=== PATIENT | female | born 1945 | race Caucasian/White ===

== ENCOUNTER 2020-01-15 12:10 | Inpatient (IN) ==
--- OUTSIDE RECORDS SUMMARY | 2020-01-15 12:15 | External Medical Summary | Continuity of Care Document ---
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 Start: 27-Mar-2018 Quantity: 20 Refills: 0 ALPRAZolam 1 MG Oral Tablet; TAKE 1 TABLET 3 TIMES DAILY NEEDED. Start: 27-Mar-2018 Refills: 0 Morphine Sulfate ER 15 MG Oral Tablet Ex tended Release; Take one tab by mouth 2 times a day Start: 27-Mar-2018 Refills: 0 Jantoven 5 MG Oral Tablet; TAKE 1 TABLET DAILY DIRECTED. Start: 27-Mar-2018 Refills: 0 Synthroid 100 MCG Oral Tablet; TAKE 1 TA BLET DAILY, 30 minutes prior to breakfast or other medications Start: 27-Mar-2018 Refills: 0 Loratadine 10 MG Oral Capsule; daily Sta rt: 27-Mar-2018 Refills: 0 Esomeprazole Magnesium 20 MG Oral Capsul e Delayed Release; TAKE 1 CAPSULE ONCE DAILY. Start: 27-Mar-2018 Refills: 0 Cyclobenzaprine HCl - 10 MG Oral Tablet; 1 tab daily as needed for muscle spasms Start: 27-Mar-2018 Refills: 0 predniSONE 20 MG Oral Tablet; as directed, Start: 27-Mar-2018 Refills: 0 Meclizine HCl - 25 MG Oral Tablet; TAKE 1 TABLET 3 TIMES JEREMY LY NEEDED. Start: 27-Mar-2018 Quantity: 90 Refills: 3 Lisinopril 20 MG Oral Tablet; daily Star t: 27-Mar-2018 Refills: 0 15 Tablet Bottle Diclofenac Sodium 1 % Transdermal Gel; A pply 4 gm topically on the skin two times a day to knees as directed Start: 27-Mar-2018 Refills: 0 100 GM Tube Atenolol 25 MG Oral Tablet; TAKE 1 TABLET DAILY. Start: 27-Mar-2018 Refills: 0 45 Tablet Bottle amLODIPine Besylate 5 MG Oral Tablet; TAKE 1 TABLET DAILY. Start: 27-Mar-2018 Quantity: 30 Refills: 5 Potassium Chloride ER 10 MEQ Oral Capsul e Extended Release; take 1 tab by mouth every other day Start: 27-Mar-2018 Refills: 0 Furosemide 20 MG Oral Tablet; Twice per week Start: 27-Mar-2018 Refills: 0 Ferrous Sulfate 325 (65 Fe) MG Oral Tabl et; take 1 tab by mouth 2 times a day with food Start: 27-Mar-2018 Refills: 0 Aspirin Low Dose 81 MG Oral Tablet Delayed Release; TAKE 1 T ABLET DAILY. Start: 27-Mar-2018 Refills: 0 Velazquez Milk of Magnesia 400 MG/5ML Oral Suspension; USE DIRECTED. Start: 27-Mar-2018 Refills: 0 118 ML Bottle Fish Oil 1000 MG Oral Capsule; daily Sta rt: 27-Mar-2018 Refills: 0 Vitamin D 1000 UNIT TABS; 2 Capsules Daily Start: 27-Mar-2018 Refills: 0 Procedures History of Carotid Thromboendarterectomy Status: Completed 15-Sep-2010 0:00 History of Thoracotomy Status: Completed 25-Jan-2007 0:00 History of Thyroid Surgery Total Thyroidectomy Status: Completed History of Gallbladder Surgery Status: C ompleted History of Biopsy Of Liver Status: Compl eted History of Endoscopic Retrograde Status: Completed Cholangiopancreatography (ERCP) History of Cholecystectomy With Common Bile Duct Status: Completed Exploration History of Complete Colonoscopy Status: Completed History of Cataract Surgery Status: Comp leted Immunizations Immunizations not documented Family History Mother Family history of malignant neoplasm of uterus (V16.49) (Z80 .49) Status: Active Family history of hypertension (V17.49) (Z82.49) Status: Act malathi Family history of cerebrovascular accident (CVA) (V17.1) (Z8 2.3) Status: Active Grandmother Family history of malignant neoplasm of breast (V16.3) (Z80. 3) Status: Active Sister Family history of diabetes mellitus (V18.0) (Z83.3) Status: Active Brother Family history of diabetes mellitus (V18.0) (Z83.3) Status: Active Father Family history of cardiac disorder (V17.49) (Z82.49) Status: Active aunt Family history of cardiac disorder (V17.49) (Z82.49) Status: Active Social History - Smoking Status Ex-smoker Plan of Treatment Planned Observations Planned Goals not documented Results No Known Results Results not documented Encounters Appointment; Jeremiah White M.D. 27-Mar-2018 13:50 Encounter Diagnosis: Problem not documented
[2020-01-15] MEDS ORDERED: SODIUM CHLORIDE 0.9% 1000ML 1,000 ML IV ONE (13:11)
[2020-01-15 14:13] LABS: Basophils # (auto) 0.01 K/uL (0-0.2); Basophils % (auto) 0.1 %; Hematocrit (blood only) 43.9 % (37-47); Immature Granulocytes # (auto) 0.04 K/uL (0.00-0.02); Immature Granulocytes % (auto) 0.4 %; Lymphocytes # (auto) 0.95 K/uL (1.2-3.4); Lymphocytes % (auto) 9.1 %; Mean Corpuscular Hemoglobin 31.9 pg (25-34); Mean Corpuscular Hgb Conc 34.2 g/dL (32-36); Mean Corpuscular Volume 93.4 fL (80-100); Mean Platelet Volume 10.5 fL (7.4-10.4); Monocytes # (auto) 0.86 K/uL (0.11-0.59); Monocytes % (auto) 8.2 %; Neutrophils # (auto) 8.62 K/uL (1.4-6.5); Neutrophils % (auto) 82.2 %; Platelet Count 165 K/uL (130-400); RDW Coefficient of Variation 13.5 % (11.5-14.5); RDW Standard Deviation 46.3 fL (36.4-46.3); White Blood Count 10.48 K/uL (4.8-10.8)
[2020-01-15 14:29] LABS: BUN Creatinine Ratio 17.6 (10-20); Calcium 8.6 mg/dl (8.5-10.1); Creatinine Clr Calc Pharmacy 52.3 ml/min; Est GFR (Non-African American) 61.3; Potassium 4.1 mmol/L (3.5-5.1)
--- NOTE | 2020-01-15 14:48 | CT Scan Report ---
CT OF THE LUMBAR SPINE WITHOUT IV CONTRAST CLINICAL HISTORY: Low back pain. COMPARISON STUDY: PET/CT dated 12/07/2006. TECHNIQUE: CT scan of the lumbar spine is performed from the lower thoracic spine to the sacrum. Imag es are reviewed in the axial, sagittal, and coronal planes. IV contrast was not administered for this examination. A dose lowering technique was utilized adhering to the principles of ALARA. CT DOSE: 1751.49 mGy.cm FINDINGS: The skeletal structures are osteopenic. There is a mild inferior endplate compression defor mity of L1 and superior endplate compression deformity of L2. These are age indeterminant but new fro m the 2017 PET examination. Vertebral body height is otherwise maintained. Alignment is preserved. Th e transverse and spinous processes are intact. There is no spondylolysis. No lytic or blastic lesion is seen. Small anterior and lateral marginal osteophytes are seen throughout. There is mild multileve l degenerative disc space narrowing. A small posterior disc osteophyte complex is noted at L1-L2. The re is no CT evidence of high-grade central canal stenosis. There is facet arthropathy in the lower enrrique mbar region. This likely causes mild neural foraminal stenosis at L4-L5 and L5-S1. The visualized sac rum and bony pelvis appear intact. Sclerotic change is noted in the sacroiliac joints. Fatty atrophy is noted in the paraspinous musculature. There is advanced atherosclerotic calcification and ectasia of the abdominal aorta. The kidneys demonstrate cortical atrophy. A 5 mm nonobstructing calculus is n oted on the right. IMPRESSION: 1. There are mild age indeterminant but chronic appearing compression deformities of L1 and L2 as abo ve. These are new from 2006. 2. Osteopenia and degenerative change as above. 3. Right-sided nephrolithiasis. ACT 112: Negative or not required by law. Electronically signed by: Hi Medellin M.D. 01/15/2020 2:47 PM
--- NOTE | 2020-01-15 14:51 | CT Scan Report ---
CT thoracic spine wo con CLINICAL HISTORY: 74 years-old Female presenting with back pain. TECHNIQUE: Multidetector CT of the thoracic spine was performed without the use of intravenous contra st. IV contrast: None. One or more dose lowering techniques were used consistent with the principles of ALARA (as low as reasonably achievable), including automatic exposure control, mA or kV adjustment to individual patient size, and/or use of iterative reconstruction. COMPARISON: None. CT DOSE (mGy.cm): The estimated cumulative dose is 1751.49. FINDINGS: Carrot Buncher topogram: Unremarkable. Mildly exaggerated thoracic kyphosis. Multilevel vertebral body height loss most severe at T9, which has an appearance that suggests acuity. There is moderate compression deformity at T9 with a mild to moderate compression deformity at T8 and mild compression deformity at L1. Minimal compression deform ities at T3 and T4. Remaining vertebral bodies demonstrate normal height and alignment. No retropulsi on of the posterior cortices of the compressed levels. No osseous spinal canal narrowing. Limited [place] luation of the soft tissues of the spinal canal do not demonstrate effacement. Osseous neural foramin al narrowing evident on the right at T9-10 to a mild degree. Remaining neural foramina are widely pat ent. Atherosclerosis. Extensive dependent atelectasis in the visualized portions of the lungs. There may a lso be interlobular septal thickening and added groundglass opacity. Visualized portion of the ribs i ntact. Paraspinal musculature within normal limits for age. IMPRESSION: 1. Acute appearing moderate compression deformity of T9. Correlate with point tenderness at this lev el. 2. Several additional lesser compression deformities are chronic appearing. 3. Mild neural foraminal narrowing on the right at T9-10. 4. No significant spinal canal narrowing. ACT 112: Negative or not required by law. Electronically signed by: Herb Zapien M.D. 01/15/2020 2:49 PM
--- NOTE | 2020-01-15 15:50 | XRay Report ---
XR chest 1V portable CLINICAL HISTORY: hypoxia COMPARISON STUDY: Chest radiograph March 30, 2010. FINDINGS: Moderate cardiomegaly is noted. Mild left basilar opacity favors atelectasis. There is no c onsolidation or evidence for pulmonary edema. Incidental is made of cholecystectomy clips. IMPRESSION: 1. Moderate cardiomegaly. 2. Mild left basilar opacity suggestive of atelectasis. 3. No acute findings. ACT 112: Negative or not required by law. Electronically signed by: Armando Glover M.D. 01/15/2020 3:49 PM
[2020-01-15 16:19] LABS: Appearance Urine Clear (Clear); Bilirubin Urine Negative (Negative); Blood Urine Negative (Negative); Color Urine Dark Yellow; Glucose Urine UA Negative (Negative); Ketones Urine Negative (Negative); Leukocyte Esterase Urine Negative (Negative); Nitrite Urine Negative (Negative); Protein Urine Negative (Negative); Specific Gravity Urine 1.018 (1.000-1.030); Urobilinogen Urine Negative (Negative); pH Urine 5.5 (4.5-7.5)
[2020-01-15 17:53] LABS: Prothrombin Time 55.5 Seconds (9.0-12.0)
[2020-01-15 17:57] LABS: INR 6.2 (0.9-1.1)
--- NOTE | 2020-01-15 18:08 | Emergency Department Note ---
Entered by Rupali Kirkpatrick acting as a scribe for History of Present Illness General Chief complaint: Back Injury/Pain Time Seen by Provider: 01/15/20 12:47 Source: patient History of Present Illness Provider complaint: Back Injury/Pain Onset (ago): day(s) 2 Location: back Pain Consistency: + intermittent Maximum Pain Intensity: 2 Relieved By: + none Exacerbated By: + movement Associated symptoms: + other (Urinary symptoms); no shortness of breath The patient is a 74 year old female w/ PMHx of atrial fibrillation and lung cancer who presents to the ED w/ CC of back injury/pain beginning 2 days ago. The patient states that her pain is exacerbated by movement and not relieved by anything specific. The patient notes that she takes hydrocodone and morphine at home for her pain. The patient reports experiencing urinary symptoms and her family member noted that her urine had a harsh odor. The patient denies experiencing any shortness of breath. The patient's family mentioned that the patient only has 1 lung at this time as a result of lung cancer. Home Medications Home Medications Medication Instructions Recorded Confirmed Type alprazolam 1 mg PO TID PRN 01/15/20 01/15/20 History amlodipine 2.5 mg PO DAILY 01/15/20 01/15/20 History aspirin 81 mg PO DAILY 01/15/20 01/15/20 History cholecalciferol (vitamin D3) 2,000 unit PO DAILY 01/15/20 01/15/20 History [Vitamin D3] cyclobenzaprine 10 mg PO DAILY PRN 01/15/20 01/15/20 History diclofenac sodium 4 g TOPICAL BID PRN 01/15/20 01/15/20 History docusate sodium 100 mg PO BID PRN 01/15/20 01/15/20 History [id number] [Vicks 15 ml PO UD PRN 01/15/20 01/15/20 History Nyquil Nighttime Relief] esomeprazole magnesium 20 mg PO DAILY 01/15/20 01/15/20 History ferrous sulfate 325 mg PO BIDM 01/15/20 01/15/20 History furosemide 20 mg PO MOWEFR 01/15/20 01/15/20 History hydrocodone-acetaminophen 1 tab PO Q6 PRN 01/15/20 01/15/20 History levothyroxine [Levoxyl] 100 mcg PO DAILYBB 01/15/20 01/15/20 History lisinopril 20 mg PO DAILY 01/15/20 01/15/20 History magnesium hydroxide [Milk of 30 - 60 ml PO DAILY PRN 01/15/20 01/15/20 History Magnesia] meclizine 25 mg PO TID PRN 01/15/20 01/15/20 History metoprolol succinate 12.5 mg PO DAILY 01/15/20 01/15/20 History morphine 15 mg PO BID 01/15/20 01/15/20 History omega 4-hak-esm-fish oil [Fish Oil] 1 cap PO DAILY 01/15/20 01/15/20 History potassium chloride 10 meq PO Q2D 01/15/20 01/15/20 History warfarin 2.5 mg PO QPM 01/15/20 01/15/20 History Allergies Allergy/AdvReac Type Severity Reaction Status Date / Time morphine Allergy Intermediate RASH/PRUTIT Verified 01/15/20 15:09 IS atorvastatin Allergy Unknown 0 Verified 01/15/20 15:09 escitalopram Allergy Unknown 0 Verified 01/15/20 15:09 ezetimibe Allergy Unknown 0 Verified 01/15/20 15:09 fentanyl Allergy Unknown 0 Verified 01/15/20 15:09 hydralazine Allergy Unknown SEVERELY Verified 01/15/20 15:09 FLUSHED;BURNING SENSATION;SHAKING metoclopramide Allergy Unknown 0 Verified 01/15/20 15:09 simvastatin Allergy Unknown 0 Verified 01/15/20 15:09 clarithromycin AdvReac Unknown ABD Verified 01/15/20 15:09 CRAMPING Past Med/Surg History Medical History Atrial fibrillation Lung cancer Surgical History H/O pneumonectomy Family History Other Family history non-contributory Social History Feels Safe at Home: Yes Smoking Status: Former smoker Review of Systems See HPI for pertinent positives & negatives. and A total of 10 systems reviewed and were otherwise negative Physical Exam Vital Signs Vital Signs - 24 hr 01/15/20 12:09 01/15/20 13:10 01/15/20 13:11 Temperature 36.9 C Temperature Source Oral Pulse Rate 121 H Pulse Rate [Left Finger] 103 H Pulse Strength Normal Respiratory Rate 20 18 Respiratory Effort / Characteristics Non-Labored Spontaneous Non-Labored Spontaneous Respiratory Depth Normal Normal Respiratory Pattern Regular Regular Blood Pressure 90/62 L Blood Pressure [Left Arm] 84/63 L Blood Pressure Mean 71 Blood Pressure Mean [Left Arm] 70 Blood Pressure Position Lying Blood Pressure Position [Left Arm] Lying Pulse Oximetry 80 L 93 93 Oxygen Delivery Method Room Air Nasal Cannula Nasal Cannula Oxygen Flow Rate 4 3 Sepsis Recent Fever Within 48 Hours No Sepsis New/Unexplained Change in Mental Status No Sepsis Action Taken by Nursing No Action Required 01/15/20 13:58 01/15/20 15:02 01/15/20 16:39 Temperature Temperature Source Pulse Rate Pulse Rate [Left Finger] 94 H 99 H 94 H Pulse Strength Respiratory Rate 17 18 18 Respiratory Effort / Characteristics Non-Labored Spontaneous Respiratory Depth Normal Respiratory Pattern Regular Blood Pressure Blood Pressure [Left Arm] 107/72 107/72 148/98 H Blood Pressure Mean Blood Pressure Mean [Left Arm] 83 83 114 Blood Pressure Position Blood Pressure Position [Left Arm] Lying Pulse Oximetry 95 92 94 Oxygen Delivery Method Nasal Cannula Nasal Cannula Nasal Cannula Oxygen Flow Rate 3 3 2 Sepsis Recent Fever Within 48 Hours Sepsis New/Unexplained Change in Mental Status Sepsis Action Taken by Nursing GENERAL: Well appearing, well nourished, NAD, non-toxic, nasal cannula in place, wearing glasses. EYE EXAM: Normal conjunctiva. PERRL, no anisocoria and EOM's grossly intact w/o pain. OROPHARYNX: Moist mucous membranes. Grossly normal dentition. NECK: Supple, no nuchal rigidity, no adenopathy, non-tender. No signs of meningismus. LUNGS: Decreased breath sounds right chest. Normal chest wall mechanics. HEART: NSR, no MRG. ABDOMEN: Abdomen soft, non-tender, normo-active bowel sounds, no masses, no rebound or guarding. BACK: Midline lower back pain. SKIN: No rashes and no bruising. UPPER EXTREMITIES: Upper extremities are grossly normal. LOWER EXTREMITIES: No pitting edema. No calf pain. No saddle anesthesia. Pain in back with straight leg raise. No sensory deficits. NEURO EXAM: A&O x3, cranial nerves II-XII grossly intact, normal speech, moves all 4 extremities on command w/o issue. Course Course 1252: Past medical records reviewed. The patient was evaluated in room C11B. A complete history and physical exam was performed. 1525: I spoke with the patient's family about the plan of admission and they are agreeable to it. 1713: The patient was placed back on 2L of oxygen. I spoke with EDOUARD Larson about the patient's case and Dr. Sheffield- Hospitalist will accept the patient for further evaluation. Administered Medications Discontinued Medications Sodium Chloride (Nss 1000ml) 1,000 mls @ 999 mls/hr IV .Q1H1M ONE Stop: 01/15/20 14:11 Last Infusion: 01/15/20 14:50 Dose: 0 mls/hr Documented by: [id number] Admin: 01/15/20 13:46 Dose: 999 mls/hr Documented by: [id number] Medical Decision Making Differential Diagnosis Differential diagnosis: Etiologies such as muscular strain, fracture, metastatic disease, disc herniation, sciatica, epidural abscess, vertebral osteomyelitis, discitis, spinal epidural hematoma, cord compression, cauda equina/conus medullaris syndrome, aortic disease, infection, shingles, renal colic, gastrointestinal, acute exacerbation of chronic back pain, as well as others were entertained. Medical Records Attestation: I reviewed the patient's medical records. Home Medications Current Medication List: was personally reviewed by me Laboratory Data Attestation: I reviewed the patient's lab results. Result diagrams: 01/15/20 14:00 01/15/20 14:01 Lab Results 01/15/20 01/15/20 01/15/20 Range/Units 13:57 14:00 14:01 WBC 10.48 (4.8-10.8) K/uL RBC 4.70 (4.2-5.4) M/uL Hgb 15.0 (12.0-16.0) g/dL Hct 43.9 (37-47) % MCV 93.4 (80-100) fL MCH 31.9 (25-34) pg MCHC 34.2 (32-36) g/dL RDW Std Deviation 46.3 (36.4-46.3) fL RDW Coeff of Richar 13.5 (11.5-14.5) % Plt Count 165 (130-400) K/uL MPV 10.5 H (7.4-10.4) fL Immature Gran % (Auto) 0.4 % Neut % (Auto) 82.2 % Lymph % (Auto) 9.1 % [place] % (Auto) 8.2 % Eos % (Auto) 0.0 % Baso % (Auto) 0.1 % Immature Gran # (Auto) 0.04 H (0.00-0.02) K/uL Neut # (Auto) 8.62 H (1.4-6.5) K/uL Lymph # (Auto) 0.95 L (1.2-3.4) K/uL [place] # (Auto) 0.86 H (0.11-0.59) K/uL Eos # (Auto) 0.00 (0-0.5) K/uL Baso # (Auto) 0.01 (0-0.2) K/uL PT 55.5 H (9.0-12.0) Seconds INR 6.2 H* (0.9-1.1) Sodium 133 L (136-145) mmol/L Potassium 4.1 (3.5-5.1) mmol/L Chloride 101 (98-107) mmol/L Carbon Dioxide 23 (21-32) mmol/L Anion Gap 9.0 (3-11) BUN 16 (7-18) mg/dl Creatinine 0.91 (0.6-1.2) mg/dl Est Cr Clr Drug Dosing 52.3 ml/min Est GFR ( Amer) 71.0 Est GFR (Non-Af Amer) 61.3 BUN/Creatinine Ratio 17.6 (10-20) Glucose 115 H (70-99) mg/dl Calcium 8.6 (8.5-10.1) mg/dl Urine Color Urine Appearance (Clear) Urine pH (4.5-7.5) Ur Specific [place] (1.000-1.030) Urine Protein (Negative) Urine Glucose (UA) (Negative) Urine Ketones (Negative) Urine Blood (Negative) Urine Nitrite (Negative) Urine Bilirubin (Negative) Urine Urobilinogen (Negative) Ur Leukocyte Esterase (Negative) 01/15/20 Range/Units 16:03 WBC (4.8-10.8) K/uL RBC (4.2-5.4) M/uL Hgb (12.0-16.0) g/dL Hct (37-47) % MCV (80-100) fL MCH (25-34) pg MCHC (32-36) g/dL RDW Std Deviation (36.4-46.3) fL RDW Coeff of Richar (11.5-14.5) % Plt Count (130-400) K/uL MPV (7.4-10.4) fL Immature Gran % (Auto) % Neut % (Auto) % Lymph % (Auto) % [place] % (Auto) % Eos % (Auto) % Baso % (Auto) % Immature Gran # (Auto) (0.00-0.02) K/uL Neut # (Auto) (1.4-6.5) K/uL Lymph # (Auto) (1.2-3.4) K/uL [place] # (Auto) (0.11-0.59) K/uL Eos # (Auto) (0-0.5) K/uL Baso # (Auto) (0-0.2) K/uL PT (9.0-12.0) Seconds INR (0.9-1.1) Sodium (136-145) mmol/L Potassium (3.5-5.1) mmol/L Chloride (98-107) mmol/L Carbon Dioxide (21-32) mmol/L Anion Gap (3-11) BUN (7-18) mg/dl Creatinine (0.6-1.2) mg/dl Est Cr Clr Drug Dosing ml/min Est GFR ( Amer) Est GFR (Non-Af Amer) BUN/Creatinine Ratio (10-20) Glucose (70-99) mg/dl Calcium (8.5-10.1) mg/dl Urine Color Dark Yellow Urine Appearance Clear (Clear) Urine pH 5.5 (4.5-7.5) Ur Specific [place] 1.018 (1.000-1.030) Urine Protein Negative (Negative) Urine Glucose (UA) Negative (Negative) Urine Ketones Negative (Negative) Urine Blood Negative (Negative) Urine Nitrite Negative (Negative) Urine Bilirubin Negative (Negative) Urine Urobilinogen Negative (Negative) Ur Leukocyte Esterase Negative (Negative) Imaging Data Radiologist's Impression: Radiology results as stated below per my review and the radiologist's interpretation: CT OF THE LUMBAR SPINE WITHOUT IV CONTRAST CLINICAL HISTORY: Low back pain. COMPARISON STUDY: PET/CT dated 12/07/2006. TECHNIQUE: CT scan of the lumbar spine is performed from the lower thoracic spine to the sacrum. Images are reviewed in the axial, sagittal, and coronal planes. IV contrast was not administered for this examination. A dose lowering technique was utilized adhering to the principles of ALARA. CT DOSE: 1751.49 mGy.cm FINDINGS: The skeletal structures are osteopenic. There is a mild inferior endplate compression deformity of L1 and superior endplate compression deformity of L2. These are age indeterminant but new from the 2017 PET examination. Vertebral body height is otherwise maintained. Alignment is preserved. The transverse and spinous processes are intact. There is no spondylolysis. No lytic or blastic lesion is seen. Small anterior and lateral marginal osteophytes are seen throughout. There is mild multilevel degenerative disc space narrowing. A small posterior disc osteophyte complex is noted at L1-L2. There is no CT evidence of high-grade central canal stenosis. There is facet arthropathy in the lower lumbar region. This likely causes mild neural foraminal stenosis at L4-L5 and L5-S1. The visualized sacrum and bony pelvis appear intact. Sclerotic change is noted in the sacroiliac joints. Fatty atrophy is noted in the paraspinous musculature. There is advanced atherosclerotic calcification and ectasia of the abdominal aorta. The kidneys demonstrate cortical atrophy. A 5 mm nonobstructing calculus is noted on the right. IMPRESSION: 1. There are mild age indeterminant but chronic appearing compression deformities of L1 and L2 as above. These are new from 2006. 2. Osteopenia and degenerative change as above. 3. Right-sided nephrolithiasis. ACT 112: Negative or not required by law. Electronically signed by: Hi Medellin M.D. 01/15/2020 2:[address] thoracic spine wo con CLINICAL HISTORY: 74 years-old Female presenting with back pain. TECHNIQUE: Multidetector CT of the thoracic spine was performed without the use of intravenous contrast. IV contrast: None. One or more dose lowering techniques were used consistent with the principles of ALARA (as low as reasonably achievable), including automatic exposure control, mA or kV adjustment to individual patient size, and/or use of iterative reconstruction. COMPARISON: None. CT DOSE (mGy.cm): The estimated cumulative dose is 1751.49. FINDINGS: Slot Host topogram: Unremarkable. Mildly exaggerated thoracic kyphosis. Multilevel vertebral body height loss most severe at T9, which has an appearance that suggests acuity. There is moderate compression deformity at T9 with a mild to moderate compression deformity at T8 and mild compression deformity at L1. Minimal compression deformities at T3 and T4. Remaining vertebral bodies demonstrate normal height and alignment. No retropulsion of the posterior cortices of the compressed levels. No osseous spinal canal narrowing. Limited evaluation of the soft tissues of the spinal canal do not demonstrate effacement. Osseous neural foraminal narrowing evident on the right at T9-10 to a mild degree. Remaining neural foramina are widely patent. Atherosclerosis. Extensive dependent atelectasis in the visualized portions of the lungs. There may also be interlobular septal thickening and added groundglass opacity. Visualized portion of the ribs intact. Paraspinal musculature within normal limits for age. IMPRESSION: 1. Acute appearing moderate compression deformity of T9. Correlate with point tenderness at this level. 2. Several additional lesser compression deformities are chronic appearing. 3. Mild neural foraminal narrowing on the right at T9-10. 4. No significant spinal canal narrowing. ACT 112: Negative or not required by law. Electronically signed by: Herb Zapien M.D. 01/15/2020 2:49 PM Blood Pressure Blood Pressure Findings: Normal blood pressure Blood Pressure Disposition: further management by hospitalist MADELYN Narrative The patient is a 74 year old female w/ PMHx of atrial fibrillation and lung cancer who presents to the ED w/ CC of back injury/pain beginning 2 days ago. Continuous Cardiac Monitoring: An order was placed for continuous cardiac monitoring. The monitor shows a rate of 103 with sinus rhythm. Patient was seen and evaluated at the bedside. The patient reportedly had worsening back pain beginning on Tuesday. The patient is on p.o. narcotics at home. Was given some narcotics in route. The patient was shown to be somewhat hypoxic. The patient does follow with her primary surgeon Dr. Riggins daily as the patient has a prior history of a Pulmon ectomy on the right side. This is secondary to lung cancer. The patient does not use oxygen at home. The patient did a blood work completed as the patient does have some lower lumbar midline back pain. They also did state that she has a history of smelling urine A. fib and is currently treated and does see Dr. Loredo. Patient did have blood work completed along with urinalysis EKG and CTs of the thoracic and lumbar spine. Does not have any neurologic deficits in her lower extremities. Patient does have an acute along with may be a subacute compression fractures of the lumbar spine. The patient does have notable hypoxia this may be chronic in nature given that the patient has a prior history of a pulmonary to me but given that she has not had any prior history of documented this or any at home oxygen I believe she would benefit from further treatment as an inpatient. I did try to wean the patient off the oxygen but the patient was still hypoxic. Chest x- ray is clear other than some atelectasis. I did speak with the on-call hospitalist agreed to further evaluate treat the patient. Patient was admitted to the medicine service. Impression & Plan Hypoxia, Fracture of T9 vertebra, Fracture of L1 vertebra, Fracture of L2 vertebra, Back pain Discharge Plan Visit Data Chief Complaint: Back Injury/Pain ED Provider: Martell Avitia Discharge Problem: Hypoxia, Fracture of T9 vertebra, Fracture of L1 vertebra, Fracture of L2 vertebra, Back pain Forms Stand Alone Forms: My [facility] Prescriptions Prescriptions: No Action cyclobenzaprine 10 mg tablet 10 mg PO DAILY PRN (Reason: Muscle Spasm) RF: 0 alprazolam 1 mg tablet 1 mg PO TID PRN (Reason: Anxiety) RF: 0 lisinopril 20 mg tablet 20 mg PO DAILY RF: 0 amlodipine 2.5 mg tablet 2.5 mg PO DAILY RF: 0 potassium chloride 10 mEq tablet extended release 10 meq PO Q2D RF: 0 aspirin 81 mg Tablet,Delayed Release (Dr/Ec) 81 mg PO DAILY RF: 0 levothyroxine [Levoxyl] 100 mcg tablet 100 mcg PO DAILYBB RF: 0 magnesium hydroxide [Milk of Magnesia] 400 mg/5 mL Suspension 30 - 60 ml PO DAILY PRN (Reason: Constipation) RF: 0 meclizine 25 mg tablet 25 mg PO TID PRN (Reason: Dizziness) RF: 0 hydrocodone-acetaminophen 7.5-325 mg tablet 1 tab PO Q6 PRN (Reason: Pain) RF: 0 ferrous sulfate 325 mg (65 mg iron) tablet 325 mg PO BIDM RF: 0 warfarin 5 mg tablet 2.5 mg PO QPM RF: 0 morphine 15 mg tablet extended release 15 mg PO BID RF: 0 furosemide 20 mg tablet 20 mg PO MOWEFR RF: 0 metoprolol succinate 25 mg tablet extended release 24 hr 12.5 mg PO DAILY RF: 0 docusate sodium 100 mg Tablet 100 mg PO BID PRN (Reason: Constipation) RF: 0 esomeprazole magnesium 20 mg capsule,delayed release(DR/EC) 20 mg PO DAILY RF: 0 cholecalciferol (vitamin D3) [Vitamin D3] 25 mcg (1,000 unit) Capsule 2,000 unit PO DAILY RF: 0 diclofenac sodium 1 % gel 4 g TOPICAL BID PRN (Reason: Pain) RF: 0 omega 3-ilv-lxc-fish oil [Fish Oil] 1,000 mg (120 mg-180 mg) Capsule 1 cap PO DAILY RF: 0 [place] Nyquil Nighttime Relief 6.25-15-325 mg/15 mL Liquid 15 ml PO UD PRN (Reason: PRN) RF: 0 Discharge Problem: Fracture of T9 vertebra Qualifiers: Encounter type: initial encounter Fracture type: closed Fracture morphology: unspecified fracture morphology Qualified Code(s): S22.079A - Unspecified fracture of T9-T10 vertebra, initial encounter for closed fracture Fracture of L1 vertebra Qualifiers: Encounter type: initial encounter Fracture type: closed Fracture morphology: unspecified fracture morphology Qualified Code(s): S32.019A - Unspecified fracture of first lumbar vertebra, initial encounter for closed fracture Fracture of L2 vertebra Qualifiers: Encounter type: initial encounter Fracture type: closed Fracture morphology: unspecified fracture morphology Qualified Code(s): S32.029A - Unspecified fracture of second lumbar vertebra, initial encounter for closed fracture Back pain Qualifiers: Back pain location: back pain in unspecified location Chronicity: unspecified B ack pain laterality: unspecified Qualified Code(s): M54.9 - Dorsalgia, unspecified The scribe's documentation has been prepared under my direction and personally reviewed by me in its entirety. I confirm that the note above accurately reflects all work, treatment, procedures, and medical decision making performed by me.
--- NOTE | 2020-01-15 19:01 | History & Physical Report ---
Date of Service January 15, 2020 Assessment & Plan (1) Compression fracture: -Admit to [facility] with telemetry -Patient presenting from home with reports of intractable back pain for the past 3 days. Patient reports she heard a "pop" while carrying a flowerpot. -In the ED, CT thoracic and lumbar spine shows age-indeterminate compression fracture at L1 and L2, acute compression fracture at T9 -Pain control (patient taking MS Contin 50 mg twice daily and as needed hydrocodone/acetaminophen at home -these doses will be continued, PRN IV morphine ordered for severe pain -Check vitamin D level -Spine Ortho consult -PT/OT (2) Hypoxia: -Found to be hypoxic on room air at 80% -? Due to IV narcotics received for EMS; denies chest pain and shortness of breath -History of right upper lobe lobectomy -CXR negative for acute cardiopulmonary findings -Doubt PE given supratherapeutic INR -Wean O2 as able (3) Chronic atrial fibrillation: (4) Supratherapeutic INR: -Rate controlled on metoprolol, will continue -Anticoagulated on Coumadin with INR 6.2; no signs of bleeding, hold Coumadin tonight (5) Hypertension: -BP controlled, continue amlodipine, metoprolol, lisinopril (6) DVT prophylaxis: -Anticoagulated on Coumadin with supratherapeutic INR History of Present Illness Chief Complaint: Back pain Primary Care Provider: Chano Pierre MD 74-year-old female who presents the ED for evaluation of back pain. Patient reports history of chronic back pain. 3 days ago, patient reports she was carrying a flowerpot when she heard something in her mid back " pop". She then had sudden onset of severe pain. Since that time, patient has been having much difficulty getting up out of bed and ambulating. She denies lower extremity numbness or tingling. No bowel or bladder dysfunction. Patient reports he otherwise been feeling well recently. Denies chest pain or shortness of breath. No lightheadedness, dizziness, diaphoresis, syncopal events. She denies abdominal pain, nausea, vomiting, diarrhea. No fevers or chills. Notes that her urine has been concentrated with a foul odor the past couple of days. Denies dysuria. In the ED, CT thoracic spine shows an acute compression fracture at T9, CT lumbar spine shows age-indeterminate compression fractures at L1 and L2. Patient was hypoxic on room air in the 80s. She denies shortness of breath. CXR is negative for acute cardiopulmonary findings. She is now saturating well on 1 L of oxygen at the time my exam. Labs show a supratherapeutic INR at 6.2, otherwise unremarkable. Allergies Allergy/AdvReac Type Severity Reaction Status Date / Time morphine Allergy Intermediate RASH/PRUTIT Verified 01/15/20 15:09 IS atorvastatin Allergy Unknown 0 Verified 01/15/20 15:09 escitalopram Allergy Unknown 0 Verified 01/15/20 15:09 ezetimibe Allergy Unknown 0 Verified 01/15/20 15:09 fentanyl Allergy Unknown 0 Verified 01/15/20 15:09 hydralazine Allergy Unknown SEVERELY Verified 01/15/20 15:09 FLUSHED;BURNING SENSATION;SHAKING metoclopramide Allergy Unknown 0 Verified 01/15/20 15:09 simvastatin Allergy Unknown 0 Verified 01/15/20 15:09 clarithromycin AdvReac Unknown ABD Verified 01/15/20 15:09 CRAMPING Home Medications Home Medications Medication Instructions Recorded Confirmed Type alprazolam 1 mg PO TID PRN 01/15/20 01/15/20 History amlodipine 2.5 mg PO DAILY 01/15/20 01/15/20 History aspirin 81 mg PO DAILY 01/15/20 01/15/20 History cholecalciferol (vitamin D3) 2,000 unit PO DAILY 01/15/20 01/15/20 History [Vitamin D3] cyclobenzaprine 10 mg PO DAILY PRN 01/15/20 01/15/20 History diclofenac sodium 4 g TOPICAL BID PRN 01/15/20 01/15/20 History docusate sodium 100 mg PO BID PRN 01/15/20 01/15/20 History mytedrtzzd-ME-ufhzsdstrrdgm [Vicks 15 ml PO UD PRN 01/15/20 01/15/20 History Nyquil Nighttime Relief] esomeprazole magnesium 20 mg PO DAILY 01/15/20 01/15/20 History ferrous sulfate 325 mg PO BIDM 01/15/20 01/15/20 History furosemide 20 mg PO MOWEFR 01/15/20 01/15/20 History hydrocodone-acetaminophen 1 tab PO Q6 PRN 01/15/20 01/15/20 History levothyroxine [Levoxyl] 100 mcg PO DAILYBB 01/15/20 01/15/20 History lisinopril 20 mg PO DAILY 01/15/20 01/15/20 History magnesium hydroxide [Milk of 30 - 60 ml PO DAILY PRN 01/15/20 01/15/20 History Magnesia] meclizine 25 mg PO TID PRN 01/15/20 01/15/20 History metoprolol succinate 12.5 mg PO DAILY 01/15/20 01/15/20 History morphine 15 mg PO BID 01/15/20 01/15/20 History omega 8-yub-kbh-fish oil [Fish Oil] 1 cap PO DAILY 01/15/20 01/15/20 History potassium chloride 10 meq PO Q2D 01/15/20 01/15/20 History warfarin 2.5 mg PO QPM 01/15/20 01/15/20 History Past Med/Surg History Medical History Chronic anticoagulation Chronic atrial fibrillation Chronic pain Dyslipidemia GERD (gastroesophageal reflux disease) History of lung cancer Hypertension Iron deficiency anemia Post-surgical hypothyroidism Surgical History H/O pneumonectomy Right upper lobe secondary to lung cancer H/O thyroidectomy History of carotid endarterectomy Right Hx of cholecystectomy Family History Mother Stroke Father Heart disease Social History Preferred Language: Belizean 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 Ability: Effective 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 Beliefs That Will Affect Care: None marital status: / Current Living Situation: Alone Other Information That Helps Us Care for You: No Feels Safe at Home: Yes Safety Concerns: Feels Safe At This Time Smoking Status: Never smoker Hx Alcohol Use: Yes Alcohol type: wine Hx Substance Use: No Review of Systems Review of Systems: ROS per HPI, all other systems reviewed and negative Physical Exam Constitutional: WD/WN, vitals as above Eyes: PERRL, conjunctivae normal, anicteric sclerae ENMT: external ear and nose normal, oropharynx normal Respiratory: normal respiratory effort, lungs clear to auscultation Cardiovascular: Rate/Rhythm: regular rate and regular rhythm Vessels: normal peripheral pulses Extremities: no edema Gastrointestinal (Abdomen): normal bowel sounds, soft, nontender, no hepatosplenomegaly Musculoskeletal: no cyanosis or clubbing, extremities motor strength 5/5 pedal pushes and pulls strong BL, able to lift both legs against resistance Skin: no rashes, warm and dry Neurologic: PERRL, EOMI, accommodation nl, no face palsy, no dysarthria Psychiatric: A+Ox3, euthymic affect Results & Data Vital Signs (Past 12 Hours) Vital Signs Temp Pulse Pulse Resp BP BP Pulse Ox 01/15/20 18:28 88 18 112/67 92 01/15/20 16:39 94 H 18 148/98 H 94 01/15/20 15:02 99 H 18 107/72 92 01/15/20 13:58 94 H 17 107/72 95 01/15/20 13:11 103 H 18 84/63 L 93 01/15/20 13:10 93 01/15/20 12:09 36.9 C 121 H 20 90/62 L 80 L Laboratory Results Short CBC 01/15/20 Range/Units 14:00 WBC 10.48 (4.8-10.8) K/uL Hgb 15.0 (12.0-16.0) g/dL Hct 43.9 (37-47) % Plt Count 165 (130-400) K/uL BMP 01/15/20 14:01 Sodium 133 L Potassium 4.1 Chloride 101 Carbon Dioxide 23 BUN 16 Creatinine 0.91 Glucose 115 H Calcium 8.6 Urine 01/15/20 Range/Units 16:03 Urine Color Dark Yellow Urine Appearance Clear (Clear) Urine pH 5.5 (4.5-7.5) Ur Specific [place] 1.018 (1.000-1.030) Urine Protein Negative (Negative) Urine Glucose (UA) Negative (Negative) Diagnostic Findings CXR IMPRESSION: 1. Moderate cardiomegaly. 2. Mild left basilar opacity suggestive of atelectasis. 3. No acute findings. THORACIC SPINE CT IMPRESSION: 1. Acute appearing moderate compression deformity of T9. Correlate with point tenderness at this level. 2. Several additional lesser compression deformities are chronic appearing. 3. Mild neural foraminal narrowing on the right at T9-10. 4. No significant spinal canal narrowing. LUMBAR SPINE CT IMPRESSION: 1. There are mild age indeterminant but chronic appearing compression deformities of L1 and L2 as above. These are new from 2007. 2. Osteopenia and degenerative change as above. 3. Right-sided nephrolithiasis. Code Status & VTE Plan Code Status Patient is a full code as per my discussion with her. VTE Prophylaxis Plan VTE Prophylaxis will be ordered: No Supervising Physician Co-Signing Physician Notes Attending Addendum: The patient was seen and examined in ER in presence of the family members She presented to ER with acute back pain without any radiation which happened without any significant injury and/or weightbearing She was complaining of pain during examination of the upper back Denied any other significant symptoms On examination Lying in bed comfortably Hemodynamically stable Chest was clear to auscultate bilaterally HeartS1-S2 regular Abdomenbenign Extremitiesno edema Localized tenderness lower thoracic area of the spine CNSalert, awake and oriented x3 No focal sensory or motor deficit appreciated Admission labs and imaging studies reviewed Has acute compression fracture at T9 with age indeterminate compression fractures at L1 and L2 Control of pain, Ortho evaluation and PT and OT evaluation Agree with assessment and plan as outlined above by Calli Sheffield
[2020-01-15] MEDS ORDERED: DOCUSATE SODIUM 100 MG CAP PO PRN (20:21)
[2020-01-15] MEDS: ACETAMINOPHEN 325 MG TAB PO SCH (20:53)
[2020-01-15] MEDS: POTASSIUM CHLORIDE 10 MEQ TABCR PO SCH (20:53)
[2020-01-15] MEDS: MoRPHine SULFATE CR 15 MG TABCR PO SCH (20:53)
[2020-01-15] MEDS: HYDROCODONE/ACETAMINOPHEN 7.5/325MG TAB PO PRN (21:27)
[2020-01-16] MEDS: ACETAMINOPHEN 325 MG TAB PO SCH ×4 (01:24→20:10)
[2020-01-16] MEDS: MoRPHine SULFATE 4 MG/ML 1 ML CARP\\VIAL IV PRN ×3 (06:10→21:57)
[2020-01-16] MEDS: LEVOTHYROXINE SODIUM 100 MCG TABLET PO SCH (06:11)
[2020-01-16 07:38] LABS: Hematocrit (blood only) 46.1 % (37-47); Hemoglobin 15.5 g/dL (12.0-16.0); Mean Corpuscular Hemoglobin 31.8 pg (25-34); Mean Corpuscular Hgb Conc 33.6 g/dL (32-36); Mean Corpuscular Volume 94.5 fL (80-100); Mean Platelet Volume 10.3 fL (7.4-10.4); Platelet Count 133 K/uL (130-400); RDW Coefficient of Variation 13.6 % (11.5-14.5); RDW Standard Deviation 46.9 fL (36.4-46.3); Red Blood Count 4.88 M/uL (4.2-5.4); White Blood Count 6.39 K/uL (4.8-10.8)
[2020-01-16 07:56] LABS: Prothrombin Time 55.9 Seconds (9.0-12.0)
[2020-01-16 08:10] LABS: INR 6.2 (0.9-1.1)
[2020-01-16 08:12] LABS: BUN Creatinine Ratio 18.3 (10-20); Calcium 9.1 mg/dl (8.5-10.1); Creatinine Clr Calc Pharmacy 52.4 ml/min; Est GFR (Non-African American) 62.1
[2020-01-16] MEDS: HYDROCODONE/ACETAMINOPHEN 7.5/325MG TAB PO PRN (08:45)
[2020-01-16] MEDS: lisinopriL 20 MG TAB PO SCH (08:46)
[2020-01-16] MEDS: METOPROLOL SUCC 25MG EXT REL TAB PO SCH (08:46)
[2020-01-16] MEDS: OMEGA-3 (PURIFIED FISH OIL) 1 GM CAP PO SCH (08:46)
[2020-01-16] MEDS: MoRPHine SULFATE CR 15 MG TABCR PO SCH ×2 (08:46→20:10)
[2020-01-16] MEDS: AMLODIPINE BESYLATE 5 MG TAB PO SCH (08:47)
[2020-01-16] MEDS: CHOLECALCIFEROL 1,000 UNITS 25 MCG TAB PO SCH (08:47)
[2020-01-16] MEDS: FERROUS SULFATE 325 MG TAB PO SCH ×2 (08:47→16:29)
[2020-01-16] MEDS: FUROSEMIDE 20 MG TAB PO SCH (08:48)
[2020-01-16] MEDS: PANTOprazole 40 MG TAB PO SCH (08:51)
[2020-01-16] MEDS ORDERED: ASPIRIN 81 MG ECTAB PO SCH (09:00)
[2020-01-16] MEDS ORDERED: ALBUT/IPRATROP 3MG/0.5MG NEB 3 ML VIAL NEB PRN (15:24)
[2020-01-16] MEDS ORDERED: GUAIFENESIN/DEXTROM SYRUP 200MG/20MG 10ML UDC PO PRN (15:25)
[2020-01-16] MEDS ORDERED: MAGNESIUM HYDROXIDE SUSP 30 ML UDC PO ONE (15:29)
[2020-01-16] MEDS ORDERED: MAGNESIUM HYDROXIDE SUSP 30 ML UDC PO PRN (15:30)
--- NOTE | 2020-01-16 15:34 | Hospitalist Progress Note ---
Date of Service January 16, 2020 Assessment & Plan (1) Compression fracture: Admitted with pathologic compression fracture of T9 -Patient presenting from home with reports of intractable back pain for the past 3 days. Patient reports she heard a "pop" while carrying a flowerpot. T9 spontaneous fracture T9 vertebrae Occurred without any trauma, no significant weightbearing -CT thoracic and lumbar spine :acute compression fracture at T9 age-indeterminate compression fracture at L1 and L2, -Pain control (patient taking MS Contin 50 mg twice daily and as needed hydrocodone/acetaminophen at home -these doses will be continued, PRN IV morphine ordered for severe pain -Spine Ortho consult-Consulted -PT/OT-Eval appreciated, recommend rehab Constipation: Has chronic constipation-due to narcotic pain medications: Takes MiraLAX as needed at home Ordered for Colace, increased dose of MiraLAX, Will add as needed Dulcolax, senna if no bowel movement after above bowel regimen Patient denies of any abdominal pain, no nausea, no bloating (2) Hypoxia: -Found to be hypoxic on room air at 80% -? Due to IV narcotics received for EMS; denies chest pain and shortness of breath -History of right upper lobe lobectomy -CXR negative for acute cardiopulmonary findings Order for a flutter valve, incentive spirometry:Patient unable to take deep breaths secondary to back pain/T9 compression fracture Wean down O2 Bronchitis/cough Has nonproductive cough worse in the last 2 days, no fever or chills no shortness of breath Episode Of hypoxia noted, improving We will start on empirically on p.o. doxycycline 5 days course (3) Chronic atrial fibrillation: Rate controlled on metoprolol will be continued Coumadin on hold for elevated INR more than 6 (4) Supratherapeutic INR: On admission INR 6.1, Coumadin on hold, repeat INR is 6.2 Ordered for 2.5 mg of p.o. vitamin K, repeat INR in a.m. Urinary retention Acute, Large amount of residual urine noted on bladder scan Patient required to have a straight cath last night Ordered for Stephenson catheter Ordered for UA and culture Urology consulted (5) Hypertension: -BP controlled, continue amlodipine, metoprolol, lisinopril (6) DVT prophylaxis: supratherapeutic INR CODE STATUS: Full code Disposition: Patient will need to go to rehab, willing to go to [facility] family, case management updated Admission and Anticipated Discharge Date Admission Date: January 15, 2020 Subjective Patient has nonproductive cough, No fever or chills, back pain persist-No pain at rest, worse pain with movement, transfer Unable to urinate/void this morning, bladder scan shows more than 600 mL of urine Stephenson catheter placed Patient Complaints of not able to have bowel movement for the last 3-4 days, has chronic constipation No complaint of abdominal pain no nausea vomiting tolerating diet well Patient is willing to go to rehab after discharge from hospital Patient's 2 sons present at bedside, Review of Systems Review of Systems: All systems reviewed & are unremarkable except as noted in HPI & below Constitutional: no fever and no chills Respiratory: + cough; no dyspnea, no pain with cough and no sputum production Cardiovascular: no chest pain Genitourinary: + problem reported (Urinary retention) Musculoskeletal: no radicular pain and no muscle weakness Low back pain, Physical Exam Constitutional: WD/WN, vitals as above + obese; no acute distress Eyes: PERRL, conjunctivae normal, anicteric sclerae ENMT: external ear and nose normal, oropharynx normal Neck: trachea midline, no thyromegaly Respiratory: normal respiratory effort and + cough; no respiratory distress Auscultation: no crackles, no rales, no rhonchi and no wheezes Cardiovascular: RRR, no murmur, no edema Gastrointestinal (Abdomen): Inspection/Auscultation: normal bowel sounds; abdomen not distended Percussion/Palpation: abdomen soft; abdomen nontender Musculoskeletal: Extremities: extremities normal to inspection and + abnormal strength; no joint enlargement Low back pain/point tenderness around mid thoracic area Skin: no rashes, warm and dry Neurologic: PERRL, EOMI, accommodation nl, no face palsy, no dysarthria Psychiatric: A+Ox3, euthymic affect Results & Data ([facility]) Vital Signs (Past 12 Hours) Vital Signs Temp Pulse Resp BP BP Pulse Ox 01/16/20 15:12 36.9 C 88 20 122/86 94 01/16/20 07:24 36.9 C 93 H 18 144/84 H 96
--- NOTE | 2020-01-16 15:40 | Consultation ---
Date of Consultation January 16, 2020 Assessment & Plan (1) Compression fracture: Patient appears to have an acute T9 fracture without specific accident, trauma, fall. Options have been reviewed including conservative treatment versus kyphoplasty. She is certainly very high risk for kyphoplasty/any surgical procedure. This is in light of her multiple medical comorbidities including supratherapeutic INR, pneumonectomy, severe osteoporosis/osteopenia making her at greater risk for adjacent level fractures. We have therefore discussed continuing with conservative treatment. This includes pain control. She is weight-bear as tolerated. Would not fit her with a brace due to her pneumonectomy. This will be quite restrictive for her. Would also consider social media analyst consult with possible referral to acute rehab versus SNF for short period of time. Supervising Physician Co-Signing Physician Notes Dr. Ramo Hernandez History of Present Illness This is a pleasant 74-year-old female we are asked to see in consultation regarding a compression fracture. Patient has chronic pain which she is on chronic narcotics for. She reports 3 days ago she was lifting up a pot and then started to experience thoracolumbar pain. No radiating pain. She alternates between a cane and a walker at home. She lives at home independently. Denies radicular pain. Is currently catheterized secondary to urinary retention. She came into the ER yesterday secondary to her intractable back pain. Attending Physician: Brianna Waldron MD Allergies Allergy/AdvReac Type Severity Reaction Status Date / Time morphine Allergy Intermediate RASH/PRUTIT Verified 01/15/20 15:09 IS atorvastatin Allergy Unknown 0 Verified 01/15/20 15:09 escitalopram Allergy Unknown 0 Verified 01/15/20 15:09 ezetimibe Allergy Unknown 0 Verified 01/15/20 15:09 fentanyl Allergy Unknown 0 Verified 01/15/20 15:09 hydralazine Allergy Unknown SEVERELY Verified 01/15/20 15:09 FLUSHED;BURNING SENSATION;SHAKING metoclopramide Allergy Unknown 0 Verified 01/15/20 15:09 simvastatin Allergy Unknown 0 Verified 01/15/20 15:09 clarithromycin AdvReac Unknown ABD Verified 01/15/20 15:09 CRAMPING Home Medications Home Medications Medication Instructions Recorded Confirmed Type alprazolam 1 mg PO TID PRN 01/15/20 01/15/20 History amlodipine 2.5 mg PO DAILY 01/15/20 01/15/20 History aspirin 81 mg PO DAILY 01/15/20 01/15/20 History cholecalciferol (vitamin D3) 2,000 unit PO DAILY 01/15/20 01/15/20 History [Vitamin D3] cyclobenzaprine 10 mg PO DAILY PRN 01/15/20 01/15/20 History diclofenac sodium 4 g TOPICAL BID PRN 01/15/20 01/15/20 History docusate sodium 100 mg PO BID PRN 01/15/20 01/15/20 History ugfxoesept-ME-jraubpcwknosz [Vicks 15 ml PO UD PRN 01/15/20 01/15/20 History Nyquil Nighttime Relief] esomeprazole magnesium 20 mg PO DAILY 01/15/20 01/15/20 History ferrous sulfate 325 mg PO BIDM 01/15/20 01/15/20 History furosemide 20 mg PO MOWEFR 01/15/20 01/15/20 History hydrocodone-acetaminophen 1 tab PO Q6 PRN 01/15/20 01/15/20 History levothyroxine [Levoxyl] 100 mcg PO DAILYBB 01/15/20 01/15/20 History lisinopril 20 mg PO DAILY 01/15/20 01/15/20 History magnesium hydroxide [Milk of 30 - 60 ml PO DAILY PRN 01/15/20 01/15/20 History Magnesia] meclizine 25 mg PO TID PRN 01/15/20 01/15/20 History metoprolol succinate 12.5 mg PO DAILY 01/15/20 01/15/20 History morphine 15 mg PO BID 01/15/20 01/15/20 History omega 4-bzs-jyx-fish oil [Fish Oil] 1 cap PO DAILY 01/15/20 01/15/20 History potassium chloride 10 meq PO Q2D 01/15/20 01/15/20 History warfarin 2.5 mg PO QPM 01/15/20 01/15/20 History Patient History Medical History Chronic anticoagulation Chronic atrial fibrillation Chronic pain Dyslipidemia GERD (gastroesophageal reflux disease) History of lung cancer Hypertension Iron deficiency anemia Post-surgical hypothyroidism Surgical History H/O pneumonectomy Right upper lobe secondary to lung cancer H/O thyroidectomy History of carotid endarterectomy Right Hx of cholecystectomy Family History Mother Stroke Father Heart disease Social History Preferred Language: Armenian 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 Ability: Effective 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 She is alert and oriented x3. She is in no obvious distress. Patient refuses to roll over or sit up in anticipation of pain. Strength is 5 5 bilateral EHL, dorsiflexion, plantarflexion, quad sets, hamstrings bilaterally. Negative tension signs bilaterally Negative logrolling bilaterally. Constitutional: well developed Eyes: normal visual eubanks by confrontation ENMT: external ear and nose normal, oropharynx normal Neck: normal visual inspection Respiratory: Auscultation: + wheezes Cardiovascular: Extremities: normal capillary refill Gastrointestinal (Abdomen): Inspection/Auscultation: abdomen normal to inspection Musculoskeletal: no cyanosis or clubbing, extremities motor strength 5/5 Extremities: strength 5/5 throughout Skin: no rashes, warm and dry Neurologic: deep tendon reflexes 2+ bilaterally and moves all extremities Psychiatric: A+Ox3, euthymic affect Results & Data ([facility]) Vital Signs (Past 12 Hours) Vital Signs Temp Pulse Resp BP BP Pulse Ox 01/16/20 15:12 36.9 C 88 20 122/86 94 01/16/20 07:24 36.9 C 93 H 18 144/84 H 96 Diagnostic Findings [facility] [place] [phone] CT Scan Report Patient: NIKKIE BALDWINAdmit Date: 01/15/20 MR#: [id number]: [id number] Acct ID:[id number]: [address] Date: [facility] Zip: [place] [address] Age: 74Location: ED Sex: F Room/Bed: Att Phy:Diagnosis: BACK PAIN Nadira Phy: PCP,NOService Date: 01/15/20 Fam Phy:Interpreting Phy: Herb Zapien MD Admit Phy: Ordering Phy: Martell Avitia MD cc: ~ CT thoracic spine wo con CLINICAL HISTORY: 74 years-old Female presenting with back pain. TECHNIQUE: Multidetector CT of the thoracic spine was performed without the use of intravenous contrast. IV contrast: None. One or more dose lowering techniques were used consistent with the principles of ALARA (as low as reasonably achievable), including automatic exposure control, mA or kV adjustment to individual patient size, and/or use of iterative reconstruction. COMPARISON: None. CT DOSE (mGy.cm): The estimated cumulative dose is 1751.49. FINDINGS: Music Pastor topogram: Unremarkable. Mildly exaggerated thoracic kyphosis. Multilevel vertebral body height loss most severe at T9, which has an appearance that suggests acuity. There is moderate compression deformity at T9 with a mild to moderate compression deformity at T8 and mild compression deformity at L1. Minimal compression deformities at T3 and T4. Remaining vertebral bodies demonstrate normal height and alignment. No retropulsion of the posterior cortices of the compressed levels. No osseous spinal canal narrowing. Limited evaluation of the soft tissues of the spinal canal do not demonstrate effacement. Osseous neural foraminal narrowing evident on the right at T9-10 to a mild degree. Remaining neural foramina are widely patent. Atherosclerosis. Extensive dependent atelectasis in the visualized portions of the lungs. There may also be interlobular septal thickening and added groundglass opacity. Visualized portion of the ribs intact. Paraspinal musculature within normal limits for age. IMPRESSION: 1. Acute appearing moderate compression deformity of T9. Correlate with point tenderness at this level. 2. Several additional lesser compression deformities are chronic appearing. 3. Mild neural foraminal narrowing on the right at T9-10. 4. No significant spinal canal narrowing. ACT 112: Negative or not required by law. Electronically signed by: Herb Zapien M.D. 01/15/2020 2:49 PM Dictated: 01/15/20 [address] [place], [place] [phone] CT Scan Report Patient: NIKKIE BALDWINAdmit Date: 01/15/20 MR#: [id number]: [id number] Acct ID:[id number]: [address] Date: [facility] Zip: [place] [address] Age: 74Location: ED Sex: F Room/Bed: Att Phy:Diagnosis: BACK PAIN Nadira Phy: PCP,NOService Date: 01/15/20 [facility] Phy:Interpreting Phy: Hi Medellin MD Admit Phy: Ordering Phy: Martell Avitia MD cc: ~ CT OF THE LUMBAR SPINE WITHOUT IV CONTRAST CLINICAL HISTORY: Low back pain. COMPARISON STUDY: PET/CT dated 12/07/2006. TECHNIQUE: CT scan of the lumbar spine is performed from the lower thoracic spine to the sacrum. Images are reviewed in the axial, sagittal, and coronal planes. IV contrast was not administered for this examination. A dose lowering technique was utilized adhering to the principles of ALARA. CT DOSE: 1751.49 mGy.cm FINDINGS: The skeletal structures are osteopenic. There is a mild inferior endplate compression deformity of L1 and superior endplate compression deformity of L2. These are age indeterminant but new from the 2017 PET examination. Vertebral body height is otherwise maintained. Alignment is preserved. The transverse and spinous processes are intact. There is no spondylolysis. No lytic or blastic lesion is seen. Small anterior and lateral marginal osteophytes are seen throughout. There is mild multilevel degenerative disc space narrowing. A small posterior disc osteophyte complex is noted at L1-L2. There is no CT evidence of high-grade central canal stenosis. There is facet arthropathy in the lower lumbar region. This likely causes mild neural foraminal stenosis at L4-L5 and L5-S1. The visualized sacrum and bony pelvis appear intact. Sclerotic change is noted in the sacroiliac joints. Fatty atrophy is noted in the paraspinous musculature. There is advanced atherosclerotic calcification and ectasia of the abdominal aorta. The kidneys demonstrate cortical atrophy. A 5 mm nonobstructing calculus is noted on the right. IMPRESSION: 1. There are mild age indeterminant but chronic appearing compression deformities of L1 and L2 as above. These are new from 2006. 2. Osteopenia and degenerative change as above. 3. Right-sided nephrolithiasis. ACT 112: Negative or not required by law. Electronically signed by: Hi Medellin M.D. 01/15/2020 2:47 PM Dictated: 01/15/20 1433 Transcribed: 01/15/20 1433
[2020-01-16] MEDS ORDERED: DOXYCYCLINE HYCLATE 100 MG CAP PO SCH (15:45)
[2020-01-16] MEDS ORDERED: PHYTONADIONE 5 MG TAB PO ONE (15:45)
[2020-01-16] MEDS: POLYETHYLENE (MIRALAX) 17 GM PACK PO SCH ×2 (16:29→23:08)
[2020-01-16] MEDS: DOXYCYCLINE HYCLATE 100 MG CAP PO SCH (20:10)
[2020-01-16] MEDS ORDERED: ZOLPIDEM TARTRATE 5 MG TAB PO ONE (23:34)
[2020-01-17] MEDS: ACETAMINOPHEN 325 MG TAB PO SCH ×4 (00:44→20:42)
[2020-01-17] MEDS: MoRPHine SULFATE 4 MG/ML 1 ML CARP\\VIAL IV PRN (02:43)
[2020-01-17] MEDS: LEVOTHYROXINE SODIUM 100 MCG TABLET PO SCH (05:51)
[2020-01-17 08:01] LABS: INR 2.1 (0.9-1.1); Prothrombin Time 20.4 Seconds (9.0-12.0)
[2020-01-17] MEDS: MoRPHine SULFATE CR 15 MG TABCR PO SCH ×2 (08:08→20:40)
[2020-01-17] MEDS: DOXYCYCLINE HYCLATE 100 MG CAP PO SCH ×2 (08:09→20:44)
[2020-01-17] MEDS: FERROUS SULFATE 325 MG TAB PO SCH ×2 (08:09→16:36)
[2020-01-17] MEDS: METOPROLOL SUCC 25MG EXT REL TAB PO SCH (08:10)
[2020-01-17] MEDS: OMEGA-3 (PURIFIED FISH OIL) 1 GM CAP PO SCH (08:11)
[2020-01-17] MEDS: lisinopriL 20 MG TAB PO SCH (08:11)
[2020-01-17] MEDS: PANTOprazole 40 MG TAB PO SCH (08:11)
[2020-01-17] MEDS: AMLODIPINE BESYLATE 5 MG TAB PO SCH (08:12)
[2020-01-17] MEDS: POTASSIUM CHLORIDE 10 MEQ TABCR PO SCH (08:12)
[2020-01-17] MEDS: CHOLECALCIFEROL 1,000 UNITS 25 MCG TAB PO SCH (08:12)
[2020-01-17] MEDS: POLYETHYLENE (MIRALAX) 17 GM PACK PO SCH ×2 (08:13→20:39)
[2020-01-17] MEDS: HYDROCODONE/ACETAMINOPHEN 7.5/325MG TAB PO PRN ×2 (10:50→17:05)
--- NOTE | 2020-01-17 11:26 | Hospitalist Progress Note ---
Date of Service January 17, 2020 Assessment & Plan (1) Compression fracture: Admitted with pathologic compression fracture of T9 -pt admitted with intractable back pain for past 3 days Patient reports she heard a "pop" while carrying a flowerpot. T9 spontaneous fracture T9 vertebrae Occurred without any trauma, no significant weightbearing( was carrying a small flower pot ) -CT thoracic and lumbar spine :acute compression fracture at T7 age-indeterminate compression fracture at L1 and L2, -Pain control (patient taking MS Contin 50 mg twice daily and as needed hydrocodone/acetaminophen at home -these doses will be continued, PRN IV morphine ordered for severe pain -Spine Ortho consult-Consulted pt will not be able to tolerate Brace -as will be too constricting leading to resp difficulty ( s/p rt upper lobe pneumonectomy in past due to lung ca ) orthotics consulted for soft /elastic brace -appreciate input pt reports of improvement of pain symptom /back pain with elastic support - during transfers and movement -PT/OT-Eval appreciated, recommend rehab-referral made for [facility] Constipation: Has chronic constipation-due to narcotic pain medications: Takes MiraLAX as needed at home Ordered for Colace, increased dose of MiraLAX, Patient denies of any abdominal pain, no nausea, no bloating (2) Hypoxia: -Found to be hypoxic on room air at 80% -History of right upper lobe lobectomy -CXR negative for acute cardiopulmonary findings Order for a flutter valve, incentive spirometry:Patient unable to take deep breaths secondary to back pain/T9 compression fracture Wean down O2 Bronchitis/cough Has nonproductive cough worse in the last 2 days, no fever or chills no shortness of breath Episode Of hypoxia noted, improving on p.o. doxycycline 5 days course (3) Chronic atrial fibrillation: Rate controlled on metoprolol will be continued INR 2.1 today, Coumadin resumed 2.5 mg p.o. daily (4) Supratherapeutic INR: On admission INR 6.1, Coumadin on hold, repeat INR is 6.2 Ordered for 2.5 mg of p.o. vitamin K, repeat INR in a.m-2.1 Resume Coumadin Urinary retention Acute, Large amount of residual urine noted on bladder scan Patient required to have a straight cath last night Ordered for Ovalle catheter Ordered for UA and culture Urology consulted-appreciate input , recommends cont Ovalle cath for 7 days voiding tiral at [facility] out pt follow up with Urology in clinic after discharge form rehab (5) Hypertension: -BP controlled, continue amlodipine, metoprolol, lisinopril (6) DVT prophylaxis: Coumadin CODE STATUS: Full code Disposition: Patient is accepted at [facility], Possible transfer to acute rehab tomorrow Admission and Anticipated Discharge Date Admission Date: January 15, 2020 Anticipated date of discharge: 01/18/20 Subjective cough has much improved sitting on chair ,complains of back pain with movement only no fever or chills on ovalle catheter due to acute urinary retention -developed during this hospital stay Review of Systems Review of Systems: ROS per HPI, all other systems reviewed and negative Respiratory: + cough; no dyspnea, no pain with cough and no sputum production Genitourinary: + problem reported (Urinary retention) Musculoskeletal: Low back pain, Physical Exam Constitutional: WD/WN, vitals as above + obese; no acute distress Eyes: PERRL, conjunctivae normal, anicteric sclerae ENMT: external ear and nose normal, oropharynx normal Neck: trachea midline, no thyromegaly Respiratory: normal respiratory effort; no respiratory distress Auscultation: no crackles, no rales, no rhonchi and no wheezes Cardiovascular: RRR, no murmur, no edema Gastrointestinal (Abdomen): Inspection/Auscultation: normal bowel sounds; abdomen not distended Percussion/Palpation: abdomen soft; abdomen nontender Musculoskeletal: Extremities: extremities normal to inspection and + abnormal strength; no joint enlargement Skin: no rashes, warm and dry Neurologic: PERRL, EOMI, accommodation nl, no face palsy, no dysarthria Psychiatric: A+Ox3, euthymic affect Results & Data ([facility]) Vital Signs (Past 12 Hours) Vital Signs Temp Pulse Resp BP Pulse Ox 01/17/20 11:17 36.7 C 88 20 107/78 93 01/17/20 07:00 36.7 C 74 20 137/82 96 01/17/20 03:00 36.7 C 90 20 139/89 94 01/16/20 23:30 36.7 C 88 20 142/93 H 96
[2020-01-17] MEDS ORDERED: DICLOFENAC SOD 1% GEL 100 GM TUBE EXT PRN (11:27)
[2020-01-17] MEDS ORDERED: ACETAMINOPHEN PO PRN (11:27)
[2020-01-17] MEDS ORDERED: DEXTROMETHORPHAN PO PRN (11:27)
[2020-01-17] MEDS ORDERED: [UNRECOGNIZED DRUG - OTHER] PO PRN (11:27)
[2020-01-17] MEDS ORDERED: DOXYLAMINE PO PRN (11:27)
[2020-01-17] MEDS ORDERED: CYCLOBENZAPRINE HCL 10 MG TAB PO PRN (12:41)
[2020-01-17] MEDS ORDERED: MECLIZINE HCL 25 MG TAB PO PRN (12:44)
--- NOTE | 2020-01-17 15:02 | Urology Consultation ---
Date of Consultation January 17, 2020 Assessment & Plan (1) Urinary retention: 74yo F admitted on 01/14/20 s/p T9 compression fracture with urinary retention. Patient tolerating catheter well. Draining clear, yellow Awaiting UC&S, however UA is not overly suspicious for a UTI Plan to maintain Ovalle catheter for 7 days to allow for adequate bladder rest Plans to rehab at [facility] Recommend passive trial of void at [facility] Bowel regimen per primary team as constipation is likely contributing to her urinary retention Patient has history of dizziness, will avoid alpha blockers at this time Thank you for allowing us to participate in the acute care of Ms. Ayers. Please reconsult us with additional questions, concerns or changes in patient status. History of Present Illness Reason for Consultation: Urinary Retention Attending Physician: Brianna Waldron MD History of Present Illness 74yo F admitted on 01/14/20 s/p T9 compression fracture. We have been consulted to assist with subsequent urinary retention requiring indwelling Ovalle catheter placement. Per nursing notes, PVR ranging 700-800 ml. No prior urologic evaluation. States her voiding patterns were fine prior to recent hospital admission. Denies urinary incontinence, however wears a safety pad daily. Nocturia x 0. Tolerating catheter well. Denies suprapubic pain or bladder spasms. Labs reviewed. Creatinine within normal range. UA was clear. UC&S pending. Patient states also struggling with constipation, has not had a bowel movement for 2-3 weeks. Allergies Allergy/AdvReac Type Severity Reaction Status Date / Time morphine Allergy Intermediate RASH/PRUTIT Verified 01/15/20 15:09 IS atorvastatin Allergy Unknown 0 Verified 01/15/20 15:09 escitalopram Allergy Unknown 0 Verified 01/15/20 15:09 ezetimibe Allergy Unknown 0 Verified 01/15/20 15:09 fentanyl Allergy Unknown 0 Verified 01/15/20 15:09 hydralazine Allergy Unknown SEVERELY Verified 01/15/20 15:09 FLUSHED;BURNING SENSATION;SHAKING metoclopramide Allergy Unknown 0 Verified 01/15/20 15:09 simvastatin Allergy Unknown 0 Verified 01/15/20 15:09 clarithromycin AdvReac Unknown ABD Verified 01/15/20 15:09 CRAMPING Home Medications Home Medications Medication Instructions Recorded Confirmed Type alprazolam 1 mg PO TID PRN 01/15/20 01/15/20 History amlodipine 2.5 mg PO DAILY 01/15/20 01/15/20 History aspirin 81 mg PO DAILY 01/15/20 01/15/20 History cholecalciferol (vitamin D3) 2,000 unit PO DAILY 01/15/20 01/15/20 History [Vitamin D3] cyclobenzaprine 10 mg PO DAILY PRN 01/15/20 01/15/20 History diclofenac sodium 4 g TOPICAL BID PRN 01/15/20 01/15/20 History docusate sodium 100 mg PO BID PRN 01/15/20 01/15/20 History zpqiwkwnvi-OY-wqufjjyjghpoy [Vicks 15 ml PO UD PRN 01/15/20 01/15/20 History Nyquil Nighttime Relief] esomeprazole magnesium 20 mg PO DAILY 01/15/20 01/15/20 History ferrous sulfate 325 mg PO BIDM 01/15/20 01/15/20 History furosemide 20 mg PO MOWEFR 01/15/20 01/15/20 History hydrocodone-acetaminophen 1 tab PO Q6 PRN 01/15/20 01/15/20 History levothyroxine [Levoxyl] 100 mcg PO DAILYBB 01/15/20 01/15/20 History lisinopril 20 mg PO DAILY 01/15/20 01/15/20 History magnesium hydroxide [Milk of 30 - 60 ml PO DAILY PRN 01/15/20 01/15/20 History Magnesia] meclizine 25 mg PO TID PRN 01/15/20 01/15/20 History metoprolol succinate 12.5 mg PO DAILY 01/15/20 01/15/20 History morphine 15 mg PO BID 01/15/20 01/15/20 History omega 4-jsn-cie-fish oil [Fish Oil] 1 cap PO DAILY 01/15/20 01/15/20 History potassium chloride 10 meq PO Q2D 01/15/20 01/15/20 History warfarin 2.5 mg PO QPM 01/15/20 01/15/20 History Patient History Medical History Chronic anticoagulation Chronic atrial fibrillation Chronic pain Dyslipidemia GERD (gastroesophageal reflux disease) History of lung cancer Hypertension Iron deficiency anemia Post-surgical hypothyroidism Surgical History H/O pneumonectomy Right upper lobe secondary to lung cancer H/O thyroidectomy History of carotid endarterectomy Right Hx of cholecystectomy Family History Mother Stroke Father Heart disease Social History Preferred Language: British 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 Ability: Effective Obstetrician Required: No Beliefs That Will Affect Care: None marital status: / Current Living Situation: Alone Other Information That Helps Us Care for You: No Feels Safe at Home: Yes Safety Concerns: Feels Safe At This Time Smoking Status: Never smoker Hx Alcohol Use: Yes Alcohol type: wine Hx Substance Use: No Review of Systems Review of Systems: Constitutional: Denies fever, chills, sweats, malaise Eyes: Denies problem reported ENMT: Denies dizziness Resp: Denies cough, Denies shortness of breath CV: Denies JVD GI: Denies nausea/vomiting : see HPI MS: Denies swelling, stiffness Integ: Denies rash, erythema Neuro: Denies falls, weakness Psych: Denies behavior change Endo: Denies polyphagia, polydipsia Heme: Denies easy bleeding Physical Exam Constitutional: comfortable; no acute distress, not ill appearing, no altered mental status and not lethargic Patient with lumbar support brace Eyes: no nystagmus ENMT: Ears: no hearing impairment Neck: trachea midline Respiratory: no respiratory distress, does not use accessory muscles, no cough and no grunting Cardiovascular: Vessels: no JVD Extremities: no edema Chest (Breasts): Chest: normal inspection of chest Gastrointestinal (Abdomen): Inspection/Auscultation: abdomen not distended and no abdominal edema Percussion/Palpation: abdomen soft; abdomen nontender Musculoskeletal: no cyanosis or clubbing, extremities motor strength 5/5 Head/Neck/Chest: normocephalic and head atraumatic Extremities: extremities normal to inspection Skin: no rashes, warm and dry Neurologic: awake; not confused and not obtunded Psychiatric: Orientation: alert and oriented x 3 Eye Contact: good eye contact Affect: no depressed affect Genitourinary: ovalle catheter intact, draining clear, yellow. Lymphatic: no lymphadenopathy and no lymphedema Results & Data Vital Signs (Past 12 Hours) Vital Signs Temp Pulse Resp BP Pulse Ox 01/17/20 11:17 36.7 C 88 20 107/78 93 01/17/20 07:00 36.7 C 74 20 137/82 96 PG Care Time/CCT Total # of Minutes Spent Total Time Spent with Patient: Total time spent is greater than 50% in coordination of care (as documented) at patient's floor/unit and/or counseling patient: Coding Level of Care Code 43843 Initial Inpt Care Lvl 3 Diagnoses Urinary retention R33.9
[2020-01-17] MEDS ORDERED: WARFARIN SOD 2.5 MG TAB PO SCH (16:00)
[2020-01-17] MEDS ORDERED: DIPHENHYDRAMINE PO PRN (17:07)
[2020-01-17] MEDS: DOCUSATE SODIUM 100 MG CAP PO SCH (20:40)
[2020-01-17] MEDS: MELATONIN PO SCH (20:43)
[2020-01-17] MEDS ORDERED: bisacodyL 10 MG SUPP PR PRN (22:09)
[2020-01-18] MEDS: HYDROCODONE/ACETAMINOPHEN 7.5/325MG TAB PO PRN ×3 (02:07→14:04)
[2020-01-18] MEDS: ACETAMINOPHEN 325 MG TAB PO SCH ×4 (02:09→20:27)
[2020-01-18] MEDS: LEVOTHYROXINE SODIUM 100 MCG TABLET PO SCH (05:54)
[2020-01-18 07:35] LABS: INR 1.3 (0.9-1.1); Prothrombin Time 12.7 Seconds (9.0-12.0)
[2020-01-18] MEDS: bisacodyL 5 MG TABEC PO SCH (08:19)
[2020-01-18] MEDS: AMLODIPINE BESYLATE 5 MG TAB PO SCH (08:20)
[2020-01-18] MEDS: PANTOprazole 40 MG TAB PO SCH (08:20)
[2020-01-18] MEDS: CHOLECALCIFEROL 1,000 UNITS 25 MCG TAB PO SCH (08:20)
[2020-01-18] MEDS: lisinopriL 20 MG TAB PO SCH (08:21)
[2020-01-18] MEDS: DOXYCYCLINE HYCLATE 100 MG CAP PO SCH ×2 (08:21→20:22)
[2020-01-18] MEDS: FERROUS SULFATE 325 MG TAB PO SCH (08:23)
[2020-01-18] MEDS: MoRPHine SULFATE CR 15 MG TABCR PO SCH ×2 (08:24→20:27)
[2020-01-18] MEDS: DOCUSATE SODIUM 100 MG CAP PO SCH ×2 (08:25→20:25)
[2020-01-18] MEDS: FUROSEMIDE 20 MG TAB PO SCH ×2 (08:25→11:09)
[2020-01-18] MEDS: OMEGA-3 (PURIFIED FISH OIL) 1 GM CAP PO SCH (08:26)
[2020-01-18] MEDS: POLYETHYLENE (MIRALAX) 17 GM PACK PO SCH ×4 (08:26→20:24)
--- NOTE | 2020-01-18 10:03 | Hospitalist Progress Note ---
Date of Service January 18, 2020 Assessment & Plan (1) Compression fracture: SOB /ROBLERO /INCREASED COUGH : audible wheeze noted with moist productive cough increased ROBLERO ordered for Stat xray of chest changed Neb tx to Scheduled on PO Doxycycline will cont start on PO prednisone for wheeze added spiriva WILL HOLD TX TO REHAB DUE TO WORSENING OF COUGH AND RESPIRATORY DISTRESS BACK PAIN : Admitted with pathologic compression fracture of T9 -pt admitted with intractable back pain for past 3 days Patient reports she heard a "pop" while carrying a flowerpot. T9 spontaneous fracture T9 vertebrae Occurred without any trauma, no significant weightbearing( was carrying a small flower pot ) -CT thoracic and lumbar spine :acute compression fracture at T7 age-indeterminate compression fracture at L1 and L2, -Pain control (patient taking MS Contin 50 mg twice daily and as needed hydrocodone/acetaminophen at home -these doses will be continued, PRN IV morphine ordered for severe pain -Spine Ortho consult-Consulted pt will not be able to tolerate Brace -as will be too constricting leading to resp difficulty ( s/p rt upper lobe pneumonectomy in past due to lung ca ) orthotics consulted for soft /elastic brace -appreciate input pt reports of improvement of pain symptom /back pain with elastic support - during transfers and movement -PT/OT-Eval appreciated, recommend rehab-referral made for [facility] Constipation: Has chronic constipation-due to narcotic pain medications: Takes MiraLAX as needed at home Ordered for Colace, increased dose of MiraLAX, no bowel movement so far utilize NM Dulcolax KUB of abdomen shows : 1. No evidence for a bowel obstruction. 2. Large amount of stool within the right colon. Minimal stool within the left colon and rectum. (2) Hypoxia: -Found to be hypoxic on room air at 80% -History of right upper lobe lobectomy -CXR negative for acute cardiopulmonary findings Order for a flutter valve, incentive spirometry:Patient unable to take deep breaths secondary to back pain/T9 compression fracture Worsening of cough /wheeze noted today -underlying COPD ? management as out lined above will benefit with Pulm Function test as put patient Bronchitis/cough Has nonproductive cough worse in the last 2 days, no fever or chills no shortness of breath started on Prednisone , Neb tx for wheeze , ROBLERO on p.o. doxycycline 5 days course (3) Chronic atrial fibrillation: Rate controlled on metoprolol will be continued INR 1.4 -possible due to Vit K ( given for INR > 6) increased Coumadin dose to 5 mg pO daily (4) Supratherapeutic INR: On admission INR 6.1, Coumadin on hold, repeat INR is 6.2 given 2.5 mg of p.o. vitamin K, coumadin resumed -dose adjusted as above Urinary retention Acute, Large amount of residual urine noted on bladder scan placed ovalle catheter UA and culture -no evidence of UTI Urology consulted-appreciate input , recommends cont Ovalle cath for 7 days voiding tiral at [facility] out pt follow up with Urology in clinic after discharge form rehab (5) Hypertension: -BP controlled, continue amlodipine, metoprolol, lisinopril (6) DVT prophylaxis: Coumadin ordered for sub q heaprin for INR < 2 CODE STATUS: Full code Disposition: Patient is accepted at [facility], [facility] [place] to Rehab today for worsening of SOB /cough Admission and Anticipated Discharge Date Admission Date: January 15, 2020 Anticipated date of discharge: 01/18/20 Subjective pt complains of worsening of SOB this am was very difficult to be OOB requiring 2 L 02 noted to have audible wheeze and non productive cough no fever or chills unable to sleep last night -as did not get her Nyqil syrup no bowel movement yet no complain of abdominal pain or discomfort Review of Systems Review of Systems: ROS per HPI, all other systems reviewed and negative Respiratory: + cough, + dyspnea, + dyspnea on exertion and + sputum production; no pain with cough Genitourinary: + problem reported (Urinary retention) Musculoskeletal: Low back pain, Physical Exam Constitutional: WD/WN, vitals as above + obese; no acute distress Eyes: PERRL, conjunctivae normal, anicteric sclerae ENMT: external ear and nose normal, oropharynx normal Neck: trachea midline, no thyromegaly Respiratory: + respiratory distress Auscultation: + crackles, + rales, + rhonchi and + wheezes Cardiovascular: RRR, no murmur, no edema Gastrointestinal (Abdomen): Inspection/Auscultation: normal bowel sounds; abdomen not distended Percussion/Palpation: abdomen soft; abdomen nontender Musculoskeletal: Extremities: extremities normal to inspection and + abnormal strength; no joint enlargement Skin: no rashes, warm and dry Neurologic: PERRL, EOMI, accommodation nl, no face palsy, no dysarthria Psychiatric: A+Ox3, euthymic affect Results & Data ([facility]) Vital Signs (Past 12 Hours) Vital Signs Temp Pulse Resp BP BP Pulse Ox 01/18/20 07:37 37.0 C 116 H 20 177/93 H 92 01/17/20 22:58 36.7 C 87 18 138/89 95
[2020-01-18] MEDS ORDERED: predniSONE 20 MG TAB PO STA (10:05)
--- NOTE | 2020-01-18 10:26 | XRay Report ---
XR chest 1V portable CLINICAL HISTORY: Shortness of breath. COMPARISON STUDY: Chest radiograph January 15, 2020. FINDINGS: Moderate cardiac megaly is noted. There is no evidence for pulmonary edema. No pneumothorax or pleural effusion is noted. Left basilar opacity favors atelectasis. There is mild right basilar o pacity. This has slightly increased. IMPRESSION: 1. Bibasilar opacities which favor atelectasis. 2. Moderate cardiomegaly without evidence for pulmonary edema. ACT 112: Negative or not required by law. Results electronically sent 01/18/2020 10:24 AM to: Brianna Waldron MD Electronically signed by: Armando Glover M.D. 01/18/2020 10:24 AM
--- NOTE | 2020-01-18 10:28 | XRay Report ---
KUB CLINICAL HISTORY: constipation COMPARISON STUDY: None. FINDINGS: Incidental note is made of cholecystectomy clips. Calcifications within the pelvis may be r elated to fibroids. There is no evidence for a bowel obstruction. Large amount of stool within the ri ght colon is noted. There is minimal stool within the left colon and rectum. IMPRESSION: 1. No evidence for a bowel obstruction. 2. Large amount of stool within the right colon. Minimal stool within the left colon and rectum. ACT 112: Negative or not required by law. Results electronically sent 01/18/2020 10:26 AM to: Brianna Waldron MD Electronically signed by: Armando Glover M.D. 01/18/2020 10:26 AM
[2020-01-18 10:36] LABS: BUN Creatinine Ratio 17.5 (10-20); Calcium 9.3 mg/dl (8.5-10.1); Creatinine Clr Calc Pharmacy 65.9 ml/min; Est GFR (African American) 94.3; Est GFR (Non-African American) 81.3; Potassium 4.4 mmol/L (3.5-5.1)
[2020-01-18] MEDS: UMECLIDINIUM BROMIDE 62.5MCG/BLISTER 7 PUFFS/INHALER INH SCH (11:09)
[2020-01-18] MEDS: METOPROLOL SUCC 25MG EXT REL TAB PO SCH (11:22)
[2020-01-18] MEDS ORDERED: ALBUT/IPRATROP 3MG/0.5MG NEB 3 ML VIAL NEB STA (12:17)
[2020-01-18] MEDS: ALBUT/IPRATROP 3MG/0.5MG NEB 3 ML VIAL NEB SCH ×4 (13:15→23:11)
[2020-01-18] MEDS: HEPARIN SOD 5,000 UNIT/0.5 ML VIAL SQ SCH ×2 (13:58→20:28)
[2020-01-18] MEDS ORDERED: WARFARIN SOD 5 MG TAB PO SCH (16:00)
[2020-01-18] MEDS: ALPRAZolam 0.5 MG TABLET PO PRN (20:23)
[2020-01-18] MEDS: MELATONIN PO SCH (20:25)
[2020-01-18] MEDS ORDERED: SENNA 8.6 MG TAB PO SCH (21:00)
[2020-01-19] MEDS: ACETAMINOPHEN 325 MG TAB PO SCH ×3 (03:06→12:49)
[2020-01-19] MEDS: ALBUT/IPRATROP 3MG/0.5MG NEB 3 ML VIAL NEB SCH ×3 (03:17→11:08)
[2020-01-19] MEDS: LEVOTHYROXINE SODIUM 100 MCG TABLET PO SCH (05:56)
[2020-01-19] MEDS: HEPARIN SOD 5,000 UNIT/0.5 ML VIAL SQ SCH ×2 (05:57→13:53)
[2020-01-19 06:19] LABS: INR 1.2 (0.9-1.1)
[2020-01-19 07:53] VITALS: TEMP 98.2
[2020-01-19] MEDS: MoRPHine SULFATE CR 15 MG TABCR PO SCH (08:12)
[2020-01-19] MEDS: METOPROLOL SUCC 25MG EXT REL TAB PO SCH (08:12)
[2020-01-19] MEDS: POLYETHYLENE (MIRALAX) 17 GM PACK PO SCH ×2 (08:13→12:32)
[2020-01-19] MEDS: PANTOprazole 40 MG TAB PO SCH (08:14)
[2020-01-19] MEDS: POTASSIUM CHLORIDE 10 MEQ TABCR PO SCH (08:14)
[2020-01-19] MEDS: lisinopriL 20 MG TAB PO SCH (08:14)
[2020-01-19] MEDS: CHOLECALCIFEROL 1,000 UNITS 25 MCG TAB PO SCH (08:15)
[2020-01-19] MEDS: DOXYCYCLINE HYCLATE 100 MG CAP PO SCH (08:16)
[2020-01-19] MEDS: OMEGA-3 (PURIFIED FISH OIL) 1 GM CAP PO SCH (08:16)
[2020-01-19] MEDS: DOCUSATE SODIUM 100 MG CAP PO SCH (08:17)
[2020-01-19] MEDS: bisacodyL 5 MG TABEC PO SCH (08:18)
[2020-01-19] MEDS: UMECLIDINIUM BROMIDE 62.5MCG/BLISTER 7 PUFFS/INHALER INH SCH (08:19)
[2020-01-19] MEDS: AMLODIPINE BESYLATE 5 MG TAB PO SCH (08:20)
[2020-01-19] MEDS ORDERED: UMECLIDINIUM BROMIDE 62.5MCG/BLISTER 7 PUFFS/INHALER INH SCH (09:00)
[2020-01-19] MEDS ORDERED: predniSONE 20 MG TAB PO SCH (09:00)
[2020-01-19] MEDS: FUROSEMIDE 20 MG TAB PO SCH (09:41)
--- NOTE | 2020-01-19 10:02 | Hospitalist Progress Note ---
Date of Service January 19, 2020 Assessment & Plan (1) Compression fracture: SOB /ROBLERO /INCREASED COUGH : Symptoms has completely resolved today, no chills, no cough, in room air today Stable to be transferred to acute rehab, will be discharged with p.o. doxycycline to complete 2 more days of treatment, and p.o. prednisone taper BACK PAIN : Admitted with pathologic compression fracture of T9 -pt admitted with intractable back pain for past 3 days Patient reports she heard a "pop" while carrying a flowerpot. T9 spontaneous fracture T9 vertebrae Occurred without any trauma, no significant weightbearing( was carrying a small flower pot ) -CT thoracic and lumbar spine :acute compression fracture at T7 age-indeterminate compression fracture at L1 and L2, -Pain control (patient taking MS Contin 50 mg twice daily and as needed hy drocodone/acetaminophen at home -these doses will be continued, PRN IV morphine ordered for severe pain -Spine Ortho consult-Consulted pt will not be able to tolerate Brace -as will be too constricting leading to resp difficulty ( s/p rt upper lobe pneumonectomy in past due to lung ca ) orthotics consulted : Soft/elastic back binder ordered, fitted by orthotics pt reports of improvement of pain symptom /back pain with elastic binder-during transfers and movement -PT/OT-Eval appreciated, recommend rehab-referral made for [facility] Patient is stable to be transferred to rehab today Osteoporosis Leading to pathologic/compression fracture, Discharged with high-dose vitamin D 50,000 unit once a week and calcium supplement Constipation: Has chronic constipation-due to narcotic pain medications: Takes MiraLAX as needed at home Ordered for Colace, increased dose of MiraLAX, no bowel movement so far utilize [place] Dulcolax KUB of abdomen shows : 1. No evidence for a bowel obstruction. 2. Large amount of stool within the right colon. Minimal stool within the left colon and rectum. Had bowel movement overnight Continue bowel regimen at rehab as well (2) Hypoxia: Resolved, In room air, no cough no shortness of breath or wheeze Possible COPD exacerbation, symptom resolved after nebulizer treatment, prednisone -History of right upper lobe lobectomy -CXR negative for acute cardiopulmonary findings Patient will continue flutter valve, incentive spirometry:Patient unable to take deep breaths secondary to back pain/T9 compression fracture-at rehab Patient was discharged with PRN albuterol inhaler, prednisone taper will benefit with Pulm Function test as put patient Bronchitis/cough Cough has improved, no wheeze no shortness of breath, in room air today Complete p.o. doxycycline course (3) Chronic atrial fibrillation: Rate controlled on metoprolol Continue Coumadin prior dose, INR 1.2 today, received 2.5 mg of vitamin K on 01/16/2020 Possible continued effect of vitamin K Patient is discharged on a Coumadin 2.5 mg daily repeat PT/INR on Tuesday Goal INR 23 (4) Supratherapeutic INR: ELEVATED INR : on admission pt's INR was > 6 possibly caused by inadvertently taking extra dose of Coumadin pt's Coumadin dose is 2.5 mg ( 1/2 tab) a day Son reports as they checked her Pill box -there were 2 of the 1/2 tablets in each slot -pt was taking 5 mg Coumadin daily ( double dose of what was prescribed ) Family members will supervise /help to fill up the weekly pill box will benefit with home health visiting nurse referral after discharge from home Coumadin kept on hold on admission as INR was 6.1 Repeat INR next day 01/16/2020, was 6.2, no evidence of bleeding given 2.5 mg of p.o. vitamin K, Coumadin resumed -2.5 mg daily, home dose Urinary retention Acute, Large amount of residual urine noted on bladder scan placed ovalle catheter UA and culture -no evidence of UTI Urology consulted-appreciate input , recommends cont Ovalle cath for 7 days voiding tiral at [facility] out pt follow up with Urology in clinic after discharge form rehab (5) Hypertension: -BP controlled, continue amlodipine, metoprolol, lisinopril (6) DVT prophylaxis: Coumadin ordered for sub q heaprin for INR < 2 CODE STATUS: Full code Disposition: Patient is accepted at [facility], Stable to be transferred to [facility] today. Admission and Anticipated Discharge Date Admission Date: January 15, 2020 Anticipated date of discharge: 01/18/20 Subjective Feels much better today, no cough, no respiratory distress, in room air No audible wheeze, Feels comfortable, no fever or chills In good spirit Stable to be discharged to acute rehab [facility] today Review of Systems Review of Systems: ROS per HPI, all other systems reviewed and negative Respiratory: no cough, no dyspnea, no dyspnea on exertion, no pain with cough and no sputum production Genitourinary: + problem reported (Urinary retention) Musculoskeletal: Low back pain, Physical Exam Constitutional: WD/WN, vitals as above + obese; no acute distress Eyes: PERRL, conjunctivae normal, anicteric sclerae ENMT: external ear and nose normal, oropharynx normal Neck: trachea midline, no thyromegaly Respiratory: normal respiratory effort; no respiratory distress and no cough Auscultation: no crackles, no rales, no rhonchi and no wheezes Cardiovascular: RRR, no murmur, no edema Gastrointestinal (Abdomen): Inspection/Auscultation: normal bowel sounds; abdomen not distended Percussion/Palpation: abdomen soft; abdomen nontender Musculoskeletal: Extremities: extremities normal to inspection and + abnormal strength; no joint enlargement Skin: no rashes, warm and dry Neurologic: PERRL, EOMI, accommodation nl, no face palsy, no dysarthria Psychiatric: A+Ox3, euthymic affect Results & Data ([facility]) Vital Signs (Past 12 Hours) Vital Signs Temp Pulse Resp BP Pulse Ox 01/19/20 07:52 36.8 C 97 H 19 158/97 H 96 01/19/20 07:15 48 L 16 93 01/19/20 06:03 94 01/19/20 03:17 86 18 94 01/18/20 23:34 36.4 C L 84 18 118/81 97 01/18/20 23:11 90 18 92
[2020-01-19 10:17] VITALS: BP 138/89
--- NOTE | 2020-01-19 10:38 | Discharge Summary ---
Date of Service January 19, 2020 Admission HPI Per Admitting Provider 74-year-old female who presents the ED for evaluation of back pain. Patient reports history of chronic back pain. 3 days ago, patient reports she was carrying a flowerpot when she heard something in her mid back " pop". She then had sudden onset of severe pain. Since that time, patient has been having much difficulty getting up out of bed and ambulating. She denies lower extremity numbness or tingling. No bowel or bladder dysfunction. Patient reports he otherwise been feeling well recently. Denies chest pain or shortness of breath. No lightheadedness, dizziness, diaphoresis, syncopal events. She denies abdominal pain, nausea, vomiting, diarrhea. No fevers or chills. Notes that her urine has been concentrated with a foul odor the past couple of days. Denies dysuria. In the ED, CT thoracic spine shows an acute compression fracture at T9, CT lumbar spine shows age-indeterminate compression fractures at L1 and L2. Patient was hypoxic on room air in the 80s. She denies shortness of breath. CXR is negative for acute cardiopulmonary findings. She is now saturating well on 1 L of oxygen at the time my exam. Labs show a supratherapeutic INR at 6.2, otherwise unremarkable. Principal Diagnosis PATHOLOGIC COMPRESSION FRACTURE OF T9 VERTEBRA /OSTEOPORESIS URINARY RETENTION -acute requiring guerrero catheter Bronchitis Discharge Exam Constitutional WD/WN, vitals as above + obese; no acute distress Eyes PERRL, conjunctivae normal, anicteric sclerae ENMT external ear and nose normal, oropharynx normal Neck trachea midline, no thyromegaly Respiratory normal respiratory effort; no respiratory distress and no cough Auscultation: no crackles, no rales, no rhonchi and no wheezes Cardiovascular RRR, no murmur, no edema Gastrointestinal (Abdomen) Inspection/Auscultation: normal bowel sounds; abdomen not distended Percussion/Palpation: abdomen soft; abdomen nontender Musculoskeletal Extremities: extremities normal to inspection and + abnormal strength; no joint enlargement Skin no rashes, warm and dry Neurologic PERRL, EOMI, accommodation nl, no face palsy, no dysarthria Psychiatric A+Ox3, euthymic affect Discharge Data Allergies Allergy/AdvReac Type Severity Reaction Status Date / Time morphine Allergy Intermediate RASH/PRUTIT Verified 01/15/20 15:09 IS atorvastatin Allergy Unknown 0 Verified 01/15/20 15:09 escitalopram Allergy Unknown 0 Verified 01/15/20 15:09 ezetimibe Allergy Unknown 0 Verified 01/15/20 15:09 fentanyl Allergy Unknown 0 Verified 01/15/20 15:09 hydralazine Allergy Unknown SEVERELY Verified 01/15/20 15:09 FLUSHED;BURNING SENSATION;SHAKING metoclopramide Allergy Unknown 0 Verified 01/15/20 15:09 simvastatin Allergy Unknown 0 Verified 01/15/20 15:09 clarithromycin AdvReac Unknown ABD Verified 01/15/20 15:09 CRAMPING Consultations 01/15/20 17:14 ED Decision to Admit Stat 01/15/20 20:15 Consult Case Management - Discharge Planning Routine Consult Orthopedic Surgery Routine 01/17/20 11:29 Consult Urology Routine Ordered Studies 01/15/20 13:10 CT lumbar spine wo con Stat CT thoracic spine wo con Stat Hospital Course (1) Compression fracture: SOB /ROBLERO /INCREASED COUGH : Symptoms has completely resolved today, no chills, no cough, in room air today Stable to be transferred to acute rehab, will be discharged with p.o. doxycycline to complete 2 more days of treatment, and p.o. prednisone taper BACK PAIN : Admitted with pathologic compression fracture of T9 -pt admitted with intractable back pain for past 3 days Patient reports she heard a "pop" while carrying a flowerpot. T9 spontaneous fracture T9 vertebrae Occurred without any trauma, no significant weightbearing( was carrying a small flower pot ) -CT thoracic and lumbar spine :acute compression fracture at T9 age-indeterminate compression fracture at L1 and L2, -Pain control (patient taking MS Contin 50 mg twice daily and as needed hydrocodone/acetaminophen at home -these doses will be continued, PRN IV morphine ordered for severe pain -Spine Ortho consult-Consulted pt will not be able to tolerate Brace -as will be too constricting leading to resp difficulty ( s/p rt upper lobe pneumonectomy in past due to lung ca ) orthotics consulted : Soft/elastic back binder ordered, fitted by orthotics pt reports of improvement of pain symptom /back pain with elastic binder-during transfers and movement -PT/OT-Eval appreciated, recommend rehab-referral made for [facility] Patient is stable to be transferred to rehab today Osteoporosis Leading to pathologic/compression fracture, Discharged with high-dose vitamin D 50,000 unit once a week and calcium supplement Constipation: Has chronic constipation-due to narcotic pain medications: Takes MiraLAX as needed at home Ordered for Colace, increased dose of MiraLAX, no bowel movement so far utilize ME Dulcolax KUB of abdomen shows : 1. No evidence for a bowel obstruction. 2. Large amount of stool within the right colon. Minimal stool within the left colon and rectum. Had bowel movement overnight Continue bowel regimen at rehab as well (2) Hypoxia: Resolved, In room air, no cough no shortness of breath or wheeze Possible COPD exacerbation, symptom resolved after nebulizer treatment, prednisone -History of right upper lobe lobectomy -CXR negative for acute cardiopulmonary findings Patient will continue flutter valve, incentive spirometry:Patient unable to take deep breaths secondary to back pain/T9 compression fracture-at rehab Patient was discharged with PRN albuterol inhaler, prednisone taper will benefit with Pulm Function test as put patient Bronchitis/cough Cough has improved, no wheeze no shortness of breath, in room air today Complete p.o. doxycycline course (3) Chronic atrial fibrillation: Rate controlled on metoprolol Continue Coumadin prior dose, INR 1.2 today, received 2.5 mg of vitamin K on 01/16/2020 Possible continued effect of vitamin K Patient is discharged on a Coumadin 2.5 mg daily repeat PT/INR on Tuesday Goal INR 23 (4) Supratherapeutic INR: ELEVATED INR : on admission pt's INR was > 6 possibly caused by inadvertently taking extra dose of Coumadin pt's Coumadin dose is 2.5 mg ( 1/2 tab) a day Son reports as they checked her Pill box -there were 2 of the 1/2 tablets in each slot -pt was taking 5 mg Coumadin daily ( double dose of what was prescribed ) Family members will supervise /help to fill up the weekly pill box will benefit with home health visiting nurse referral after discharge from home Coumadin kept on hold on admission as INR was 6.1 Repeat INR next day 01/16/2020, was 6.2, no evidence of bleeding given 2.5 mg of p.o. vitamin K, Coumadin resumed -2.5 mg daily, home dose Urinary retention Acute, Large amount of residual urine noted on bladder scan placed guerrero catheter UA and culture -no evidence of UTI Urology consulted-appreciate input , recommends cont Guerrero cath for 7 days voiding tiral at [facility] out pt follow up with Urology in clinic after discharge form rehab (5) Hypertension: -BP controlled, continue amlodipine, metoprolol, lisinopril (6) DVT prophylaxis: Coumadin ordered for sub q heaprin for INR < 2 CODE STATUS: Full code Disposition: Patient is accepted at [facility], Stable to be transferred to [facility] today. Total Time Total Time Spent Total Time Spent (In Minutes): 40 mins Total Time Includes: Examination of the Patient, Discharge Planning and Medication Reconciliation Discharge Plan Discharge Items Patient Disposition: Transfer Inpatient Rehab Fac Reason For Visit: COMPRESSION FRACTURE Discharge Diagnosis: PATHOLOGIC COMPRESSION FRACTURE OF T9 VERTEBRA /Osteoporesis URINARY RETENTION -acute requiring guerrero catheter Bronchitis Activity: As commented below Lifting: No more than 5 pounds Exercise/Sports: Gradually increase as tolerated Non-emergency contact: Primary Care Provider Call non-emergency contact if: you have any medication questions Follow-up/Referrals: Yusuf Springer MD [Physician] - (in 3-4 weeks for urinary retention ) Chano Pierre MD [Primary Care Provider] - Diet: Heart Healthy Addtl Attending Provider Instructions: CONTINUE PHYSICAL THERAPY AT REHAB DO NOT LIFE WEIGHT FOR THAN 5 LBS Complete 2 more days of antibiotics doxycycline 100 mg 1 tablet twice daily for bronchitis CONTINUE GUERRERO CATHETER -for 1 week VOIDING TRIAL AFTER 1 WEEK AT [facility] FOLLOW UP WITH UROLOGIST DR SPRINGER IN 3-4 WEEKS FOR URINARY RETENTION CONTINUE BOWEL REGIMEN -INCREASED RISK FOR CONSTIPATION DUE TO NARCOTIC PAIN MEDICATIONS Lab work: Repeat PT/INR on Tuesday INR 1.2 today/received vitamin K 2.5 mg on 01/16/2024 elevated INR more than 6 Patient is discharged on Coumadin 2.5 mg daily: Home dose Patient was discharged with as needed albuterol inhaler, prednisone taper for wheeze/hypoxia(resolved) noted due to bronchitis Concern for possible underlying COPD Will need outpatient pulmonary function test-once discharged from rehab Pending Studies at Discharge: Yes Studies:: PT/INR on 01/21/2020 Goal INR 23(anticoagulation for atrial fibrillation) Stand-Alone Forms: My [facility] Skilled Items Patient informed of condition?: Yes DNR: No Discharge Level of Care: Acute rehab Communicable Disease: No Discharge Prognosis: Stable Lines: None Urinary Catheter: Yes Medications and DC Order Prescriptions: New polyethylene glycol 3350 [Miralax] 17 gram Powder In Packet 17 g PO BID 30 Days Qty: 60 RF: 0 bisacodyl 10 mg Suppository 10 mg ME DAILY PRN (Reason: CONSTIPATION) 30 Days Qty: 30 RF: 0 bisacodyl 5 mg Tablet,Delayed Release (Dr/Ec) 10 mg PO DAILY 30 Days Qty: 60 RF: 0 doxycycline hyclate 100 mg Capsule 100 mg PO BID 2 Days Qty: 4 RF: 0 meclizine 25 mg tablet 25 mg PO TID PRN (Reason: dizziness) Qty: 90 RF: 0 albuterol sulfate 90 mcg/actuation HFA aerosol inhaler 2 puffs INH Q6H PRN (Reason: shortness of breath or wheezing) Qty: 6.7 RF: 0 prednisone 20 mg tablet 20 mg PO UD Qty: 7 RF: 0 ergocalciferol (vitamin D2) [Vitamin D2] 1,250 mcg (50,000 unit) capsule 50,000 units PO WK Qty: 10 RF: 0 calcium carbonate [Calcium 500] 500 mg calcium (1,250 mg) tablet 500 mg PO DAILY Qty: 30 RF: 0 Continued cyclobenzaprine 10 mg tablet 10 mg PO DAILY PRN (Reason: Muscle Spasm) RF: 0 alprazolam 1 mg tablet 1 mg PO TID PRN (Reason: Anxiety) RF: 0 lisinopril 20 mg tablet 20 mg PO DAILY RF: 0 amlodipine 2.5 mg tablet 2.5 mg PO DAILY RF: 0 potassium chloride 10 mEq tablet extended release 10 meq PO Q2D RF: 0 aspirin 81 mg Tablet,Delayed Release (Dr/Ec) 81 mg PO DAILY RF: 0 levothyroxine [Levoxyl] 100 mcg tablet 100 mcg PO DAILYBB RF: 0 magnesium hydroxide [Milk of Magnesia] 400 mg/5 mL Suspension 30 - 60 ml PO DAILY PRN (Reason: Constipation) RF: 0 hydrocodone-acetaminophen 7.5-325 mg tablet 1 tab PO Q6 PRN (Reason: Pain) RF: 0 ferrous sulfate 325 mg (65 mg iron) tablet 325 mg PO BIDM RF: 0 warfarin 5 mg tablet 2.5 mg PO QPM RF: 0 morphine 15 mg tablet extended release 15 mg PO BID RF: 0 furosemide 20 mg tablet 20 mg PO MOWEFR RF: 0 metoprolol succinate 25 mg tablet extended release 24 hr 12.5 mg PO DAILY RF: 0 docusate sodium 100 mg Tablet 100 mg PO BID PRN (Reason: Constipation) RF: 0 esomeprazole magnesium 20 mg capsule,delayed release(DR/EC) 20 mg PO DAILY RF: 0 diclofenac sodium 1 % gel 4 g TOPICAL BID PRN (Reason: Pain) RF: 0 omega 8-[id number]-fish oil [Fish Oil] 1,000 mg (120 mg-180 mg) Capsule 1 cap PO DAILY RF: 0 Vicks Nyquil Nighttime Relief 6.25-15-325 mg/15 mL Liquid 15 ml PO UD PRN (Reason: PRN) RF: 0 Discontinued meclizine 25 mg tablet 25 mg PO TID PRN (Reason: Dizziness) RF: 0 cholecalciferol (vitamin D3) [Vitamin D3] 25 mcg (1,000 unit) Capsule 2,000 unit PO DAILY RF: 0 Discharge Orders: Discharge Order (Routine); Ordered 01/19/20 Ordered By: Brianna Tenorio/Other Patient Handouts: Anatomy Urinary Tract Fem, Osteoporosis, Fx Back, Osteoporosis Bone Loss Prevent, Heal Bones How, Catheter Indwelling Urinary Dc, ED Fx Comp Vertebral, Vitamin D Admission Data Admit Date/Time: 01/15/20 17:14 Attending Provider: Brianna Waldron Admit Provider: Marcos Sheffield Primary Care Provider: Chano Pierre Other Providers: [facility] ; Marcos Sheffield ; Ramo Hernandez ; Zan Ramirez ; Shaji Walls ; Chemo Fletcher I. ; Yusuf Springer ; Luzma Louise ; Porfirio Velazquez ; Saritha Mills ; Stacie Nieto ; Lc Kong ; Trice Rodriguez
[2020-01-19 11:11] VITALS: PULSE 78; O2SAT 92
[2020-01-19] MEDS: ALPRAZolam 0.5 MG TABLET PO PRN (12:49)
== END 2020-01-19 14:30 | DRG 543 ==
LOC: ED 12:10 → SUATTDRO 17:14 → 2N 17:14

== ENCOUNTER 2021-06-05 12:53 | Inpatient (IN) ==
[2021-06-05 13:43] LABS: Basophils # (auto) 0.01 K/uL (0-0.2); Hematocrit (blood only) 45.1 % (37-47); Hemoglobin 15.4 g/dL (12.0-16.0); Immature Granulocytes # (auto) 0.08 K/uL (0.00-0.02); Immature Granulocytes % (auto) 0.4 %; Lymphocytes # (auto) 0.69 K/uL (1.2-3.4); Lymphocytes % (auto) 3.4 %; Mean Corpuscular Hemoglobin 30.9 pg (25-34); Mean Corpuscular Hgb Conc 34.1 g/dL (32-36); Mean Corpuscular Volume 90.4 fL (80-100); Mean Platelet Volume 9.8 fL (7.4-10.4); Monocytes # (auto) 0.65 K/uL (0.11-0.59); Monocytes % (auto) 3.2 %; Neutrophils # (auto) 19.16 K/uL (1.4-6.5); Platelet Count 209 K/uL (130-400); RDW Standard Deviation 46.3 fL (36.4-46.3); Red Blood Count 4.99 M/uL (4.2-5.4); White Blood Count 20.59 K/uL (4.8-10.8)
[2021-06-05 13:58] LABS: Albumin Level 3.6 gm/dl (3.4-5.0); BUN Creatinine Ratio 17.7 (10-20); Calcium 9.1 mg/dl (8.5-10.1); Creatinine Clr Calc Pharmacy 47.3 ml/min; Est GFR (African American) 62.5 ml/min; Est GFR (Non-African American) 53.9 ml/min; Magnesium 1.9 mg/dl (1.8-2.4); Potassium 4.1 mmol/L (3.5-5.1)
--- NOTE | 2021-06-05 14:06 | XRay Report ---
XR chest 1V portable CLINICAL HISTORY: Sepsis COMPARISON STUDY: Chest radiograph January 18, 2020. FINDINGS: Lung volumes are at the lower limits of normal. Mild linear left basilar opacity favors ate lectasis. There is no pneumothorax or pleural effusion. Cardiomegaly is unchanged. Mediastinal contou rs are normal. There is no evidence for pulmonary edema. IMPRESSION: No acute cardiopulmonary findings. Cardiomegaly. ACT 112: Negative or not required by law. Electronically signed by: Armando Glover M.D. 06/05/2021 2:05 PM
[2021-06-05 14:17] LABS: Albumin Globulin Ratio 0.9 (0.9-2); Bilirubin,Total 1.4 mg/dl (0.2-1); Globulin 4.2 gm/dl (2.5-4.0); Total Protein 7.8 gm/dl (6.4-8.2); Troponin I 0.917 ng/ml (0-0.045)
[2021-06-05] MEDS ORDERED: METOPROLOL TARTRATE 1 MG/ML VIAL IV STA (14:18)
[2021-06-05 14:53] LABS: INR 2.2 (0.9-1.1); Prothrombin Time 21.4 Seconds (9.0-12.0)
--- NOTE | 2021-06-05 14:54 | XRay Report ---
XR ankle RT min 3V routine CLINICAL HISTORY: contusion COMPARISON: None. DISCUSSION: There is minimal irregularity at the mediastinal malleolus which might represent nondisplaced fractu re. Evaluation is limited due to osteopenia. No evidence of dislocation. Ankle mortise is preserved. Diffuse soft tissue edema and small plantar calcaneal spur is seen. IMPRESSION: Questionable irregularity a at medial malleolus which may or may not represent small nond isplaced fracture. Please correlate above-mentioned findings with point tenderness. ACT 112: Negative or not required by law. The above report was generated using voice recognition software. It may contain grammatical, syntax o r spelling errors. Electronically signed by: Flavia Angela DO 06/05/2021 2:53 PM
[2021-06-05] MEDS ORDERED: ASPIRIN 81 MG CHEW PO STA (14:56)
[2021-06-05] MEDS ORDERED: DOXYCYCLINE HYCLATE 100 MG in DEXTROSE 5% 100 ML IV STA (15:01)
[2021-06-05] MEDS ORDERED: HYDROCODONE/ACETAMOPHEN 5/325MG TAB PO ONE (15:01)
[2021-06-05] MEDS ORDERED: OPTIRAY 320 100ml IV ONE (15:08)
[2021-06-05] MEDS ORDERED: SODIUM CHLORIDE 0.9% 500 ML IV ONE (15:08)
--- NOTE | 2021-06-05 15:15 | Emergency Department Note ---
Impression & Plan Hypoxia, Chronic atrial fibrillation, Non-ST elevation IA (NSTEMI), Chills, Elevated lactic acid level, Contusion of ankle, right ED Provider Note Provider: Will Raman MD DATE OF SERVICE: 06/05/2021 CHIEF COMPLAINT: Illness/weakness HISTORY OF PRESENT ILLNESS: Patient is a 76-year-old female history of chronic atrial fibrillation on Coumadin, COPD, hypertension presenting here today from home reporting she woke in the middle of the night around 3 AM with chills. Was then to get back to bed could get warm felt very shaky. Just does not feel well she reports and was nauseous earlier. Reports some upper abdominal discomfort but that has resolved. Some chronic lower back pain has been reported. No new trauma beyond a fall several days ago where she bumped her right ankle. [place] of minimal pain there but some bruising. Patient is on significant amount of pain medicine at home including morphine and hydrocodone. Patient is not on home oxygen. Reported history of lung cancer with prior right upper lobectomy. Patient has received the Covid vaccine. Did not take her morning medicines besides her morphine. Patient denies chest pain. She denies syncope. REVIEW OF SYSTEMS: A total of 10 review of systems was obtained and negative except as stated above in the HPI. PAST MEDICAL HISTORY: As noted above MEDICATIONS: Reviewed home medications SOCIAL HISTORY: Former smoker, lives at home PHYSICAL EXAM: GENERAL: alert and oriented in no acute distress on stretcher Head: normocephalic and atraumatic EYES: No injection, discharge or icterus. NECK: Trachea midline. Supple. ENT: Mucous membranes pink and moist. Pharynx without erythema or exudate. LUNGS: Airway patent. No retractions. Breath sounds generally diminished without significant wheeze HEART: Tachycardic and irregularly irregular rate and rhythm. No chest wall tenderness ABDOMEN: Soft and non-tender, without guarding or rebound. SKIN: Acyanotic, warm, dry, without rashes EXTREMITIES: Without swelling, tenderness or deformity except for resolving contusion over the right ankle with some lateral malleolar tenderness. No acute medial malleoli tenderness. Some slight chronic stasis changes lower extremities noted. NEUROLOGICAL: No focal deficits. No aphasia. No facial droop or slurred speech. EKG: Atrial fibrillation with rapid ventricular response heart rate of [address] segment elevation with some inferior lateral slight ST depression. QTC 498. CONTINUOUS CARDIAC MONITORING: was ordered and showed a heart rate of 80s-120s bpm in atrial fibrillation Patient's laboratory studies and imaging reviewed. Differential includes Infection, dehydration, metabolic abnormality, hypo/hyperglycemia, electrolyte disturbance, anemia, hypoxia, cardiac sources, intracerebral event, toxicologic, neurologic, as well as other pathologies. IMPRESSION/MEDICAL DECISION MAKING: Patient on Coumadin at home and lower suspicion for PE and the patient is anticoagulated with an INR of 2.2 today. Given some aspirin here. Troponin noted to be elevated at 0.9 of the patient denies significant active chest pain. Is in A. fib RVR Mr. Spencer metoprolol given a dose of IV metoprolol here. Significant leukocytosis of 20 noted today. Lung field somewhat diminished but no clear evidence of pneumonia on the chest x-ray. Covid test was sent but the patient is vaccinated. Anaplasmosis may was negative. Lyme screen was sent. Slight elevation of bilirubin and LFTs. CT abdomen pelvis to be complete exclude acute intra-abdominal pathology. Patient with some chronic hyponatremia but no significant hypokalemia noted. Lactate mildly elevated 2.9. Given some IV fluids. Given empiric dose of doxycycline given her reported chills and with a leukocytosis here. Question of her underlying history of COPD may be flaring. Not significantly wheezing will avoid DuoNeb initially given her A. fib RVR. Patient is hypoxic into the high 80s requiring supplemental oxygen which is a new finding. Ankle x-ray per radiology questions a medial malleolar fight but she has no tenderness here. Doubt acute fracture given this however a gel splint was ordered for the right ankle. CT head without acute findings. CT the abdomen pelvis question some mild biliary ductal dilation but in discussion with the patient she reports that she had issues post cholecystectomy and required some reconstruction for biliary communication. Not having significant tenderness and doubt infection here. Given the unknown possible infectious source with concerns for sepsis with her multiple comorbidities and elevated leukocytosis given some fluid hydration covered broadly with again doxycycline as well as Zosyn. Do not believe this represents septic shock. Covid test was negative. Patient again anticoagulated not having active chest pain in regards to elevated troponin. Discussed with the patient and she was in agreement the plan to stay here for further care. Hospitalist team contacted. DIAGNOSIS: Chills, atrial fibrillation, NSTEMI, hypoxia DISPOSITION: Hospitalist will evaluate Patient was agreeable with this plan. Critical Care I have personally spent 33 minutes of critical care time in the direct management of this patient. This includes bedside care, interpretation of diagnostic studies, and testing, discussion with consultants, patient, and family members, and other required patient management activities. These 33 minutes is in excess of all separately billable procedures. Past Med/Surg History Medical History (Updated 06/05/21 @ 17:57 by Luci Lai DO) Chronic anticoagulation Chronic atrial fibrillation Chronic pain Dyslipidemia GERD (gastroesophageal reflux disease) History of lung cancer Hypertension Iron deficiency anemia Post-surgical hypothyroidism Surgical History H/O pneumonectomy Right upper lobe secondary to lung cancer H/O thyroidectomy History of carotid endarterectomy Right Hx of cholecystectomy Family History (Updated 02/13/20 @ 14:26 by Duane Islas) Mother Stroke Hypertension Uterine cancer Father Heart disease Cardiac disorder Aunt Cardiac disorder Brother Diabetes Sister Diabetes Grandmother (Paternal) Breast cancer Social History Smoking Status: Former smoker Tobacco Type: Cigarettes Hx Alcohol Use: Yes Alcohol type: wine Hx Substance Use: No Preferred Language: Ukrainian 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 Ability: Effective Willow Analyst Required: No Beliefs That Will Affect Care: None marital status: / Current Living Situation: Alone Feels Safe at Home: Yes Assistive Devices: Brace/Splint/Immobilizer and Glasses Allergies Allergies Allergy/AdvReac Type Severity Reaction Status Date / Time morphine Allergy Intermediate RASH/PRUTIT Verified 06/05/21 16:32 IS atorvastatin Allergy Unknown 0 Verified 06/05/21 16:32 escitalopram Allergy Unknown 0 Verified 06/05/21 16:32 ezetimibe Allergy Unknown 0 Verified 06/05/21 16:32 fentanyl Allergy Unknown 0 Verified 06/05/21 16:32 hydralazine Allergy Unknown SEVERELY Verified 06/05/21 16:32 FLUSHED;BURNING SENSATION;SHAKING metoclopramide Allergy Unknown 0 Verified 06/05/21 16:32 simvastatin Allergy Unknown 0 Verified 06/05/21 16:32 clarithromycin AdvReac Unknown ABD Verified 06/05/21 16:32 CRAMPING Home Meds Home Medications Medication Instructions Recorded Confirmed alprazolam 1 mg tablet 1 mg PO BID PRN 01/15/20 06/05/21 amlodipine 2.5 mg tablet 2.5 mg PO DAILY 01/15/20 06/05/21 aspirin 81 mg tablet,delayed 81 mg PO DAILY 01/15/20 06/05/21 release cyclobenzaprine 10 mg tablet 10 mg PO DAILY PRN 01/15/20 06/05/21 diclofenac sodium 1 % topical gel 4 g TOPICAL BID PRN 01/15/20 06/05/21 docusate sodium 100 mg tablet 100 mg PO BID 01/15/20 06/05/21 esomeprazole magnesium 20 mg 20 mg PO DAILY 01/15/20 06/05/21 capsule,delayed release furosemide 20 mg tablet 20 mg PO MOWEFR 01/15/20 06/05/21 hydrocodone 7.5 mg-acetaminophen 1 tab PO Q6 PRN 01/15/20 06/05/21 325 mg tablet levothyroxine 100 mcg tablet 100 mcg PO DAILYBB 01/15/20 06/05/21 (Levoxyl) lisinopril 20 mg tablet 20 mg PO DAILY 01/15/20 06/05/21 metoprolol succinate 25 mg 12.5 mg PO DAILY 01/15/20 06/05/21 tablet,extended release 24 hr morphine 15 mg tablet,extended 15 mg PO BID 01/15/20 06/05/21 release warfarin 5 mg tablet 2.5 mg PO TUTH 01/15/20 06/05/21 cholecalciferol (vitamin D3) 25 25 mcg PO DAILY tab 02/13/20 06/05/21 mcg (1,000 unit) tablet alendronate 10 mg tablet 10 mg PO DAILY 06/05/21 06/05/21 atorvastatin 10 mg tablet 10 mg PO DAILY 06/05/21 06/05/21 fluticasone propionate 50 2 spray INTRANASAL DAILY PRN 06/05/21 06/05/21 mcg/actuation nasal spray,suspension (Flonase Allergy Relief) ipratropium 0.5 mg-albuterol 3 mg 3 ml INHALATION Q4 PRN 06/05/21 06/05/21 (2.5 mg base)/3 mL nebulization soln melatonin 3 mg tablet 3 mg PO HS 06/05/21 06/05/21 multivitamin 1 tab PO DAILY 06/05/21 06/05/21 omega-3 fatty acids 1,000 mg PO DAILY 06/05/21 06/05/21 polyethylene glycol 3350 17 17 g PO DAILY PRN 06/05/21 06/05/21 gram/dose oral powder (Miralax) sennosides 8.6 mg tablet (senna) 17.2 mg PO HS 06/05/21 06/05/21 warfarin 5 mg tablet (Jantoven) 5 mg PO SUMOWEFRSA 06/05/21 06/05/21 Previous Rx's Medication Instructions Recorded albuterol sulfate 90 mcg/actuation 2 puffs INH Q6H PRN #6.7 gm 01/19/20 aerosol inhaler calcium carbonate 500 mg calcium 500 mg PO DAILY #30 tab 01/19/20 (1,250 mg) tablet (Calcium 500) meclizine 25 mg tablet 25 mg PO TID PRN #90 tab 01/19/20 Results & Data (ED) Vital Signs Vital Signs - 24 hr 06/05/21 13:00 06/05/21 13:06 06/05/21 13:16 Temperature 37 C Temperature Source Oral Pulse Rate 115 H 122 H 122 H Pulse Rate [Apical] Pulse Rate from SpO2 Sensor 130 H Pulse Rhythm Irregular Irregular Pulse Rhythm [Apical] Pulse Strength Normal Pulse Strength [Apical] Respiratory Rate 27 H 24 24 Respiratory Effort / Characteristics Non-Labored Spontaneous Respiratory Depth Normal Respiratory Pattern Regular Blood Pressure 111/96 103/88 Blood Pressure [Left Arm] Blood Pressure Mean 101 93 Blood Pressure Mean [Left Arm] Blood Pressure Position Sitting Blood Pressure Position [Left Arm] Pulse Oximetry 93 87 L 97 Oxygen Delivery Method Nasal Cannula Room Air Nasal Cannula Oxygen Flow Rate 2 2 Sepsis Recent Fever Within 48 Hours No Sepsis New/Unexplained Change in Mental Status No Sepsis Action Taken by Nursing No Action Required Oxygen Flow Rate - Titration Fraction of Inspired Oxygen - Titration 06/05/21 13:38 06/05/21 14:23 06/05/21 14:29 Temperature Temperature Source Pulse Rate 121 H Pulse Rate [Apical] 97 H Pulse Rate from SpO2 Sensor Pulse Rhythm Pulse Rhythm [Apical] Irregular Pulse Strength Pulse Strength [Apical] Normal Respiratory Rate 22 Respiratory Effort / Characteristics Non-Labored Spontaneous Respiratory Depth Normal Respiratory Pattern Regular Blood Pressure 111/96 Blood Pressure [Left Arm] 98/72 L Blood Pressure Mean Blood Pressure Mean [Left Arm] 80 Blood Pressure Position Blood Pressure Position [Left Arm] Sitting Pulse Oximetry 87 L 95 Oxygen Delivery Method Nasal Cannula Nasal Cannula Oxygen Flow Rate 0 2 Sepsis Recent Fever Within 48 Hours Sepsis New/Unexplained Change in Mental Status Sepsis Action Taken by Nursing Oxygen Flow Rate - Titration 2 Fraction of Inspired Oxygen - Titration 97 06/05/21 14:34 06/05/21 15:41 06/05/21 16:00 Temperature Temperature Source Pulse Rate 92 H 85 Pulse Rate [Apical] 91 H Pulse Rate from SpO2 Sensor 97 H Pulse Rhythm Pulse Rhythm [Apical] Pulse Strength Pulse Strength [Apical] Respiratory Rate 22 18 20 Respiratory Effort / Characteristics Respiratory Depth Respiratory Pattern Blood Pressure 98/66 L 112/66 Blood Pressure [Left Arm] 95/67 L Blood Pressure Mean 76 81 Blood Pressure Mean [Left Arm] 76 Blood Pressure Position Blood Pressure Position [Left Arm] Lying Pulse Oximetry 98 96 Oxygen Delivery Method Nasal Cannula Nasal Cannula Oxygen Flow Rate 2 2 Sepsis Recent Fever Within 48 Hours Sepsis New/Unexplained Change in Mental Status Sepsis Action Taken by Nursing Oxygen Flow Rate - Titration Fraction of Inspired Oxygen - Titration 06/05/21 16:31 06/05/21 17:01 06/05/21 17:30 Temperature Temperature Source Pulse Rate 94 H 79 Pulse Rate [Apical] 79 Pulse Rate from SpO2 Sensor 72 Pulse Rhythm Pulse Rhythm [Apical] Pulse Strength Pulse Strength [Apical] Respiratory Rate 19 19 24 Respiratory Effort / Characteristics Respiratory Depth Respiratory Pattern Blood Pressure 91/68 L 100/71 Blood Pressure [Left Arm] 98/70 L Blood Pressure Mean 75 80 Blood Pressure Mean [Left Arm] 79 Blood Pressure Position Blood Pressure Position [Left Arm] Pulse Oximetry 96 93 Oxygen Delivery Method Nasal Cannula Nasal Cannula Oxygen Flow Rate 2 2 Sepsis Recent Fever Within 48 Hours Sepsis New/Unexplained Change in Mental Status Sepsis Action Taken by Nursing Oxygen Flow Rate - Titration Fraction of Inspired Oxygen - Titration Laboratory Data Result diagrams: 06/05/21 13:16 06/05/21 13:16 Lab Results 06/05/21 06/05/21 06/05/21 Range/Units 13:16 13:16 13:16 WBC 20.59 H (4.8-10.8) K/uL RBC 4.99 (4.2-5.4) M/uL Hgb 15.4 (12.0-16.0) g/dL Hct 45.1 (37-47) % MCV 90.4 (80-100) fL MCH 30.9 (25-34) pg MCHC 34.1 (32-36) g/dL RDW Std Deviation 46.3 (36.4-46.3) fL RDW Coeff of Richar 14.0 (11.5-14.5) % Plt Count 209 (130-400) K/uL MPV 9.8 (7.4-10.4) fL Immature Gran % (Auto) 0.4 % Neut % (Auto) 93.0 % Lymph % (Auto) 3.4 % [place] % (Auto) 3.2 % Eos % (Auto) 0.0 % Baso % (Auto) 0.0 % Neut # (Auto) 19.16 H (1.4-6.5) K/uL Lymph # (Auto) 0.69 L (1.2-3.4) K/uL [place] # (Auto) 0.65 H (0.11-0.59) K/uL Eos # (Auto) 0.00 (0-0.5) K/uL Baso # (Auto) 0.01 (0-0.2) K/uL Immature Gran # (Auto) 0.08 H (0.00-0.02) K/uL PT Cancelled INR Cancelled APTT Cancelled PTT Ratio Cancelled Sodium 128 L (136-145) mmol/L Potassium 4.1 (3.5-5.1) mmol/L Chloride 95 L (98-107) mmol/L Carbon Dioxide 27 (21-32) mmol/L Anion Gap 6.0 (3-11) BUN 18 (7-18) mg/dl Creatinine 1.00 (0.6-1.2) mg/dl Est Cr Clr Drug Dosing 47.3 ml/min Est GFR ( Amer) 62.5 ml/min Est GFR (Non-Af Amer) 53.9 ml/min BUN/Creatinine Ratio 17.7 (10-20) Glucose 136 H (70-99) mg/dl Lactate (0.4-2.0) mmol/L Calcium 9.1 (8.5-10.1) mg/dl Magnesium 1.9 (1.8-2.4) mg/dl Total Bilirubin 1.4 H (0.2-1) mg/dl AST 142 H (15-37) U/L ALT 97 H (12-78) U/L Alkaline Phosphatase 104 (45-117) U/L Troponin I 0.917 H* (0-0.045) ng/ml Total Protein 7.8 (6.4-8.2) gm/dl Albumin 3.6 (3.4-5.0) gm/dl Globulin 4.2 H (2.5-4.0) gm/dl Albumin/Globulin Ratio 0.9 (0.9-2) Lipase (73-393) U/L TSH (0.300-4.500) uIu/ml Anaplasma Smear Lyme Disease IgG Ab Lyme Disease IgM Ab COVID-19 Eval Order SARS-CoV-2 (PCR) (Negative) 06/05/21 06/05/21 06/05/21 Range/Units 13:16 13:16 14:24 WBC (4.8-10.8) K/uL RBC (4.2-5.4) M/uL Hgb (12.0-16.0) g/dL Hct (37-47) % MCV (80-100) fL MCH (25-34) pg MCHC (32-36) g/dL RDW Std Deviation (36.4-46.3) fL RDW Coeff of Richar (11.5-14.5) % Plt Count (130-400) K/uL MPV (7.4-10.4) fL Immature Gran % (Auto) % Neut % (Auto) % Lymph % (Auto) % [place] % (Auto) % Eos % (Auto) % Baso % (Auto) % Neut # (Auto) (1.4-6.5) K/uL Lymph # (Auto) (1.2-3.4) K/uL [place] # (Auto) (0.11-0.59) K/uL Eos # (Auto) (0-0.5) K/uL Baso # (Auto) (0-0.2) K/uL Immature Gran # (Auto) (0.00-0.02) K/uL PT INR APTT PTT Ratio Sodium (136-145) mmol/L Potassium (3.5-5.1) mmol/L Chloride (98-107) mmol/L Carbon Dioxide (21-32) mmol/L Anion Gap (3-11) BUN (7-18) mg/dl Creatinine (0.6-1.2) mg/dl Est Cr Clr Drug Dosing ml/min Est GFR ( Amer) ml/min Est GFR (Non-Af Amer) ml/min BUN/Creatinine Ratio (10-20) Glucose (70-99) mg/dl Lactate 2.9 H* (0.4-2.0) mmol/L Calcium (8.5-10.1) mg/dl Magnesium (1.8-2.4) mg/dl Total Bilirubin (0.2-1) mg/dl AST (15-37) U/L ALT (12-78) U/L Alkaline Phosphatase (45-117) U/L Troponin I (0-0.045) ng/ml Total Protein (6.4-8.2) gm/dl Albumin (3.4-5.0) gm/dl Globulin (2.5-4.0) gm/dl Albumin/Globulin Ratio (0.9-2) Lipase (73-393) U/L TSH (0.300-4.500) uIu/ml Anaplasma Smear See Comment Lyme Disease IgG Ab Cancelled Lyme Disease IgM Ab Cancelled COVID-19 Eval Order SARS-CoV-2 (PCR) (Negative) 06/05/21 06/05/21 06/05/21 Range/Units 14:24 14:28 14:28 WBC (4.8-10.8) K/uL RBC (4.2-5.4) M/uL Hgb (12.0-16.0) g/dL Hct (37-47) % MCV (80-100) fL MCH (25-34) pg MCHC (32-36) g/dL RDW Std Deviation (36.4-46.3) fL RDW Coeff of Richar (11.5-14.5) % Plt Count (130-400) K/uL MPV (7.4-10.4) fL Immature Gran % (Auto) % Neut % (Auto) % Lymph % (Auto) % [place] % (Auto) % Eos % (Auto) % Baso % (Auto) % Neut # (Auto) (1.4-6.5) K/uL Lymph # (Auto) (1.2-3.4) K/uL [place] # (Auto) (0.11-0.59) K/uL Eos # (Auto) (0-0.5) K/uL Baso # (Auto) (0-0.2) K/uL Immature Gran # (Auto) (0.00-0.02) K/uL PT 21.4 H INR 2.2 H APTT PTT Ratio Sodium (136-145) mmol/L Potassium (3.5-5.1) mmol/L Chloride (98-107) mmol/L Carbon Dioxide (21-32) mmol/L Anion Gap (3-11) BUN (7-18) mg/dl Creatinine (0.6-1.2) mg/dl Est Cr Clr Drug Dosing ml/min Est GFR ( Amer) ml/min Est GFR (Non-Af Amer) ml/min BUN/Creatinine Ratio (10-20) Glucose (70-99) mg/dl Lactate (0.4-2.0) mmol/L Calcium (8.5-10.1) mg/dl Magnesium (1.8-2.4) mg/dl Total Bilirubin (0.2-1) mg/dl AST (15-37) U/L ALT (12-78) U/L Alkaline Phosphatase (45-117) U/L Troponin I (0-0.045) ng/ml Total Protein (6.4-8.2) gm/dl Albumin (3.4-5.0) gm/dl Globulin (2.5-4.0) gm/dl Albumin/Globulin Ratio (0.9-2) Lipase (73-393) U/L TSH (0.300-4.500) uIu/ml Anaplasma Smear Lyme Disease IgG Ab Lyme Disease IgM Ab COVID-19 Eval Order Covid19 at [facility] SARS-CoV-2 (PCR) NEGATIVE (Negative) 06/05/21 06/05/21 Range/Units 14:40 14:40 WBC (4.8-10.8) K/uL RBC (4.2-5.4) M/uL Hgb (12.0-16.0) g/dL Hct (37-47) % MCV (80-100) fL MCH (25-34) pg MCHC (32-36) g/dL RDW Std Deviation (36.4-46.3) fL RDW Coeff of Richar (11.5-14.5) % Plt Count (130-400) K/uL MPV (7.4-10.4) fL Immature Gran % (Auto) % Neut % (Auto) % Lymph % (Auto) % [place] % (Auto) % Eos % (Auto) % Baso % (Auto) % Neut # (Auto) (1.4-6.5) K/uL Lymph # (Auto) (1.2-3.4) K/uL [place] # (Auto) (0.11-0.59) K/uL Eos # (Auto) (0-0.5) K/uL Baso # (Auto) (0-0.2) K/uL Immature Gran # (Auto) (0.00-0.02) K/uL PT INR APTT PTT Ratio Sodium (136-145) mmol/L Potassium (3.5-5.1) mmol/L Chloride (98-107) mmol/L Carbon Dioxide (21-32) mmol/L Anion Gap (3-11) BUN (7-18) mg/dl Creatinine (0.6-1.2) mg/dl Est Cr Clr Drug Dosing ml/min Est GFR ( Amer) ml/min Est GFR (Non-Af Amer) ml/min BUN/Creatinine Ratio (10-20) Glucose (70-99) mg/dl Lactate (0.4-2.0) mmol/L Calcium (8.5-10.1) mg/dl Magnesium (1.8-2.4) mg/dl Total Bilirubin (0.2-1) mg/dl AST (15-37) U/L ALT (12-78) U/L Alkaline Phosphatase (45-117) U/L Troponin I (0-0.045) ng/ml Total Protein (6.4-8.2) gm/dl Albumin (3.4-5.0) gm/dl Globulin (2.5-4.0) gm/dl Albumin/Globulin Ratio (0.9-2) Lipase 45 L (73-393) U/L TSH 3.290 (0.300-4.500) uIu/ml Anaplasma Smear Lyme Disease IgG Ab Negative Lyme Disease IgM Ab Negative COVID-19 Eval Order SARS-CoV-2 (PCR) (Negative) Administered Medications Discontinued Medications Hydrocodone Bitart/Acetaminophen (Hydrocodone/Acetamophen 5/325mg Tab) 1 tab PO ONCE ONE Stop: 06/05/21 15:02 Last Admin: 06/05/21 15:38 Dose: 1 tab Documented by: [id number] Aspirin (Aspirin 81 Mg Chew) 243 mg PO NOW STA Stop: 06/05/21 14:57 Last Admin: 06/05/21 15:39 Dose: 243 mg Documented by: [id number] Doxycycline Hyclate 100 mg/ (Dextrose) 110 mls @ 50 mls/hr IV NOW STA Stop: 06/05/21 17:12 Last Infusion: 06/05/21 17:52 Dose: 0 mls/hr Documented by: [id number] Admin: 06/05/21 15:41 Dose: 50 mls/hr Documented by: [id number] Sodium Chloride (Nss) 500 mls @ 999 mls/hr IV .Q31M ONE Stop: 06/05/21 15:38 Last Infusion: 06/05/21 16:12 Dose: 0 mls/hr Documented by: [id number] Admin: 06/05/21 15:41 Dose: 999 mls/hr Documented by: [id number] Piperacillin Sod/Tazobactam Sod (Zosyn) 4.5 gm in 120 mls @ 240 mls/hr IV NOW ONE Stop: 06/05/21 16:32 Last Admin: 06/05/21 17:51 Dose: 240 mls/hr Documented by: [id number] Ioversol (Optiray 320 100ml) 95 ml IV ONCE ONE Stop: 06/05/21 15:09 Last Admin: 06/05/21 15:08 Dose: 95 ml Documented by: [id number] Metoprolol Tartrate (Metoprolol Tartrate 1 Mg/Ml Vial) 5 mg IV NOW STA Stop: 06/05/21 14:19 Last Admin: 06/05/21 14:23 Dose: 5 mg Documented by: [id number] Imaging Data Radiologist's Impression: Chest X-Ray 06/05/21 13:34 XR chest 1V portable CLINICAL HISTORY: Sepsis COMPARISON STUDY: Chest radiograph January 18, 2020. FINDINGS: Lung volumes are at the lower limits of normal. Mild linear left basilar opacity favors atelectasis. There is no pneumothorax or pleural effusion. Cardiomegaly is unchanged. Mediastinal contours are normal. There is no evidence for pulmonary edema. IMPRESSION: No acute cardiopulmonary findings. Cardiomegaly. ACT 112: Negative or not required by law. Electronically signed by: Armando Glover M.D. 06/05/2021 2:05 PM Ankle X-Ray 06/05/21 14:20 XR ankle RT min 3V routine CLINICAL HISTORY: contusion COMPARISON: None. DISCUSSION: There is minimal irregularity at the mediastinal malleolus which might represent nondisplaced fracture. Evaluation is limited due to osteopenia. No evidence of dislocation. Ankle mortise is preserved. Diffuse soft tissue edema and small plantar calcaneal spur is seen. IMPRESSION: Questionable irregularity a at medial malleolus which may or may not represent small nondisplaced fracture. Please correlate above-mentioned findings with point tenderness. ACT 112: Negative or not required by law. The above report was generated using voice recognition software. It may contain grammatical, syntax or spelling errors. Electronically signed by: Flavia Angela DO 06/05/2021 2:53 PM Abdomen/Pelvis CT 06/05/21 14:44 CT OF THE ABDOMEN AND PELVIS WITH CONTRAST CLINICAL HISTORY: chills, nausea, elevated lft COMPARISON STUDY: KUB January 18, 2020. PET/CT December 07, 2006. TECHNIQUE: Following IV administration of 95 mL of Optiray, axial images of the abdomen and pelvis were obtained from the lung bases to the proximal femurs. Images were reviewed in the axial, sagittal, and coronal planes. IV contrast was administered without complication. Automated exposure control was utilized for the study. A dose lowering technique was utilized adhering to the principles of ALARA. CT DOSE: 697.98 mGy.cm FINDINGS: There is a trace right pleural effusion. No pneumatosis, free air or portal venous gas is present. There is probable hepatic steatosis. There is mild nodularity of the liver surface. The gallbladder is surgically absent. There is mild biliary ductal dilatation. Pneumobilia is again noted. There is a small 4 mm calcified distal common bile duct calculus on image 127 of 421. In addition, there is apparent debris within the common bile duct. There may be communication between the common bile duct and the duodenum. This could be postsurgical. The spleen, adrenal glands and kidneys are unremarkable. There is no peripancreatic infiltration. The pancreas is atrophic. The appendix is normal. Several calcified fibroids are present. There is colonic diverticulosis without evidence for acute diverticulitis. There is no lymphadenopathy. No acute fracture or naren picious lesion is identified within visualized skeletal structures. There are multiple lower thoracic and lumbar spine compression fractures which are likely old. Abdominal aorta is ectatic. There is extensive plaque. IMPRESSION: 1. Mild biliary ductal dilatation status post cholecystectomy. Small 4 mm calcified distal common bile duct calculus. In addition, debris within the common bile duct and apparently communication between the common bile duct and the duodenum. This could be postsurgical or represent a fistula and this finding is likely chronic. 2. Hepatic steatosis. Possible mild cirrhosis by CT. 3. No bowel obstruction. 4. Sigmoid diverticulosis. No evidence for acute diverticulitis. ACT 112: Negative or not required by law. Electronically signed by: Armando Glover M.D. 06/05/2021 3:[address] 06/05/21 14:44 CT SCAN OF THE BRAIN WITHOUT IV CONTRAST CLINICAL HISTORY: Headache. COMPARISON STUDY: CT of the brain dated 03/28/2010. TECHNIQUE: Unenhanced axial CT scan of the brain is performed from the vertex to the skull base. A dose lowering technique was utilized adhering to the principles of ALARA. CT DOSE: 884.08 mGy.cm FINDINGS: Brain parenchyma: There are age-related involutional changes noting moderate confluent subcortical and periventricular microangiopathic change. There is no hemorrhage, mass effect, or evidence of acute territorial ischemia by CT criteria. Riojas-white matter differentiation is preserved. No extra-axial fluid collection is seen. Ventricles, sulci, cisterns: Prominent secondary to involutional change. Intracranial vasculature: There is atherosclerotic calcification of the cavernous carotid and vertebral arteries. Calvarium: Unremarkable. Sinuses and mastoids: The paranasal sinuses are clear. The mastoid air cells are well pneumatized. Orbits: The bony orbits are grossly intact. There are bilateral ocular lens implants. IMPRESSION: There is no hemorrhage, mass effect, or evidence of acute territorial ischemia by CT criteria. ACT 112: Negative or not required by law. Electronically signed by: Hi Medellin M.D. 06/05/2021 3:26 PM Discharge Plan Visit Data Chief Complaint: Illness Stated Complaint: nausea/vomiting ED Provider: Will Raman Discharge Problem: Hypoxia, Chronic atrial fibrillation, Non-ST elevation IA (NSTEMI), Chills, Sarah vated lactic acid level, Contusion of ankle, right Patient Disposition: Admitted As Inpatient Forms Stand Alone Forms: My [facility] Prescriptions Prescriptions: No Action cholecalciferol (vitamin D3) 25 mcg (1,000 unit) tablet 25 mcg PO DAILY RF: 0 cyclobenzaprine 10 mg tablet 10 mg PO DAILY PRN (Reason: Muscle Spasm) RF: 0 alprazolam 1 mg tablet 1 mg PO BID PRN (Reason: Anxiety) RF: 0 lisinopril 20 mg tablet 20 mg PO DAILY RF: 0 amlodipine 2.5 mg tablet 2.5 mg PO DAILY RF: 0 aspirin 81 mg Tablet,Delayed Release (Dr/Ec) 81 mg PO DAILY RF: 0 levothyroxine [Levoxyl] 100 mcg tablet 100 mcg PO DAILYBB RF: 0 hydrocodone-acetaminophen 7.5-325 mg tablet 1 tab PO Q6 PRN (Reason: Pain) RF: 0 warfarin 5 mg tablet 2.5 mg PO TUTH RF: 0 morphine 15 mg tablet extended release 15 mg PO BID RF: 0 furosemide 20 mg tablet 20 mg PO MOWEFR RF: 0 metoprolol succinate 25 mg tablet extended release 24 hr 12.5 mg PO DAILY RF: 0 docusate sodium 100 mg Tablet 100 mg PO BID RF: 0 esomeprazole magnesium 20 mg capsule,delayed release(DR/EC) 20 mg PO DAILY RF: 0 diclofenac sodium 1 % gel 4 g TOPICAL BID PRN (Reason: Pain) RF: 0 meclizine 25 mg tablet 25 mg PO TID PRN (Reason: dizziness) Qty: 90 RF: 0 albuterol sulfate 90 mcg/actuation HFA aerosol inhaler 2 puffs INH Q6H PRN (Reason: shortness of breath or wheezing) Qty: 6.7 RF: 0 calcium carbonate [Calcium 500] 500 mg calcium (1,250 mg) tablet 500 mg PO DAILY Qty: 30 RF: 0 multivitamin Tablet 1 tab PO DAILY RF: 0 alendronate 10 mg tablet 10 mg PO DAILY RF: 0 sennosides [senna] 8.6 mg Tablet 17.2 mg PO HS RF: 0 ipratropium-albuterol 0.5 mg-3 mg(2.5 mg base)/3 mL solution for nebulization 3 ml INHALATION Q4 PRN (Reason: Shortness Of Breath Or Wheezing) RF: 0 atorvastatin 10 mg tablet 10 mg PO DAILY RF: 0 melatonin 3 mg Tablet 3 mg PO HS RF: 0 warfarin [Jantoven] 5 mg tablet 5 mg PO SUMOWEFRSA RF: 0 polyethylene glycol 3350 [Miralax] 17 gram/dose Powder 17 g PO DAILY PRN (Reason: Constipation) RF: 0 fluticasone propionate [Flonase Allergy Relief] 50 mcg/actuation Gilson,Suspension 2 spray INTRANASAL DAILY PRN (Reason: allergies) RF: 0 Fish Oil Capsule 1,000 mg PO DAILY RF: 0 Referrals Referrals: Chano Pierre MD [Primary Care Provider] -
[2021-06-05 15:18] LABS: Thyroid Stimulating Hormone 3.29 uIu/ml (0.300-4.500)
--- NOTE | 2021-06-05 15:27 | CT Scan Report ---
CT SCAN OF THE BRAIN WITHOUT IV CONTRAST CLINICAL HISTORY: Headache. COMPARISON STUDY: CT of the brain dated 03/28/2010. TECHNIQUE: Unenhanced axial CT scan of the brain is performed from the vertex to the skull base. A do se lowering technique was utilized adhering to the principles of ALARA. CT DOSE: 884.08 mGy.cm FINDINGS: Brain parenchyma: There are age-related involutional changes noting moderate confluent subcortical a nd periventricular microangiopathic change. There is no hemorrhage, mass effect, or evidence of acute territorial ischemia by CT criteria. Riojas-white matter differentiation is preserved. No extra-axial fluid collection is seen. Ventricles, sulci, cisterns: Prominent secondary to involutional change. Intracranial vasculature: There is atherosclerotic calcification of the cavernous carotid and vertebr al arteries. Calvarium: Unremarkable. Sinuses and mastoids: The paranasal sinuses are clear. The mastoid air cells are well pneumatized. Orbits: The bony orbits are grossly intact. There are bilateral ocular lens implants. IMPRESSION: There is no hemorrhage, mass effect, or evidence of acute territorial ischemia by CT keely broussard. ACT 112: Negative or not required by law. Electronically signed by: Hi Medellin M.D. 06/05/2021 3:26 PM
--- NOTE | 2021-06-05 15:44 | CT Scan Report ---
CT OF THE ABDOMEN AND PELVIS WITH CONTRAST CLINICAL HISTORY: chills, nausea, elevated lft COMPARISON STUDY: KUB January 18, 2020. PET/CT December 07, 2006. TECHNIQUE: Following IV administration of 95 mL of Optiray, axial images of the abdomen and pelvis we re obtained from the lung bases to the proximal femurs. Images were reviewed in the axial, sagittal, and coronal planes. IV contrast was administered without complication. Automated exposure control wa s utilized for the study. A dose lowering technique was utilized adhering to the principles of ALARA . CT DOSE: 697.98 mGy.cm FINDINGS: There is a trace right pleural effusion. No pneumatosis, free air or portal venous gas is p resent. There is probable hepatic steatosis. There is mild nodularity of the liver surface. The gallb ladder is surgically absent. There is mild biliary ductal dilatation. Pneumobilia is again noted. The re is a small 4 mm calcified distal common bile duct calculus on image 127 of 421. In addition, there is apparent debris within the common bile duct. There may be communication between the common bile d uct and the duodenum. This could be postsurgical. The spleen, adrenal glands and kidneys are unremark able. There is no peripancreatic infiltration. The pancreas is atrophic. The appendix is normal. July ral calcified fibroids are present. There is colonic diverticulosis without evidence for acute divert iculitis. There is no lymphadenopathy. No acute fracture or suspicious lesion is identified within vi sualized skeletal structures. There are multiple lower thoracic and lumbar spine compression fracture s which are likely old. Abdominal aorta is ectatic. There is extensive plaque. IMPRESSION: 1. Mild biliary ductal dilatation status post cholecystectomy. Small 4 mm calcified distal common aj e duct calculus. In addition, debris within the common bile duct and apparently communication between the common bile duct and the duodenum. This could be postsurgical or represent a fistula and this fi nding is likely chronic. 2. Hepatic steatosis. Possible mild cirrhosis by CT. 3. No bowel obstruction. 4. Sigmoid diverticulosis. No evidence for acute diverticulitis. ACT 112: Negative or not required by law. Electronically signed by: Armando Glover M.D. 06/05/2021 3:42 PM
[2021-06-05 16:00] LABS: Lyme Ab IgG w/WB Rflx Negative (Negative); Lyme Ab IgM w/WB Rflx Negative (Negative)
[2021-06-05] MEDS ORDERED: PIPERACILLIN/TAZOBACTAM 4.5 GM/120 ML BAG IV ONE (16:03)
[2021-06-05] MEDS ORDERED: PIPERACILL/TAZOBAC CONSULT ACTIVE PRN (16:03)
--- NOTE | 2021-06-05 17:34 | History & Physical Report ---
Date of Service June 05, 2021 Assessment & Plan (1) Sepsis: Plan: Pt is 76 y/o F with PMH chronic atrial fibrillation on Coumadin, HTN, dyslipidemia, GERD, postsurgical hypothyroidism, H/L lung CA, TIA, carotid stenosis s/p right carotid endarterectomy, chronic back pain on narcotics presented to ER with complaint of chills x1 day. Reports nausea and upper abdominal discomfort, vomited twice last night with resolution of symptoms today. In ER pt afebrile, P: 122, R: 24, BP: 103/88, 87% on room air WBC: 20, lactate: 2.9,Negative COVID 19 PCR, negative Lyme IgG, IgM, negative anaplasma smear CT abdomen/pelvis: 1. Mild biliary ductal dilatation status post cholecystectomy. Small 4 mm calcified distal common bile duct calculus. In addition, debris within the common bile duct and apparently communication between the common bile duct and the duodenum. This could be postsurgical or represent a fistula and this finding is likely chronic. 2. Hepatic steatosis. Possible mild cirrhosis by CT. 3. No bowel obstruction. 4. Sigmoid diverticulosis. No evidence for acute diverticulitis. In ER pt was given 500 mL NSS, Zosyn, doxycycline Patient meets SIRS criteria. Possible source GI, urine UA pending Blood cultures pending Anaplasma PCR pending Repeat lactate normalized at 2.0 IVF Zosyn CBC, CMP in a.m. GI consult (2) Hypoxia: Plan: Patient presented to ER with pulse ox of 87% on room air up to 96% on 2 L nasal cannula. Chest x-ray without cardiopulmonary findings INR is therapeutic at 2.2. PE is less likely Supplemental oxygen as needed If no improvement or worsening, consider CTA chest (3) Elevated transaminase measurement: Plan: T bili: 1.4, AST: 142, ALT: 97, alk phos: 104. Outpatient labs from 04/2021 with T bili: 0.9, AST: 32, ALT: 16, alk phos 88 Repeat liver functions in a.m. Hold home atorvastatin at this time GI consult (4) Chronic atrial fibrillation: Plan: Chronic atrial fibrillation on Coumadin Presented to the ER in A. fib RVR with rate in the 120s. Patient did not have morning metoprolol succinate. TSH: 3.2 In ER was given Lopressor 5 mg IV with heart rate down into the 90s. Patient denies any sensation of palpitations or tachyarrhythmias, chest pain, dizziness Likely secondary to missed metoprolol and/or underlying infection Continue metoprolol succinate Lopressor IV as needed INR: 2.2 Continue Coumadin INR in a.m. Consider cardiology consultation if recurrent A. fib RVR Elevated troponin Troponin: 0.9. EKG: Atrial fibrillation RVR, nonspecific ST changes Denies chest pain, shortness of breath In ER patient was given aspirin 243 mg Trend troponin EKG a.m. (5) Fx medial malleolus-closed: Plan: Patient with history striking right ankle on stool last week. Right ankle x-ray: Questionable irregularity a at medial malleolus which may or may not represent small nondisplaced fracture. On exam patient with tenderness to both medial and lateral malleolus Splint Nonweightbearing on right foot for now Ortho consult (6) Hypertension: Plan: BP's soft in ER Hold amlodipine, lisinopril, Lasix at this time and reassess tomorrow Continue metoprolol succinate (7) Constipation due to opioid therapy: Plan: Chronic back pain on chronic narcotics Chronic constipation Bowel regimen Continue chronic morphine, hydrocodone as needed. Will currently hold Flexeril and alprazolam. (8) DVT prophylaxis: Plan: Pt on Coumadin. INR: 2.2 Full Code as per discussion with pt Follows with Dr Pierre for routine care Pt was seen and care coordinated with Dr Lai. See addendum History of Present Illness Chief Complaint: Chills Primary Care Provider: Danelle Pierre MD Pt is 76 y/o F with PMH chronic atrial fibrillation on Coumadin, HTN, dyslipidemia, GERD, postsurgical hypothyroidism, H/L lung CA, TIA, carotid stenosis s/p right carotid endarterectomy, chronic back pain on narcotics presented to ER with complaint of chills x1 day. Patient states woke up in the middle the night with chills and shakes. Reports nausea and upper abdominal discomfort. Reports vomited twice. Also reports had headache during the night. Patient states no further nausea or abdominal pain and headache also resolved. She has not had BM for the past 4 days which she reports chronic constipation. Reports will have intermittent phlegm, denies increased phlegm or cough. Did not take temperature. Patient lives alone. Patient denies any falls. She reports last week she had her right ankle on a stool and since has had ecchymosis. She reports some pain to the lateral ankle. Her family is with her in ER and reports pt a baseline mental status and is often forgetful. Her granddaughter used to control patient's pills, however now patient does her own medicines. Denies shortness of breath, chest pain, rashes, dysuria, urinary frequency, hematuria. Patient does not wear oxygen at home. Denies recent travel or ill contacts. Denies diaphoresis, dizziness, syncope, vision changes, neck pain,orthopnea, palpitations, sore throat, choking, otalgia, rhinorrhea, paresthesias, weakness, extremity weakness, extremity edema. In ER pt afebrile, found to be in afib RVR with rate in 120's, WBC: 20, elevated lactic acid at 2.9, elevated troponin at 0.9 without acute EKG changes. Negative COVID 19 PCR, negative Lyme IgG, IgM, negative anaplasma smear CT Abd/pelvis with findings of Mild biliary ductal dilatation status post cholecystectomy. Small 4 mm calcified distal common bile duct calculus. In addition, debris within the common bile duct and apparently communication between the common bile duct and the duodenum. This could be postsurgical or represent a fistula and this finding is likely chronic. No bowel obstruction. Sigmoid diverticulosis. No evidence for acute diverticulitis. Pt was given 500 mL NSS, Zosyn, doxycycline, Lopressor 5 mg IV, aspirin 243 mg p.o. Patient being admitted for further evaluation and treatment Allergies Allergy/AdvReac Type Severity Reaction Status Date / Time morphine Allergy Intermediate RASH/PRUTIT Verified 06/05/21 16:32 IS atorvastatin Allergy Unknown 0 Verified 06/05/21 16:32 escitalopram Allergy Unknown 0 Verified 06/05/21 16:32 ezetimibe Allergy Unknown 0 Verified 06/05/21 16:32 fentanyl Allergy Unknown 0 Verified 06/05/21 16:32 hydralazine Allergy Unknown SEVERELY Verified 06/05/21 16:32 FLUSHED;BURNING SENSATION;SHAKING metoclopramide Allergy Unknown 0 Verified 06/05/21 16:32 simvastatin Allergy Unknown 0 Verified 06/05/21 16:32 clarithromycin AdvReac Unknown ABD Verified 06/05/21 16:32 CRAMPING Home Medications Medication Instructions Recorded Confirmed Type alprazolam 1 mg tablet 1 mg PO BID PRN 01/15/20 06/05/21 History amlodipine 2.5 mg tablet 2.5 mg PO DAILY 01/15/20 06/05/21 History aspirin 81 mg tablet,delayed 81 mg PO DAILY 01/15/20 06/05/21 History release cyclobenzaprine 10 mg tablet 10 mg PO DAILY PRN 01/15/20 06/05/21 History diclofenac sodium 1 % topical gel 4 g TOPICAL BID PRN 01/15/20 06/05/21 History docusate sodium 100 mg tablet 100 mg PO BID 01/15/20 06/05/21 History esomeprazole magnesium 20 mg 20 mg PO DAILY 01/15/20 06/05/21 History capsule,delayed release furosemide 20 mg tablet 20 mg PO MOWEFR 01/15/20 06/05/21 History hydrocodone 7.5 mg-acetaminophen 1 tab PO Q6 PRN 01/15/20 06/05/21 History 325 mg tablet levothyroxine 100 mcg tablet 100 mcg PO DAILYBB 01/15/20 06/05/21 History (Levoxyl) lisinopril 20 mg tablet 20 mg PO DAILY 01/15/20 06/05/21 History metoprolol succinate 25 mg 12.5 mg PO DAILY 01/15/20 06/05/21 History tablet,extended release 24 hr morphine 15 mg tablet,extended 15 mg PO BID 01/15/20 06/05/21 History release warfarin 5 mg tablet 2.5 mg PO TUTH 01/15/20 06/05/21 History albuterol sulfate 90 mcg/actuation 2 puffs INH Q6H PRN #6.7 gm 01/19/20 06/05/21 Rx aerosol inhaler calcium carbonate 500 mg calcium 500 mg PO DAILY #30 tab 01/19/20 06/05/21 Rx (1,250 mg) tablet (Calcium 500) meclizine 25 mg tablet 25 mg PO TID PRN #90 tab 01/19/20 06/05/21 Rx cholecalciferol (vitamin D3) 25 25 mcg PO DAILY tab 02/13/20 06/05/21 History mcg (1,000 unit) tablet alendronate 10 mg tablet 10 mg PO DAILY 06/05/21 06/05/21 History atorvastatin 10 mg tablet 10 mg PO DAILY 06/05/21 06/05/21 History fluticasone propionate 50 2 spray INTRANASAL DAILY PRN 06/05/21 06/05/21 History mcg/actuation nasal spray,suspension (Flonase Allergy Relief) ipratropium 0.5 mg-albuterol 3 mg 3 ml INHALATION Q4 PRN 06/05/21 06/05/21 History (2.5 mg base)/3 mL nebulization soln melatonin 3 mg tablet 3 mg PO HS 06/05/21 06/05/21 History multivitamin 1 tab PO DAILY 06/05/21 06/05/21 History omega-3 fatty acids 1,000 mg PO DAILY 06/05/21 06/05/21 History polyethylene glycol 3350 17 17 g PO DAILY PRN 06/05/21 06/05/21 History gram/dose oral powder (Miralax) sennosides 8.6 mg tablet (senna) 17.2 mg PO HS 06/05/21 06/05/21 History warfarin 5 mg tablet (Jantoven) 5 mg PO SUMOWEFRSA 06/05/21 06/05/21 History Past Med/Surg History Medical History Chronic anticoagulation Chronic atrial fibrillation Chronic pain Dyslipidemia GERD (gastroesophageal reflux disease) History of lung cancer Hypertension Iron deficiency anemia Post-surgical hypothyroidism Surgical History H/O pneumonectomy Right upper lobe secondary to lung cancer H/O thyroidectomy History of carotid endarterectomy Right Hx of cholecystectomy Family History Mother Stroke Hypertension Uterine cancer Father Heart disease Cardiac disorder Aunt Cardiac disorder Brother Diabetes Sister Diabetes Grandmother (Paternal) Breast cancer Social History Smoking Status: Former smoker Tobacco Type: Cigarettes Do You Dip or Chew Tobacco: No; Hx Alcohol Use: No Hx Substance Use: No Preferred Language: Azeri 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 Ability: Effective Control Area Operator Required: No Beliefs That Will Affect Care: None marital status: / Current Living Situation: Alone Other Information That Helps Us Care for You: No Feels Safe at Home: Yes Safety Concerns: Feels Safe At This Time Assistive Devices: Denture - Upper, Denture - Lower, Glasses and Walker Review of Systems Review of Systems: All systems reviewed & are unremarkable except as noted in HPI & below Physical Exam Physical Exam: General: no distress, obese Head: normocephalic, atraumatic Eyes: PERRL, EOM's intact, conjunctiva non-injected, anicteric ENT: normal inspection external ears, nose, mucous membranes moist Neck: supple, trachea midline Lungs: On 1L oxygen via nasal cannula with sat 93%, clear, no respiratory distress, no wheezing/rhonchi/rales CV: Irregularly irregular, rate 92, no pretibial edema Abd: Protuberant, normal BS, soft, +tenderness palpation right upper quadrant without rebound or guarding Ext: no calf tenderness; RLE: ankle +ecchymosis lateral ankle and dorsal foot, +tenderness to palpation lateral and medial malleolus, pt able to dorsiflex and plantarflex foot, distal pulses palpable, sensation to light touch intact Neuro: Alert, oriented to person, place, season, year, no focal deficits noted, normal affect Skin: warm, dry Results & Data Results & Data ([facility]) Vital Signs (Past 12 Hours) Vital Signs Temp Pulse Pulse Resp BP BP Pulse Ox 06/05/21 15:41 91 H 18 95/67 L 96 06/05/21 14:29 97 H 22 98/72 L 95 06/05/21 14:23 121 H 111/96 06/05/21 13:38 87 L 06/05/21 13:16 122 H 24 97 06/05/21 13:06 37 C 122 H 24 103/88 87 L Laboratory Results Short CBC 06/05/21 Range/Units 13:16 WBC 20.59 H (4.8-10.8) K/uL Hgb 15.4 (12.0-16.0) g/dL Hct 45.1 (37-47) % Plt Count 209 (130-400) K/uL BMP 06/05/21 13:16 Sodium 128 L Potassium 4.1 Chloride 95 L Carbon Dioxide 27 BUN 18 Creatinine 1.00 Glucose 136 H Calcium 9.1 Cardiac Enzymes 06/05/21 Range/Units 13:16 Troponin I 0.917 H* (0-0.045) ng/ml Liver Function 06/05/21 Range/Units 13:16 Total Bilirubin 1.4 H (0.2-1) mg/dl AST 142 H (15-37) U/L ALT 97 H (12-78) U/L Alkaline Phosphatase 104 (45-117) U/L Albumin 3.6 (3.4-5.0) gm/dl Diagnostic Findings Chest X-Ray 06/05/21 13:34 XR chest 1V portable CLINICAL HISTORY: Sepsis COMPARISON STUDY: Chest radiograph January 18, 2020. FINDINGS: Lung volumes are at the lower limits of normal. Mild linear left basilar opacity favors atelectasis. There is no pneumothorax or pleural effusion. Cardiomegaly is unchanged. Mediastinal contours are normal. There is no evidence for pulmonary edema. IMPRESSION: No acute cardiopulmonary findings. Cardiomegaly. ACT 112: Negative or not required by law. Electronically signed by: Armando Glover M.D. 06/05/2021 2:05 PM Ankle X-Ray 06/05/21 14:20 XR ankle RT min 3V routine CLINICAL HISTORY: contusion COMPARISON: None. DISCUSSION: There is minimal irregularity at the mediastinal malleolus which might represent nondisplaced fracture. Evaluation is limited due to osteopenia. No evidence of dislocation. Ankle mortise is preserved. Diffuse soft tissue edema and small plantar calcaneal spur is seen. IMPRESSION: Questionable irregularity a at medial malleolus which may or may not represent small nondisplaced fracture. Please correlate above-mentioned findings with point tenderness. ACT 112: Negative or not required by law. The above report was generated using voice recognition software. It may contain grammatical, syntax or spelling errors. Electronically signed by: Flavia Angela DO 06/05/2021 2:53 PM Abdomen/Pelvis CT 06/05/21 14:44 CT OF THE ABDOMEN AND PELVIS WITH CONTRAST CLINICAL HISTORY: chills, nausea, elevated lft COMPARISON STUDY: KUB January 18, 2020. PET/CT December 07, 2006. TECHNIQUE: Following IV administration of 95 mL of Optiray, axial images of the abdomen and pelvis were obtained from the lung bases to the proximal femurs. Images were reviewed in the axial, sagittal, and coronal planes. IV contrast was administered without complication. Automated exposure control was utilized for the study. A dose lowering technique was utilized adhering to the principles of ALARA. CT DOSE: 697.98 mGy.cm FINDINGS: There is a trace right pleural effusion. No pneumatosis, free air or portal venous gas is present. There is probable hepatic steatosis. There is mild nodularity of the liver surface. The gallbladder is surgically absent. There is mild biliary ductal dilatation. Pneumobilia is again noted. There is a small 4 mm calcified distal common bile duct calculus on image 127 of 421. In addition, there is apparent debris within the common bile duct. There may be communication between the common bile duct and the duodenum. This could be postsurgical. The spleen, adrenal glands and kidneys are unremarkable. There is no peripancreatic infiltration. The pancreas is atrophic. The appendix is normal. Several calcified fibroids are present. There is colonic diverticulosis without evidence for acute diverticulitis. There is no lymphadenopathy. No acute fracture or suspicious lesion is identified within visualized skeletal structures. There are multiple lower thoracic and lumbar spine compression fractures which are likely old. Abdominal aorta is ectatic. There is extensive plaque. IMPRESSION: 1. Mild biliary ductal dilatation status post cholecystectomy. Small 4 mm calcified distal common bile duct calculus. In addition, debris within the common bile duct and apparently communication between the common bile duct and the duodenum. This could be postsurgical or represent a fistula and this finding is likely chronic. 2. Hepatic steatosis. Possible mild cirrhosis by CT. 3. No bowel obstruction. 4. Sigmoid diverticulosis. No evidence for acute diverticulitis. ACT 112: Negative or not required by law. Electronically signed by: Armando Glover M.D. 06/05/2021 3:[address] 06/05/21 14:44 CT SCAN OF THE BRAIN WITHOUT IV CONTRAST CLINICAL HISTORY: Headache. COMPARISON STUDY: CT of the brain dated 03/28/2010. TECHNIQUE: Unenhanced axial CT scan of the brain is performed from the vertex to the skull base. A dose lowering technique was utilized adhering to the karyna nciples of ALARA. CT DOSE: 884.08 mGy.cm FINDINGS: Brain parenchyma: There are age-related involutional changes noting moderate confluent subcortical and periventricular microangiopathic change. There is no hemorrhage, mass effect, or evidence of acute territorial ischemia by CT criteria. [place]-white matter differentiation is preserved. No extra-axial fluid collection is seen. Ventricles, sulci, cisterns: Prominent secondary to involutional change. Intracranial vasculature: There is atherosclerotic calcification of the cavernous carotid and vertebral arteries. Calvarium: Unremarkable. Sinuses and mastoids: The paranasal sinuses are clear. The mastoid air cells are well pneumatized. Orbits: The bony orbits are grossly intact. There are bilateral ocular lens implants. IMPRESSION: There is no hemorrhage, mass effect, or evidence of acute territorial ischemia by CT criteria. ACT 112: Negative or not required by law. Electronically signed by: Hi Medellin M.D. 06/05/2021 3:26 PM Supervising Physician Co-Signing Physician Notes I have seen and examined the patient and have discussed the case with the provider above. I agree with the assessment and plan as stated. 76 yo F with chronic back pain on high dose morphine who is known to have chronic constipation. She awoke from sleep with acute chills and vomiting. No evidence of ileus on CT a/p. She denies eating anything out of the ordinary, however, she is a questionable historian. Suspect a mild cognitive inhibition present or developing. Granddaughter assists with the history. She denies feeling unwell recently, although granddaughter reports patient has had difficult "getting out of bed" for the past 1-2 weeks. The patient cannot further elaborate on why. She denies any nausea at this time. Although she denies abdominal pain she is tender in the LUQ. No BM in the last 5 days which is normal for her. Physical exam otherwise reveals an obese elderly woman in NAD oxygenating 93% on 2L NC. Lungs are CTA throughout. She easily sits up to be examined. Heart exam is normal and she has no peripheral edema. Ankle as above. CT abd/pel reveals a dilated CBD with debris in the duct. Urine pending but no urinary symptoms reported. She has a questionable picture of developing sepsis from a likely GI source. Agree with broad coverage with Zosyn and resuscitation from a sepsis standpoint with IVF given BP of 98/70. Consult GI. I have discussed the plan with the daughter and granddaughter and all questions answered. Confirmed a full code status. DO Ming
[2021-06-05 18:39] LABS: Appearance Urine Clear (Clear); Bilirubin Urine Negative (Negative); Blood Urine Negative (Negative); Color Urine Dark Yellow; Glucose Urine UA Negative (Negative); Ketones Urine Negative (Negative); Leukocyte Esterase Urine Negative (Negative); Nitrite Urine Negative (Negative); Protein Urine Negative (Negative); Specific Gravity Urine 1.041 (1.000-1.030); Urobilinogen Urine Negative (Negative)
[2021-06-05] MEDS ORDERED: ALBUT/IPRATROP 3MG/0.5MG NEB 3 ML VIAL INH PRN (20:03)
[2021-06-05] MEDS ORDERED: POLYETHYLENE (MIRALAX) 17 GM PACK PO PRN (20:03)
[2021-06-05] MEDS ORDERED: ACETAMINOPHEN 325 MG TAB PO PRN (20:03)
[2021-06-05] MEDS ORDERED: DICLOFENAC SOD 1% GEL 100 GM TUBE EXT PRN (20:03)
[2021-06-05] MEDS ORDERED: WARFARIN SOD 5 MG TAB PO SCH (20:03)
[2021-06-05] MEDS: SODIUM CHLORIDE 0.9% 1000ML 1,000 ML IV SCH (20:47)
[2021-06-05 21:22] LABS: C Reactive Protein 10.2 mg/dl (0-0.29); Troponin I 2.49 ng/ml (0-0.045)
[2021-06-05] MEDS: PIPERACILLIN/TAZOBACTAM 4.5 GM in DEXTROSE 5% 100 ML IV SCH (21:39)
[2021-06-05] MEDS: MELATONIN 3 MG TAB PO SCH (21:40)
[2021-06-05] MEDS: MoRPHine SULFATE CR 15 MG TABCR PO SCH (21:40)
[2021-06-05] MEDS: SENNA 8.6 MG TAB PO SCH (21:40)
[2021-06-05] MEDS: DOCUSATE SODIUM 100 MG CAP PO SCH (21:40)
[2021-06-06 02:24] LABS: Basophils # (auto) 0.01 K/uL (0-0.2); Basophils % (auto) 0.1 %; Hematocrit (blood only) 38.9 % (37-47); Hemoglobin 12.9 g/dL (12.0-16.0); Immature Granulocytes # (auto) 0.02 K/uL (0.00-0.02); Immature Granulocytes % (auto) 0.2 %; Lymphocytes # (auto) 1.11 K/uL (1.2-3.4); Lymphocytes % (auto) 10.1 %; Mean Corpuscular Hemoglobin 30.1 pg (25-34); Mean Corpuscular Hgb Conc 33.2 g/dL (32-36); Mean Corpuscular Volume 90.9 fL (80-100); Mean Platelet Volume 9.4 fL (7.4-10.4); Monocytes # (auto) 0.99 K/uL (0.11-0.59); Neutrophils # (auto) 8.86 K/uL (1.4-6.5); Neutrophils % (auto) 80.6 %; Platelet Count 169 K/uL (130-400); RDW Coefficient of Variation 14.2 % (11.5-14.5); RDW Standard Deviation 46.9 fL (36.4-46.3); Red Blood Count 4.28 M/uL (4.2-5.4); White Blood Count 10.99 K/uL (4.8-10.8)
[2021-06-06 02:33] LABS: INR 1.9 (0.9-1.1); Prothrombin Time 18.4 Seconds (9.0-12.0)
[2021-06-06 02:45] LABS: Albumin Level 2.8 gm/dl (3.4-5.0); BUN Creatinine Ratio 22.1 (10-20); Bilirubin Direct 0.5 mg/dl (0-0.2); Creatinine Clr Calc Pharmacy 52.5 ml/min; Est GFR (African American) 72.9 ml/min; Est GFR (Non-African American) 62.9 ml/min; Potassium 4.6 mmol/L (3.5-5.1)
[2021-06-06] MEDS ORDERED: PHYTONADIONE 5 MG in SODIUM CHLORIDE 0.9% 50 ML IV ONE (02:45)
[2021-06-06 02:59] LABS: Albumin Globulin Ratio 0.8 (0.9-2); Bilirubin,Total 1.3 mg/dl (0.2-1); Globulin 3.5 gm/dl (2.5-4.0); Total Protein 6.3 gm/dl (6.4-8.2); Troponin I 2.84 ng/ml (0-0.045)
[2021-06-06] MEDS: LEVOTHYROXINE SODIUM 100 MCG TABLET PO SCH (05:44)
[2021-06-06] MEDS: SODIUM CHLORIDE 0.9% 1000ML 1,000 ML IV SCH (05:44)
[2021-06-06] MEDS: PIPERACILLIN/TAZOBACTAM 4.5 GM in DEXTROSE 5% 100 ML IV SCH ×3 (05:44→22:39)
[2021-06-06] MEDS: DOCUSATE SODIUM 100 MG CAP PO SCH ×2 (08:34→20:34)
[2021-06-06] MEDS: METOPROLOL SUCC 25MG EXT REL TAB PO SCH (08:34)
[2021-06-06] MEDS: PANTOprazole 40 MG TAB PO SCH (08:34)
[2021-06-06] MEDS: ASPIRIN 81 MG ECTAB PO SCH (08:34)
[2021-06-06] MEDS: MoRPHine SULFATE CR 15 MG TABCR PO SCH ×2 (08:37→20:33)
--- NOTE | 2021-06-06 09:24 | Electrocardiogram Report ---
Test Reason : Blood Pressure : / mmHG Vent. Rate : 126 BPM Atrial Rate : 129 BPM P-R Int : 000 ms QRS Dur : 086 ms QT Int : 344 ms P-R-T Axes : 000 054 -28 degrees QTc Int : 498 ms Atrial fibrillation with rapid ventricular response Nonspecific ST and T wave abnormality Abnormal ECG When compared with ECG of 30-MAR-2010 07:34, Atrial fibrillation has replaced Sinus rhythm Vent. rate has increased BY 54 BPM Non-specific change in ST segment in Inferior leads ST now depressed in Anterior leads Nonspecific T wave abnormality, improved in Anterolateral leads Confirmed by Ghulam Mcmahon ([id number]) on 06/06/2021 9:23:53 AM Referred By: REFERRED SELF Confirmed By:Ghulam Mcmahon
[2021-06-06] MEDS: ALPRAZolam 0.5 MG TABLET PO PRN ×2 (09:38→20:33)
--- NOTE | 2021-06-06 09:53 | Electrocardiogram Report ---
Test Reason : Blood Pressure : / mmHG Vent. Rate : 067 BPM Atrial Rate : 312 BPM P-R Int : 000 ms QRS Dur : 080 ms QT Int : 436 ms P-R-T Axes : 000 025 -08 degrees QTc Int : 460 ms Atrial fibrillation Nonspecific ST and T wave abnormality Abnormal ECG When compared with ECG of 05-JUN-2021 13:06, (unconfirmed) Vent. rate has decreased BY 59 BPM The degree of ST/T changes has improved Confirmed by Ghulam Mcmahon ([id number]) on 06/06/2021 9:52:50 AM Referred By: REFERRED SELF Confirmed By:Ghulam Mcmahon
--- NOTE | 2021-06-06 09:55 | Consultation Report ---
DATE OF CONSULT: 06/06/2021. CHIEF COMPLAINT: Right ankle injury. HISTORY OF PRESENT ILLNESS: Patient is a 76-year-old elderly female with multiple medical comorbidit ies including atrial fibrillation on Coumadin, who was admitted yesterday with apparent sepsis. We w ere consulted for evaluation of right ankle injury. She says she injured her ankle just about a week ago. She was at home when she banged it into something and had quite a bit of pain initially when i t first happened. The pain really dissipated and it really does not hurt her anymore. She has been up and walking on it. Once again, no particular pain. She did have an x-ray with a question of a me dial malleolus fracture. We were consulted for evaluation. Denies any other injuries. PAST MEDICAL HISTORY: As per the admission H and P. PHYSICAL EXAMINATION: VITAL SIGNS: Temperature 36.5. Vital signs are stable. GENERAL EXAMINATION: Shows a pleasant, elderly, frail female. She is lying in bed, looks pretty comf ortable. EXTREMITIES: Examination of the right ankle reveals some bruising over the lateral side of her ankle . Not much in the way of swelling mostly just bruising. She has a little tenderness over the fibula and the lateral collateral ligaments. No medial tenderness at all. She can dorsiflex and plantarfl ex her foot appropriately. She is neurologically intact. X-rays of the ankle were reviewed. It shows well maintained mortise. She does have some minor degen erative changes and diffuse osteopenia. I do not detect any fractures. ASSESSMENT: A 76-year-old female with a right ankle contusion with some underlying bruising, probabl y somewhat related to her Coumadin use. I do not see any signs of fracture. Minimal pain. The conc reaann was on the medial side all her bruising laterally. PLAN: I do not think she needs any specific treatment for this other than a compression bandage. I would recommend she wear ARIA stockings or compression bandage of some sort. Does not need an ankle b race. She can weight bear as tolerated. No further followup is needed. She can weight bear as tole rated. Any orthopedic questions can be directed to me at [phone]. Job ID: [id number]
--- NOTE | 2021-06-06 09:58 | Electrocardiogram Report ---
Test Reason : Blood Pressure : / mmHG Vent. Rate : 081 BPM Atrial Rate : 234 BPM P-R Int : 000 ms QRS Dur : 094 ms QT Int : 410 ms P-R-T Axes : 000 027 -23 degrees QTc Int : 476 ms Atrial fibrillation Nonspecific ST and T wave abnormality Prolonged QT Abnormal ECG When compared with ECG of 05-JUN-2021 23:34, (unconfirmed) No significant change was found Confirmed by Ghulam Mcmahon ([id number]) on 06/06/2021 9:58:19 AM Referred By: REFERRED SELF Confirmed By:Ghulam Mcmahon
[2021-06-06 11:17] LABS: INR 1.5 (0.9-1.1); Prothrombin Time 14.3 Seconds (9.0-12.0)
--- NOTE | 2021-06-06 11:50 | Cardiology Consultation ---
Date of Consultation June 06, 2021 Assessment & Plan (1) Elevated troponin I level: Elevated troponin likely secondary to demand ischemia, type II event, in the setting of sepsis, and atrial fibrillation with rapid ventricular response. Resting 2D transthoracic echocardiogram without evidence of left ventricular regional wall motion abnormality. Normal right ventricular size and function, however, indirect evidence of moderate pulmonary hypertension with dilated IVC noted. Recommend reducing/discontinuing IV fluid due to evidence of dilated IVC on echocardiogram. Therapeutic INR on admission makes possibility of pulmonary embolus less likely. Patient received 5 mg of vitamin K overnight. It is unclear whether she is scheduled for any procedures at this time. Recommend IV heparin bridging if no contraindication. Continue aspirin, and beta-lizett therapy (2) Chronic atrial fibrillation: Rate currently controlled. Continue beta-lizett therapy. Initiate IV heparin bridging if no procedures scheduled in the near future. (3) Pulmonary HTN: Elevated pulmonary pressures noted on echocardiogram in the setting of dilated IVC. I suspect IV fluids contributing to elevated pressures at this time. Consider reducing/discontinuing if possible from a sepsis standpoint. I would not initiate diuretic therapy currently, however, continue to monitor. (4) SIRS (systemic inflammatory response syndrome): Infectious source unclear, however, patient complaining of respiratory symptoms, and sputum production. Continue empiric antibiotic therapy per internal medicine. Cultures pending at this time. History of Present Illness Reason for Consultation: Elevated troponin Requesting Physician: Dr. Lai Attending Physician: Luci Lai, History of Present Illness 76-year-old female with complex cardiovascular history including chronic atrial fibrillation, hypertension, dyslipidemia, TIA, carotid stenosis status post right-sided carotid enterectomy presented to the emergency department with acute fever, chills, and possible rigors. Noted to have elevated white blood cell count on admission. Troponins were trended x3 sets and found to be mildly elevated. A bedside 2D transthoracic echocardiogram was performed without regional wall motion abnormality. ECG demonstrating nonspecific T wave abnormality. Patient denies any chest discomfort or heaviness. Notes shortness of breath and cough with minimal sputum production. Fevers occurred abruptly last evening at approximately 3 AM. She was brought to the ER per the direction of her family. Denies orthopnea, PND, or lower extremity edema. No recent weight gain or noncompliance with medications. Atrial fibrillation with rapid ventricular response recorded on admission. Heart rate has improved. Telemetry currently demonstrating atrial fibrillation with a heart rate for approximately 90 bpm. INR therapeutic on admission, however, received 5 mg of IV vitamin K overnight. Allergies Allergy/AdvReac Type Severity Reaction Status Date / Time morphine Allergy Intermediate RASH/PRUTIT Verified 06/05/21 16:32 IS atorvastatin Allergy Unknown 0 Verified 06/05/21 16:32 escitalopram Allergy Unknown 0 Verified 06/05/21 16:32 ezetimibe Allergy Unknown 0 Verified 06/05/21 16:32 fentanyl Allergy Unknown 0 Verified 06/05/21 16:32 hydralazine Allergy Unknown SEVERELY Verified 06/05/21 16:32 FLUSHED;BURNING SENSATION;SHAKING metoclopramide Allergy Unknown 0 Verified 06/05/21 16:32 simvastatin Allergy Unknown 0 Verified 06/05/21 16:32 clarithromycin AdvReac Unknown ABD Verified 06/05/21 16:32 CRAMPING Home Medications Medication Instructions Recorded Confirmed Type alprazolam 1 mg tablet 1 mg PO BID PRN 01/15/20 06/05/21 History amlodipine 2.5 mg tablet 2.5 mg PO DAILY 01/15/20 06/05/21 History aspirin 81 mg tablet,delayed 81 mg PO DAILY 01/15/20 06/05/21 History release cyclobenzaprine 10 mg tablet 10 mg PO DAILY PRN 01/15/20 06/05/21 History diclofenac sodium 1 % topical gel 4 g TOPICAL BID PRN 01/15/20 06/05/21 History docusate sodium 100 mg tablet 100 mg PO BID 01/15/20 06/05/21 History esomeprazole magnesium 20 mg 20 mg PO DAILY 01/15/20 06/05/21 History capsule,delayed release furosemide 20 mg tablet 20 mg PO MOWEFR 01/15/20 06/05/21 History hydrocodone 7.5 mg-acetaminophen 1 tab PO Q6 PRN 01/15/20 06/05/21 History 325 mg tablet levothyroxine 100 mcg tablet 100 mcg PO DAILYBB 01/15/20 06/05/21 History (Levoxyl) lisinopril 20 mg tablet 20 mg PO DAILY 01/15/20 06/05/21 History metoprolol succinate 25 mg 12.5 mg PO DAILY 01/15/20 06/05/21 History tablet,extended release 24 hr morphine 15 mg tablet,extended 15 mg PO BID 01/15/20 06/05/21 History release warfarin 5 mg tablet 2.5 mg PO TUTH 01/15/20 06/05/21 History albuterol sulfate 90 mcg/actuation 2 puffs INH Q6H PRN #6.7 gm 01/19/20 06/05/21 Rx aerosol inhaler calcium carbonate 500 mg calcium 500 mg PO DAILY #30 tab 01/19/20 06/05/21 Rx (1,250 mg) tablet (Calcium 500) meclizine 25 mg tablet 25 mg PO TID PRN #90 tab 01/19/20 06/05/21 Rx cholecalciferol (vitamin D3) 25 25 mcg PO DAILY tab 02/13/20 06/05/21 History mcg (1,000 unit) tablet alendronate 10 mg tablet 10 mg PO DAILY 06/05/21 06/05/21 History atorvastatin 10 mg tablet 10 mg PO PM 06/05/21 06/05/21 History fluticasone propionate 50 2 spray INTRANASAL DAILY PRN 06/05/21 06/05/21 History mcg/actuation nasal spray,suspension (Flonase Allergy Relief) ipratropium 0.5 mg-albuterol 3 mg 3 ml INHALATION Q4 PRN 06/05/21 06/05/21 History (2.5 mg base)/3 mL nebulization soln melatonin 3 mg tablet 3 mg PO HS 06/05/21 06/05/21 History multivitamin 1 tab PO DAILY 06/05/21 06/05/21 History omega-3 fatty acids 1,000 mg PO DAILY 06/05/21 06/05/21 History polyethylene glycol 3350 17 17 g PO DAILY PRN 06/05/21 06/05/21 History gram/dose oral powder (Miralax) sennosides 8.6 mg tablet (senna) 17.2 mg PO HS 06/05/21 06/05/21 History warfarin 5 mg tablet (Jantoven) 5 mg PO SUMOWEFRSA 06/05/21 06/05/21 History Patient History Medical History Chronic anticoagulation Chronic atrial fibrillation Chronic pain Dyslipidemia GERD (gastroesophageal reflux disease) History of lung cancer Hypertension Iron deficiency anemia Post-surgical hypothyroidism Surgical History H/O pneumonectomy Right upper lobe secondary to lung cancer H/O thyroidectomy History of carotid endarterectomy Right Hx of cholecystectomy Family History Mother Stroke Hypertension Uterine cancer Father Heart disease Cardiac disorder Aunt Cardiac disorder Brother Diabetes Sister Diabetes Grandmother (Paternal) Breast cancer Social History Smoking Status: Former smoker Tobacco Type: Cigarettes Do You Dip or Chew Tobacco: No; Hx Alcohol Use: No Hx Substance Use: No Preferred Language: [place] 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 Ability: Effective Credit Card Clerk Required: No Beliefs That Will Affect Care: None marital status: / Current Living Situation: Alone Other Information That Helps Us Care for You: No Feels Safe at Home: Yes Safety Concerns: Feels Safe At This Time Assistive Devices: Denture - Upper, Denture - Lower, Glasses and Walker Review of Systems Review of Systems: All systems reviewed & are unremarkable except as noted in Subjective Physical Exam Constitutional: well developed, well nourished and + obese Respiratory: no respiratory distress and no labored breathing Auscultation: no diminished lung sounds, no crackles, no rales, no rhonchi and no wheezes Cardiovascular: Rate/Rhythm: + irregularly irregular Heart Sounds: normal S1, normal S2 and + murmur (Soft, 1/6 systolic ejection murmur heard best at the base.) Gastrointestinal (Abdomen): Inspection/Auscultation: abdomen normal to inspection and normal bowel sounds; abdomen not distended Percussion/Palpation: abdomen nontender, no guarding and abdomen not rigid Neurologic: CN's II-XI intact bilaterally and moves all extremities; no focal motor deficits Motor/Sensory: no tremor Psychiatric: A+Ox3, euthymic affect Results & Data ([facility]) Vital Signs (Past 12 Hours) Vital Signs Temp Pulse Pulse Resp BP Pulse Ox 06/06/21 08:08 36.5 C 89 18 124/78 98 06/06/21 07:44 73 06/06/21 03:30 36.3 C L 72 20 97/68 L 98 06/06/21 00:00 78
--- NOTE | 2021-06-06 11:52 | History & Physical Report ---
Date of Service June 06, 2021 Assessment & Plan (1) Choledocholithiasis: Plan: Patient with evidence of choledocholithiasis on imaging study presenting with elevated liver enzymes and a significant leukocytosis last night. Given the presentation I do wonder about underlying cholangitis however the patient initially refused any interventions and ate lunch today. Given this and her improved white blood cell count we will proceed with ERCP tomorrow. I discussed the risks and benefits of the procedure to include bleeding, infection, perforation and need for follow-up studies. Recommendations Hold anticoagulation Vitamin K for reversal Please give 1 to 2 units of FFP for reversal today Continue broad-spectrum antibiotics Clear liquids only today and n.p.o. at midnight please (2) Cholangitis: Admission and Anticipated Discharge Date Admission Date: June 05, 2021 History of Present Illness Chief Complaint: Fever and chills Primary Care Provider: Danelle Pierre MD The patient is a 76-year-old female with a past medical history significant for hypercholesterolemia and hypertension who presented to the emergency room for evaluation of abdominal discomfort. The patient notes that the symptoms began quite suddenly and were associated with fever subjectively at home in addition to shaking like chills. She denies having nausea or vomiting at the present time. She does note that she woke this morning and was feeling quite cold. The patient reports having a prior cholecystectomy many years ago complicated by choledocholithiasis. [place] [facility] [place] [facility] (no records are availble from either center) Allergies Allergy/AdvReac Type Severity Reaction Status Date / Time morphine Allergy Intermediate RASH/PRUTIT Verified 06/05/21 16:32 IS atorvastatin Allergy Unknown 0 Verified 06/05/21 16:32 escitalopram Allergy Unknown 0 Verified 06/05/21 16:32 ezetimibe Allergy Unknown 0 Verified 06/05/21 16:32 fentanyl Allergy Unknown 0 Verified 06/05/21 16:32 hydralazine Allergy Unknown SEVERELY Verified 06/05/21 16:32 FLUSHED;BURNING SENSATION;SHAKING metoclopramide Allergy Unknown 0 Verified 06/05/21 16:32 simvastatin Allergy Unknown 0 Verified 06/05/21 16:32 clarithromycin AdvReac Unknown ABD Verified 06/05/21 16:32 CRAMPING Home Medications Medication Instructions Recorded Confirmed Type alprazolam 1 mg tablet 1 mg PO BID PRN 01/15/20 06/05/21 History amlodipine 2.5 mg tablet 2.5 mg PO DAILY 01/15/20 06/05/21 History aspirin 81 mg tablet,delayed 81 mg PO DAILY 01/15/20 06/05/21 History release cyclobenzaprine 10 mg tablet 10 mg PO DAILY PRN 01/15/20 06/05/21 History diclofenac sodium 1 % topical gel 4 g TOPICAL BID PRN 01/15/20 06/05/21 History docusate sodium 100 mg tablet 100 mg PO BID 01/15/20 06/05/21 History esomeprazole magnesium 20 mg 20 mg PO DAILY 01/15/20 06/05/21 History capsule,delayed release furosemide 20 mg tablet 20 mg PO MOWEFR 01/15/20 06/05/21 History hydrocodone 7.5 mg-acetaminophen 1 tab PO Q6 PRN 01/15/20 06/05/21 History 325 mg tablet levothyroxine 100 mcg tablet 100 mcg PO DAILYBB 01/15/20 06/05/21 History (Levoxyl) lisinopril 20 mg tablet 20 mg PO DAILY 01/15/20 06/05/21 History metoprolol succinate 25 mg 12.5 mg PO DAILY 01/15/20 06/05/21 History tablet,extended release 24 hr morphine 15 mg tablet,extended 15 mg PO BID 01/15/20 06/05/21 History release warfarin 5 mg tablet 2.5 mg PO TUTH 01/15/20 06/05/21 History albuterol sulfate 90 mcg/actuation 2 puffs INH Q6H PRN #6.7 gm 01/19/20 06/05/21 Rx aerosol inhaler calcium carbonate 500 mg calcium 500 mg PO DAILY #30 tab 01/19/20 06/05/21 Rx (1,250 mg) tablet (Calcium 500) meclizine 25 mg tablet 25 mg PO TID PRN #90 tab 01/19/20 06/05/21 Rx cholecalciferol (vitamin D3) 25 25 mcg PO DAILY tab 02/13/20 06/05/21 History mcg (1,000 unit) tablet alendronate 10 mg tablet 10 mg PO DAILY 06/05/21 06/05/21 History atorvastatin 10 mg tablet 10 mg PO PM 06/05/21 06/05/21 History fluticasone propionate 50 2 spray INTRANASAL DAILY PRN 06/05/21 06/05/21 History mcg/actuation nasal spray,suspension (Flonase Allergy Relief) ipratropium 0.5 mg-albuterol 3 mg 3 ml INHALATION Q4 PRN 06/05/21 06/05/21 History (2.5 mg base)/3 mL nebulization soln melatonin 3 mg tablet 3 mg PO HS 06/05/21 06/05/21 History multivitamin 1 tab PO DAILY 06/05/21 06/05/21 History omega-3 fatty acids 1,000 mg PO DAILY 06/05/21 06/05/21 History polyethylene glycol 3350 17 17 g PO DAILY PRN 06/05/21 06/05/21 History gram/dose oral powder (Miralax) sennosides 8.6 mg tablet (senna) 17.2 mg PO HS 06/05/21 06/05/21 History warfarin 5 mg tablet (Jantoven) 5 mg PO SUMOWEFRSA 06/05/21 06/05/21 History Past Med/Surg History Medical History Chronic anticoagulation Chronic atrial fibrillation Chronic pain Dyslipidemia GERD (gastroesophageal reflux disease) History of lung cancer Hypertension Iron deficiency anemia Post-surgical hypothyroidism Surgical History H/O pneumonectomy Right upper lobe secondary to lung cancer H/O thyroidectomy History of carotid endarterectomy Right Hx of cholecystectomy Family History Mother Stroke Hypertension Uterine cancer Father Heart disease Cardiac disorder Aunt Cardiac disorder Brother Diabetes Sister Diabetes Grandmother (Paternal) Breast cancer Social History Smoking Status: Former smoker Tobacco Type: Cigarettes Do You Dip or Chew Tobacco: No; Hx Alcohol Use: No Hx Substance Use: No Preferred Language: Kinyarwanda 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 Ability: Effective Field Services Analyst Required: No Beliefs That Will Affect Care: None marital status: / Current Living Situation: Alone Other Information That Helps Us Care for You: No Feels Safe at Home: Yes Safety Concerns: Feels Safe At This Time Assistive Devices: Denture - Upper, Denture - Lower, Glasses and Walker Review of Systems + fever, + sweats and + malaise; no weight loss no diplopia no ear pain, no ear trauma and no nasal discharge no change in sputum and no hemoptysis no chest pain and no chest pain with activity + abdominal pain, + bloating and + nausea no dysuria and no urinary frequency no radicular pain no falls no behavioral changes and no hopelessness no polydipsia + easy bleeding and + coagulopathy Physical Exam Constitutional: well developed, well nourished and + morbidly obese Eyes: PERRL, conjunctivae normal, anicteric sclerae Neck: trachea midline, no thyromegaly Respiratory: normal respiratory effort, lungs clear to auscultation Cardiovascular: Heart Sounds: no murmur Gastrointestinal (Abdomen): normal bowel sounds, soft, nontender, no hepatosplenomegaly Results & Data ([facility]) Vital Signs (Past 12 Hours) Vital Signs Temp Pulse Pulse Resp BP Pulse Ox 06/06/21 11:46 36.6 C 89 18 131/63 96 06/06/21 08:08 36.5 C 89 18 124/78 98 06/06/21 07:44 73 06/06/21 03:30 36.3 C L 72 20 97/68 L 98 06/06/21 00:00 78 Laboratory Results Laboratory Results - last 24 hr 06/05/21 06/05/21 06/05/21 13:16 13:16 13:16 WBC 20.59 H RBC 4.99 Hgb 15.4 Hct 45.1 MCV 90.4 MCH 30.9 MCHC 34.1 RDW Std Deviation 46.3 RDW Coeff of Richar 14.0 Plt Count 209 MPV 9.8 Immature Gran % (Auto) 0.4 Neut % (Auto) 93.0 Lymph % (Auto) 3.4 Ector % (Auto) 3.2 Eos % (Auto) 0.0 Baso % (Auto) 0.0 Neut # (Auto) 19.16 H Lymph # (Auto) 0.69 L E[place] # (Auto) 0.65 H Eos # (Auto) 0.00 Baso # (Auto) 0.01 Immature Gran # (Auto) 0.08 H ESR PT Cancelled INR Cancelled APTT Cancelled PTT Ratio Cancelled Sodium 128 L Potassium 4.1 Chloride 95 L Carbon Dioxide 27 Anion Gap 6.0 BUN 18 Creatinine 1.00 Est Cr Clr Drug Dosing 47.3 Est GFR ( Amer) 62.5 Est GFR (Non-Af Amer) 53.9 BUN/Creatinine Ratio 17.7 Glucose 136 H Lactate Calcium 9.1 Magnesium 1.9 Total Bilirubin 1.4 H Direct Bilirubin AST 142 H ALT 97 H Alkaline Phosphatase 104 Troponin I 0.917 H* C-Reactive Protein Total Protein 7.8 Albumin 3.6 Globulin 4.2 H Albumin/Globulin Ratio 0.9 Lipase TSH Urine Color Urine Appearance Urine pH Ur Specific [place] Urine Protein Urine Glucose (UA) Urine Ketones Urine Blood Urine Nitrite Urine Bilirubin Urine Urobilinogen Ur Leukocyte Esterase Anaplasma Smear A. phagocytophilum DNA Lyme Disease IgG Ab Lyme Disease IgM Ab COVID-19 Eval Order SARS-CoV-2 (PCR) 06/05/21 06/05/21 06/05/21 13:16 13:16 13:16 WBC RBC Hgb Hct MCV MCH MCHC RDW Std Deviation RDW Coeff of Richar Plt Count MPV Immature Gran % (Auto) Neut % (Auto) Lymph % (Auto) [place] % (Auto) Eos % (Auto) Baso % (Auto) Neut # (Auto) Lymph # (Auto) [place] # (Auto) Eos # (Auto) Baso # (Auto) Immature Gran # (Auto) ESR PT INR APTT PTT Ratio Sodium Potassium Chloride Carbon Dioxide Anion Gap BUN Creatinine Est Cr Clr Drug Dosing Est GFR ( Amer) Est GFR (Non-Af Amer) BUN/Creatinine Ratio Glucose Lactate Calcium Magnesium Total Bilirubin Direct Bilirubin AST ALT Alkaline Phosphatase Troponin I C-Reactive Protein Total Protein Albumin Globulin Albumin/Globulin Ratio Lipase TSH Urine Color Urine Appearance Urine pH Ur Specific [place] Urine Protein Urine Glucose (UA) Urine Ketones Urine Blood Urine Nitrite Urine Bilirubin Urine Urobilinogen Ur Leukocyte Esterase Anaplasma Smear See Comment A. phagocytophilum DNA Pending Lyme Disease IgG Ab Cancelled Lyme Disease IgM Ab Cancelled COVID-19 Eval Order SARS-CoV-2 (PCR) 06/05/21 06/05/21 06/05/21 14:24 14:24 14:28 WBC RBC Hgb Hct MCV MCH MCHC RDW Std Deviation RDW Coeff of Richar Plt Count MPV Immature Gran % (Auto) Neut % (Auto) Lymph % (Auto) [place] % (Auto) Eos % (Auto) Baso % (Auto) Neut # (Auto) Lymph # (Auto) [place] # (Auto) Eos # (Auto) Baso # (Auto) Immature Gran # (Auto) ESR PT 21.4 H INR 2.2 H APTT PTT Ratio Sodium Potassium Chloride Carbon Dioxide Anion Gap BUN Creatinine Est Cr Clr Drug Dosing Est GFR ( Amer) Est GFR (Non-Af Amer) BUN/Creatinine Ratio Glucose Lactate 2.9 H* Calcium Magnesium Total Bilirubin Direct Bilirubin AST ALT Alkaline Phosphatase Troponin I C-Reactive Protein Total Protein Albumin Globulin Albumin/Globulin Ratio Lipase TSH Urine Color Urine Appearance Urine pH Ur Specific [place] Urine Protein Urine Glucose (UA) Urine Ketones Urine Blood Urine Nitrite Urine Bilirubin Urine Urobilinogen Ur Leukocyte Esterase Anaplasma Smear A. phagocytophilum DNA Lyme Disease IgG Ab Lyme Disease IgM Ab COVID-19 Eval Order Covid19 at [facility] SARS-CoV-2 (PCR) 06/05/21 06/05/21 06/05/21 14:28 14:40 14:40 WBC RBC Hgb Hct MCV MCH MCHC RDW Std Deviation RDW Coeff of Richar Plt Count MPV Immature Gran % (Auto) Neut % (Auto) Lymph % (Auto) [place] % (Auto) Eos % (Auto) Baso % (Auto) Neut # (Auto) Lymph # (Auto) [place] # (Auto) Eos # (Auto) Baso # (Auto) Immature Gran # (Auto) ESR PT INR APTT PTT Ratio Sodium Potassium Chloride Carbon Dioxide Anion Gap BUN Creatinine Est Cr Clr Drug Dosing Est GFR ( Amer) Est GFR (Non-Af Amer) BUN/Creatinine Ratio Glucose Lactate Calcium Magnesium Total Bilirubin Direct Bilirubin AST ALT Alkaline Phosphatase Troponin I C-Reactive Protein Total Protein Albumin Globulin Albumin/Globulin Ratio Lipase 45 L TSH 3.290 Urine Color Urine Appearance Urine pH Ur Specific [place] Urine Protein Urine Glucose (UA) Urine Ketones Urine Blood Urine Nitrite Urine Bilirubin Urine Urobilinogen Ur Leukocyte Esterase Anaplasma Smear A. phagocytophilum DNA Lyme Disease IgG Ab Negative Lyme Disease IgM Ab Negative COVID-19 Eval Order SARS-CoV-2 (PCR) NEGATIVE 06/05/21 06/05/21 06/05/21 17:24 18:15 20:36 WBC RBC Hgb Hct MCV MCH MCHC RDW Std Deviation RDW Coeff of Richar Plt Count MPV Immature Gran % (Auto) Neut % (Auto) Lymph % (Auto) [place] % (Auto) Eos % (Auto) Baso % (Auto) Neut # (Auto) Lymph # (Auto) [place] # (Auto) Eos # (Auto) Baso # (Auto) Immature Gran # (Auto) ESR PT INR APTT PTT Ratio Sodium Potassium Chloride Carbon Dioxide Anion Gap BUN Creatinine Est Cr Clr Drug Dosing Est GFR ( Amer) Est GFR (Non-Af Amer) BUN/Creatinine Ratio Glucose Lactate 2.0 Calcium Magnesium Total Bilirubin Direct Bilirubin AST ALT Alkaline Phosphatase Troponin I 2.490 H* C-Reactive Protein 10.20 H Total Protein Albumin Globulin Albumin/Globulin Ratio Lipase TSH Urine Color Dark Yellow Urine Appearance Clear Urine pH 7.0 Ur Specific [place] 1.041 H Urine Protein Negative Urine Glucose (UA) Negative Urine Ketones Negative Urine Blood Negative Urine Nitrite Negative Urine Bilirubin Negative Urine Urobilinogen Negative Ur Leukocyte Esterase Negative Anaplasma Smear A. phagocytophilum DNA Lyme Disease IgG Ab Lyme Disease IgM Ab COVID-19 Eval Order SARS-CoV-2 (PCR) 06/05/21 06/06/21 06/06/21 21:49 02:09 02:09 WBC 10.99 H RBC 4.28 Hgb 12.9 Hct 38.9 MCV 90.9 MCH 30.1 MCHC 33.2 RDW Std Deviation 46.9 H RDW Coeff of Richar 14.2 Plt Count 169 MPV 9.4 Immature Gran % (Auto) 0.2 Neut % (Auto) 80.6 Lymph % (Auto) 10.1 Ector % (Auto) 9.0 Eos % (Auto) 0.0 Baso % (Auto) 0.1 Neut # (Auto) 8.86 H Lymph # (Auto) 1.11 L [place] # (Auto) 0.99 H Eos # (Auto) 0.00 Baso # (Auto) 0.01 Immature Gran # (Auto) 0.02 ESR 21 PT 18.4 H INR 1.9 H APTT PTT Ratio Sodium Potassium Chloride Carbon Dioxide Anion Gap BUN Creatinine Est Cr Clr Drug Dosing Est GFR ( Amer) Est GFR (Non-Af Amer) BUN/Creatinine Ratio Glucose Lactate Calcium Magnesium Total Bilirubin Direct Bilirubin AST ALT Alkaline Phosphatase Troponin I C-Reactive Protein Total Protein Albumin Globulin Albumin/Globulin Ratio Lipase TSH Urine Color Urine Appearance Urine pH Ur Specific [place] Urine Protein Urine Glucose (UA) Urine Ketones Urine Blood Urine Nitrite Urine Bilirubin Urine Urobilinogen Ur Leukocyte Esterase Anaplasma Smear A. phagocytophilum DNA Lyme Disease IgG Ab Lyme Disease IgM Ab COVID-19 Eval Order SARS-CoV-2 (PCR) 06/06/21 06/06/21 02:09 10:53 WBC RBC Hgb Hct MCV MCH MCHC RDW Std Deviation RDW Coeff of Richar Plt Count MPV Immature Gran % (Auto) Neut % (Auto) Lymph % (Auto) [place] % (Auto) Eos % (Auto) Baso % (Auto) Neut # (Auto) Lymph # (Auto) [place] # (Auto) Eos # (Auto) Baso # (Auto) Immature Gran # (Auto) ESR PT 14.3 H INR 1.5 H APTT PTT Ratio Sodium 130 L Potassium 4.6 Chloride 97 L Carbon Dioxide 31 Anion Gap 2.0 L BUN 19 H Creatinine 0.88 Est Cr Clr Drug Dosing 52.5 Est GFR ( Amer) 72.9 Est GFR (Non-Af Amer) 62.9 BUN/Creatinine Ratio 22.1 H Glucose 103 H Lactate Calcium 8.0 L Magnesium Total Bilirubin 1.3 H Direct Bilirubin 0.5 H AST 106 H ALT 86 H Alkaline Phosphatase 76 Troponin I 2.840 H* C-Reactive Protein Total Protein 6.3 L Albumin 2.8 L Globulin 3.5 Albumin/Globulin Ratio 0.8 L Lipase TSH Urine Color Urine Appearance Urine pH Ur Specific [place] Urine Protein Urine Glucose (UA) Urine Ketones Urine Blood Urine Nitrite Urine Bilirubin Urine Urobilinogen Ur Leukocyte Esterase Anaplasma Smear A. phagocytophilum DNA Lyme Disease IgG Ab Lyme Disease IgM Ab COVID-19 Eval Order SARS-CoV-2 (PCR) Diagnostic Findings CT OF THE ABDOMEN AND PELVIS WITH CONTRAST CLINICAL HISTORY: chills, nausea, elevated lft COMPARISON STUDY: KUB January 18, 2020. PET/CT December 07, 2006. TECHNIQUE: Following IV administration of 95 mL of Optiray, axial images of the abdomen and pelvis were obtained from the lung bases to the proximal femurs. Images were reviewed in the axial, sagittal, and coronal planes. IV contrast was administered without complication. Automated exposure control was utilized for the study. A dose lowering technique was utilized adhering to the principles of ALARA. CT DOSE: 697.98 mGy.cm FINDINGS: There is a trace right pleural effusion. No pneumatosis, free air or portal venous gas is present. There is probable hepatic steatosis. There is mild nodularity of the liver surface. The gallbladder is surgically absent. There is mild biliary ductal dilatation. Pneumobilia is again noted. There is a small 4 mm calcified distal common bile duct calculus on image 127 of [id number]. In addition, there is apparent debris within the common bile duct. There may be communication between the common bile duct and the duodenum. This could be postsurgical. The spleen, adrenal glands and kidneys are unremarkable. There is no peripancreatic infiltration. The pancreas is atrophic. The appendix is normal. Several calcified fibroids are present. There is colonic diverticulosis without evidence for acute diverticulitis. There is no lymphadenopathy. No acute fracture or suspicious lesion is identified within visualized skeletal structures. There are multiple lower thoracic and lumbar spine compression fractures which are likely old. Abdominal aorta is ectatic. There is extensive plaque. IMPRESSION: 1. Mild biliary ductal dilatation status post cholecystectomy. Small 4 mm calcified distal common bile duct calculus. In addition, debris within the common bile duct and apparently communication between the common bile duct and the duodenum. This could be postsurgical or represent a fistula and this finding is likely chronic. 2. Hepatic steatosis. Possible mild cirrhosis by CT. 3. No bowel obstruction. 4. Sigmoid diverticulosis. No evidence for acute diverticulitis.
--- NOTE | 2021-06-06 12:19 | Hospitalist Progress Note ---
Date of Service June 06, 2021 Assessment & Plan (1) Choledocholithiasis: Plan: There appears to be a CBD stone on the CT scan and in setting of infection, cholangitis is of concern. Zosyn, ERCP in am. (2) Sepsis: Plan: Cont with Zosyn for now as clinical picture is concerning for initial sepsis 2/2 possible cholangitis +/- choledocholithiasis. As above vit K and NPO in preparation for ERCP in am. GI and cardiology following. (3) Elevated troponin I level: Plan: Likely secondary to demand ischemia in the setting of sepsis and rapid ventricular response. There is no regional wall motion abnormality on echocardiogram today. (4) Hypoxia: Plan: resolved (5) Chronic atrial fibrillation: Plan: Chronic atrial fibrillation on Coumadin, presented in RVR with heart rate in the 120s after not having am metoprolol, improved with Lopressor 5mg IV. Cont metoprolol per home regimen. Coumadin placed on hold in preparation for procedure and vit K given overnight. As INR 1.5 this am and procedure is in 24 hours, will repeat INR later this evening. If not improved will consider FFP. (6) Fx medial malleolus-closed: Plan: Patient with history striking right ankle on stool last week. Right ankle x-ray: Questionable irregularity a at medial malleolus which may or may not represent small nondisplaced fracture. On exam patient with tenderness to both medial and lateral malleolus Splint Nonweightbearing on right foot for now Ortho consult (7) Hypertension: Plan: Resume amlodipine, lisinopril per home regimen. Per echo today, IVC is plump so fluids were stopped, however, will cont to hold home diuretics per cardiology. (8) Constipation due to opioid therapy: Plan: Chronic back pain on chronic narcotics Chronic constipation Bowel regimen Continue chronic morphine, hydrocodone as needed. Hold flexeril, alprazolam PRN (9) Hyponatremia: Plan: chronic, improved to 130 from 128 yesterday. She was also low around this range in January 2020 but typically has a normal sodium. Cont currently therapies above and monitor with daily BMP. (10) DVT prophylaxis: Plan: Coumadin Full code Dispo-pending ERCP in am. Luci Lai DO [facility] Hospitalist Admission and Anticipated Discharge Date Admission Date: June 05, 2021 Subjective 76 yo F admitted with vomiting and chills. Sepsis resucitation and broad spectr um abx given overnight and she is feeling better. WBC improved. Reports a band of abdominal pain across the RUQ to LUQ area. Tolerated breakfast but it didn't taste good to her. She initially declined ERCP and later is agreeing to it. She reports feeling as if she is "coming down with a cold" and states that she has coughed up a greenish phlegm this morning. Review of Systems Review of Systems: All systems were reviewed and negative except as indicated in HPI above. Physical Exam Physical Exam: CONSTITUTIONAL: obese, vitals as above, generally well- appearing EYES: normal conjunctivae, no scleral icterus ENT: external ear and nose normal, MMM RESPIRATORY: clear to auscultation bilaterally, no crackles, rales or wheezes, normal respiratory effort CARDIOVASCULAR: regular rate and rhythm, S1 and 2 heard without murmurs, gallops or rubs, no JVD, no peripheral edema, no carotid bruits CHEST: inspection of chest was normal GASTROINTESTINAL: soft, nontender, nondistended MUSCULOSKELETAL: strength 5/5 throughout, head is normocephalic and atraumatic, neck supple, normal palpation of chest wall without tenderness SKIN: warm and dry NEUROLOGIC: CN 2-12 grossly intact, no sensory deficit, normal cognition, normal speech PSYCHIATRIC: alert cooperative and oriented to person, place and time. Results & Data Results & Data ([facility]) Vital Signs (Past 12 Hours) Vital Signs Temp Pulse Pulse Resp BP Pulse Ox 06/06/21 11:46 36.6 C 89 18 131/63 96 06/06/21 08:08 36.5 C 89 18 124/78 98 06/06/21 07:44 73 06/06/21 03:30 36.3 C L 72 20 97/68 L 98 Laboratory Results Short CBC 06/05/21 06/06/21 Range/Units 13:16 02:09 WBC 20.59 H 10.99 H (4.8-10.8) K/uL Hgb 15.4 12.9 (12.0-16.0) g/dL Hct 45.1 38.9 (37-47) % Plt Count 209 169 (130-400) K/uL BMP 06/05/21 06/06/21 13:16 02:09 Sodium 128 L 130 L Potassium 4.1 4.6 Chloride 95 L 97 L Carbon Dioxide 27 31 BUN 18 19 H Creatinine 1.00 0.88 Glucose 136 H 103 H Calcium 9.1 8.0 L Cardiac Enzymes 06/05/21 06/05/21 06/06/21 Range/Units 13:16 20:36 02:09 Troponin I 0.917 H* 2.490 H* 2.840 H* (0-0.045) ng/ml Liver Function 06/05/21 06/06/21 Range/Units 13:16 02:09 Total Bilirubin 1.4 H 1.3 H (0.2-1) mg/dl Direct Bilirubin 0.5 H (0-0.2) mg/dl AST 142 H 106 H (15-37) U/L ALT 97 H 86 H (12-78) U/L Alkaline Phosphatase 104 76 (45-117) U/L Albumin 3.6 2.8 L (3.4-5.0) gm/dl Urine 06/05/21 Range/Units 18:15 Urine Color Dark Yellow Urine Appearance Clear (Clear) Urine pH 7.0 (4.5-7.5) Ur Specific [place] 1.041 H (1.000-1.030) Urine Protein Negative (Negative) Urine Glucose (UA) Negative (Negative) Medications Administered Current Inpatient Medications Acetaminophen (Acetaminophen 325 Mg Tab) 650 mg PO Q4H PRN PRN Reason: Pain or Fever Stop: 07/05/21 20:02 Hydrocodone Bitart/Acetaminophen (Hydrocodone/Acetaminophen 7.5/325mg Tab) 1 tab PO Q6 PRN PRN Reason: Pain Stop: 06/19/21 20:02 Albuterol (Albut/Ipratrop 3mg/0.5mg Neb 3 Ml Vial) 3 ml INH Q4 PRN PRN Reason: Shortness Of Breath Or Wheezing Stop: 07/05/21 20:02 Alprazolam (Alprazolam 0.5 Mg Tablet) 1 mg PO BID PRN PRN Reason: Anxiety Stop: 07/06/21 09:14 Last Admin: 06/06/21 09:38 Dose: 1 mg Documented by: Aspirin (Aspirin 81 Mg Ectab) 81 mg PO DAILY CADEN Stop: 07/06/21 08:59 Last Admin: 06/06/21 08:34 Dose: 81 mg Documented by: Diclofenac Sodium (Diclofenac Sod 1% Gel 100 Gm Tube) 4 gm EXT BID PRN PRN Reason: Pain Stop: 07/05/21 20:02 Docusate Sodium (Docusate Sodium 100 Mg Cap) 100 mg PO BID [facility] Stop: 07/05/21 20:59 Last Admin: 06/06/21 08:34 Dose: 100 mg Documented by: Piperacillin Sod/Tazobactam (Sod 4.5 gm/ Dextrose) 120 mls @ 30 mls/hr IV Q8H [facility]; Protocol Stop: 06/07/21 21:59 Last Infusion: 06/06/21 09:38 Dose: Infused Documented by: Levothyroxine Sodium (Levothyroxine Sodium 100 Mcg Tablet) 100 mcg PO DAILYBB [facility] Stop: 07/06/21 06:29 Last Admin: 06/06/21 05:44 Dose: 100 mcg Documented by: Melatonin (Melatonin 3 Mg Tab) 3 mg PO HS [facility] Stop: 07/05/21 20:59 Last Admin: 06/05/21 21:40 Dose: 3 mg Documented by: Metoprolol Succinate (Metoprolol Succ 25mg Ext Rel Tab) 12.5 mg PO DAILY [facility] Stop: 07/06/21 08:59 Last Admin: 06/06/21 08:34 Dose: 12.5 mg Documented by: Miscellaneous Information (Piperacill/Tazobac Consult Active) 1 ea N/A UD PRN PRN Reason: Consult Stop: 07/05/21 16:02 Morphine Sulfate (Morphine Sulfate Cr 15 Mg Tabcr) 15 mg PO BID [facility] Stop: 06/19/21 20:59 Last Admin: 06/06/21 08:37 Dose: 15 mg Documented by: Pantoprazole Sodium (Pantoprazole 40 Mg Tab) 40 mg PO DAILY [facility] Stop: 07/06/21 08:59 Last Admin: 06/06/21 08:34 Dose: 40 mg Documented by: Polyethylene Glycol (Polyethylene (Miralax) 17 Gm Pack) 17 gm PO DAILY PRN PRN Reason: Constipation Stop: 07/05/21 20:02 Sennosides (Senna 8.6 Mg Tab) 17.2 mg PO HS [facility] Stop: 07/05/21 20:59 Last Admin: 06/05/21 21:40 Dose: 17.2 mg Documented by:
--- NOTE | 2021-06-06 15:13 | Anesthesiology Consultation ---
Date of Service June 06, 2021 Assessment & Plan Chart Review Chart Review: Acceptable Risk for Surgery Consults Requested none History Surgery Operation Date: 06/07/21 07:30 Proposed Procedures p Endoscopic Retrograde Cholangiopancreato - Robyn Russell DO Height/Weight Height: 5 ft 1 in Weight: 87.8 kg Allergies Allergy/AdvReac Type Severity Reaction Status Date / Time morphine Allergy Intermediate RASH/PRUTIT Verified 06/05/21 16:32 IS atorvastatin Allergy Unknown 0 Verified 06/05/21 16:32 escitalopram Allergy Unknown 0 Verified 06/05/21 16:32 ezetimibe Allergy Unknown 0 Verified 06/05/21 16:32 fentanyl Allergy Unknown 0 Verified 06/05/21 16:32 hydralazine Allergy Unknown SEVERELY Verified 06/05/21 16:32 FLUSHED;BURNING SENSATION;SHAKING metoclopramide Allergy Unknown 0 Verified 06/05/21 16:32 simvastatin Allergy Unknown 0 Verified 06/05/21 16:32 clarithromycin AdvReac Unknown ABD Verified 06/05/21 16:32 CRAMPING Medications Home Medications Medication Instructions Recorded Confirmed Last Taken alprazolam 1 mg tablet 1 mg PO BID PRN 01/15/20 06/05/21 Unknown amlodipine 2.5 mg tablet 2.5 mg PO DAILY 01/15/20 06/05/21 01/15/20 aspirin 81 mg tablet,delayed 81 mg PO DAILY 01/15/20 06/05/21 01/15/20 release cyclobenzaprine 10 mg tablet 10 mg PO DAILY PRN 01/15/20 06/05/21 Unknown diclofenac sodium 1 % topical gel 4 g TOPICAL BID PRN 01/15/20 06/05/21 Unknown docusate sodium 100 mg tablet 100 mg PO BID 01/15/20 06/05/21 Unknown esomeprazole magnesium 20 mg 20 mg PO DAILY 01/15/20 06/05/21 01/15/20 capsule,delayed release furosemide 20 mg tablet 20 mg PO MOWEFR 01/15/20 06/05/21 01/14/20 hydrocodone 7.5 mg-acetaminophen 1 tab PO Q6 PRN 01/15/20 06/05/21 Unknown 325 mg tablet levothyroxine 100 mcg tablet 100 mcg PO DAILYBB 01/15/20 06/05/21 01/15/20 (Levoxyl) lisinopril 20 mg tablet 20 mg PO DAILY 01/15/20 06/05/21 01/15/20 metoprolol succinate 25 mg 12.5 mg PO DAILY 01/15/20 06/05/21 01/15/20 tablet,extended release 24 hr morphine 15 mg tablet,extended 15 mg PO BID 01/15/20 06/05/21 06/05/21 release warfarin 5 mg tablet 2.5 mg PO TUTH 01/15/20 06/05/21 01/14/20 albuterol sulfate 90 mcg/actuation 2 puffs INH Q6H PRN #6.7 gm 01/19/20 06/05/21 Unknown aerosol inhaler calcium carbonate 500 mg calcium 500 mg PO DAILY #30 tab 01/19/20 06/05/21 Unknown (1,250 mg) tablet (Calcium 500) meclizine 25 mg tablet 25 mg PO TID PRN #90 tab 01/19/20 06/05/21 Unknown cholecalciferol (vitamin D3) 25 25 mcg PO DAILY tab 02/13/20 06/05/21 Unknown mcg (1,000 unit) tablet alendronate 10 mg tablet 10 mg PO DAILY 06/05/21 06/05/21 Unknown atorvastatin 10 mg tablet 10 mg PO PM 06/05/21 06/05/21 Unknown fluticasone propionate 50 2 spray INTRANASAL DAILY PRN 06/05/21 06/05/21 Unknown mcg/actuation nasal spray,suspension (Flonase Allergy Relief) ipratropium 0.5 mg-albuterol 3 mg 3 ml INHALATION Q4 PRN 06/05/21 06/05/21 Unknown (2.5 mg base)/3 mL nebulization soln melatonin 3 mg tablet 3 mg PO HS 06/05/21 06/05/21 Unknown multivitamin 1 tab PO DAILY 06/05/21 06/05/21 Unknown omega-3 fatty acids 1,000 mg PO DAILY 06/05/21 06/05/21 Unknown polyethylene glycol 3350 17 17 g PO DAILY PRN 06/05/21 06/05/21 Unknown gram/dose oral powder (Miralax) sennosides 8.6 mg tablet (senna) 17.2 mg PO HS 06/05/21 06/05/21 Unknown warfarin 5 mg tablet (Jantoven) 5 mg PO SUMOWEFRSA 06/05/21 06/05/21 Unknown Active Medications Generic Name Dose Route Start Last Admin Trade Name Paulina PRN Reason Stop Dose Admin Alprazolam 1 mg 06/06/21 09:15 06/06/21 09:38 Alprazolam 0.5 Mg Tablet PO 07/06/21 09:14 1 mg BID PRN Administration Anxiety Aspirin 81 mg 06/06/21 09:00 06/06/21 08:34 Aspirin 81 Mg Ectab PO 07/06/21 08:59 81 mg DAILY CADEN Administration Docusate Sodium 100 mg 06/05/21 21:00 06/06/21 08:34 Docusate Sodium 100 Mg Cap PO 07/05/21 20:59 100 mg BID CADEN Administration Piperacillin Sod/Tazobactam 120 mls @ 30 mls/hr 06/05/21 22:00 06/06/21 13:13 Sod 4.5 gm/ Dextrose IV 06/07/21 21:59 30 mls/hr Q8H CADEN Administration Protocol Levothyroxine Sodium 100 mcg 06/06/21 06:30 06/06/21 05:44 Levothyroxine Sodium 100 Mcg Tablet PO 07/06/21 06:29 100 mcg DAILYBB CADEN Administration Melatonin 3 mg 06/05/21 21:00 06/05/21 21:40 Melatonin 3 Mg Tab PO 07/05/21 20:59 3 mg HS CADEN Administration Metoprolol Succinate 12.5 mg 06/06/21 09:00 06/06/21 08:34 Metoprolol Succ 25mg Ext Rel Tab PO 07/06/21 08:59 12.5 mg DAILY CADEN Administration Morphine Sulfate 15 mg 06/05/21 21:00 06/06/21 08:37 Morphine Sulfate Cr 15 Mg Tabcr PO 06/19/21 20:59 15 mg BID CADEN Administration Pantoprazole Sodium 40 mg 06/06/21 09:00 06/06/21 08:34 Pantoprazole 40 Mg Tab PO 07/06/21 08:59 40 mg DAILY CADEN Administration Sennosides 17.2 mg 06/05/21 21:00 06/05/21 21:40 Senna 8.6 Mg Tab PO 07/05/21 20:59 17.2 mg HS CADEN Administration Past Medical History Medical History Chronic anticoagulation Chronic atrial fibrillation Chronic pain Dyslipidemia GERD (gastroesophageal reflux disease) History of lung cancer Hypertension Iron deficiency anemia Post-surgical hypothyroidism Past Family History Family History Mother Stroke Hypertension Uterine cancer Father Heart disease Cardiac disorder Aunt Cardiac disorder Brother Diabetes Sister Diabetes Grandmother (Paternal) Breast cancer Past Surgical History Surgical History H/O pneumonectomy Right upper lobe secondary to lung cancer H/O thyroidectomy History of carotid endarterectomy Right Hx of cholecystectomy Social History Smoking Status: Former smoker tobacco type: cigarettes Do You Dip or Chew Tobacco: No Hx Alcohol Use: No Alcohol type: wine alcohol intake frequency: holidays/special occasions only Hx Substance Use: No Physical Exam Vital Signs Last Vital Signs Temp 36.6 C 06/06/21 11:46 Pulse 89 06/06/21 11:46 Resp 18 06/06/21 11:46 BP 131/63 06/06/21 11:46 Pulse Ox 96 06/06/21 11:46 Testing Laboratory Results 06/06/21 02:09 06/06/21 02:09 PT 14.3 Seconds (9.0-12.0) H 06/06/21 10:53 INR 1.5 (0.9-1.1) H 06/06/21 10:53 APTT Cancelled 06/05/21 13:16 Urine Color Dark Yellow 06/05/21 18:15 Urine Appearance Clear (Clear) 06/05/21 18:15 Urine pH 7.0 (4.5-7.5) 06/05/21 18:15 Ur Specific [place] 1.041 (1.000-1.030) H 06/05/21 18:15 Urine Protein Negative (Negative) 06/05/21 18:15 Urine Glucose (UA) Negative (Negative) 06/05/21 18:15 Urine Ketones Negative (Negative) 06/05/21 18:15 Urine Nitrite Negative (Negative) 06/05/21 18:15 Ur Leukocyte Esterase Negative (Negative) 06/05/21 18:15 06/05/21 13:57 Aerobic Blood Culture - Preliminary Blood No growth in Aerobic bottle after 24 hours. 06/05/21 13:16 Aerobic Blood Culture - Preliminary Blood No growth in Aerobic bottle after 24 hours. Anaerobic Blood Culture - Preliminary No growth in Anaerobic bottle after 24 hours.
[2021-06-06] MEDS: lisinopril 20 MG TAB PO SCH (15:20)
[2021-06-06] MEDS: HYDROCODONE/ACETAMINOPHEN 7.5/325MG TAB PO PRN ×2 (15:20→22:53)
[2021-06-06 17:54] LABS: INR 1.2 (0.9-1.1); Prothrombin Time 12.4 Seconds (9.0-12.0)
[2021-06-06] MEDS: SENNA 8.6 MG TAB PO SCH (20:33)
[2021-06-06] MEDS: ATORVASTATIN 10 MG TAB PO SCH (20:34)
[2021-06-06] MEDS: MELATONIN 3 MG TAB PO SCH (20:34)
[2021-06-07] MEDS: LEVOTHYROXINE SODIUM 100 MCG TABLET PO SCH (05:32)
[2021-06-07] MEDS: HYDROCODONE/ACETAMINOPHEN 7.5/325MG TAB PO PRN (05:35)
[2021-06-07] MEDS: PIPERACILLIN/TAZOBACTAM 4.5 GM in DEXTROSE 5% 100 ML IV SCH ×3 (05:36→21:40)
[2021-06-07 05:55] LABS: Hematocrit (blood only) 42.7 % (37-47); Hemoglobin 14.1 g/dL (12.0-16.0); Mean Corpuscular Hemoglobin 30.4 pg (25-34); Mean Platelet Volume 9.7 fL (7.4-10.4); Platelet Count 169 K/uL (130-400); RDW Coefficient of Variation 14.4 % (11.5-14.5); RDW Standard Deviation 48.2 fL (36.4-46.3); Red Blood Count 4.64 M/uL (4.2-5.4); White Blood Count 6.66 K/uL (4.8-10.8)
[2021-06-07 06:05] LABS: INR 1.1 (0.9-1.1); Prothrombin Time 10.9 Seconds (9.0-12.0)
[2021-06-07 06:35] LABS: Albumin Level 3.3 gm/dl (3.4-5.0); BUN Creatinine Ratio 14.1 (10-20); Calcium 8.8 mg/dl (8.5-10.1); Creatinine Clr Calc Pharmacy 60.7 ml/min; Est GFR (African American) 85.7 ml/min; Magnesium 2.1 mg/dl (1.8-2.4); Potassium 4.9 mmol/L (3.5-5.1)
[2021-06-07 06:43] LABS: Albumin Globulin Ratio 0.8 (0.9-2); Bilirubin,Total 1.4 mg/dl (0.2-1); Globulin 4.2 gm/dl (2.5-4.0); Phosphorus 2.7 mg/dl (2.5-4.9); Total Protein 7.5 gm/dl (6.4-8.2)
[2021-06-07] MEDS: amLODIPine BESYLATE 5 MG TAB PO SCH (08:19)
[2021-06-07] MEDS: lisinopril 20 MG TAB PO SCH (08:19)
[2021-06-07] MEDS: DOCUSATE SODIUM 100 MG CAP PO SCH ×2 (08:19→21:26)
[2021-06-07] MEDS: METOPROLOL SUCC 25MG EXT REL TAB PO SCH (08:19)
[2021-06-07] MEDS: PANTOprazole 40 MG TAB PO SCH (08:19)
[2021-06-07] MEDS: ASPIRIN 81 MG ECTAB PO SCH (08:19)
[2021-06-07] MEDS: MoRPHine SULFATE CR 15 MG TABCR PO SCH ×2 (08:25→21:26)
--- NOTE | 2021-06-07 08:28 | History & Physical Bridge Note ---
Date of Service June 07, 2021 History & Physical Bridge Note I have examined the patient, reviewed the History & Physical and in the interval since the performance of the History & Physical I have noted the following changes of clinical significance: no changes noted. The patient and I have discussed the risks of the procedure to include bleeding, infection, perforation, pancreatitis and need for follow-up studies.
[2021-06-07] MEDS ORDERED: ATROPINE SULFATE 0.1 MG/ML 10ML SYR IV PRN (10:30)
[2021-06-07] MEDS ORDERED: PHENYLEPHRINE 100MCG/ML 5ML SYR IV PRN (10:30)
[2021-06-07] MEDS ORDERED: ePHEDrine sulfate 50 MG/ML AMP IV PRN (10:30)
[2021-06-07] MEDS ORDERED: ONDANSETRON INJ 2 MG/ML 2 ML VIAL IV PRN (10:30)
[2021-06-07] MEDS ORDERED: fentaNYL citrate 100 MCG/2 ML VIAL IV PRN (10:30)
--- NOTE | 2021-06-07 10:35 | Anesthesiology Consultation ---
Date of Service June 07, 2021 Assessment & Plan (1) Encounter for pre-operative examination: Chart Review Chart Review: Acceptable Risk for Surgery and Patient NOT seen in Pre Admission Testing Consults Requested none ASA ASA4 Proposed Anesthesia Anesthesia Type: General Anesthesia Line Insertion: Arterial line (consented) Risk / Benefits Reviewed With: PT / POA / Parent / Guardian, Accepts Plan and Informed Consent Obtained History Surgery Operation Date: 06/07/21 07:30 Proposed Procedures p Endoscopic Retrograde Cholangiopancreato - Robyn Russell DO Height/Weight Height: 5 ft 1 in Weight: 87.9 kg Allergies Allergy/AdvReac Type Severity Reaction Status Date / Time morphine Allergy Intermediate RASH/PRUTIT Verified 06/05/21 16:32 IS atorvastatin Allergy Unknown 0 Verified 06/05/21 16:32 escitalopram Allergy Unknown 0 Verified 06/05/21 16:32 ezetimibe Allergy Unknown 0 Verified 06/05/21 16:32 fentanyl Allergy Unknown 0 Verified 06/05/21 16:32 hydralazine Allergy Unknown SEVERELY Verified 06/05/21 16:32 FLUSHED;BURNING SENSATION;SHAKING metoclopramide Allergy Unknown 0 Verified 06/05/21 16:32 simvastatin Allergy Unknown 0 Verified 06/05/21 16:32 clarithromycin AdvReac Unknown ABD Verified 06/05/21 16:32 CRAMPING Medications Home Medications Medication Instructions Recorded Confirmed Last Taken alprazolam 1 mg tablet 1 mg PO BID PRN 01/15/20 06/05/21 Unknown amlodipine 2.5 mg tablet 2.5 mg PO DAILY 01/15/20 06/05/21 01/15/20 aspirin 81 mg tablet,delayed 81 mg PO DAILY 01/15/20 06/05/21 01/15/20 release cyclobenzaprine 10 mg tablet 10 mg PO DAILY PRN 01/15/20 06/05/21 Unknown diclofenac sodium 1 % topical gel 4 g TOPICAL BID PRN 01/15/20 06/05/21 Unknown docusate sodium 100 mg tablet 100 mg PO BID 01/15/20 06/05/21 Unknown esomeprazole magnesium 20 mg 20 mg PO DAILY 01/15/20 06/05/21 01/15/20 capsule,delayed release furosemide 20 mg tablet 20 mg PO MOWEFR 01/15/20 06/05/21 01/14/20 hydrocodone 7.5 mg-acetaminophen 1 tab PO Q6 PRN 01/15/20 06/05/21 Unknown 325 mg tablet levothyroxine 100 mcg tablet 100 mcg PO DAILYBB 01/15/20 06/05/21 01/15/20 (Levoxyl) lisinopril 20 mg tablet 20 mg PO DAILY 01/15/20 06/05/21 01/15/20 metoprolol succinate 25 mg 12.5 mg PO DAILY 01/15/20 06/05/21 01/15/20 tablet,extended release 24 hr morphine 15 mg tablet,extended 15 mg PO BID 01/15/20 06/05/21 06/05/21 release warfarin 5 mg tablet 2.5 mg PO TUTH 01/15/20 06/05/21 01/14/20 albuterol sulfate 90 mcg/actuation 2 puffs INH Q6H PRN #6.7 gm 01/19/20 06/05/21 Unknown aerosol inhaler calcium carbonate 500 mg calcium 500 mg PO DAILY #30 tab 01/19/20 06/05/21 Unknown (1,250 mg) tablet (Calcium 500) meclizine 25 mg tablet 25 mg PO TID PRN #90 tab 01/19/20 06/05/21 Unknown cholecalciferol (vitamin D3) 25 25 mcg PO DAILY tab 02/13/20 06/05/21 Unknown mcg (1,000 unit) tablet alendronate 10 mg tablet 10 mg PO DAILY 06/05/21 06/05/21 Unknown atorvastatin 10 mg tablet 10 mg PO PM 06/05/21 06/05/21 Unknown fluticasone propionate 50 2 spray INTRANASAL DAILY PRN 06/05/21 06/05/21 Unknown mcg/actuation nasal spray,suspension (Flonase Allergy Relief) ipratropium 0.5 mg-albuterol 3 mg 3 ml INHALATION Q4 PRN 06/05/21 06/05/21 Unknown (2.5 mg base)/3 mL nebulization soln melatonin 3 mg tablet 3 mg PO HS 06/05/21 06/05/21 Unknown multivitamin 1 tab PO DAILY 06/05/21 06/05/21 Unknown omega-3 fatty acids 1,000 mg PO DAILY 06/05/21 06/05/21 Unknown polyethylene glycol 3350 17 17 g PO DAILY PRN 06/05/21 06/05/21 Unknown gram/dose oral powder (Miralax) sennosides 8.6 mg tablet (senna) 17.2 mg PO HS 06/05/21 06/05/21 Unknown warfarin 5 mg tablet (Jantoven) 5 mg PO SUMOWEFRSA 06/05/21 06/05/21 Unknown Active Medications Generic Name Dose Route Start Last Admin Trade Name Freq PRN Reason Stop Dose Admin Hydrocodone Bitart/Acetaminophen 1 tab 06/05/21 20:03 06/07/21 05:35 Hydrocodone/Acetaminophen 7.5/325mg Tab PO 06/19/21 20:02 1 tab Q6 PRN Administration Pain Alprazolam 1 mg 06/06/21 09:15 06/06/21 20:33 Alprazolam 0.5 Mg Tablet PO 07/06/21 09:14 1 mg BID PRN Administration Anxiety Amlodipine Besylate 2.5 mg 06/07/21 09:00 06/07/21 08:19 Amlodipine Besylate 5 Mg Tab PO 07/07/21 08:59 2.5 mg DAILY CADEN Administration Aspirin 81 mg 06/06/21 09:00 06/07/21 08:19 Aspirin 81 Mg Ectab PO 07/06/21 08:59 81 mg DAILY CADEN Administration Atorvastatin Calcium 10 mg 06/06/21 21:00 06/06/21 20:34 Atorvastatin 10 Mg Tab PO 07/06/21 20:59 10 mg PM CADEN Administration Docusate Sodium 100 mg 06/05/21 21:00 06/07/21 08:19 Docusate Sodium 100 Mg Cap PO 07/05/21 20:59 100 mg BID CADEN Administration Piperacillin Sod/Tazobactam 120 mls @ 30 mls/hr 06/05/21 22:00 06/07/21 05:36 Sod 4.5 gm/ Dextrose IV 06/07/21 21:59 30 mls/hr Q8H CADEN Administration Protocol Levothyroxine Sodium 100 mcg 06/06/21 06:30 06/07/21 05:32 Levothyroxine Sodium 100 Mcg Tablet PO 07/06/21 06:29 100 mcg DAILYBB CADEN Administration Lisinopril 20 mg 06/06/21 14:00 06/07/21 08:19 Lisinopril 20 Mg Tab PO 07/06/21 13:59 20 mg DAILY CADEN Administration Melatonin 3 mg 06/05/21 21:00 06/06/21 20:34 Melatonin 3 Mg Tab PO 07/05/21 20:59 3 mg HS CADEN Administration Metoprolol Succinate 12.5 mg 06/06/21 09:00 06/07/21 08:19 Metoprolol Succ 25mg Ext Rel Tab PO 07/06/21 08:59 12.5 mg DAILY CADEN Administration Morphine Sulfate 15 mg 06/05/21 21:00 06/07/21 08:25 Morphine Sulfate Cr 15 Mg Tabcr PO 06/19/21 20:59 15 mg BID CADEN Administration Pantoprazole Sodium 40 mg 06/06/21 09:00 06/07/21 08:19 Pantoprazole 40 Mg Tab PO 07/06/21 08:59 40 mg DAILY CADEN Administration Sennosides 17.2 mg 06/05/21 21:00 06/06/21 20:33 Senna 8.6 Mg Tab PO 07/05/21 20:59 17.2 mg HS CADEN Administration NPO Date Last Intake of Fluids: 06/07/21 Time Last Intake of Fluids: 08:00 Date Last Intake of Solids: 06/06/21 Time Last Intake of Solids: 18:00 Past Medical History Medical History (Updated 06/07/21 @ 10:47 by William Castro MD) Chronic anticoagulation Chronic atrial fibrillation Chronic pain Dyslipidemia GERD (gastroesophageal reflux disease) History of lung cancer Hypertension Iron deficiency anemia Obesity Post-surgical hypothyroidism Exercise / Class Metabolic Activity III < 4 Walking/Shop/Light housework Past Family History Family History Mother Stroke Hypertension Uterine cancer Father Heart disease Cardiac disorder Aunt Cardiac disorder Brother Diabetes Sister Diabetes Grandmother (Paternal) Breast cancer Past Surgical History Surgical History H/O pneumonectomy Right upper lobe secondary to lung cancer H/O thyroidectomy History of carotid endarterectomy Right Hx of cholecystectomy Past Anesthesia History No Hx of Anesthesia Complications and No Family Hx of Anesthesia Complications History of PONV No Hx of PONV and No Hx of Motion Sickness Social History Smoking Status: Former smoker tobacco type: cigarettes Do You Dip or Chew Tobacco: No Hx Alcohol Use: No Alcohol type: wine alcohol intake frequency: holidays/special occasions only Hx Substance Use: No Review of Systems no chest pain or sob, no cough Physical Exam Vital Signs Last Vital Signs Temp 36.5 C 06/07/21 07:49 Pulse 87 06/07/21 07:49 Resp 18 06/07/21 07:49 BP 115/81 06/07/21 07:49 Pulse Ox 95 06/07/21 07:49 ENMT Mouth: + dentures Thyromental Distance: > or= 3.5 Finger Breadths Mallampati Class: II Neck normal visual inspection Respiratory normal respiratory effort Auscultation: lungs clear to auscultation bilaterally Cardiovascular Rate/Rhythm: + abnormal rate and + abnormal rhythm Musculoskeletal Spine: no pain with cervical ROM Neurologic moves all extremities Psychiatric Orientation: alert and oriented x 3 Testing Laboratory Results 06/07/21 05:41 06/07/21 05:41 PT 10.9 Seconds (9.0-12.0) 06/07/21 05:41 INR 1.1 (0.9-1.1) 06/07/21 05:41 APTT Cancelled 06/05/21 13:16 Urine Color Dark Yellow 06/05/21 18:15 Urine Appearance Clear (Clear) 06/05/21 18:15 Urine pH 7.0 (4.5-7.5) 06/05/21 18:15 Ur Specific [place] 1.041 (1.000-1.030) H 06/05/21 18:15 Urine Protein Negative (Negative) 06/05/21 18:15 Urine Glucose (UA) Negative (Negative) 06/05/21 18:15 Urine Ketones Negative (Negative) 06/05/21 18:15 Urine Nitrite Negative (Negative) 06/05/21 18:15 Ur Leukocyte Esterase Negative (Negative) 06/05/21 18:15 06/05/21 13:57 Aerobic Blood Culture - Preliminary Blood No growth in Aerobic bottle after 24 hours. Anaerobic Blood Culture - Final 06/06/21 Unknown Gram Stain - Final Sputum, Expectorated 06/05/21 13:16 Aerobic Blood Culture - Preliminary Blood No growth in Aerobic bottle after 24 hours. Anaerobic Blood Culture - Preliminary No growth in Anaerobic bottle after 24 hours. Electrocardiogram Date: 06/06/21 Findings: + NSST changes and + AFIB @ (81) prolonged QT Chest X-Ray Date: 06/05/21 XR chest 1V portable CLINICAL HISTORY: Sepsis COMPARISON STUDY: Chest radiograph January 18, 2020. FINDINGS: Lung volumes are at the lower limits of normal. Mild linear left basilar opacity favors atelectasis. There is no pneumothorax or pleural effus ion. Cardiomegaly is unchanged. Mediastinal contours are normal. There is no evidence for pulmonary edema. IMPRESSION: No acute cardiopulmonary findings. Cardiomegaly. ACT 112: Negative or not required by law. Electronically signed by: Armando Glover M.D. 06/05/2021 2:05 PM Dictated: 06/05/21 1404Transcribed: 06/05/21 1404 Echocardiogram Date: 06/06/21 EF: 60-65 Other Findings: + atrial enlargement (left severe dilation, right moderate dilation) and + LVH (mild) Valvular Disease: + MR (moderate) and + pertinent finding (mild TR) RVSP 50-60, elevated R atrial pressure Other Testing CT SCAN OF THE BRAIN WITHOUT IV CONTRAST CLINICAL HISTORY: Headache. COMPARISON STUDY: CT of the brain dated 03/28/2010. TECHNIQUE: Unenhanced axial CT scan of the brain is performed from the vertex to the skull base. A dose lowering technique was utilized adhering to the principles of ALARA. CT DOSE: 884.08 mGy.cm FINDINGS: Brain parenchyma: There are age-related involutional changes noting moderate confluent subcortical and periventricular microangiopathic change. There is no hemorrhage, mass effect, or evidence of acute territorial ischemia by CT criteria. [place]-white matter differentiation is preserved. No extra-axial fluid collection is seen. Ventricles, sulci, cisterns: Prominent secondary to involutional change. Intracranial vasculature: There is atherosclerotic calcification of the cavernous carotid and vertebral arteries. Calvarium: Unremarkable. Sinuses and mastoids: The paranasal sinuses are clear. The mastoid air cells are well pneumatized. Orbits: The bony orbits are grossly intact. There are bilateral ocular lens implants. IMPRESSION: There is no hemorrhage, mass effect, or evidence of acute territorial ischemia by CT criteria. ACT 112: Negative or not required by law. Electronically signed by: Hi Medellin M.D. 06/05/2021 3:26 PM Dictated: 06/05/21 1523Transcribed: 06/05/[address] OF THE ABDOMEN AND PELVIS WITH CONTRAST CLINICAL HISTORY: chills, nausea, elevated lft COMPARISON STUDY: KUB January 18, 2020. PET/CT December 07, 2006. TECHNIQUE: Following IV administration of 95 mL of Optiray, axial images of the abdomen and pelvis were obtained from the lung bases to the proximal femurs. Images were reviewed in the axial, sagittal, and coronal planes. IV contrast was administered without complication. Automated exposure control was utilized for the study. A dose lowering technique was utilized adhering to the principles of ALARA. CT DOSE: 697.98 mGy.cm FINDINGS: There is a trace right pleural effusion. No pneumatosis, free air or portal venous gas is present. There is probable hepatic steatosis. There is mild nodularity of the liver surface. The gallbladder is surgically absent. There is mild biliary ductal dilatation. Pneumobilia is again noted. There is a small 4 mm calcified distal common bile duct calculus on image 127 of 421. In addition, there is apparent debris within the common bile duct. There may be communication between the common bile duct and the duodenum. This could be postsurgical. The spleen, adrenal glands and kidneys are unremarkable. There is no peripancreatic infiltration. The pancreas is atrophic. The appendix is normal. Several calcified fibroids are present. There is colonic diverticulosis without evidence for acute diverticulitis. There is no lymphadenopathy. No acute fracture or suspicious lesion is identified within visualized skeletal structures. There are multiple lower thoracic and lumbar spine compression fractures which are likely old. Abdominal aorta is ectatic. There is extensive plaque. IMPRESSION: 1. Mild biliary ductal dilatation status post cholecystectomy. Small 4 mm calcified distal common bile duct calculus. In addition, debris within the common bile duct and apparently communication between the common bile duct and the duodenum. This could be postsurgical or represent a fistula and this finding is likely chronic. 2. Hepatic steatosis. Possible mild cirrhosis by CT. 3. No bowel obstruction. 4. Sigmoid diverticulosis. No evidence for acute diverticulitis. ACT 112: Negative or not required by law. Electronically signed by: Armando Glover M.D. 06/05/2021 3:42 PM Dictated: 06/05/21 1528Transcribed: 06/05/21 1528
[2021-06-07] MEDS ORDERED: SUCCINYLCHOLINE CHLORIDE 20 MG/ML 10 ML VIAL IV ONE (10:46)
[2021-06-07] MEDS ORDERED: LIDOCAINE 2% 2 ML VIAL/AMP(20MG/ML) INFIL ONE (10:46)
[2021-06-07] MEDS ORDERED: PROPOFOL IV EMULSION 10 MG/ML 20 ML VIAL IV ONE (10:46)
[2021-06-07] MEDS ORDERED: PHENYLEPHRINE 100MCG/ML 5ML SYR ONE (10:46)
[2021-06-07] MEDS ORDERED: INDOMETHACIN 50 MG SUPP PR ONE (10:55)
[2021-06-07] MEDS ORDERED: ONDANSETRON INJ 2 MG/ML 2 ML VIAL ONE (10:58)
[2021-06-07] MEDS ORDERED: DEXAMETHASONE SOD INJ 4 MG/ML VIAL ONE (10:58)
--- NOTE | 2021-06-07 11:30 | Post Operative Brief Note ---
Immediate Post Op Note v1 Date of Surgery June 07, 2021 Pre & Post Diagnosis Operation Date: 06/07/21 07:30 Pre-Op Diagnosis: Choledocholithiasis Post-Op Diagnosis: Choledocholithiasis I identified the patient and participated in the time-out.: Yes Procedure Operation Date: 06/07/21 07:30 Actual Procedures p Endoscopic Retrograde Cholangiopancreatography(Not Applicable) - Robyn Russell DO Surgeon Robyn Russell DO Cargo Services Coordinator none Estimated Blood Loss 0 Findings Consistent with Post-Op Diagnosis
--- NOTE | 2021-06-07 11:33 | Hospitalist Progress Note ---
Date of Service June 07, 2021 Assessment & Plan (1) Choledocholithiasis: Plan: An ERCP was performed today with stones and sludge found in the CBD and swept away. Post operatively she is doing well and will take clears today. Will plan to advance diet in am as tolerated. Cont broad spectrum antibiotics for 10 days per GI recommendations. (2) Sepsis: Plan: 2/2 GI source, resuscitated. Cont with Zosyn for now. (3) Elevated troponin I level: Plan: Likely secondary to demand ischemia in the setting of sepsis and rapid ventr icular response. There is no regional wall motion abnormality on echocardiogram this admission. (4) Hypoxia: Plan: resolved (5) Chronic atrial fibrillation: Plan: Chronic atrial fibrillation on Coumadin, presented in RVR with heart rate in the 120s after not having am metoprolol, improved with Lopressor 5mg IV. Cont metoprolol per home regimen. Coumadin placed on hold in preparation for procedure with vitamin K given for INR reversal. GI fine with restarting anticoagulation now so will bridge to warfarin with heparin drip. Daily INR. (6) Fx medial malleolus-closed: Plan: Patient with history striking right ankle on stool last week. Orthopedics evaluated her this admission and does not feel her clinical picture is consistent with an acute fracture. Recommend she wear ARIA stockings or a compression bandage of some sort. She doesn't need an ankle brace and she is fine to WBAT. Will pursue PT and OT evaluations. (7) Hypertension: Plan: Cont amlodipine, lisinopril per home regimen. Will restart home diuretics. (8) Constipation due to opioid therapy: Plan: Chronic back pain on chronic narcotics Chronic constipation-moderate sized BM documented this am (06/07) Bowel regimen Continue chronic morphine, hydrocodone as needed. Hold flexeril, alprazolam PRN (9) Hyponatremia: Plan: chronic, stayed consistent at 130. Will obtain some urine studies to further investigate this. Question if feeling poorly may have been contributing from standpoint of SIADH. Trend BMP in am. (10) DVT prophylaxis: Plan: Coumadin Full code Dispo-transfer to floor DO Chandra James Hospitalist Admission and Anticipated Discharge Date Admission Date: June 05, 2021 Subjective 76 yo F admitted with vomiting and chills. She was seen post ERCP and is doing well. Denies abdominal pain at this point. During ERCP, stones and sludge were removed from the duct. She otherwise denies any symptoms and is eager to eat real food. She is to be on clears today with advancement of her diet in am. Review of Systems Review of Systems: All systems were reviewed and negative except as indicated in HPI above. Physical Exam Physical Exam: CONSTITUTIONAL: obese, vitals as above, generally well-appea ring EYES: normal conjunctivae, no scleral icterus ENT: external ear and nose normal, MMM RESPIRATORY: clear to auscultation bilaterally, no crackles, rales or wheezes, normal respiratory effort CARDIOVASCULAR: regular rate and rhythm, S1 and 2 heard without murmurs, gallops or rubs, no JVD, no peripheral edema CHEST: inspection of chest was normal GASTROINTESTINAL: soft, nontender, nondistended MUSCULOSKELETAL: strength 5/5 throughout, head is normocephalic and atraumatic, neck supple, normal palpation of chest wall without tenderness SKIN: warm and dry NEUROLOGIC: CN 2-12 grossly intact, no sensory deficit, normal cognition, normal speech PSYCHIATRIC: alert cooperative and oriented to person, place and time. Results & Data Results & Data ([facility]) Vital Signs (Past 12 Hours) Vital Signs Temp Pulse Pulse Resp BP Pulse Ox 06/07/21 07:49 36.5 C 87 18 115/81 95 06/07/21 07:21 102 H 06/07/21 03:36 36.5 C 91 H 20 133/83 95 06/07/21 00:00 97 H Laboratory Results Short CBC 06/07/21 Range/Units 05:41 WBC 6.66 (4.8-10.8) K/uL Hgb 14.1 (12.0-16.0) g/dL Hct 42.7 (37-47) % Plt Count 169 (130-400) K/uL BMP 06/07/21 05:41 Sodium 130 L Potassium 4.9 Chloride 97 L Carbon Dioxide 28 BUN 11 Creatinine 0.77 Glucose 101 H Calcium 8.8 Liver Function 06/07/21 Range/Units 05:41 Total Bilirubin 1.4 H (0.2-1) mg/dl AST 119 H (15-37) U/L ALT 102 H (12-78) U/L Alkaline Phosphatase 91 (45-117) U/L Albumin 3.3 L (3.4-5.0) gm/dl Medications Administered Current Inpatient Medications Acetaminophen (Acetaminophen 325 Mg Tab) 650 mg PO Q4H PRN PRN Reason: Pain or Fever Stop: 07/05/21 20:02 Hydrocodone Bitart/Acetaminophen (Hydrocodone/Acetaminophen 7.5/325mg Tab) 1 tab PO Q6 PRN PRN Reason: Pain Stop: 06/19/21 20:02 Last Admin: 06/07/21 05:35 Dose: 1 tab Documented by: Albuterol (Albut/Ipratrop 3mg/0.5mg Neb 3 Ml Vial) 3 ml INH Q4 PRN PRN Reason: Shortness Of Breath Or Wheezing Stop: 07/05/21 20:02 Alprazolam (Alprazolam 0.5 Mg Tablet) 1 mg PO BID PRN PRN Reason: Anxiety Stop: 07/06/21 09:14 Last Admin: 06/06/21 20:33 Dose: 1 mg Documented by: Amlodipine Besylate (Amlodipine Besylate 5 Mg Tab) 2.5 mg PO DAILY CADEN Stop: 07/07/21 08:59 Last Admin: 06/07/21 08:19 Dose: 2.5 mg Documented by: Aspirin (Aspirin 81 Mg Ectab) 81 mg PO DAILY CADEN Stop: 07/06/21 08:59 Last Admin: 06/07/21 08:19 Dose: 81 mg Documented by: Atorvastatin Calcium (Atorvastatin 10 Mg Tab) 10 mg PO PM CADEN Stop: 07/06/21 20:59 Last Admin: 06/06/21 20:34 Dose: 10 mg Documented by: Atropine Sulfate (Atropine Sulfate 0.1 Mg/Ml 10ml Syr) 0.5 mg IV Q1M PRN PRN Reason: PACU Use-HR<40 &/or Bradycardi Stop: 06/07/21 18:30 Diclofenac Sodium (Diclofenac Sod 1% Gel 100 Gm Tube) 4 gm EXT BID PRN PRN Reason: Pain Stop: 07/05/21 20:02 Docusate Sodium (Docusate Sodium 100 Mg Cap) 100 mg PO BID CADEN Stop: 07/05/21 20:59 Last Admin: 06/07/21 08:19 Dose: 100 mg Documented by: Ephedrine Sulfate (Ephedrine Sulfate 50 Mg/Ml Amp) 5 mg IV Q5M PRN PRN Reason: PACU Use Only-SBP<90 mmHg Stop: 06/07/21 18:30 Fentanyl Citrate (Fentanyl Citrate 100 Mcg/2 Ml Vial) 25 mcg IV Q5M PRN PRN Reason: PACU Use Only-Pain Stop: 06/07/21 18:30 Piperacillin Sod/Tazobactam (Sod 4.5 gm/ Dextrose) 120 mls @ 30 mls/hr IV Q8H [facility]; Protocol Stop: 06/07/21 21:59 Last Infusion: 06/07/21 11:08 Dose: Infused Documented by: Labetalol HCl (Labetalol Hcl Iv 5 Mg/Ml 20ml) 5 mg IV Q5M PRN PRN Reason: PACU Use-SBP>160 or DBP>100 Stop: 06/07/21 18:31 Levothyroxine Sodium (Levothyroxine Sodium 100 Mcg Tablet) [facility] Stop: 07/06/21 06:29 Last Admin: 06/07/21 05:32 Dose: 100 mcg Documented by: Lisinopril (Lisinopril 20 Mg Tab) 20 mg PO DAILY [facility] Stop: 07/06/21 13:59 Last Admin: 06/07/21 08:19 Dose: 20 mg Documented by: Melatonin (Melatonin 3 Mg Tab) 3 mg PO HS [facility] Stop: 07/05/21 20:59 Last Admin: 06/06/21 20:34 Dose: 3 mg Documented by: Metoprolol Succinate (Metoprolol Succ 25mg Ext Rel Tab) 12.5 mg PO DAILY [facility] Stop: 07/06/21 08:59 Last Admin: 06/07/21 08:19 Dose: 12.5 mg Documented by: Miscellaneous Information (Piperacill/Tazobac Consult Active) 1 ea N/A UD PRN PRN Reason: Consult Stop: 07/05/21 16:02 Morphine Sulfate (Morphine Sulfate Cr 15 Mg Tabcr) 15 mg PO BID [facility] Stop: 06/19/21 20:59 Last Admin: 06/07/21 08:25 Dose: 15 mg Documented by: Ondansetron HCl (Ondansetron Inj 2 Mg/Ml 2 Ml Vial) 4 mg IV ONCE PRN PRN Reason: PACU Use Only-Nausea/Vomiting Stop: 06/07/21 18:30 Pantoprazole Sodium (Pantoprazole 40 Mg Tab) 40 mg PO DAILY [facility] Stop: 07/06/21 08:59 Last Admin: 06/07/21 08:19 Dose: 40 mg Documented by: Phenylephrine HCl (Phenylephrine 100mcg/Ml 5ml Syr) 100 mcg IV Q5M PRN PRN Reason: PACU Use Only-SBP<90 or HR>70 Stop: 06/07/21 18:31 Polyethylene Glycol (Polyethylene (Miralax) 17 Gm Pack) 17 gm PO DAILY PRN PRN Reason: Constipation Stop: 07/05/21 20:02 Sennosides (Senna 8.6 Mg Tab) 17.2 mg PO HS CADEN Stop: 07/05/21 20:59 Last Admin: 06/06/21 20:33 Dose: 17.2 mg Documented by:
--- NOTE | 2021-06-07 11:33 | 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 Note ---
Date of Service: June 07, 2021 The patient underwent ERCP this morning without any complications. Her anatomy is unusual as it appears she had a choledochoduodenostomy in her past. Recommendations Clear liquid diet today Antibiotic coverage for total of 10 days May resume anticoagulation today Please call with any questions or concerns
[2021-06-07] MEDS ORDERED: METOPROLOL TARTRATE 1 MG/ML VIAL IV ONE ×3 (11:35→11:44)
--- NOTE | 2021-06-07 11:43 | GI REPORT ---
Patient Name: Bernice Ayers Procedure Date: 06/07/2021 10:50 AM Date of : 1945 Admit Type: Inpatient Age: 76 Gender: Female Attending MD: Robyn Russell DO Procedure: ERCP Providers: Robyn Russell DO Referring MD: Luci Lai Do Indications: Abdominal pain of suspected biliary origin, Bile duct stone on Computed Tomogram Scan, Suspected ascending cholangitis Medicines: General Anesthesia Complications: No immediate complications. Estimated blood loss: Minimal. Estimated Blood Loss: Estimated blood loss was minimal. Procedure: Pre-Anesthesia Assessment: - Prior to the procedure, a History and Physical was performed, and patient medications, allergies and sensitivities were reviewed. The patient's tolerance of previous anesthesia was reviewed. - The risks and benefits of the procedure and the sedation options and risks were discussed with the patient. All questions were answered and informed consent was obtained. - Patient identification and proposed procedure were verified prior to the procedure by the physician, the nurse and the publication director. The procedure was verified in the procedure room. - Pre-procedure physical examination revealed no contraindications to sedation. - ASA Grade Assessment: IV - A patient with severe systemic disease that is a constant threat to life. - After reviewing the risks and benefits, the patient was deemed in satisfactory condition to undergo the procedure. - The anesthesia plan was to use general anesthesia. - Immediately prior to administration of medications, the patient was re-assessed for adequacy to receive sedatives. - The heart rate, respiratory rate, oxygen saturations, blood pressure, adequacy of pulmonary ventilation, and response to care were monitored throughout the procedure. - The physical status of the patient was re-assessed after the procedure. After obtaining informed consent, the scope was passed under direct vision. Throughout the procedure, the patient's blood pressure, pulse, and oxygen saturations were monitored continuously. The scope was introduced through the mouth, and advanced to the duodenum and used to inject contrast into the bile duct. The ERCP was accomplished without difficulty. The patient tolerated the procedure well. Findings: A saw edge fuser circular film of the abdomen was obtained. Surgical clips, consistent with a previous cholecystectomy, were seen in the area of the right upper quadrant of the abdomen. The esophagus was successfully intubated under direct vision without detailed examination of the pharynx, larynx, and associated structures, and upper GI tract. The upper GI tract was grossly normal. The patient was found to have a choledochoduodenostomy with a stone impacted in the orifice, The bile duct was deeply cannulated with the short-nosed traction sphincterotome and guidewire. Contrast was injected. I personally interpreted the bile duct images. Contrast extended to the hepatic ducts. The upper third of the main bile duct contained filling defect(s) thought to be a stone and sludge. To discover objects, the biliary tree was swept with a 15 mm balloon starting at the bifurcation. Sludge was swept from the duct. Many stones were removed. No stones remained. The endoscope was withdrawn from the patient. The total fluoroscopy exposure time was 39 seconds. Indomethacin 100 mg was given via suppository to decrease the risk of post-ERCP pancreatitis (PEP). Impression: - A filling defect consistent with a stone and sludge was seen on the cholangiogram. - Choledocholithiasis was found. Complete removal was accomplished by balloon extraction. - The biliary tree was swept. - Indomethacin given to decrease risk of post-ERCP pancreatitis. Recommendation: - [facility]. - Clear liquid diet today. - Use broad spectrum antibiotics for 10 days. Robyn Russell D.O. Robyn Russell, DO 06/07/2021 11:43:12 AM This report has been signed electronically. Note Initiated On: 06/07/2021 10:50 AM Number of Addenda: 0 I attest to the content of the Intraoperative Record and orders documented therein, exceptions below {[id number]}
[2021-06-07] MEDS: LABETALOL HCL IV 5 MG/ML 20ML IV PRN ×2 (12:22→12:33)
--- NOTE | 2021-06-07 12:49 | Anesthesiology Progress Note ---
Date of Service June 07, 2021 Anesthesia Post Procedure Vital Signs Vital Signs: Temp Pulse Pulse Pulse Resp BP BP 06/07/21 12:45 90 20 06/07/21 12:35 87 20 06/07/21 12:25 80 20 06/07/21 12:15 90 24 06/07/21 12:05 36.8 C 90 20 06/07/21 11:55 87 17 06/07/21 11:45 112 H 92 H 24 161/123 H 06/07/21 11:35 138 H 24 06/07/21 11:32 36.6 C 127 H 18 06/07/21 07:49 36.5 C 87 18 115/81 06/07/21 07:21 102 H 06/07/21 03:36 36.5 C 91 H 20 133/83 06/07/21 00:00 97 H 06/06/21 23:23 37.5 C 92 H 20 133/95 06/06/21 19:06 37.2 C 92 H 18 140/87 06/06/21 16:21 93 H 06/06/21 15:31 180/86 H 06/06/21 15:30 37.0 C 72 18 132/71 BP Pulse Ox 06/07/21 12:45 154/90 H 94 06/07/21 12:35 124/90 96 06/07/21 12:25 145/95 H 96 06/07/21 12:15 173/97 H 97 06/07/21 12:05 135/96 96 06/07/21 11:55 141/102 H 99 06/07/21 11:45 158/94 H 95 06/07/21 11:35 161/123 H 92 06/07/21 11:32 189/110 H 93 06/07/21 07:49 95 06/07/21 07:21 06/07/21 03:36 95 06/07/21 00:00 06/06/21 23:23 96 06/06/21 19:06 91 06/06/21 16:21 06/06/21 15:31 06/06/21 15:30 97 Pain Intensity Bilateral Abdomen: Pain Intensity: 2 Transfer of Care Handoff Completed per policy Notes Mental Status: alert / awake / arousable Patient Amnestic to Procedure: Yes Nausea / Vomiting: adequately controlled Pain: adequately controlled Airway Patency, RR, SpO2: stable & adequate BP & HR: stable & adequate and see Notes below Hydration State: stable & adequate Anesthetic Complications: no major complications apparent and Pt Satisfied with anesthetic care Notes: The patient is awake and comfortable. She was tachycardic and hypertensive upon arrival to PACU so was treated with beta blockers. Her vital signs are now stable.
[2021-06-07] MEDS ORDERED: Heparin IV Adult Wt-Based Standard *NO* Bolus Protocol IV SCH (14:26)
[2021-06-07 15:06] LABS: Partial Thromboplastin Ratio 1.1; Partial Thromboplastin Time 29.1 Seconds (21.0-31.0)
[2021-06-07] MEDS ORDERED: HEPARIN IV BOLUS 5,000 UNITS in SYRINGE 0 ML IV ONE (15:30)
[2021-06-07] MEDS: HEPARIN SODIUM/DEXTROSE 25,000 UNITS/500 ML BAG IV SCH (15:55)
[2021-06-07] MEDS: WARFARIN SOD 5 MG TAB PO SCH (15:56)
[2021-06-07] MEDS: SENNA 8.6 MG TAB PO SCH (21:25)
[2021-06-07] MEDS: ATORVASTATIN 10 MG TAB PO SCH (21:26)
[2021-06-07] MEDS: MELATONIN 3 MG TAB PO SCH (21:26)
--- NOTE | 2021-06-07 21:43 | Fluoroscopy Report ---
[place] ERCP biliary ductal CLINICAL HISTORY: ERCP IN OR COMPARISON STUDY: None FLUOROSCOPY TIME: . NUMBER OF FLUOROSCOPIC IMAGES: 11 FINDINGS: Few intraoperative fluoroscopic images are presented for review. Distal aspect of the catheter is see n overlying gas-filled loops of bowel. There is wire extending from the catheter tip with subsequent contrast opacification of the biliary tree. IMPRESSION: As above. ACT 112: Negative or not required by law. The above report was generated using voice recognition software. It may contain grammatical, syntax o r spelling errors. Electronically signed by: Flavia Angela DO 06/07/2021 9:41 PM
[2021-06-07 22:59] LABS: Partial Thromboplastin Ratio > 5.3
[2021-06-07 23:23] LABS: Partial Thromboplastin Time > 139.0 Seconds (21.0-31.0)
[2021-06-08 01:17] LABS: Partial Thromboplastin Ratio 3.4
[2021-06-08 01:21] LABS: Partial Thromboplastin Time 89.7 Seconds (21.0-31.0)
[2021-06-08] MEDS: PIPERACILLIN/TAZOBACTAM 4.5 GM in DEXTROSE 5% 100 ML IV SCH ×3 (05:54→21:22)
[2021-06-08] MEDS: LEVOTHYROXINE SODIUM 100 MCG TABLET PO SCH (05:54)
[2021-06-08 07:43] LABS: Hematocrit (blood only) 38.9 % (37-47); Hemoglobin 12.8 g/dL (12.0-16.0); Mean Corpuscular Hemoglobin 30.2 pg (25-34); Mean Corpuscular Hgb Conc 32.9 g/dL (32-36); Mean Corpuscular Volume 91.7 fL (80-100); Mean Platelet Volume 9.9 fL (7.4-10.4); Platelet Count 166 K/uL (130-400); RDW Standard Deviation 46.8 fL (36.4-46.3); Red Blood Count 4.24 M/uL (4.2-5.4); White Blood Count 4.74 K/uL (4.8-10.8)
[2021-06-08 08:02] LABS: INR 1.1 (0.9-1.1); Partial Thromboplastin Ratio 2.2; Prothrombin Time 11.2 Seconds (9.0-12.0)
[2021-06-08 08:24] LABS: Albumin Level 2.9 gm/dl (3.4-5.0); BUN Creatinine Ratio 17.8 (10-20); Calcium 8.2 mg/dl (8.5-10.1); Est GFR (African American) 79.4 ml/min; Est GFR (Non-African American) 68.5 ml/min; Potassium 3.9 mmol/L (3.5-5.1)
[2021-06-08] MEDS: DOCUSATE SODIUM 100 MG CAP PO SCH ×2 (08:31→21:21)
[2021-06-08] MEDS: amLODIPine BESYLATE 5 MG TAB PO SCH (08:31)
[2021-06-08] MEDS: ASPIRIN 81 MG ECTAB PO SCH (08:31)
[2021-06-08] MEDS: PANTOprazole 40 MG TAB PO SCH (08:32)
[2021-06-08] MEDS: lisinopril 20 MG TAB PO SCH (08:32)
[2021-06-08] MEDS: METOPROLOL SUCC 25MG EXT REL TAB PO SCH (08:32)
[2021-06-08] MEDS: MoRPHine SULFATE CR 15 MG TABCR PO SCH ×2 (08:34→21:18)
[2021-06-08 08:36] LABS: Albumin Globulin Ratio 0.7 (0.9-2); Bilirubin,Total 1.4 mg/dl (0.2-1); Globulin 4.4 gm/dl (2.5-4.0); Total Protein 7.3 gm/dl (6.4-8.2)
[2021-06-08] MEDS: ALPRAZolam 0.5 MG TABLET PO PRN ×2 (08:39→21:18)
[2021-06-08] MEDS ORDERED: FUROSEMIDE 20 MG TAB PO SCH ×2 (09:00→13:55)
--- NOTE | 2021-06-08 09:38 | Gastroenterology Progress Note ---
Date of Service June 08, 2021 Assessment & Plan (1) Choledocholithiasis: Plan: Patient is a 68-year-old female, s/p ERCP yesterday, notable for choledocholithiasis which was removed. She also had evidence of choledochoduodenostomy in the past (per [facility] chart had post-cholecystectomy cholangitis in 1994, s/p CBD exploration at [facility]). This a.m. pt feeling much better, has minimal if any pain. Hyponatremia noted with NA of 128 (appears to be chronic), WBC improved to 4 k, t bili remains 1.4, AST slowly trending down 112, ALT 122, ALP WNL Abd soft, nontender. Tolerated clears for breakfast; eager to eat more food. - Can advance diet as tolerated - Recommend course of ABX for total of 10 days - May resume anticoagulation - Would trend LFTs to normal Please call with any acute changes, questions or concerns. Please see addendum below with additional recommendation from my supervising physician. Admission and Anticipated Discharge Date Admission Date: June 05, 2021 Subjective Patient seen and examined. Tolerated liquids for breakfast today. Reports she is feeling much better, has very minimal abdominal pain. No vomiting or nausea, hematemesis, melena or hematochezia, jaundice, fevers or chills, CP, SOB. Review of Systems Review of Systems: As per HPI Physical Exam Constitutional: WD/WN, vitals as above Respiratory: normal respiratory effort Cardiovascular: Rate/Rhythm: regular rate and regular rhythm Gastrointestinal (Abdomen): normal bowel sounds, soft, nontender, no hepatosplenomegaly Skin: no rashes, warm and dry Psychiatric: A+Ox3, euthymic affect Results & Data ([facility]) Vital Signs (Past 12 Hours) Vital Signs Temp Pulse Resp BP Pulse Ox 06/08/21 07:00 36.6 C 64 20 130/92 98 06/07/21 22:35 36.5 C 77 18 120/80 92 Laboratory Results 06/08/21 06/08/21 06/08/21 Range/Units 07:15 07:15 07:15 WBC 4.74 L (4.8-10.8) K/uL RBC 4.24 (4.2-5.4) M/uL Hgb 12.8 (12.0-16.0) g/dL Hct 38.9 (37-47) % MCV 91.7 (80-100) fL MCH 30.2 (25-34) pg MCHC 32.9 (32-36) g/dL RDW Std Deviation 46.8 H (36.4-46.3) fL RDW Coeff of Richar 14.0 (11.5-14.5) % Plt Count 166 (130-400) K/uL MPV 9.9 (7.4-10.4) fL PT 11.2 (9.0-12.0) Seconds INR 1.1 (0.9-1.1) APTT 59.0 H* (21.0-31.0) Seconds PTT Ratio 2.2 Sodium 128 L (136-145) mmol/L Potassium 3.9 D (3.5-5.1) mmol/L Chloride 94 L (98-107) mmol/L Carbon Dioxide 27 (21-32) mmol/L Anion Gap 7.0 (3-11) BUN 15 (7-18) mg/dl Creatinine 0.82 (0.6-1.2) mg/dl Est Cr Clr Drug Dosing 57.0 ml/min Est GFR ( Amer) 79.4 ml/min Est GFR (Non-Af Amer) 68.5 ml/min BUN/Creatinine Ratio 17.8 (10-20) Glucose 139 H (70-99) mg/dl Osmolality (280-300) mOsm/kg Calcium 8.2 L (8.5-10.1) mg/dl Total Bilirubin 1.4 H (0.2-1) mg/dl AST 112 H (15-37) U/L ALT 122 H (12-78) U/L Alkaline Phosphatase 95 (45-117) U/L Total Protein 7.3 (6.4-8.2) gm/dl Albumin 2.9 L (3.4-5.0) gm/dl Globulin 4.4 H (2.5-4.0) gm/dl Albumin/Globulin Ratio 0.7 L (0.9-2) 06/08/21 06/07/21 06/07/21 Range/Units 00:30 22:20 14:37 WBC (4.8-10.8) K/uL RBC (4.2-5.4) M/uL Hgb (12.0-16.0) g/dL Hct (37-47) % MCV (80-100) fL MCH (25-34) pg MCHC (32-36) g/dL RDW Std Deviation (36.4-46.3) fL RDW Coeff of Richar (11.5-14.5) % Plt Count (130-400) K/uL MPV (7.4-10.4) fL PT (9.0-12.0) Seconds INR (0.9-1.1) APTT 89.7 H* > 139.0 H* 29.1 (21.0-31.0) Seconds PTT Ratio 3.4 > 5.3 1.1 Sodium (136-145) mmol/L Potassium (3.5-5.1) mmol/L Chloride (98-107) mmol/L Carbon Dioxide (21-32) mmol/L Anion Gap (3-11) BUN (7-18) mg/dl Creatinine (0.6-1.2) mg/dl Est Cr Clr Drug Dosing ml/min Est GFR ( Amer) ml/min Est GFR (Non-Af Amer) ml/min BUN/Creatinine Ratio (10-20) Glucose (70-99) mg/dl Osmolality (280-300) mOsm/kg Calcium (8.5-10.1) mg/dl Total Bilirubin (0.2-1) mg/dl AST (15-37) U/L ALT (12-78) U/L Alkaline Phosphatase (45-117) U/L Total Protein (6.4-8.2) gm/dl Albumin (3.4-5.0) gm/dl Globulin (2.5-4.0) gm/dl Albumin/Globulin Ratio (0.9-2) 06/07/ Range/Units 14:37 WBC (4.8-10.8) K/uL RBC (4.2-5.4) M/uL Hgb (12.0-16.0) g/dL Hct (37-47) % MCV (80-100) fL MCH (25-34) pg MCHC (32-36) g/dL RDW Std Deviation (36.4-46.3) fL RDW Coeff of Richar (11.5-14.5) % Plt Count (130-400) K/uL MPV (7.4-10.4) fL PT (9.0-12.0) Seconds INR (0.9-1.1) APTT (21.0-31.0) Seconds PTT Ratio Sodium (136-145) mmol/L Potassium (3.5-5.1) mmol/L Chloride (98-107) mmol/L Carbon Dioxide (21-32) mmol/L Anion Gap (3-11) BUN (7-18) mg/dl Creatinine (0.6-1.2) mg/dl Est Cr Clr Drug Dosing ml/min Est GFR ( Amer) ml/min Est GFR (Non-Af Amer) ml/min BUN/Creatinine Ratio (10-20) Glucose (70-99) mg/dl Osmolality 279 L (280-300) mOsm/kg Calcium (8.5-10.1) mg/dl Total Bilirubin (0.2-1) mg/dl AST (15-37) U/L ALT (12-78) U/L Alkaline Phosphatase (45-117) U/L Total Protein (6.4-8.2) gm/dl Albumin (3.4-5.0) gm/dl Globulin (2.5-4.0) gm/dl Albumin/Globulin Ratio (0.9-2) Diagnostic Findings Procedures: ERCP 06/07/21: - A filling defect consistent with a stone and sludge was seen on the cholangiogram. - Choledocholithiasis was found. Complete removal was accomplished by balloon extraction. - The biliary tree was swept. - Indomethacin given to decrease risk of post-ERCP pancreatitis. Recommendation: - [facility] patient to [facility] care. - Clear liquid diet today. - Use broad spectrum antibiotics for 10 days.
--- NOTE | 2021-06-08 11:51 | Consultation Report ---
NEPHROLOGY CONSULTATION NOTE DATE OF CONSULTATION: 06/08/2021 REASON FOR CONSULTATION: Hyponatremia. HISTORY OF PRESENT ILLNESS: The patient is a 76-year-old female who was admitted to the hospital 3 days ago with a chief diagnosis of cholangitis with sepsis. She did undergo ERCP yesterday and biliary sludge was removed. It appears the patient does have some history of hyponatremia. She was admitted in 01/2020 and even during that admission, she had serum sodium in the high 120s range. During this admission, serum sodium was 128 at the time of admission, went up to 130 and now it is again 128. It is worth noting that the patient has not had any real solid food intake for the last few days. We do not have urine sodium or urine osmolality at this time. Her vital signs appear reasonable with good blood pressure. She is requiring oxygen, which I am not sure whether it is new or not, although she does not have any obvious abnormal finding on the chest x-ray. Since admission, the patient has received some IV fluid, but she is also on her maintenance Lasix dose, which is 20 mg Tuesday, Tuesday, Tuesday. She is due to get Lasix very soon. Her appetite has improved somewhat and she is eager to go home. Urine output yesterday was charted at 750 mL, although I am not sure whether that is accurate because the day prior, she did have 2350 mL of urine. REVIEW OF SYSTEMS: She appears fairly asymptomatic at this time. Some pain in her back as well as in her abdomen, but denies nausea, vomiting, major shortness of breath, orthopnea, or PND. She does have some lower extremity edema, which appears to be chronic. Otherwise, 12 systems reviewed and negative. FAMILY HISTORY: Negative for renal disease or dialysis. ALLERGIES: ALLERGY LIST WAS REVIEWED AND IS PER THE RECONCILIATION LIST. MEDICATIONS: Medication at home was reviewed in detail and includes extensive list of medications. Of special interest to nephrology, she does take Lasix 20 mg Tuesday, Tuesday, and Tuesday. PAST MEDICAL AND SURGICAL HISTORY: Includes chronic atrial fibrillation, on Coumadin, hypertension, dyslipidemia, GERD, post-surgical hypothyroidism, history of lung cancer, status post right upper lobectomy, history of TIA, carotid stenosis, status post right carotid endarterectomy, chronic back pain following fracture of the back, on chronic narcotics, history of thyroidectomy, cholecystectomy. SOCIAL HISTORY: Former smoker. She is a . She lives alone. She does have family support. PHYSICAL EXAMINATION: GENERAL: Elderly white female who does not appear to be in any overt respiratory distress. She is awake, alert, oriented x3, was able to give me a detailed account of her medical problem. VITAL SIGNS: Blood pressure 130/92, pulse rate 64, respiratory rate 20, temperature 36.6, and 98% on 3 liters nasal cannula. HEENT: Mucous membranes moist. NECK: Supple. No jugular venous distention. CHEST: Bilaterally clear to auscultation. Diminished breath sound in the right upper lobe area. CARDIOVASCULAR: S1 and S2, regular. ABDOMEN: Soft, nontender, obese. EXTREMITIES: Show trace edema. SKIN: Shows no rashes. LABORATORY DATA: As stated earlier, it appears she does have a tendency of low sodium, serum sodium was 127 on the day of discharge a year ago. She presented with 128 and this morning it is still 128, serum sodium was 130 yesterday, potassium 3.9, BUN 15, creatinine 0.82, calcium 8.2, magnesium 2.1. Liver enzymes are normal. Albumin 2.9. Abdomen and pelvis CT scan done at the time of admission shows fatty liver with possible mild cirrhosis, biliary ductal dilatation, sigmoid diverticulosis. Urine test; we have a UA at the time of admission, which shows somewhat high specific gravity of 1.041, otherwise unremarkable. Urine sodium and urine osmolality pending. ASSESSMENT AND PLAN: A 76-year-old female who appears to have chronic mild hyponatremia, admitted with cholangitis, sepsis a few days ago and is now status post ERCP with stone removal. She was presumed to have cholangitis with sepsis and is getting antibiotics. I have been consulted for hyponatremia. Hyponatremia: Current serum sodium of 128 is same as what she had 18 months ago during her previous admission in 01/2020. Last outpt na was 132 in 04/2021. It does not appear she had any workup done for the hyponatremia. She appears euvolemic at this time on physical examination. We do have to start the workup from urine sodium, urine osmolality and a repeat UA to see her specific gravity. For the last few days, she has only been getting IV fluid or having some liquid diet. Given lack of adequate osmolar load that you obtain with solid food intake, it is not surprising to have a slight drop in serum sodium. However, it does not appear that there is a major change. Once we get the result of the urine sodium and urine osmolality, we will make further recommendation. For the time being, I would like to hold the Lasix, which is only 20 mg 3 times a week anyway. Continue BMP twice daily and we will follow. Further advice after the Urine results. Job ID: [id number]
--- NOTE | 2021-06-08 14:15 | Hospitalist Progress Note ---
Date of Service June 08, 2021 Assessment & Plan (1) Choledocholithiasis: Plan: An ERCP was performed 06/07 with stones and sludge found in the CBD and swept away. Tolerating regular food this am. LFTs still elevated. Cont broad spectrum antibiotics for 10 days per GI recommendations. (2) Sepsis: Plan: 2/2 GI source, resuscitated. Cont with Zosyn for now. (3) Type 2 VA (myocardial infarction): Plan: Elevated troponin not secondary to ACS. Likely secondary to demand ischemia in the setting of sepsis and rapid ventricular response. There is no regional wall motion abnormality on echocardiogram this admission. (4) Hypoxia: Plan: some residual oxygen use overnight. wean as tolerated. (5) Hyponatremia: Plan: Nephrology consulted-recommends holding Lasix for now and monitoring more frequent BMP while PO intake is increasing today. Urine studies pending. (6) Chronic atrial fibrillation: Plan: Chronic atrial fibrillation on Coumadin, presented in RVR with heart rate in the 120s after not having am metoprolol, improved with Lopressor 5mg IV. Cont metoprolol per home regimen. Coumadin placed on hold in preparation for procedure with vitamin K given for INR reversal. GI fine with restarting anticoagulation now so will bridge to warfarin with heparin drip. Daily INR. (7) Fx medial malleolus-closed: Plan: Patient with history striking right ankle on stool last week. Orthopedics evaluated her this admission and does not feel her clinical picture is consistent with an acute fracture. Recommend she wear ARIA stockings or a compression bandage of some sort. She doesn't need an ankle brace and she is fine to WBAT. PT and OT evaluations have been ordered. (8) Hypertension: Plan: Cont amlodipine, lisinopril per home regimen. Hold diuretics in setting of hypo natremia. (9) Constipation due to opioid therapy: Plan: Chronic back pain on chronic narcotics Chronic constipation- cont current Bowel regimen Continue chronic morphine, hydrocodone as needed. Hold flexeril, alprazolam PRN (10) DVT prophylaxis: Plan: Coumadin Full code Dispo-transfer to floor DO Chandra James Hospitalist Admission and Anticipated Discharge Date Admission Date: June 05, 2021 Subjective 76 yo F admitted with vomiting and chills. Underwent ERCP on 06/07 with removal of stones and sludge. Doing well today. Tolerating regular food. Denies abdominal pain at this point. Remains on heparin drip while warfarin coming back on board. On oxygen 2L but she doesn't know why-states that she is not short of breath . I discussed case with the primary nurse who will plan to wean her as tolerated. PT/OT consultations are in. Review of Systems Review of Systems: All systems were reviewed and negative except as indicated in HPI above. Physical Exam Physical Exam: CONSTITUTIONAL: obese, vitals as above, generally well- appearing EYES: normal conjunctivae, no scleral icterus ENT: external ear and nose normal, MMM RESPIRATORY: clear to auscultation bilaterally, no crackles, rales or wheezes, normal respiratory effort CARDIOVASCULAR: regular rate and rhythm, S1 and 2 heard without murmurs, gallops or rubs, no JVD, no peripheral edema CHEST: inspection of chest was normal GASTROINTESTINAL: soft, nontender, nondistended MUSCULOSKELETAL: strength 5/5 throughout, head is normocephalic and atraumatic, neck supple, normal palpation of chest wall without tenderness SKIN: warm and dry NEUROLOGIC: CN 2-12 grossly intact, no sensory deficit, normal cognition, normal speech PSYCHIATRIC: alert cooperative and oriented to person, place and time. Results & Data Results & Data ([facility]) Vital Signs (Past 12 Hours) Vital Signs Temp Pulse Resp BP Pulse Ox 06/08/21 11:55 97 06/08/21 11:03 96 06/08/21 07:00 36.6 C 64 20 130/92 98 Laboratory Results Short CBC 06/08/21 Range/Units 07:15 WBC 4.74 L (4.8-10.8) K/uL Hgb 12.8 (12.0-16.0) g/dL Hct 38.9 (37-47) % Plt Count 166 (130-400) K/uL BMP 06/08/21 07:15 Sodium 128 L Potassium 3.9 D Chloride 94 L Carbon Dioxide 27 BUN 15 Creatinine 0.82 Glucose 139 H Calcium 8.2 L Liver Function 06/08/21 Range/Units 07:15 Total Bilirubin 1.4 H (0.2-1) mg/dl AST 112 H (15-37) U/L ALT 122 H (12-78) U/L Alkaline Phosphatase 95 (45-117) U/L Albumin 2.9 L (3.4-5.0) gm/dl Medications Administered Current Inpatient Medications Acetaminophen (Acetaminophen 325 Mg Tab) 650 mg PO Q4H PRN PRN Reason: Pain or Fever Stop: 07/05/21 20:02 Hydrocodone Bitart/Acetaminophen (Hydrocodone/Acetaminophen 7.5/325mg Tab) 1 tab PO Q6 PRN PRN Reason: Pain Stop: 06/19/21 20:02 Last Admin: 06/07/21 05:35 Dose: 1 tab Documented by: Albuterol (Albut/Ipratrop 3mg/0.5mg Neb 3 Ml Vial) 3 ml INH Q4 PRN PRN Reason: Shortness Of Breath Or Wheezing Stop: 07/05/21 20:02 Alprazolam (Alprazolam 0.5 Mg Tablet) 1 mg PO BID PRN PRN Reason: Anxiety Stop: 07/06/21 09:14 Last Admin: 06/08/21 08:39 Dose: 1 mg Documented by: Amlodipine Besylate (Amlodipine Besylate 5 Mg Tab) 2.5 mg PO DAILY [facility] Stop: 07/07/21 08:59 Last Admin: 06/08/21 08:31 Dose: 2.5 mg Documented by: Aspirin (Aspirin 81 Mg Ectab) 81 mg PO DAILY [facility] Stop: 07/06/21 08:59 Last Admin: 06/08/21 08:31 Dose: 81 mg Documented by: Atorvastatin Calcium (Atorvastatin 10 Mg Tab) 10 mg PO PM [facility] Stop: 07/06/21 20:59 Last Admin: 06/07/21 21:26 Dose: 10 mg Documented by: Diclofenac Sodium (Diclofenac Sod 1% Gel 100 Gm Tube) 4 gm EXT BID PRN PRN Reason: Pain Stop: 07/05/21 20:02 Docusate Sodium (Docusate Sodium 100 Mg Cap) 100 mg PO BID [facility] Stop: 07/05/21 20:59 Last Admin: 06/08/21 08:31 Dose: 100 mg Documented by: Piperacillin Sod/Tazobactam (Sod 4.5 gm/ Dextrose) 120 mls @ 30 mls/hr IV Q8H [facility]; Protocol Stop: 06/14/21 21:59 Last Admin: 06/08/21 13:52 Dose: 30 mls/hr Documented by: Heparin Sodium/Dextrose (Heparin Sodium/Dextrose) 25,000 units in 500 mls @ 17 mls/hr IV .Q24H [facility]; Protocol Stop: 07/07/21 15:29 Last Titration: 06/08/21 08:19 Dose: 850 units/hr, 17 mls/hr Documented by: Levothyroxine Sodium (Levothyroxine Sodium 100 Mcg Tablet) 100 mcg PO DAILYBB [facility] Stop: 07/06/21 06:29 Last Admin: 06/08/21 05:54 Dose: 100 mcg Documented by: Lisinopril (Lisinopril 20 Mg Tab) 20 mg PO DAILY [facility] Stop: 07/06/21 13:59 Last Admin: 06/08/21 08:32 Dose: 20 mg Documented by: Melatonin (Melatonin 3 Mg Tab) 3 mg PO HS [facility] Stop: 07/05/21 20:59 Last Admin: 06/07/21 21:26 Dose: 3 mg Documented by: Metoprolol Succinate (Metoprolol Succ 25mg Ext Rel Tab) 12.5 mg PO DAILY [facility] Stop: 07/06/21 08:59 Last Admin: 06/08/21 08:32 Dose: 12.5 mg Documented by: Miscellaneous Information (Piperacill/Tazobac Consult Active) 1 ea N/A UD PRN PRN Reason: Consult Stop: 07/05/21 16:02 Morphine Sulfate (Morphine Sulfate Cr 15 Mg Tabcr) 15 mg PO BID [facility] Stop: 06/19/21 20:59 Last Admin: 06/08/21 08:34 Dose: 15 mg Documented by: Pantoprazole Sodium (Pantoprazole 40 Mg Tab) 40 mg PO DAILY [facility] Stop: 07/06/21 08:59 Last Admin: 06/08/21 08:32 Dose: 40 mg Documented by: Polyethylene Glycol (Polyethylene (Miralax) 17 Gm Pack) 17 gm PO DAILY PRN PRN Reason: Constipation Stop: 07/05/21 20:02 Sennosides (Senna 8.6 Mg Tab) 17.2 mg PO HS [facility] Stop: 07/05/21 20:59 Last Admin: 06/07/21 21:25 Dose: 17.2 mg Documented by: Warfarin Sodium (Warfarin Sod 5 Mg Tab) 5 mg PO DAILY@1600 [facility] Stop: 07/07/21 15:59 Last Admin: 06/07/21 15:56 Dose: 5 mg Documented by:
[2021-06-08] MEDS: WARFARIN SOD 5 MG TAB PO SCH (16:03)
[2021-06-08 16:43] LABS: Creatinine Urine Random 97.5 mg/dl
[2021-06-08 18:36] LABS: BUN Creatinine Ratio 14.3 (10-20); Calcium 8.4 mg/dl (8.5-10.1); Creatinine Clr Calc Pharmacy 35.9 ml/min; Est GFR (African American) 45.5 ml/min; Est GFR (Non-African American) 39.3 ml/min; Potassium 4.3 mmol/L (3.5-5.1)
[2021-06-08] MEDS: SODIUM CHLORIDE 0.9% 1000ML 1,000 ML IV SCH (18:40)
[2021-06-08] MEDS: ATORVASTATIN 10 MG TAB PO SCH (21:19)
[2021-06-08] MEDS: SENNA 8.6 MG TAB PO SCH (21:19)
[2021-06-08] MEDS: MELATONIN 3 MG TAB PO SCH (21:21)
[2021-06-08] MEDS: HEPARIN SODIUM/DEXTROSE 25,000 UNITS/500 ML BAG IV SCH (21:49)
[2021-06-09] MEDS: HYDROCODONE/ACETAMINOPHEN 7.5/325MG TAB PO PRN (03:48)
[2021-06-09] MEDS: LEVOTHYROXINE SODIUM 100 MCG TABLET PO SCH (06:01)
[2021-06-09] MEDS: PIPERACILLIN/TAZOBACTAM 4.5 GM in DEXTROSE 5% 100 ML IV SCH ×2 (06:01→13:59)
[2021-06-09 06:16] LABS: INR 1.2 (0.9-1.1); Partial Thromboplastin Ratio 2.1; Prothrombin Time 11.7 Seconds (9.0-12.0)
[2021-06-09 06:19] LABS: BUN Creatinine Ratio 17.5 (10-20); Calcium 8.2 mg/dl (8.5-10.1); Creatinine Clr Calc Pharmacy 45.4 ml/min; Est GFR (African American) 60.3 ml/min; Potassium 4.1 mmol/L (3.5-5.1)
[2021-06-09] MEDS: ALPRAZolam 0.5 MG TABLET PO PRN (06:40)
[2021-06-09] MEDS: SODIUM CHLORIDE 0.9% 1000ML 1,000 ML IV SCH (08:19)
[2021-06-09] MEDS: amLODIPine BESYLATE 5 MG TAB PO SCH (08:20)
[2021-06-09] MEDS: lisinopril 20 MG TAB PO SCH (08:21)
[2021-06-09] MEDS: ASPIRIN 81 MG ECTAB PO SCH (08:22)
[2021-06-09] MEDS: METOPROLOL SUCC 25MG EXT REL TAB PO SCH (08:22)
[2021-06-09] MEDS: PANTOprazole 40 MG TAB PO SCH (08:23)
[2021-06-09] MEDS: MoRPHine SULFATE CR 15 MG TABCR PO SCH (08:25)
[2021-06-09] MEDS: DOCUSATE SODIUM 100 MG CAP PO SCH (08:25)
--- NOTE | 2021-06-09 11:26 | Nephrology Progress Note ---
Date of Service June 09, 2021 Assessment & Plan Admission and Anticipated Discharge Date Admission Date: June 05, 2021 Subjective No new issues. Desperate to go home today. GENERAL: Elderly white female who does not appear to be in any overt respiratory distress. She is awake, alert, oriented x3, was able to give me a detailed account of her medical problem. HEENT: Mucous membranes moist. NECK: Supple. No jugular venous distention. CHEST: Bilaterally clear to auscultation. Diminished breath sound in the right upper lobe area. CARDIOVASCULAR: S1 and S2, regular. ABDOMEN: Soft, nontender, obese. EXTREMITIES: Show trace edema. SKIN: Shows no rashes. LABORATORY DATA: Low urine Na and low urine osm. na 127 this AM . ASSESSMENT AND PLAN: A 76-year-old female who appears to have chronic mild hyponatremia, admitted with cholangitis, sepsis a few days ago and is now status post ERCP with stone removal. She was presumed to have cholangitis with sepsis and is getting antibiotics. I have been consulted for hyponatremia. 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 1500 ml fluid limit at home. ensure good solid food intake No urea for Home. given some edema already pre admission no Salt tab. Hold lasix for now outpatient labs outpt at PCP office. nephro follow up depending on labs. Results & Data ([facility]) Vital Signs (Past 12 Hours) Vital Signs Temp Pulse Resp BP Pulse Ox 06/09/21 07:04 36.9 C 84 16 132/85 90 06/08/21 23:50 36.4 C L 80 18 93/61 L 91
[2021-06-09] MEDS ORDERED: UREA (UREA-NA) 15 GM PACK PO SCH (12:00)
--- NOTE | 2021-06-09 12:42 | Discharge Summary ---
Date of Service June 09, 2021 Admission HPI Per Admitting Provider The patient is a 76-year-old female with a past medical history significant for hypercholesterolemia and hypertension who presented to the emergency room for evaluation of abdominal discomfort. The patient notes that the symptoms began quite suddenly and were associated with fever subjectively at home in addition to shaking like chills. She denies having nausea or vomiting at the present time. She does note that she woke this morning and was feeling quite cold. The patient reports having a prior cholecystectomy many years ago complicated by choledocholithiasis. [place] [facility] [place] [facility] (no records are availble from either center) Admission Exam Per Admitting Provider Constitutional: well developed, well nourished and + morbidly obese Eyes: PERRL, conjunctivae normal, anicteric sclerae Neck: trachea midline, no thyromegaly Respiratory: normal respiratory effort, lungs clear to auscultation Cardiovascular: Heart Sounds: no murmur Gastrointestinal (Abdomen): normal bowel sounds, soft, nontender, no hepatosplenomegaly Principal Diagnosis sepsis choledocholithiasis, suspected cholangitis, s/p ERCP with stone and sludge removal on 06/07 hyponatremia Acute kidney injury-resolved Pulmonary Hypertension Obesity Discharge Exam CONSTITUTIONAL: obese, vitals as above, generally well-appearing EYES: normal conjunctivae, no scleral icterus ENT: external ear and nose normal, MMM RESPIRATORY: clear to auscultation bilaterally, no crackles, rales or wheezes, normal respiratory effort CARDIOVASCULAR: regular rate and rhythm, S1 and 2 heard without murmurs, gallops or rubs, no JVD, no peripheral edema CHEST: inspection of chest was normal GASTROINTESTINAL: soft, nontender, nondistended MUSCULOSKELETAL: strength 5/5 throughout, head is normocephalic and atraumatic, neck supple, normal palpation of chest wall without tenderness SKIN: warm and dry NEUROLOGIC: CN 2-12 grossly intact, no sensory deficit, normal cognition, normal speech PSYCHIATRIC: alert cooperative and oriented to person, place and time. Discharge Data Allergies Allergy/AdvReac Type Severity Reaction Status Date / Time morphine Allergy Intermediate RASH/PRUTIT Verified 06/05/21 16:32 IS atorvastatin Allergy Unknown 0 Verified 06/05/21 16:32 escitalopram Allergy Unknown 0 Verified 06/05/21 16:32 ezetimibe Allergy Unknown 0 Verified 06/05/21 16:32 fentanyl Allergy Unknown 0 Verified 06/05/21 16:32 hydralazine Allergy Unknown SEVERELY Verified 06/05/21 16:32 FLUSHED;BURNING SENSATION;SHAKING metoclopramide Allergy Unknown 0 Verified 06/05/21 16:32 simvastatin Allergy Unknown 0 Verified 06/05/21 16:32 clarithromycin AdvReac Unknown ABD Verified 06/05/21 16:32 CRAMPING Consultations 06/05/21 16:22 ED Decision to Admit Stat 06/05/21 17:54 Consult Gastroenterology Routine 06/06/21 08:00 Consult Orthopedic Surgery Routine 06/06/21 08:14 Consult Cardiology Routine 06/08/21 08:29 Consult Nephrology Routine Procedures Performed Operation Date: 06/07/21 07:30 Actual Procedures p Endoscopic Retrograde Cholangiopancreatography(Not Applicable) - Robyn Russell, DO Ordered Studies Laboratory Results WBC 4.74 K/uL (4.8-10.8) L 06/08/21 07:15 RBC 4.24 M/uL (4.2-5.4) 06/08/21 07:15 Hgb 12.8 g/dL (12.0-16.0) 06/08/21 07:15 Hct 38.9 % (37-47) 06/08/21 07:15 MCV 91.7 fL (80-100) 06/08/21 07:15 MCH 30.2 pg (25-34) 06/08/21 07:15 MCHC 32.9 g/dL (32-36) 06/08/21 07:15 RDW Std Deviation 46.8 fL (36.4-46.3) H 06/08/21 07:15 RDW Coeff of Richar 14.0 % (11.5-14.5) 06/08/21 07:15 Plt Count 166 K/uL (130-400) 06/08/21 07:15 MPV 9.9 fL (7.4-10.4) 06/08/21 07:15 Immature Gran % (Auto) 0.2 % 06/06/21 02:09 Neut % (Auto) 80.6 % 06/06/21 02:09 Lymph % (Auto) 10.1 % 06/06/21 02:09 [place] % (Auto) 9.0 % 06/06/21 02:09 Eos % (Auto) 0.0 % 06/06/21 02:09 Baso % (Auto) 0.1 % 06/06/21 02:09 Neut # (Auto) 8.86 K/uL (1.4-6.5) H 06/06/21 02:09 Lymph # (Auto) 1.11 K/uL (1.2-3.4) L 06/06/21 02:09 [place] # (Auto) 0.99 K/uL (0.11-0.59) H 06/06/21 02:09 Eos # (Auto) 0.00 K/uL (0-0.5) 06/06/21 02:09 Baso # (Auto) 0.01 K/uL (0-0.2) 06/06/21 02:09 Immature Gran # (Auto) 0.02 K/uL (0.00-0.02) 06/06/21 02:09 ESR 21 mm/hr (0-30) 06/05/21 21:49 PT 11.7 Seconds (9.0-12.0) 06/09/21 05:33 INR 1.2 (0.9-1.1) H 06/09/21 05:33 APTT 56.0 Seconds (21.0-31.0) H* 06/09/21 05:33 PTT Ratio 2.1 06/09/21 05:33 Sodium 127 mmol/L (136-145) L 06/09/21 05:33 Potassium 4.1 mmol/L (3.5-5.1) 06/09/21 05:33 Chloride 94 mmol/L (98-107) L 06/09/21 05:33 Carbon Dioxide 28 mmol/L (21-32) 06/09/21 05:33 Anion Gap 5.0 (3-11) 06/09/21 05:33 BUN 18 mg/dl (7-18) 06/09/21 05:33 Creatinine 1.03 mg/dl (0.6-1.2) 06/09/21 05:33 Est Cr Clr Drug Dosing 45.4 ml/min 06/09/21 05:33 Est GFR ( Amer) 60.3 ml/min 06/09/21 05:33 Est GFR (Non-Af Amer) 52.0 ml/min 06/09/21 05:33 BUN/Creatinine Ratio 17.5 (10-20) 06/09/21 05:33 Glucose 104 mg/dl (70-99) H 06/09/21 05:33 Osmolality 279 mOsm/kg (280-300) L 06/07/21 14:37 Lactate 2.0 mmol/L (0.4-2.0) 06/05/21 17:24 Calcium 8.2 mg/dl (8.5-10.1) L 06/09/21 05:33 Phosphorus 2.7 mg/dl (2.5-4.9) 06/07/21 05:41 Magnesium 2.1 mg/dl (1.8-2.4) 06/07/21 05:41 Total Bilirubin 1.4 mg/dl (0.2-1) H 06/08/21 07:15 Direct Bilirubin 0.5 mg/dl (0-0.2) H 06/06/21 02:09 AST 112 U/L (15-37) H 06/08/21 07:15 ALT 122 U/L (12-78) H 06/08/21 07:15 Alkaline Phosphatase 95 U/L (45-117) 06/08/21 07:15 Troponin I 2.840 ng/ml (0-0.045) H* 06/06/21 02:09 C-Reactive Protein 10.20 mg/dl (0-0.29) H 06/05/21 20:36 Total Protein 7.3 gm/dl (6.4-8.2) 06/08/21 07:15 Albumin 2.9 gm/dl (3.4-5.0) L 06/08/21 07:15 Globulin 4.4 gm/dl (2.5-4.0) H 06/08/21 07:15 Albumin/Globulin Ratio 0.7 (0.9-2) L 06/08/21 07:15 Lipase 45 U/L (73-393) L 06/05/21 14:40 TSH 3.290 uIu/ml (0.300-4.500) 06/05/21 14:40 Urine Color Dark Yellow 06/05/21 18:15 Urine Appearance Clear (Clear) 06/05/21 18:15 Urine pH 7.0 (4.5-7.5) 06/05/21 18:15 Ur Specific [place] 1.041 (1.000-1.030) H 06/05/21 18:15 Urine Protein Negative (Negative) 06/05/21 18:15 Urine Glucose (UA) Negative (Negative) 06/05/21 18:15 Urine Ketones Negative (Negative) 06/05/21 18:15 Urine Blood Negative (Negative) 06/05/21 18:15 Urine Nitrite Negative (Negative) 06/05/21 18:15 Urine Bilirubin Negative (Negative) 06/05/21 18:15 Urine Urobilinogen Negative (Negative) 06/05/21 18:15 Ur Leukocyte Esterase Negative (Negative) 06/05/21 18:15 Urine Osmolality 485 mOsm/kg (500-800) L 06/08/21 16:07 Ur Random Creatinine 97.5 mg/dl 06/08/21 16:07 Ur Random Sodium 8 mmol/L 06/08/21 16:07 Ur Random Urea Nitrogn 668 mg/dl 06/08/21 16:07 Anaplasma Smear See Comment 06/05/21 13:16 Lyme Disease IgG Ab Negative (Negative) 06/05/21 14:40 Lyme Disease IgM Ab Negative (Negative) 06/05/21 14:40 COVID-19 Eval Order Covid19 at [facility] 06/05/21 14:28 SARS-CoV-2 (PCR) NEGATIVE (Negative) 06/05/21 14:28 Impressions Chest X-Ray 06/05/21 13:34 XR chest 1V portable CLINICAL HISTORY: Sepsis COMPARISON STUDY: Chest radiograph January 18, 2020. FINDINGS: Lung volumes are at the lower limits of normal. Mild linear left basilar opacity favors atelectasis. There is no pneumothorax or pleural effusion. Cardiomegaly is unchanged. Mediastinal contours are normal. There is no evidence for pulmonary edema. IMPRESSION: No acute cardiopulmonary findings. Cardiomegaly. ACT 112: Negative or not required by law. Electronically signed by: Armando Glover M.D. 06/05/2021 2:05 PM Ankle X-Ray 06/05/21 14:20 XR ankle RT min 3V routine CLINICAL HISTORY: contusion COMPARISON: None. DISCUSSION: There is minimal irregularity at the mediastinal malleolus which might represent nondisplaced fracture. Evaluation is limited due to osteopenia. No evidence of dislocation. Ankle mortise is preserved. Diffuse soft tissue edema and small plantar calcaneal spur is seen. IMPRESSION: Questionable irregularity a at medial malleolus which may or may not represent small nondisplaced fracture. Please correlate above-mentioned findings with point tenderness. ACT 112: Negative or not required by law. The above report was generated using voice recognition software. It may contain grammatical, syntax or spelling errors. Electronically signed by: Flavia Angela DO 06/05/2021 2:53 PM Abdomen/Pelvis CT 06/05/21 14:44 CT OF THE ABDOMEN AND PELVIS WITH CONTRAST CLINICAL HISTORY: chills, nausea, elevated lft COMPARISON STUDY: KUB January 18, 2020. PET/CT December 07, 2006. TECHNIQUE: Following IV administration of 95 mL of Optiray, axial images of the abdomen and pelvis were obtained from the lung bases to the proximal femurs. Images were reviewed in the axial, sagittal, and coronal planes. IV contrast was administered without complication. Automated exposure control was utilized for the study. A dose lowering technique was utilized adhering to the principles of ALARA. CT DOSE: 697.98 mGy.cm FINDINGS: There is a trace right pleural effusion. No pneumatosis, free air or portal venous gas is present. There is probable hepatic steatosis. There is mild nodularity of the liver surface. The gallbladder is surgically absent. There is mild biliary ductal dilatation. Pneumobilia is again noted. There is a small 4 mm calcified distal common bile duct calculus on image 127 of 421. In addition, there is apparent debris within the common bile duct. There may be communication between the common bile duct and the duodenum. This could be postsurgical. The spleen, adrenal glands and kidneys are unremarkable. There is no peripancreatic infiltration. The pancreas is atrophic. The appendix is normal. Several calcified fibroids are present. There is colonic diverticulosis without evidence for acute diverticulitis. There is no lymphadenopathy. No acute fracture or suspicious lesion is identified within visualized skeletal structures. There are multiple lower thoracic and lumbar spine compression fractures which are likely old. Abdominal aorta is ectatic. There is extensive plaque. IMPRESSION: 1. Mild biliary ductal dilatation status post cholecystectomy. Small 4 mm calcified distal common bile duct calculus. In addition, debris within the common bile duct and apparently communication between the common bile duct and the duodenum. This could be postsurgical or represent a fistula and this finding is likely chronic. 2. Hepatic steatosis. Possible mild cirrhosis by CT. 3. No bowel obstruction. 4. Sigmoid diverticulosis. No evidence for acute diverticulitis. ACT 112: Negative or not required by law. Electronically signed by: Armando Glover M.D. 06/05/2021 3:[address] 06/05/21 14:44 CT SCAN OF THE BRAIN WITHOUT IV CONTRAST CLINICAL HISTORY: Headache. COMPARISON STUDY: CT of the brain dated 03/28/2010. TECHNIQUE: Unenhanced axial CT scan of the brain is performed from the vertex to the skull base. A dose lowering technique was utilized adhering to the principles of ALARA. CT DOSE: 884.08 mGy.cm FINDINGS: Brain parenchyma: There are age-related involutional changes noting moderate confluent subcortical and periventricular microangiopathic change. There is no hemorrhage, mass effect, or evidence of acute territorial ischemia by CT criteria. [place]-white matter differentiation is preserved. No extra-axial fluid collection is seen. Ventricles, sulci, cisterns: Prominent secondary to involutional change. Intracranial vasculature: There is atherosclerotic calcification of the cavernous carotid and vertebral arteries. Calvarium: Unremarkable. Sinuses and mastoids: The paranasal sinuses are clear. The mastoid air cells are well pneumatized. Orbits: The bony orbits are grossly intact. There are bilateral ocular lens implants. IMPRESSION: There is no hemorrhage, mass effect, or evidence of acute territorial ischemia by CT criteria. ACT 112: Negative or not required by law. Electronically signed by: Hi Medellin M.D. 06/05/2021 3:26 PM Hospital Course (1) Choledocholithiasis: An ERCP was performed 06/07 with stones and sludge found in the CBD and swept away. Broad spectrum antibiotics for 10 days per GI recommendations. (2) Sepsis: 2/2 GI source, resuscitated. Initially treated with Zosyn and transitioned to Augmentin at time of discharge. (3) Type 2 PR (myocardial infarction): Elevated troponin not secondary to ACS. Likely secondary to demand ischemia in the setting of sepsis and rapid ventricular response. There is no regional wall motion abnormality on echocardiogram this admission. (4) Hypoxia: some residual oxygen use overnight. Unable to be fully weaned prior to discharge. Patient was adamant about leaving to go home on the day of discharge. She did have a small oxygen requirement on discharge and was sent home with supplemental oxygen. (5) Hyponatremia: Nephrology consulted . Urine studies were suggestive of a combined volume depletion and SIADH worsened by poor oral intake recently. A 1500ml fluid restriction was recommended with no urea for home and given some edema already pre-admission, no salt tabs recommended either. Hold Lasix now as outpatient with repeat BMP within one week at PCP office. (6) Chronic atrial fibrillation: Chronic atrial fibrillation on Coumadin, presented in RVR with heart rate in the 120s after not having am metoprolol, improved with Lopressor 5mg IV. Metoprolol and coumadin continued post-procedure. Heparin drip added post- procedure but no bridge therapy contiued at discharge. Followup closely with anticoagulation clinic to titrate coumadin as needed for goal INR 2-3 (7) Fx medial malleolus-closed: Patient with history striking right ankle on stool last week. Orthopedics evaluated her this admission and does not feel her clinical picture is consistent with an acute fracture. Recommend she wear ARIA stockings or a compression bandage of some sort. She doesn't need an ankle brace and she is fine to WBAT. PT and OT evaluations were ordered and she was ok to return home with family support. (8) Hypertension: Cont amlodipine, lisinopril per home regimen. (9) Constipation due to opioid therapy: Chronic back pain on chronic narcotics Chronic constipation- cont current Bowel regimen Continue chronic morphine, hydrocodone as needed. Hold flexeril, alprazolam PRN Total Time Total Time Spent Total Time Spent (In Minutes): 60 Discharge Plan Discharge Items Patient Disposition: Home - Self-Care Reason For Visit: SIRS Discharge Diagnosis: sepsis choledocholithiasis, suspected cholangitis, s/p ERCP with stone and sludge removal on 06/07 hyponatremia Acute kidney injury-resolved Pulmonary Hypertension Obesity Condition on Discharge: Good Activity: Resume your previous activity Non-emergency contact: Primary Care Provider and Casino Host Call non-emergency contact if: you have any medication questions, your symptoms worsen, your pain is not controlled, your pain is worsening and your pain is unusual for you Follow-up/Referrals: Chano Pierre MD [Primary Care Provider] - 06/15/21 11:20 am (Date & Time 06/15/2021 11:20 AM Provider Danelle Pierre MD Department Family Medicine [facility] ) Diet: Low Sodium (2gm) Fluids: 1500ml (6 cups) Addtl Attending Provider Instructions: Please take all medications as instructed on discharge list below which includes an additional 7 days of antibiotics for your presumed infection in your gallbladder area. Prior to your procedure, your coumadin was reversed to normal. Please note that you coumadin dose has been increased to 5mg EVERY DAY until you are rechecked by the Anticoagulation Clinic and are back within your goal INR range of 2-3. You should see them and be rechecked in two days. It is recommended that you follow-up with [facility] within 4-6 weeks for follow-up on your sodium level, which was found to be too low in the hospital. It is recommended that you follow-up with your primary care provider within one week of discharge to ensure you have the follow-ups to specialists and ancillary services that are needed, and to ensure you are still doing well after leaving the hospital. Repeat blood work to check you sodium may be considered at that time, which will be ordered by your provider. It was a pleasure taking care of you! Please call if you have any questions or problems. You can reach a [facility] hospitalist on duty at [facility] 24 hours a day by calling [phone]. Take care of yourself. Luci Lai, DO [facility] Hospitalist Pending Studies at Discharge: No Stand-Alone Forms: My [facility] Medications and DC Order Prescriptions: New warfarin 5 mg Tablet 5 mg PO DAILY Qty: 30 RF: 0 amoxicillin-pot clavulanate [Augmentin] 875-125 mg tablet 1 tab PO BID Qty: 14 RF: 0 (DME) Oxygen Home Liters Per Minute See Rx Instructions .Route Qty: 1 RF: 0 Continued cholecalciferol (vitamin D3) 25 mcg (1,000 unit) tablet 25 mcg PO DAILY RF: 0 cyclobenzaprine 10 mg tablet 10 mg PO DAILY PRN (Reason: Muscle Spasm) RF: 0 alprazolam 1 mg tablet 1 mg PO BID PRN (Reason: Anxiety) RF: 0 lisinopril 20 mg tablet 20 mg PO DAILY RF: 0 amlodipine 2.5 mg tablet 2.5 mg PO DAILY RF: 0 aspirin 81 mg Tablet,Delayed Release (Dr/Ec) 81 mg PO DAILY RF: 0 levothyroxine [Levoxyl] 100 mcg tablet 100 mcg PO DAILYBB RF: 0 hydrocodone-acetaminophen 7.5-325 mg tablet 1 tab PO Q6 PRN (Reason: Pain) RF: 0 morphine 15 mg tablet extended release 15 mg PO BID RF: 0 metoprolol succinate 25 mg tablet extended release 24 hr 12.5 mg PO DAILY RF: 0 docusate sodium 100 mg Tablet 100 mg PO BID RF: 0 esomeprazole magnesium 20 mg capsule,delayed release(DR/EC) 20 mg PO DAILY RF: 0 diclofenac sodium 1 % gel 4 g TOPICAL BID PRN (Reason: Pain) RF: 0 meclizine 25 mg tablet 25 mg PO TID PRN (Reason: dizziness) Qty: 90 RF: 0 albuterol sulfate 90 mcg/actuation HFA aerosol inhaler 2 puffs INH Q6H PRN (Reason: shortness of breath or wheezing) Qty: 6.7 RF: 0 calcium carbonate [Calcium 500] 500 mg calcium (1,250 mg) tablet 500 mg PO DAILY Qty: 30 RF: 0 multivitamin Tablet 1 tab PO DAILY RF: 0 alendronate 10 mg tablet 10 mg PO DAILY RF: 0 sennosides [senna] 8.6 mg Tablet 17.2 mg PO HS RF: 0 ipratropium-albuterol 0.5 mg-3 mg(2.5 mg base)/3 mL solution for nebulization 3 ml INHALATION Q4 PRN (Reason: Shortness Of Breath Or Wheezing) RF: 0 atorvastatin 10 mg tablet 10 mg PO PM RF: 0 melatonin 3 mg Tablet 3 mg PO HS RF: 0 polyethylene glycol 3350 [Miralax] 17 gram/dose Powder 17 g PO DAILY PRN (Reason: Constipation) RF: 0 fluticasone propionate [Flonase Allergy Relief] 50 mcg/actuation [place],Suspension 2 spray INTRANASAL DAILY PRN (Reason: allergies) RF: 0 omega-3 fatty acids Capsule 1,000 mg PO DAILY RF: 0 Discontinued warfarin 5 mg tablet 2.5 mg PO TUTH RF: 0 furosemide 20 mg tablet 20 mg PO MOWEFR RF: 0 warfarin [Jantoven] 5 mg tablet 5 mg PO SUMOWEFRSA RF: 0 Discharge Orders: Discharge Order (Routine); Ordered 06/09/21 Ordered By: Luci Lai Admission Data Admit Date/Time: 06/05/21 17:30 Attending Provider: Luci Lai Admit Provider: Luci Lai Primary Care Provider: Chano Pierre Other Providers: Luci Lai ; Robyn Russell ; Blas Rivera ; Lc Olsen Roshan Other Interventions: Discharge Summary Assessment (RN) Last Done: 06/09/21 14:48
[2021-06-09] MEDS ORDERED: WARFARIN SOD 2.5 MG TAB PO SCH (16:00)
== END 2021-06-09 17:20 | disposition home or self-care (01) | DRG 871 ==
LOC: ED 12:53 → 2S 17:30 → 3W 06-07 14:37
DX: G31.84 Mild cognitive impairment of uncertain or unknown etiology; K59.03 Drug induced constipation; J44.9 Chronic obstructive pulmonary disease, unspecified; W22.03XA Walked into furniture, initial encounter; I48.20 Chronic atrial fibrillation, unspecified; Z87.891 Personal history of nicotine dependence; Z85.118 Personal history of other malignant neoplasm of bronchus and lung; Z79.01 Long term (current) use of anticoagulants; Z88.5 Allergy status to narcotic agent; N17.9 Acute kidney failure, unspecified; A41.9 Sepsis, unspecified organism; I10 Essential (primary) hypertension; Z68.36 Body mass index [BMI] 36.0-36.9, adult; E87.1 Hypo-osmolality and hyponatremia; E89.0 Postprocedural hypothyroidism; Y92.009 Unspecified place in unspecified non-institutional (private) residence as the place of occurrence of the external cause; Z88.1 Allergy status to other antibiotic agents; K21.9 Gastro-esophageal reflux disease without esophagitis; I27.20 Pulmonary hypertension, unspecified; R09.02 Hypoxemia; I21.A1 Myocardial infarction type 2; E22.2 Syndrome of inappropriate secretion of antidiuretic hormone; S82.51XA Displaced fracture of medial malleolus of right tibia, initial encounter for closed fracture; Z82.3 Family history of stroke; E78.5 Hyperlipidemia, unspecified; E66.9 Obesity, unspecified; Z93.3 Colostomy status; T40.2X5A Adverse effect of other opioids, initial encounter

== ENCOUNTER 2022-07-29 17:03 | Inpatient (IN) ==
--- NOTE | 2022-07-29 19:33 | CT Scan Report ---
HEAD CT NONCONTRAST CT DOSE: 884.08 mGy.cm HISTORY: Closed head injury. Fall. TECHNIQUE: Multiaxial CT images of the head were performed without the use of intravenous contrast. A utomated exposure control was utilized for this study. A dose lowering technique was utilized adheri ng to the principles of ALARA. Comparison: Head CT 06/05/2021. Findings: The paranasal sinuses and mastoid air cells are clear. The calvarium and skull base are int act. There is no mass, hematoma, midline shift, acute infarct. White matter hypodensity is nonspecifi c but suggestive of microvascular ischemic change. The ventricles and sulci demonstrate mild age-rela howard involutional changes. Mild motion artifact. 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 Impression: 1. Mild motion artifact. No definite acute intracranial abnormality. 2. Left posterior scalp swelling. ACT 112: Negative or not required by law. Electronically signed by: William Beach M.D. 07/29/2022 7:30 PM
--- NOTE | 2022-07-29 20:04 | XRay Report ---
XR lumbar spine min 4V routine CLINICAL HISTORY: Low back pain. Fall. COMPARISON STUDY: Lumbar spine CT 01/15/2020. FINDINGS: Stable mild chronic compression deformities at L1, L2, and L3. There is also an old moderat e compression deformity at T10, unchanged. No acute fracture or subluxation within the lumbar spine. Mild degenerative disc disease and moderate facet degenerative changes throughout the lumbar spine. T he visualized sacrum is intact. There is a calcified abdominal aorta. There is a calcified uterine fi broid. Prior cholecystectomy. IMPRESSION: 1. No acute fractures within the lumbar spine. 2. Stable old compression fractures within the lower thoracic and lumbar spine. ACT 112: Negative or not required by law. Electronically signed by: William Beach M.D. 07/29/2022 8:01 PM
--- NOTE | 2022-07-29 20:05 | XRay Report ---
XR hip RT 2V w pelvis CLINICAL HISTORY: R hip pain s/p fall COMPARISON STUDY: None. FINDINGS: No acute fracture or dislocation within the pelvis or hips. The visualized sacrum is intact . Soft tissues are unremarkable. Vascular calcifications are noted. There is a calcified uterine fibr oid. Mild deformity within the right inferior pubic ramus favors an old, healed fracture. Mild degene rative changes within the pelvis and hips. IMPRESSION: No acute fracture or dislocation within the pelvis or hips. ACT 112: Negative or not required by law. Electronically signed by: William Beach M.D. 07/29/2022 8:04 PM
--- NOTE | 2022-07-29 20:11 | XRay Report ---
XR ribs RT min 2V w CXR1V CLINICAL HISTORY: R rib pain. Fall. COMPARISON STUDY: Chest 06/05/2021. FINDINGS: No pneumothorax. No pleural effusions. There are few left basilar linear densities consiste nt with subsegmental atelectasis or scarring. Otherwise, lungs are clear. The heart remains mildly en larged. No evidence for pulmonary edema. Calcifications within the aortic knob. Right rib deformities consistent with old, healed fractures. No acute rib fractures identified. Prior cholecystectomy. Pos toperative changes again noted within the right hilum with volume loss in the right hemithorax and pr ior right postthoracotomy changes. IMPRESSION: 1. Old, healed right-sided rib fractures. No acute rib fractures. 2. No pneumothorax. 3. Postoperative changes again noted within the right hemithorax. ACT 112: Negative or not required by law. Electronically signed by: William Beach M.D. 07/29/2022 8:08 PM
[2022-07-29 21:07] LABS: Basophils # (auto) 0.01 K/uL (0-0.2); Basophils % (auto) 0.1 %; Eosinophils # (auto) 0.01 K/uL (0-0.50); Eosinophils % (auto) 0.1 %; Hematocrit (blood only) 40.1 % (34.1-44.9); Hemoglobin 13.3 g/dl (12.0-16.0); Immature Granulocytes # (auto) 0.03 K/uL (0.00-0.02); Immature Granulocytes % (auto) 0.4 %; Lymphocytes # (auto) 1.52 K/uL (1.2-3.4); Lymphocytes % (auto) 19.8 %; Mean Corpuscular Hemoglobin 30.2 pg (25.0-34.0); Mean Corpuscular Hgb Conc 33.2 g/dL (32.0-36.0); Mean Corpuscular Volume 90.9 fL (80.0-100.0); Mean Platelet Volume 10.1 fL (9.4-12.3); Monocytes # (auto) 0.83 K/uL (0.24-0.82); Monocytes % (auto) 10.8 %; Neutrophils # (auto) 5.27 K/uL (1.4-6.5); Neutrophils % (auto) 68.8 %; Platelet Count 203 K/uL (130-400); RDW Coefficient of Variation 14.3 % (11.5-14.5); RDW Standard Deviation 47.8 fL (36.4-46.3); Red Blood Count 4.41 M/uL (3.93-5.22); White Blood Count 7.67 K/ul (4.8-10.8)
[2022-07-29 21:08] LABS: Albumin Globulin Ratio 1.3 (0.9-2); Albumin Level 4.1 gm/dl (3.4-5.0); BUN Creatinine Ratio 15.4 (10-20); Bilirubin,Total 0.9 mg/dl (0.2-1.0); Calcium 9.6 mg/dl (8.5-10.1); Creatinine Clr Calc Pharmacy 31.9 ml/min; Est GFR (African American) 38.3 ml/min; Est GFR (Non-African American) 33.1 ml/min; Globulin 3.2 gm/dl (2.5-4.0); Potassium 4.8 mmol/L (3.5-5.1); Total Protein 7.3 gm/dl (6.0-8.3)
[2022-07-29 21:23] LABS: Troponin I High Sensitivity 2072.2 pg/ml (0-14)
--- NOTE | 2022-07-29 21:47 | Emergency Department Note ---
History of Present Illness General Chief complaint: Fall Stated complaint: FALL ON HEAD, R HIP PAIN, ABD PAIN Time Seen by Provider: 07/29/22 21:23 History of Present Illness Maximum Pain Intensity: 8 Male presents to the ED with a chief complaint of a fall. The patient is chronically on Coumadin for A. fib. She had an unwitnessed fall at home. She is believed to have hit her head on an oxygen tank. She also complained of some back pain and right-sided rib pain. The family actually states that she had some right-sided chest pain a couple of days ago as well prior to the fall. She does use home oxygen 2 L at all times. History of lung cancer in the past with a partial pneumonectomy on the right. She sees Dr. Loredo from cardiology. Planes of chest pain at this time. No shortness of breath other than her chronic symptoms. No fevers or recent illness. Home Medications Medication Instructions Recorded Confirmed Type alprazolam 1 mg tablet 1 mg PO BID PRN Anxiety 01/15/20 06/05/21 History amlodipine 2.5 mg tablet 2.5 mg PO DAILY 01/15/20 06/05/21 History aspirin 81 mg tablet,delayed 81 mg PO DAILY 01/15/20 06/05/21 History release cyclobenzaprine 10 mg tablet 10 mg PO DAILY PRN Muscle Spasm 01/15/20 06/05/21 History diclofenac sodium 1 % topical gel 4 g topical BID PRN Pain 01/15/20 06/05/21 History docusate sodium 100 mg tablet 100 mg PO BID 01/15/20 06/05/21 History esomeprazole magnesium 20 mg 20 mg PO DAILY 01/15/20 06/05/21 History capsule,delayed release hydrocodone 7.5 mg-acetaminophen 1 tab PO Q6 PRN Pain 01/15/20 06/05/21 History 325 mg tablet levothyroxine 100 mcg tablet 100 mcg PO DAILYBB 01/15/20 06/05/21 History (Levoxyl) lisinopril 20 mg tablet 20 mg PO DAILY 01/15/20 06/05/21 History metoprolol succinate 25 mg 12.5 mg PO DAILY 01/15/20 06/05/21 History tablet,extended release 24 hr morphine 15 mg tablet,extended 15 mg PO BID 01/15/20 06/05/21 History release albuterol sulfate 90 mcg/actuation 2 puffs inhalation Q6H PRN 01/19/20 06/05/21 Rx aerosol inhaler shortness of breath or wheezing #6.7 grams calcium carbonate 500 mg calcium 500 mg PO DAILY #30 tabs 01/19/20 06/05/21 Rx (1,250 mg) tablet (Calcium 500) meclizine 25 mg tablet 25 mg PO TID PRN dizziness #90 tabs 01/19/20 06/05/21 Rx cholecalciferol (vitamin D3) 25 25 mcg PO DAILY 02/13/20 06/05/21 History mcg (1,000 unit) tablet alendronate 10 mg tablet 10 mg PO DAILY 06/05/21 06/05/21 History atorvastatin 10 mg tablet 10 mg PO PM 06/05/21 06/05/21 History fluticasone propionate 50 2 spray intranasal DAILY PRN 06/05/21 06/05/21 History mcg/actuation nasal allergies spray,suspension (Flonase Allergy Relief) ipratropium 0.5 mg-albuterol 3 mg 3 ml inhalation Q4 PRN Shortness 06/05/21 06/05/21 History (2.5 mg base)/3 mL nebulization Of Breath Or Wheezing soln melatonin 3 mg tablet 3 mg PO HS 06/05/21 06/05/21 History multivitamin 1 tab PO DAILY 06/05/21 06/05/21 History omega-3 fatty acids 1,000 mg PO DAILY 06/05/21 06/05/21 History polyethylene glycol 3350 17 17 g PO DAILY PRN Constipation 06/05/21 06/05/21 History gram/dose oral powder (Miralax) sennosides 8.6 mg tablet (senna) 17.2 mg PO HS 06/05/21 06/05/21 History Oxygen Home #1 ea 06/09/21 Rx amoxicillin 875 mg-potassium 1 tab PO BID #14 tabs 06/09/21 Rx clavulanate 125 mg tablet (Augmentin) warfarin 5 mg tablet 5 mg PO DAILY #30 tabs 06/09/21 Rx Allergies Allergy/AdvReac Type Severity Reaction Status Date / Time morphine Allergy Intermediate RASH/PRUTIT Verified 06/05/21 16:32 IS atorvastatin Allergy Unknown 0 Verified 06/05/21 16:32 escitalopram Allergy Unknown 0 Verified 06/05/21 16:32 ezetimibe Allergy Unknown 0 Verified 06/05/21 16:32 fentanyl Allergy Unknown 0 Verified 06/05/21 16:32 hydralazine Allergy Unknown SEVERELY Verified 06/05/21 16:32 FLUSHED;BURNING SENSATION;SHAKING metoclopramide Allergy Unknown 0 Verified 06/05/21 16:32 simvastatin Allergy Unknown 0 Verified 06/05/21 16:32 clarithromycin AdvReac Unknown ABD Verified 06/05/21 16:32 CRAMPING Past Med/Surg History Medical History Chronic anticoagulation Chronic atrial fibrillation Chronic pain Dyslipidemia GERD (gastroesophageal reflux disease) History of lung cancer Hypertension Iron deficiency anemia Obesity Post-surgical hypothyroidism Surgical History H/O pneumonectomy Right upper lobe secondary to lung cancer H/O thyroidectomy History of carotid endarterectomy Right Hx of cholecystectomy Family History Mother Stroke Hypertension Uterine cancer Father Heart disease Cardiac disorder Aunt Cardiac disorder Brother Diabetes Sister Diabetes Grandmother (Paternal) Breast cancer Social History Smoking Status: Former smoker Tobacco Type: Cigarettes Hx Alcohol Use: No Hx Substance Use: No Preferred Language: Hebrew 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 Ability: Effective 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: No Beliefs That Will Affect Care: None marital status: / Current Living Situation: Alone Feels Safe at Home: Yes Assistive Devices: Glasses and Walker Review of Systems A total of 10 systems reviewed and were otherwise negative Physical Exam Vital Signs Vital Signs - 24 hr 07/29/22 18:25 Temperature 36.7 C Temperature Source Skin Pulse Rate 78 Respiratory Rate 20 Respiratory Effort / Characteristics Non-Labored Spontaneous Respiratory Depth Normal Respiratory Pattern Regular Blood Pressure 121/71 Blood Pressure Mean 87 Pulse Oximetry 85 L Oxygen Delivery Method Room Air Sepsis Recent Fever Within 48 Hours No Sepsis New/Unexplained Change in Mental Status N/A Sepsis Action Taken by Nursing No Action Required CONSTITUTIONAL/VITAL SIGNS: Reviewed / noted above. GENERAL: Non-toxic in appearance. INTEGUMENTARY: Warm, dry, and [place]. HEAD: Normocephalic. There is a small contusion/abrasion to the left superior occipital region. EYES: without scleral icterus or trauma. ENT/OROPHARYNX: clear and moist. LYMPHADENOPATHY/NECK: Is supple without lymphadenopathy or meningismus. RESPIRATORY: Clear to auscultation bilaterally. No increased work of breathing. CARDIOVASCULAR: Regular rate and rhythm. GI/ABDOMEN: Soft and nontender. No organomegaly or pulsatile mass. EXTREMITIES: Warm and well perfused. BACK: No CVA tenderness. There is a small contusion on the right lower thorax. NEUROLOGICAL: Intact without focal deficits. PSYCHIATRIC: normal affect. MUSCULOSKELETAL: Normally developed with good muscle tone. TRIAGE NURSING DOCUMENTATION REVIEWED. Medical Decision Making Differential Diagnosis Differential includes close head injury, intracranial bleed, facial trauma, cervical spine trauma, chest and thoracic trauma, abdominal and intra-abdominal trauma, spine neurologic trauma, extremity trauma. Medical Records Attestation: I reviewed the patient's medical records. Home Medications Current Medication List: was personally reviewed by me Laboratory Data Attestation: I reviewed the patient's lab results. Result diagrams: 07/29/22 20:30 07/29/22 20:30 Lab Results 07/29/22 07/29/22 Range/Units 20:30 20:30 WBC 7.67 (4.8-10.8) K/ul RBC 4.41 (3.93-5.22) M/uL Hgb 13.3 (12.0-16.0) g/dl Hct 40.1 (34.1-44.9) % MCV 90.9 (80.0-100.0) fL MCH 30.2 (25.0-34.0) pg MCHC 33.2 (32.0-36.0) g/dL RDW Std Deviation 47.8 H (36.4-46.3) fL RDW Coeff of Richar 14.3 (11.5-14.5) % Plt Count 203 (130-400) K/uL MPV 10.1 (9.4-12.3) fL Immature Gran % (Auto) 0.4 % Neut % (Auto) 68.8 % Lymph % (Auto) 19.8 % [place] % (Auto) 10.8 % Eos % (Auto) 0.1 % Baso % (Auto) 0.1 % Neut # (Auto) 5.27 (1.4-6.5) K/uL Lymph # (Auto) 1.52 (1.2-3.4) K/uL [place] # (Auto) 0.83 H (0.24-0.82) K/uL Eos # (Auto) 0.01 (0-0.50) K/uL Baso # (Auto) 0.01 (0-0.2) K/uL Immature Gran # (Auto) 0.03 H (0.00-0.02) K/uL Sodium 126 L (136-145) mmol/L Potassium 4.8 (3.5-5.1) mmol/L Chloride 90 L (98-107) mmol/L Carbon Dioxide 29 (21-32) mmol/L Anion Gap 7 (3-11) BUN 23 (6-23) mg/dl Creatinine 1.49 H (0.6-1.2) mg/dl Est Cr Clr Drug Dosing 31.9 ml/min Est GFR ( Amer) 38.3 ml/min Est GFR (Non-Af Amer) 33.1 ml/min BUN/Creatinine Ratio 15.4 (10-20) Glucose 91 (70-99(Fasting)) mg/dl Calcium 9.6 (8.5-10.1) mg/dl Total Bilirubin 0.9 (0.2-1.0) mg/dl AST 70 H (13-39) U/L ALT 47 (7-52) U/L Alkaline Phosphatase 116 H (34-104) U/L Troponin I High Sens 2072.2 H* (0-14) pg/ml Total Protein 7.3 (6.0-8.3) gm/dl Albumin 4.1 (3.4-5.0) gm/dl Globulin 3.2 (2.5-4.0) gm/dl Albumin/Globulin Ratio 1.3 (0.9-2) Imaging Data Radiologist's Impression: Head CT 07/29/22 18:[address] DOSE: 884.08 mGy.cm HISTORY: Closed head injury. Fall. TECHNIQUE: Multiaxial CT images of the head were performed without the use of intravenous contrast. Automated exposure control was utilized for this study. A dose lowering technique was utilized adhering to the principles of ALARA. Comparison: Head CT 06/05/2021. Findings: The paranasal sinuses and mastoid air cells are clear. The calvarium and skull base are intact. There is no mass, hematoma, midline shift, acute infarct. White matter hypodensity is nonspecific but suggestive of microvascular ischemic change. The ventricles and sulci demonstrate mild age-related involutional changes. Mild motion artifact. 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 Impression: 1. Mild motion artifact. No definite acute intracranial abnormality. 2. Left posterior scalp swelling. ACT 112: Negative or not required by law. Electronically signed by: William Beach M.D. 07/29/2022 7:30 PM Hip/Pelvis X-Ray 07/29/22 18:25 XR hip RT 2V w pelvis CLINICAL HISTORY: R hip pain s/p fall COMPARISON STUDY: None. FINDINGS: No acute fracture or dislocation within the pelvis or hips. The visualized sacrum is intact. Soft tissues are unremarkable. Vascular calcifications are noted. There is a calcified uterine fibroid. Mild deformity within the right inferior pubic ramus favors an old, healed fracture. Mild degenerative changes within the pelvis and hips. IMPRESSION: No acute fracture or dislocation within the pelvis or hips. ACT 112: Negative or not required by law. Electronically signed by: William Beach M.D. 07/29/2022 8:04 PM Lumbar Spine X-Ray 07/29/22 18:25 XR lumbar spine min 4V routine CLINICAL HISTORY: Low back pain. Fall. COMPARISON STUDY: Lumbar spine CT 01/15/2020. FINDINGS: Stable mild chronic compression deformities at L1, L2, and L3. There is also an old moderate compression deformity at T10, unchanged. No acute fracture or subluxation within the lumbar spine. Mild degenerative disc disease and moderate facet degenerative changes throughout the lumbar spine. The visualized sacrum is intact. There is a calcified abdominal aorta. There is a calcified uterine fibroid. Prior cholecystectomy. IMPRESSION: 1. No acute fractures within the lumbar spine. 2. Stable old compression fractures within the lower thoracic and lumbar spine. ACT 112: Negative or not required by law. Electronically signed by: William Beach M.D. 07/29/2022 8:01 PM Ribs w/Chest X-Ray 07/29/22 18:28 XR ribs RT min 2V w CXR1V CLINICAL HISTORY: R rib pain. Fall. COMPARISON STUDY: Chest 06/05/2021. FINDINGS: No pneumothorax. No pleural effusions. There are few left basilar linear densities consistent with subsegmental atelectasis or scarring. Otherwise, lungs are clear. The heart remains mildly enlarged. No evidence for pulmonary edema. Calcifications within the aortic knob. Right rib deformities consistent with old, healed fractures. No acute rib fractures identified. Prior cholecystectomy. Postoperative changes again noted within the right hilum with volume loss in the right hemithorax and prior right postthoracotomy changes. IMPRESSION: 1. Old, healed right-sided rib fractures. No acute rib fractures. 2. No pneumothorax. 3. Postoperative changes again noted within the right hemithorax. ACT 112: Negative or not required by law. Electronically signed by: William Beach M.D. 07/29/2022 8:08 PM ECG Data Attestation: I personally reviewed and interpreted this ECG as follows: Additional Comments: Twelve-lead EKG: Per my interpretation shows atrial fibrillation at a rate of 80 with T wave inversions inferiorly. No ST elevation. No PVCs. Normal QTC. MDM Narrative 77-year-old female presents after a fall. She is chronically on Coumadin for A. fib. Hematoma/abrasion to the head. Contusion to the back. She also complains of some pain in the right hip. X-ray of the right hip and pelvis did not show acute process. X-ray of the right ribs and chest x-ray did not show acute process. CT scan of the head and cervical spine did not show acute trauma. CBC was normal. Chemistry panel shows a sodium of 126 and a creatinine of 1.49. Troponin was elevated 2071. EKG shows A. fib at a rate of 80 without acute ischemic changes. The patient is not actively having chest pain at this time. She denies shortness of breath. She is chronically on oxygen. She will be seen by the hospitalist for further evaluation and care of her elevated troponin. Impression & Plan Fall, Non-ST elevation (NSTEMI) myocardial infarction Discharge Plan Visit Data Chief Complaint: Fall Stated Complaint: FALL ON HEAD, R HIP PAIN, ABD PAIN ED Provider: Russell Bruce Discharge Problem: Fall, Non-ST elevation (NSTEMI) myocardial infarction Patient Disposition: Being Evaluated by Hospitalist Forms Stand Alone Forms: My [facility] Prescriptions Prescriptions: No Action cholecalciferol (vitamin D3) 25 mcg (1,000 unit) tablet 25 mcg PO DAILY cyclobenzaprine 10 mg tablet 10 mg PO DAILY PRN (Reason: Muscle Spasm) alprazolam 1 mg tablet 1 mg PO BID PRN (Reason: Anxiety) lisinopril 20 mg tablet 20 mg PO DAILY amlodipine 2.5 mg tablet 2.5 mg PO DAILY aspirin 81 mg Tablet,Delayed Release (Dr/Ec) 81 mg PO DAILY levothyroxine [Levoxyl] 100 mcg tablet 100 mcg PO DAILYBB hydrocodone-acetaminophen 7.5-325 mg tablet 1 tab PO Q6 PRN (Reason: Pain) morphine 15 mg tablet extended release 15 mg PO BID metoprolol succinate 25 mg tablet extended release 24 hr 12.5 mg PO DAILY docusate sodium 100 mg Tablet 100 mg PO BID esomeprazole magnesium 20 mg capsule,delayed release(DR/EC) 20 mg PO DAILY diclofenac sodium 1 % gel 4 g TOPICAL BID PRN (Reason: Pain) Rx Instructions: apply to knees meclizine 25 mg tablet 25 mg PO TID PRN (Reason: dizziness) Qty: 90 0RF albuterol sulfate 90 mcg/actuation HFA aerosol inhaler 2 puffs INH Q6H PRN (Reason: shortness of breath or wheezing) Qty: 6.7 0RF calcium carbonate [Calcium 500] 500 mg calcium (1,250 mg) tablet 500 mg PO DAILY Qty: 30 0RF multivitamin Tablet 1 tab PO DAILY alendronate 10 mg tablet 10 mg PO DAILY Rx Instructions: take 30 min before meal, remain upright for 30 min sennosides [senna] 8.6 mg Tablet 17.2 mg PO HS ipratropium-albuterol 0.5 mg-3 mg(2.5 mg base)/3 mL solution for nebulization 3 ml INHALATION Q4 PRN (Reason: Shortness Of Breath Or Wheezing) atorvastatin 10 mg tablet 10 mg PO PM melatonin 3 mg Tablet 3 mg PO HS polyethylene glycol 3350 [Miralax] 17 gram/dose Powder 17 g PO DAILY PRN (Reason: Constipation) fluticasone propionate [Flonase Allergy Relief] 50 mcg/actuation [place],Suspension 2 spray INTRANASAL DAILY PRN (Reason: allergies) omega-3 fatty acids Capsule 1,000 mg PO DAILY warfarin 5 mg Tablet 5 mg PO DAILY Qty: 30 0RF amoxicillin-pot clavulanate [Augmentin] 875-125 mg tablet 1 tab PO BID Qty: 14 0RF (DME) Oxygen Home Liters Per Minute See Rx Instructions .Route Qty: 1 0RF Rx Instructions: 2LPM with ambulation Referrals Referrals: Danelle Pierre MD [Primary Care Provider] -
[2022-07-30 00:04] LABS: INR 2.6 (0.9-1.1); Prothrombin Time 26.4 Seconds (9.0-12.0)
[2022-07-30] MEDS ORDERED: ACETAMINOPHEN 325 MG TAB PO PRN (01:21)
[2022-07-30] MEDS ORDERED: ALPRAZolam 0.5 MG TABLET PO PRN (01:21)
[2022-07-30] MEDS ORDERED: POLYETHYLENE (MIRALAX) 17 GM PACK PO PRN (01:21)
[2022-07-30] MEDS ORDERED: MECLIZINE HCL 25 MG TAB PO PRN (01:21)
[2022-07-30] MEDS ORDERED: SODIUM CHLORIDE 0.9% 1000ML 1,000 ML IV SCH (01:21)
[2022-07-30] MEDS ORDERED: NITROGLYCERIN SL 0.4 MG/TAB TAB SL PRN (01:21)
[2022-07-30] MEDS ORDERED: FLUTICASONE PROPIONATE NA SPR 16 GM BTL PRN (01:21)
[2022-07-30] MEDS ORDERED: ALBUT/IPRATROP 3MG/0.5MG NEB 3 ML VIAL INH PRN (01:21)
[2022-07-30] MEDS ORDERED: ALBUTEROL HFA 8 GM INHALER INH PRN (01:21)
[2022-07-30] MEDS ORDERED: HYDROCODONE/ACETAMINOPHEN 7.5/325MG TAB PO PRN (01:21)
[2022-07-30] MEDS ORDERED: CYCLOBENZAPRINE HCL 10 MG TAB PO PRN (01:21)
[2022-07-30] MEDS ORDERED: NON-FORMULARY MEDICATION (Oxygen Home Liters per Minute) SCH (01:21)
--- NOTE | 2022-07-30 03:56 | History and Physical Report ---
DATE OF ADMISSION: 07/29/2022. CHIEF COMPLAINT: Fall. HISTORY OF PRESENT ILLNESS: This is a 77-year-old female with past medical history significant for postsurgical hypothyroidism, hyperlipidemia, allergic rhinitis, on 2 liters home oxygen, history of atherosclerotic cardiovascular disease, history of carotid stenosis, hypertension, atrial fibrillation, chronic slow transit constipation, GERD, generalized osteoarthrosis, generalized osteoporosis, lumbar degenerative disc disease, chronic pain of right knee, iron deficiency anemia, history of lung cancer, who lives alone at home, but her kids live close by. Comes with a fall. The patient says she was ambulating with a walker and her oxygen cannula could have been stuck in the wheels and she fell on the oxygen tank on the wall. There was some blood coming on the back of the head. Son came in and wiped it and brought her to the hospital. Currently, resting comfortably, hemodynamically stable, but her troponin I high sensitivity came back 2071 . The patient says she is also having some right flank and right lower rib cage pain going for about a week, but today after the fall, she is having more pain while ambulating. She denied loss of consciousness with the fall. Denies any chest pain. No other abdominal pain. No cough. Has some runny nose for the last few days. No blurred visions, no earache, no headache, no dizziness, no sore throat, no fevers. Appetite is okay. No difficulty swallowing. She is chronically constipated. She states she is taking some water pills, but since last 2 days, she did not micturate much. ALLERGIES: MORPHINE, ATORVASTATIN, LEXAPRO, EZETIMIBE, FENTANYL, HYDRALAZINE, METOCLOPRAMIDE, SIMVASTATIN, CLARITHROMYCIN. PAST MEDICAL HISTORY: As mentioned above. PAST SURGICAL HISTORY: Colonoscopy, dental surgery, ERCP, needle biopsy of liver, thyroidectomy total, cholecystectomy, right thoracotomy and right carotid endarterectomy. MEDICATIONS: The patient is on albuterol 2 puffs inhalation q. 6 hours p.r.n., alprazolam 1 mg p.o. b.i.d. p.r.n., amlodipine 2.5 mg p.o. daily, aspirin 81 mg p.o. daily,atorvastatin 10 mg p.o. daily, vitamin D 25 mcg p.o. daily, cyclobenzaprine 10 mg p.o. daily p.r.n., Colace 100 mg p.o. b.i.d., esomeprazole 20 mg p.o. daily, Flonase 2 sprays intranasal daily p.r.n., Lasix 20 mg p.o. 2 times a week, spironolactone 12.5 mg p.o. 2 times a week, hydrocodone/acetaminophen 1 tablet p.o. q. 6 hours p.r.n., DuoNebs q. 4 hours p.r.n. for shortness of breath and wheezing, levothyroxine 100 mcg p.o. daily, lisinopril 20 mg p.o. daily, meclizine 25 mg p.o. t.i.d. p.r.n., melatonin 3 mg p.o. at bedtime, metoprolol succinate 12.5 mg p.o. daily, morphine 15 mg p.o. b.i.d., multivitamin 1 tablet p.o. daily, omega 1 mg p.o. daily, MiraLax 17 grams p.o. daily p.r.n., Senokot 17.2 mg p.o. at bedtime, Coumadin 2.5 mg on Tuesdays and and 5 mg on rest of the days. FAMILY HISTORY: Significant for mother had stroke. Father had IA. Mother had uterine cancer, hypertension. Brother has diabetes. Paternal grandmother has breast cancer. Aunt has IA. SOCIAL HISTORY: Lives alone. Family live close by. . Quit smoking in 2006, smoked on average 2 packs a day for 30 years. No alcohol use. No drug use. REVIEW OF SYSTEMS: As per HPI. Rest of review of systems is negative. PHYSICAL EXAMINATION: GENERAL: The patient is obese, not in acute distress. VITAL SIGNS: Temperature 36.7, pulse 78, respiratory rate 20, blood pressure 121/71, oxygen 93% saturation on 2 liters. HEENT No pallor, no icterus Pupils equal, round and reactive to light. Oral mucosa moist. NECK: No JVD, no neck masses. CARDIOVASCULAR: S1 and S2 heard. Regular rate and rhythm. No murmur, no gallop. RESPIRATORY SYSTEM: Normal AP diameter. No accessory muscle use. No wheezing, no crackles. ABDOMEN: Soft, bowel sounds present, nontender, no distention. CENTRAL NERVOUS SYSTEM: Alert and oriented. Speech is clear. No facial droop. Insight is good. Obeys simple commands. Moves extremities. EXTREMITIES: Mild pedal edema present, no erythema seen. LABORATORY DATA: WBC 7.6, hemoglobin 13.3, hematocrit 40.1, platelets 203. Sodium 126, potassium 4.8, chloride 98, CO2 29, BUN 23, creatinine 1.49, serum glucose 91, calcium 9.6, total bilirubin 0.9, AST 70, ALT 47, alkaline phosphatase 116. Troponin I high sensitivity 2071. SARS-CoV-2 rapid test negative. IMAGING DATA: Chest x-ray, on the right side, old healed right sided rib fractures, no acute rib fractures, no pneumothorax. Lumbar spine x-ray, no acute fractures of the lumbar spine. Stable compression fracture of the lower thoracic and lumbar spine. Hip and pelvic x-ray, no acute fracture or dislocation of the pelvis. CT of the head, no acute intracranial abnormalities, left posterior scalp swelling seen. EKG: Atrial fibrillation, rate of 80, no acute ST changes seen. ASSESSMENT AND PLAN: This 77-year-old female presents with fall and with elevated troponin. 1. Fall. Mechanical fall. PT, OT when stable. Monitor in the hospital. Her x ray images are unremarkable .Patient complains of some pain in right lower rib cage and right flank pain that has been going for about a week before fall and worse with the fall today. We will monitor if any concern will get ct scan. 2. Elevated troponin, non-ST elevated IA most likely, demand ischemia. The patient has elevated troponin in the past. The patient denies any chest pain or shortness of breath. Will follow serial enzymes, echocardiogram. Keep her n.p.o. and consult cardiology in the a.m. 3. Acute kidney injury. Her baseline creatinine around 1, present creatinine of 1.49. She takes Lasix and spironolactone twice weekly which will be held.. We will hold lisinopril. Getting gentle fluids. Follow the repeat labs in a.m. 4. Hyponatremia. Chronic. Had hyponatremia last admission, she was on fluid restriction. Currently, getting gentle fluids and holding diuretics. We will repeat labs. Will consult nephrology in the a.m. for further recommendations. 5. Atrial fibrillation. Rate control with metoprolol. On Coumadin. We will follow the PT/INR. 6. History of hypertension: Continue her amlodipine, metoprolol. Holding lisinopril and diuretics. Will monitor the blood pressure. 7. Hyperlipidemia: Continue statin. 8. Moderate Pulmonary HTN with chronic home oxygen. 9. Constipation and chronic back pain, on chronic narcotics. Continue bowel regimen. 10. History of tobacco abuse. 11. 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 12. Chronic diastolic chf. Holding diuretics. Monitor for volume overload. 13. Deep venous thrombosis prophylaxis: On Coumadin. Follow PT/INR. DISPOSITION: Closely monitor in [employer] tele. PT/OT prior to discharge. Social service to help with discharge planning. Level 1 full code. Job ID: [id number] [id number]
[2022-07-30 06:00] LABS: Basophils # (auto) 0.02 K/uL (0-0.2); Basophils % (auto) 0.4 %; Eosinophils # (auto) 0.01 K/uL (0-0.50); Eosinophils % (auto) 0.2 %; Hemoglobin 12.7 g/dl (12.0-16.0); Immature Granulocytes # (auto) 0.01 K/uL (0.00-0.02); Immature Granulocytes % (auto) 0.2 %; Lymphocytes # (auto) 1.32 K/uL (1.2-3.4); Lymphocytes % (auto) 23.4 %; Mean Corpuscular Hgb Conc 32.6 g/dL (32.0-36.0); Mean Platelet Volume 9.7 fL (9.4-12.3); Monocytes # (auto) 0.63 K/uL (0.24-0.82); Monocytes % (auto) 11.2 %; Neutrophils # (auto) 3.66 K/uL (1.4-6.5); Neutrophils % (auto) 64.6 %; Platelet Count 165 K/uL (130-400); RDW Coefficient of Variation 14.2 % (11.5-14.5); RDW Standard Deviation 48.2 fL (36.4-46.3); Red Blood Count 4.24 M/uL (3.93-5.22); White Blood Count 5.65 K/ul (4.8-10.8)
[2022-07-30 06:17] LABS: INR 2.5 (0.9-1.1); Prothrombin Time 25.5 Seconds (9.0-12.0)
[2022-07-30 06:22] LABS: BUN Creatinine Ratio 18.7 (10-20); Creatinine Clr Calc Pharmacy 38.7 ml/min; Est GFR (African American) 48.3 ml/min; Est GFR (Non-African American) 41.7 ml/min; Magnesium 1.6 mg/dl (1.7-2.4); Potassium 4.8 mmol/L (3.5-5.1)
[2022-07-30] MEDS ORDERED: MAGNESIUM SULFATE / D5W 1 GM/100 ML BAG IV ONE (07:50)
[2022-07-30] MEDS: LEVOTHYROXINE SODIUM 100 MCG TABLET PO SCH (09:26)
[2022-07-30] MEDS: MoRPHine SULFATE CR 15 MG TABCR PO SCH ×2 (10:40→21:22)
[2022-07-30] MEDS: PANTOprazole 40 MG TAB PO SCH (10:41)
[2022-07-30] MEDS: MULTIVITAMIN TAB PO SCH (10:41)
[2022-07-30] MEDS: DOCUSATE SODIUM 100 MG CAP PO SCH ×2 (10:41→21:19)
[2022-07-30] MEDS: amLODIPine BESYLATE 5 MG TAB PO SCH (10:41)
[2022-07-30] MEDS: METOPROLOL SUCC 25MG EXT REL TAB PO SCH (10:41)
[2022-07-30] MEDS: CHOLECALCIFEROL 1,000 UNITS 25 MCG TAB PO SCH (10:41)
[2022-07-30] MEDS: MAGNESIUM OXIDE 400 MG TAB PO SCH ×2 (10:41→21:19)
[2022-07-30] MEDS: ASPIRIN 81 MG ECTAB PO SCH (10:41)
--- NOTE | 2022-07-30 12:17 | Cardiology Consultation ---
Date of Consultation July 30, 2022 Assessment & Plan (1) Non-ST elevation (NSTEMI) myocardial infarction: * Patient presents without symptoms of angina, high-sensitivity troponin elevation consistent with demand ischemia, type II myocardial infarction in the setting of fall episode. * Recommend ongoing supportive care including aspirin, amlodipine, atorvastatin, metoprolol succinate. (2) Fall: * Apparent mechanical fall. * As long as patient is not determined to have any injuries that require operative intervention, continue chronic Coumadin. (3) Hyponatremia: * Perhaps a contributing factor to her fall. * Agree with holding prior to hospital treatment with furosemide and spironolactone (4) Pulmonary HTN: * Pulmonary artery systolic pressures estimated to be in the 50s on echocardiogram, with some degree of right ventricular pressure/volume overload, severe tricuspid regurgitation in setting of longtime history of cigarette smoking, having smoked anywhere from 1 to 3 packs/day per her description for 42 years, quit around 2006. Maintained on chronic oxygen supplementation. (5) Chronic atrial fibrillation: * Rate controlled, continue metoprolol. * INR therapeutic at 2.5, continue Coumadin unless patient found to have injury requiring operative intervention (6) Hypertension: * Blood pressure somewhat uncharacteristically high for her, but this is in setting of recent musculoskeletal pain. * She just received her morning doses of metoprolol and amlodipine. We will continue to follow progress. History of Present Illness Attending Physician: Roe Lopez MD History of Present Illness Bernice Ayers is a 77-year-old female seen in cardiology consultation per the request of Dr. Elliott for the evaluation of elevation in troponin I. Patient reports having been in her normal state of health. She is to be on supplemental oxygen, 2 L/min at home, and was walking with her walker and had a fall episode. She does not recall all of the specifics of the fall, but believes her walker got caught up on obstacles on the floor. She describes pain related to her fall including hip pain. X-ray evaluation of the hips, pelvis, lumbar spine revealed no acute findings. Patient denies any chest discomfort or shortness of breath today, yesterday, or as of recently. She describes a stable degree of chronic dyspnea that has not changed. Problem list as per outpatient cardiology progress note by Dr Loredo dated 04/13/2022: 1. Chronic atrial fibrillation on chronic anticoagulation 2. Atherosclerotic carotid disease status post right carotid enterectomy 2009 moderate left carotid artery residual disease 3. Longstanding hypertension on multiple drug regimen 4. Hyperlipidemia with lipid-lowering therapy intolerance 5. 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 Moderate pulmonary hypertension with chronic O2 requirement Allergies Allergy/AdvReac Type Severity Reaction Status Date / Time morphine Allergy Intermediate RASH/PRUTIT Verified 06/05/21 16:32 IS atorvastatin Allergy Unknown 0 Verified 07/30/22 00:58 escitalopram Allergy Unknown 0 Verified 07/30/22 00:57 ezetimibe Allergy Unknown 0 Verified 07/30/22 00:58 fentanyl Allergy Unknown 0 Verified 07/30/22 00:57 hydralazine Allergy Unknown SEVERELY Verified 07/30/22 00:58 FLUSHED;BURNING SENSATION;SHAKING metoclopramide Allergy Unknown 0 Verified 07/30/22 00:56 simvastatin Allergy Unknown 0 Verified 07/30/22 00:57 metoprolol [From Toprol XL] Allergy Unknown Unverified 07/30/22 01:00 clarithromycin AdvReac Unknown ABD Verified 07/30/22 00:57 CRAMPING Home Medications Medication Instructions Recorded Confirmed Type alprazolam 1 mg tablet 1 mg PO BID PRN Anxiety 01/15/20 07/30/22 History amlodipine 2.5 mg tablet 2.5 mg PO QAM 01/15/20 07/30/22 History aspirin 81 mg tablet,delayed 81 mg PO DAILY 01/15/20 07/30/22 History release cyclobenzaprine 10 mg tablet 10 mg PO DAILY PRN Muscle Spasm 01/15/20 07/30/22 History docusate sodium 100 mg tablet 100 mg PO BID 01/15/20 07/30/22 History esomeprazole magnesium 20 mg 20 mg PO QAM 01/15/20 07/30/22 History capsule,delayed release hydrocodone 7.5 mg-acetaminophen 1 tab PO Q12H PRN Pain 01/15/20 07/30/22 History 325 mg tablet levothyroxine 100 mcg tablet 100 mcg PO DAILYBB 01/15/20 07/30/22 History (Levoxyl) lisinopril 20 mg tablet 20 mg PO QAM 01/15/20 07/30/22 History metoprolol succinate 25 mg 12.5 mg PO QAM 01/15/20 07/30/22 History tablet,extended release 24 hr morphine 15 mg tablet,extended 15 mg PO AMPM 01/15/20 07/30/22 History release albuterol sulfate 90 mcg/actuation 2 puffs inhalation Q6H PRN 01/19/20 07/30/22 Rx aerosol inhaler shortness of breath or wheezing #6.7 grams meclizine 25 mg tablet 25 mg PO TID PRN dizziness #90 tabs 01/19/20 07/30/22 Rx cholecalciferol (vitamin D3) 25 50 mcg PO DAILY 02/13/20 07/30/22 History mcg (1,000 unit) tablet alendronate 10 mg tablet 10 mg PO DAILY 06/05/21 07/30/22 History atorvastatin 10 mg tablet 10 mg PO QAM 06/05/21 07/30/22 History fluticasone propionate 50 2 spray intranasal DAILY PRN 06/05/21 07/30/22 History mcg/actuation nasal allergies spray,suspension (Flonase Allergy Relief) ipratropium 0.5 mg-albuterol 3 mg 3 ml inhalation Q4 PRN Shortness 06/05/21 07/30/22 History (2.5 mg base)/3 mL nebulization Of Breath Or Wheezing soln melatonin 3 mg tablet 3 mg PO HS 06/05/21 07/30/22 History multivitamin 1 tab PO DAILY 06/05/21 07/30/22 History polyethylene glycol 3350 17 17 g PO DAILY PRN Constipation 06/05/21 07/30/22 History gram/dose oral powder (Miralax) sennosides 8.6 mg tablet (senna) 8.6 mg PO HS PRN Constipation 06/05/21 07/30/22 History Oxygen Home #1 ea 06/09/21 Rx furosemide 20 mg tablet 20 mg PO 2XWK 07/29/22 07/30/22 History spironolactone 25 mg tablet 12.5 mg PO 2XWK 07/29/22 07/30/22 History diclofenac sodium 1 % topical gel 1 ea topical BID 07/30/22 07/30/22 History magnesium hydroxide 400 mg/5 mL 30 - 60 ml PO DAILY PRN SUPPLEMENT 07/30/22 07/30/22 History oral suspension omega-3 fatty acids 1,000 mg 1,000 mg PO DAILY 07/30/22 07/30/22 History capsule warfarin 5 mg tablet 2.5 mg PO 2XWK 07/30/22 07/30/22 History warfarin 5 mg tablet 5 mg PO 5XWK 07/30/22 07/30/22 History Patient History Medical History Chronic anticoagulation Chronic atrial fibrillation Chronic pain Dyslipidemia GERD (gastroesophageal reflux disease) History of lung cancer Hypertension Iron deficiency anemia Obesity Post-surgical hypothyroidism Surgical History H/O pneumonectomy Right upper lobe secondary to lung cancer H/O thyroidectomy History of carotid endarterectomy Right Hx of cholecystectomy Family History Mother Stroke Hypertension Uterine cancer Father Heart disease Cardiac disorder Aunt Cardiac disorder Brother Diabetes Sister Diabetes Grandmother (Paternal) Breast cancer Social History Smoking Status: Former smoker Tobacco Type: Cigarettes Hx Alcohol Use: No Hx Substance Use: No Preferred Language: Arabic 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 Ability: Effective Panama Hat Smearer Required: No Beliefs That Will Affect Care: None marital status: / Current Living Situation: Alone Feels Safe at Home: Yes Assistive Devices: Oxygen - Continuous and Walker Review of Systems Review of Systems: All systems reviewed & are unremarkable except as noted in HPI & below Physical Exam Physical Exam: Vital Signs Temp 36.7 C 07/29/22 18:25 Pulse 77 07/30/22 11:03 Resp 17 07/30/22 11:03 BP 205/146 H 07/30/22 11:03 Pulse Ox 96 07/30/22 07:22 O2 Del Method 07/30/22 07:06 O2 Flow Rate 2 07/30/22 07:06 Intake & Output 07/29/22 07/30/22 07/30/22 18:59 06:59 18:59 Output Total 700 / 700 Balance -700 / -700 Weight 90 kg 90 kg Output: Urine Amount (Ca theter) 700 / 700 Straight 700 / 700 Other: Weight Measureme nt Method Chair Scale Built in [facility] Constitutional: No acute distress Respiratory: normal respiratory effort, lungs clear to auscultation Cardiovascular: Rate/Rhythm: not tachycardic and not irregularly irregular Heart Sounds: no murmur Extremities: no edema Gastrointestinal (Abdomen): normal bowel sounds, soft, nontender, no hepat osplenomegaly Neurologic: PERRL, EOMI, accommodation nl, no face palsy, no dysarthria Results & Data ([facility]) Laboratory Results Cardiac Enzymes 07/29/22 07/30/22 Range/Units 20:30 05:31 AST 70 H (13-39) U/L Troponin I High Sens 2072.2 H* 1613.0 H* D (0-14) pg/ml Coagulation 07/29/22 07/30/22 Range/Units 21:54 05:31 PT 26.4 H 25.5 H (9.0-12.0) Seconds CBC 07/29/22 07/30/22 Range/Units 20:30 05:31 WBC 7.67 5.65 (4.8-10.8) K/ul RBC 4.41 4.24 (3.93-5.22) M/uL Hgb 13.3 12.7 (12.0-16.0) g/dl Hct 40.1 39.0 (34.1-44.9) % Plt Count 203 165 (130-400) K/uL Neut # (Auto) 5.27 3.66 (1.4-6.5) K/uL Lymph # (Auto) 1.52 1.32 (1.2-3.4) K/uL [place] # (Auto) 0.83 H 0.63 (0.24-0.82) K/uL Eos # (Auto) 0.01 0.01 (0-0.50) K/uL Baso # (Auto) 0.01 0.02 (0-0.2) K/uL Comprehensive Metabolic Panel 07/29/22 07/30/22 Range/Units 20:30 05:31 Sodium 126 L 126 L (136-145) mmol/L Potassium 4.8 4.8 (3.5-5.1) mmol/L Chloride 90 L 92 L (98-107) mmol/L Carbon Dioxide 29 27 (21-32) mmol/L BUN 23 23 (6-23) mg/dl Creatinine 1.49 H 1.23 H (0.6-1.2) mg/dl Glucose 91 92 (70-99(Fasting)) mg/dl Calcium 9.6 9.0 (8.5-10.1) mg/dl AST 70 H (13-39) U/L ALT 47 (7-52) U/L Alkaline Phosphatase 116 H (34-104) U/L Total Protein 7.3 (6.0-8.3) gm/dl Albumin 4.1 (3.4-5.0) gm/dl Diagnostic Findings EKG performed 07/30/2022 at 9:30 AM reveals rate controlled atrial fibrillation at 84 bpm, T wave inversions noted in leads III and aVF. -Compared to the most recent outpatient EKG dated 04/13/2022, atrial fibrillation is a chronic finding, T wave versions also noted in the inferior leads at that time, but more prominent on the most recent tracing. Compared to the tracing performed on admission on 07/29/2022, there is been interval change in the axis of the inferior leads, question if there was an error with regards to lead placement at that time. Echocardiogram performed today and reviewed independently revealed mild concentric left ventricular hypertrophy, with abnormal septal motion consistent with right ventricular pressure/volume overload, LVEF 6065%, mild mitral vegetation, severe tricuspid regurgitation, pulmonary artery systolic pressure estimated be 51 mmHg.
--- NOTE | 2022-07-30 12:42 | Nephrology Consultation ---
Date of Consultation July 30, 2022 Assessment & Plan (1) Hyponatremia: Hyponatremia: Previous Urine studies were suggestive of a combined volume depletion and SIADH worsened by poor oral intake, She has been on 1.5 lit FR and biweekly lasix with spirolactone.Her Sodium has been in early 130's chronically. Mixed picture again on urine studies, SIADH with prerenal component. She has already received 1 lit of normal saline. Uosm are close to 500 Osm which means that FR alone will not raise her sodium. - FR to 1.5 lit - Agree with withholding lasix and spirolactone for now. - Start on Urea 15 mg BID. - Would not start on salt tabs as she is Hypertensive. - Please control her pain as this is non osmotic stimulus for ADH release. - Her renal function has improved with iv fluids and holding the Lisinopril and diuretic-- continue to hold these. - would not give her more than 1.5 lit of fluid / day - Diuretic can be restarted if needed as outpatinet, - 2-3 week non urgent f/u with nephrology post discharge. (2) Fall: Fall - Likley Mechanical fall. Her x ray images are unremarkable (3) Elevated troponin I level: - Likley demand supply mismatch- - Cardiology on board History of Present Illness Reason for Consultation: Hyponatremia Attending Physician: Roe Lopez MD History of Present Illness 77-year-old female with PMH of Chronic hyponatremia , likley 2/ SIADH and poor solute intake ( on FR 1.5 Lit, and biweekly lasix and spirolactone), postsurgic al hypothyroidism, hyperlipidemia, allergic rhinitis( on 2 liters home oxygen), history of atherosclerotic cardiovascular disease, history of carotid stenosis, hypertension, atrial fibrillation,history of lung cancer, who presented to the ER after a Mechanical fall. Alert and oriented,, ER labs were significant for raised troponin.She also complained of right flank and right lower rib cage pain which had worsened after the fall.Euvolumic on exam, Passing urine.Sna was 127 with Posm of 274, Uosm 426. Anahy 25.BP, BP was elevated at 170/118( this has very variable), Raised /Scr at 1.49, low magnesium and normal potassium with a CO2 of 29. She received 1 lit of normal saline, lasix . lisinopril and spirolactone was withheld. Chronic hyponatrmia with Na in late 120's and early 130's. Allergies Allergy/AdvReac Type Severity Reaction Status Date / Time No Known Allergies Allergy Unverified 07/30/22 14:56 Home Medications Medication Instructions Recorded Confirmed Type alprazolam 1 mg tablet 1 mg PO BID PRN Anxiety 01/15/20 07/30/22 History amlodipine 2.5 mg tablet 2.5 mg PO QAM 01/15/20 07/30/22 History aspirin 81 mg tablet,delayed 81 mg PO DAILY 01/15/20 07/30/22 History release cyclobenzaprine 10 mg tablet 10 mg PO DAILY PRN Muscle Spasm 01/15/20 07/30/22 History docusate sodium 100 mg tablet 100 mg PO BID 01/15/20 07/30/22 History esomeprazole magnesium 20 mg 20 mg PO QAM 01/15/20 07/30/22 History capsule,delayed release hydrocodone 7.5 mg-acetaminophen 1 tab PO Q12H PRN Pain 01/15/20 07/30/22 History 325 mg tablet levothyroxine 100 mcg tablet 100 mcg PO DAILYBB 01/15/20 07/30/22 History (Levoxyl) lisinopril 20 mg tablet 20 mg PO QAM 01/15/20 07/30/22 History metoprolol succinate 25 mg 12.5 mg PO QAM 01/15/20 07/30/22 History tablet,extended release 24 hr morphine 15 mg tablet,extended 15 mg PO AMPM 01/15/20 07/30/22 History release albuterol sulfate 90 mcg/actuation 2 puffs inhalation Q6H PRN 01/19/20 07/30/22 Rx aerosol inhaler shortness of breath or wheezing #6.7 grams meclizine 25 mg tablet 25 mg PO TID PRN dizziness #90 tabs 01/19/20 07/30/22 Rx cholecalciferol (vitamin D3) 25 50 mcg PO DAILY 02/13/20 07/30/22 History mcg (1,000 unit) tablet alendronate 10 mg tablet 10 mg PO DAILY 06/05/21 07/30/22 History atorvastatin 10 mg tablet 10 mg PO QAM 06/05/21 07/30/22 History fluticasone propionate 50 2 spray intranasal DAILY PRN 06/05/21 07/30/22 History mcg/actuation nasal allergies spray,suspension (Flonase Allergy Relief) ipratropium 0.5 mg-albuterol 3 mg 3 ml inhalation Q4 PRN Shortness 06/05/21 07/30/22 History (2.5 mg base)/3 mL nebulization Of Breath Or Wheezing soln melatonin 3 mg tablet 3 mg PO HS 06/05/21 07/30/22 History multivitamin 1 tab PO DAILY 06/05/21 07/30/22 History polyethylene glycol 3350 17 17 g PO DAILY PRN Constipation 06/05/21 07/30/22 History gram/dose oral powder (Miralax) sennosides 8.6 mg tablet (senna) 8.6 mg PO HS PRN Constipation 06/05/21 07/30/22 History Oxygen Home #1 ea 06/09/21 Rx furosemide 20 mg tablet 20 mg PO 2XWK 07/29/22 07/30/22 History spironolactone 25 mg tablet 12.5 mg PO 2XWK 07/29/22 07/30/22 History diclofenac sodium 1 % topical gel 1 ea topical BID 07/30/22 07/30/22 History magnesium hydroxide 400 mg/5 mL 30 - 60 ml PO DAILY PRN SUPPLEMENT 07/30/22 07/30/22 History oral suspension omega-3 fatty acids 1,000 mg 1,000 mg PO DAILY 07/30/22 07/30/22 History capsule warfarin 5 mg tablet 2.5 mg PO 2XWK 07/30/22 07/30/22 History warfarin 5 mg tablet 5 mg PO 5XWK 07/30/22 07/30/22 History Patient History Medical History Chronic anticoagulation Chronic atrial fibrillation Chronic pain Dyslipidemia GERD (gastroesophageal reflux disease) History of lung cancer Hypertension Iron deficiency anemia Obesity Post-surgical hypothyroidism Surgical History H/O pneumonectomy Right upper lobe secondary to lung cancer H/O thyroidectomy History of carotid endarterectomy Right Hx of cholecystectomy Family History Mother Stroke Hypertension Uterine cancer Father Heart disease Cardiac disorder Aunt Cardiac disorder Brother Diabetes Sister Diabetes Grandmother (Paternal) Breast cancer Social History Smoking Status: Former smoker Tobacco Type: Cigarettes Second Hand Exposure: No; Do You Dip or Chew Tobacco: No; Hx Alcohol Use: Yes Alcohol type: wine Hx Substance Use: No Preferred Language: Nicaraguan 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 Ability: Effective Health Program Manager Required: No Beliefs That Will Affect Care: None marital status: / Current Living Situation: Alone Feels Safe at Home: Yes Safety Concerns: Feels Safe At This Time Assistive Devices: Walker Review of Systems Review of Systems: Comfortable. Not in distress No pedal Edema c/o pain in flank and rib cage. Physical Exam Physical Exam: GENERAL: Elderly white female who does not appear to be in any overt respiratory distress. She is awake, alert, oriented x3, was able to give me a detailed account of her medical problem. HEENT: Mucous membranes moist. NECK: Supple. No jugular venous distention. CHEST: Bilaterally clear to auscultation. Diminished breath sound in the right upper lobe area. CARDIOVASCULAR: S1 and S2, regular. ABDOMEN: Soft, nontender, obese. EXTREMITIES: Show trace edema. SKIN: Shows no rashes Results & Data ([facility]) Vital Signs (Past 12 Hours) Vital Signs Pulse Pulse Resp BP Pulse Ox Pulse Ox O2 Del Method 07/30/22 11:03 205/146 H 07/30/22 11:03 77 17 07/30/22 11:00 80 23 07/30/22 10:50 84 19 07/30/22 10:40 85 25 H 07/30/22 10:38 171/118 H 07/30/22 10:38 79 17 07/30/22 10:30 79 22 07/30/22 10:20 72 21 07/30/22 10:10 80 22 07/30/22 10:01 81 18 07/30/22 10:00 82 20 07/30/22 09:50 81 18 07/30/22 09:40 71 20 07/30/22 09:30 86 19 07/30/22 09:20 78 18 07/30/22 09:10 80 17 07/30/22 09:01 76 17 07/30/22 09:01 108/70 07/30/22 09:00 75 17 07/30/22 08:50 80 17 07/30/22 08:40 77 16 07/30/22 08:30 75 22 07/30/22 08:20 73 17 07/30/22 08:10 76 18 07/30/22 08:01 148/88 H 07/30/22 08:01 67 18 07/30/22 08:00 71 16 07/30/22 07:50 75 16 07/30/22 07:40 73 18 07/30/22 07:30 78 21 07/30/22 07:22 68 26 H 96 07/30/22 07:20 76 25 H 07/30/22 07:10 81 23 07/30/22 07:00 80 21 07/30/22 07:06 98 07/30/22 07:06 82 16 98 Nasal Cannula 07/30/22 04:10 60 16 07/30/22 04:10 90/58 L 07/30/22 04:02 73 17 07/30/22 04:00 67 17 07/30/22 03:50 64 17 07/30/22 03:40 69 20 07/30/22 03:30 69 28 H 07/30/22 03:20 65 19 07/30/22 03:10 75 21 07/30/22 03:00 68 24 07/30/22 02:50 61 27 H 07/30/22 02:40 72 28 H 07/30/22 02:30 67 24 07/30/22 02:20 70 18 07/30/22 02:10 71 20 07/30/22 02:01 132/102 H 07/30/22 02:01 80 14 07/30/22 02:00 73 18 07/30/22 01:40 61 16 07/30/22 01:30 53 L 18 07/30/22 01:20 62 15 07/30/22 01:10 63 21 07/30/22 01:00 59 L 20 07/30/22 00:50 68 19 07/30/22 01:21 95 Nasal Cannula O2 Del Method O2 Flow Rate 07/30/22 11:03 07/30/22 11:03 07/30/22 11:00 07/30/22 10:50 07/30/22 10:40 07/30/22 10:38 07/30/22 10:38 07/30/22 10:30 07/30/22 10:20 07/30/22 10:10 07/30/22 10:01 07/30/22 10:00 07/30/22 09:50 07/30/22 09:40 07/30/22 09:30 07/30/22 09:20 07/30/22 09:10 07/30/22 09:01 07/30/22 09:01 07/30/22 09:00 07/30/22 08:50 07/30/22 08:40 07/30/22 08:30 07/30/22 08:20 07/30/22 08:10 07/30/22 08:01 07/30/22 08:01 07/30/22 08:00 07/30/22 07:50 07/30/22 07:40 07/30/22 07:30 07/30/22 07:22 07/30/22 07:20 07/30/22 07:10 07/30/22 07:00 07/30/22 07:06 Nasal Cannula 07/30/22 07:06 2 07/30/22 04:10 07/30/22 04:10 07/30/22 04:02 07/30/22 04:00 07/30/22 03:50 07/30/22 03:40 07/30/22 03:30 07/30/22 03:20 07/30/22 03:10 07/30/22 03:00 07/30/22 02:50 07/30/22 02:40 07/30/22 02:30 07/30/22 02:20 07/30/22 02:10 07/30/22 02:01 07/30/22 02:01 07/30/22 02:00 07/30/22 01:40 07/30/22 01:30 07/30/22 01:20 07/30/22 01:10 07/30/22 01:00 07/30/22 00:50 07/30/22 01:21 2 Laboratory Results 07/30/22 05:31 07/30/22 05:31
[2022-07-30] MEDS: UREA (UREA-NA) 15 GM PACK PO SCH ×2 (15:26→21:19)
--- NOTE | 2022-07-30 15:37 | Electrocardiogram Report ---
Test Reason : Blood Pressure : / mmHG Vent. Rate : 080 BPM Atrial Rate : 258 BPM P-R Int : 000 ms QRS Dur : 078 ms QT Int : 368 ms P-R-T Axes : 000 002 -23 degrees QTc Int : 424 ms Poor data quality, interpretation may be adversely affected Atrial fibrillation Inferior infarct , age undetermined prwo Abnormal ECG When compared with ECG of 06-JUN-2021 05:49, Minimal criteria for Anterior infarct are now Present Inferior infarct is now Present QT has shortened Confirmed by Jasen Quiñones ([id number]) on 07/30/2022 3:36:49 PM Referred By: REFERRED SELF Confirmed By:Jasen Quiñones
--- NOTE | 2022-07-30 15:58 | Electrocardiogram Report ---
Test Reason : Blood Pressure : / mmHG Vent. Rate : 084 BPM Atrial Rate : 078 BPM P-R Int : 000 ms QRS Dur : 082 ms QT Int : 370 ms P-R-T Axes : 000 040 -32 degrees QTc Int : 437 ms Poor data quality, interpretation may be adversely affected Atrial fibrillation T wave abnormality, consider inferior ischemia Abnormal ECG When compared with ECG of 29-JUL-2022 20:38, (unconfirmed) Criteria for Inferior infarct are no longer Present Nonspecific T wave abnormality no longer evident in Anterolateral leads Confirmed by Jasen Quiñones ([id number]) on 07/30/2022 3:57:43 PM Referred By: REFERRED SELF Confirmed By:Jasen Quiñones
--- NOTE | 2022-07-30 16:24 | Hospitalist Progress Note ---
Date of Service July 30, 2022 Assessment & Plan (1) Fall: Plan: - likely mechanical as patient denied any symptoms prior or LOC - elevated troponin could be in the setting of demand given fall - patient feels well and at baseline, remembers all details - imaging negative for hemorrhage or fractures - PT/OT evaluation (2) Non-ST elevation (NSTEMI) myocardial infarction: Plan: - likely demand - no ECG changes to suggest ischemia - no chest pain or change in respiratory status - seen by cardiology - trop trended down - telemetry monitoring (3) Acute kidney injury: Plan: - Cr on presentation 1.5, baseline around 1 - likely due to decreased PO intake - given IVF gently overnight with improvement in Cr - holding IVF and diuretics now - monitor UOP - trend Cr - renal following (4) Hyponatremia: Plan: - appears chronic in the high 120s-low 130s - does not appear to be symptomatic - nephrology consulted - mixed picture with 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 of SIADH - started on urea by renal - fluid restriction per renal - trend BMPs (5) Pulmonary HTN: Plan: - suggested on TTE - extensive history of tobacco use in the past - will hold on diuretics for now - continue chronic home O2 by NC 2L - at baseline (6) Hypertension: Plan: - continue amlodipine and metoprolol - hold lisinopril and diuretics given RUTH - restart as tolerated - cardiology and renal following (7) Chronic atrial fibrillation: Plan: - rate controlled - continue metoprolol - continue coumadin - daily INR while inpatient - goal INR 2-3 (8) COPD (chronic obstructive pulmonary disease): Plan: - no formal diagnosis but has extensive tobacco use history - no wheezing or shortness of breath on exam - continue home O2 at 2L NC (9) Obesity: Plan: - noted Plan DVT ppx: coumadin Code Status: Full code Dispo: telemetry Roe Lopez MD Hospital Medicine Admission and Anticipated Discharge Date Admission Date: July 29, 2022 Subjective Patient with hypothyroidism, HLD, COPD on home O2 at 2L NC, CAD, carotid stenosis, HTN, afib h/o of lung CA, anemia who presented after a fall. Found to have elevated troponin, no chest pain or ECG changes. also found to have hy ponatremia that appears chronic, as well as RUTH. Fall thought to be mechanical, for evaluation with PT/OT. Nephrology for urea tabs for hyponatremia. Cardiology consulted for further recs but likely not cardiac fall. The patient feels well today. Only complaining of being cold in the ED, denied chest pain, shortness of breath, cough, fever, n/v/d, abdominal pain, dysuria, LOC. Review of Systems Review of Systems: All systems reviewed & are unremarkable except as noted in Subjective Physical Exam Physical Exam: GENERAL: The patient is obese, not in acute distress. HEENT No pallor, no icterus Pupils equal, round and reactive to light. Oral mucosa moist. NECK: No JVD, no neck masses. CARDIOVASCULAR: S1 and S2 heard. Regular rate and rhythm. No murmur, no gallop. RESPIRATORY SYSTEM: Normal AP diameter. No accessory muscle use. No wheezing, no crackles. ABDOMEN: Soft, bowel sounds present, nontender, no distention. CENTRAL NERVOUS SYSTEM: Alert and oriented. Speech is clear. No facial droop. Insight is good. Obeys simple commands. Moves extremities. EXTREMITIES: Mild pedal edema present, no erythema seen. Results & Data Results & Data ([facility]) Vital Signs (Past 12 Hours) Vital Signs Temp Pulse Pulse Resp BP BP Pulse Ox 07/30/22 14:02 77 18 137/82 98 07/30/22 14:00 36.7 C 76 14 111/77 93 07/30/22 13:30 80 15 07/30/22 13:20 83 22 07/30/22 13:10 77 21 07/30/22 13:00 75 16 07/30/22 12:50 85 22 07/30/22 12:40 83 20 07/30/22 12:30 78 26 H 07/30/22 12:20 95 H 17 07/30/22 12:10 82 16 07/30/22 12:00 83 19 07/30/22 11:50 78 22 07/30/22 11:40 78 18 07/30/22 11:30 88 13 07/30/22 11:20 87 25 H 07/30/22 11:10 80 18 07/30/22 13:36 80 16 137/82 94 07/30/22 11:03 205/146 H 07/30/22 11:03 77 17 07/30/22 11:00 80 23 07/30/22 10:50 84 19 09/16/22 10:40 85 25 H 07/30/22 10:38 171/118 H 07/30/22 10:38 79 17 07/30/22 10:30 79 22 07/30/22 10:20 72 21 07/30/22 10:10 80 22 07/30/22 10:01 81 18 07/30/22 10:00 82 20 07/30/22 09:50 81 18 07/30/22 09:40 71 20 07/30/22 09:30 86 19 07/30/22 09:20 78 18 07/30/22 09:10 80 17 07/30/22 09:01 76 17 07/30/22 09:01 108/70 07/30/22 09:00 75 17 07/30/22 08:50 80 17 07/30/22 08:40 77 16 07/30/22 08:30 75 22 07/30/22 08:20 73 17 07/30/22 08:10 76 18 07/30/22 08:01 148/88 H 07/30/22 08:01 67 18 07/30/22 08:00 71 16 07/30/22 07:50 75 16 07/30/22 07:40 73 18 07/30/22 07:30 78 21 07/30/22 07:22 68 26 H 96 07/30/22 07:20 76 25 H 07/30/22 07:10 81 23 07/30/22 07:00 80 21 07/30/22 07:06 07/30/22 07:06 82 16 98 Pulse Ox O2 Del Method O2 Del Method O2 Flow Rate 07/30/22 14:02 Nasal Cannula 2 07/30/22 14:00 Nasal Cannula 2 07/30/22 13:30 07/30/22 13:20 07/30/22 13:10 07/30/22 13:00 07/30/22 12:50 07/30/22 12:40 07/30/22 12:30 07/30/22 12:20 07/30/22 12:10 07/30/22 12:00 07/30/22 11:50 07/30/22 11:40 07/30/22 11:30 07/30/22 11:20 07/30/22 11:10 07/30/22 13:36 Room Air 07/30/22 11:03 07/30/22 11:03 07/30/22 11:00 07/30/22 10:50 07/30/22 10:40 07/30/22 10:38 07/30/22 10:38 07/30/22 10:30 07/30/22 10:20 07/30/22 10:10 07/30/22 10:01 07/30/22 10:00 07/30/22 09:50 07/30/22 09:40 07/30/22 09:30 07/30/22 09:20 07/30/22 09:10 07/30/22 09:01 07/30/22 09:01 07/30/22 09:00 07/30/22 08:50 07/30/22 08:40 07/30/22 08:30 07/30/22 08:20 07/30/22 08:10 07/30/22 08:01 07/30/22 08:01 07/30/22 08:00 07/30/22 07:50 07/30/22 07:40 07/30/22 07:30 07/30/22 07:22 07/30/22 07:20 07/30/22 07:10 07/30/22 07:00 07/30/22 07:06 98 Nasal Cannula 07/30/22 07:06 Nasal Cannula 2 Laboratory Results Short CBC 07/29/22 07/30/22 Range/Units 20:30 05:31 WBC 7.67 5.65 (4.8-10.8) K/ul Hgb 13.3 12.7 (12.0-16.0) g/dl Hct 40.1 39.0 (34.1-44.9) % Plt Count 203 165 (130-400) K/uL BMP 07/29/22 07/30/22 20:30 05:31 Sodium 126 L 126 L Potassium 4.8 4.8 Chloride 90 L 92 L Carbon Dioxide 29 27 BUN 23 23 Creatinine 1.49 H 1.23 H Glucose 91 92 Calcium 9.6 9.0 Liver Function 07/29/22 Range/Units 20:30 Total Bilirubin 0.9 (0.2-1.0) mg/dl AST 70 H (13-39) U/L ALT 47 (7-52) U/L Alkaline Phosphatase 116 H (34-104) U/L Albumin 4.1 (3.4-5.0) gm/dl Diagnostic Findings reviewed Medications Administered Current Inpatient Medications Acetaminophen (Acetaminophen 325 Mg Tab) 650 mg PO Q4H PRN PRN Reason: Pain or Fever Stop: 08/29/22 01:20 Hydrocodone Bitart/Acetaminophen (Hydrocodone/Acetaminophen 7.5/325mg Tab) 1 tab PO Q6 PRN PRN Reason: Pain Stop: 08/13/22 01:20 Albuterol (Albuterol Hfa 8 Gm Inhaler) 2 puffs INH Q6H PRN PRN Reason: shortness of breath or wheezin Stop: 08/29/22 01:20 Albuterol (Albut/Ipratrop 3mg/0.5mg Neb 3 Ml Vial) 3 ml INH Q4 PRN; Protocol PRN Reason: Shortness Of Breath Or Wheezing Stop: 08/29/22 01:20 Alprazolam (Alprazolam 0.5 Mg Tablet) 1 mg PO BID PRN PRN Reason: Anxiety Stop: 08/29/22 01:20 Amlodipine Besylate (Amlodipine Besylate 5 Mg Tab) 2.5 mg PO DAILY [facility] Stop: 08/29/22 08:59 Last Admin: 07/30/22 10:41 Dose: 2.5 mg Aspirin (Aspirin 81 Mg Ectab) 81 mg PO DAILY [facility] Stop: 08/29/22 08:59 Last Admin: 07/30/22 10:41 Dose: 81 mg Atorvastatin Calcium (Atorvastatin 10 Mg Tab) 10 mg PO PM [facility] Stop: 08/29/22 20:59 Cyclobenzaprine HCl (Cyclobenzaprine Hcl 10 Mg Tab) 10 mg PO DAILY PRN PRN Reason: Muscle Spasm Stop: 08/29/22 01:20 Last Admin: 07/30/22 10:40 Dose: 10 mg Docusate Sodium (Docusate Sodium 100 Mg Cap) 100 mg PO BID [facility] Stop: 08/29/22 08:59 Last Admin: 07/30/22 10:41 Dose: 100 mg Fluticasone Propionate (Fluticasone Propionate Na Spr 16 Gm Btl) 2 sprays NA DAILY PRN PRN Reason: allergies Stop: 08/29/22 01:20 Levothyroxine Sodium (Levothyroxine Sodium 100 Mcg Tablet) 100 mcg PO DAILYBB [facility] Stop: 08/29/22 06:29 Last Admin: 07/30/22 09:26 Dose: 100 mcg Magnesium Oxide (Magnesium Oxide 400 Mg Tab) 400 mg PO BID [facility] Stop: 08/01/22 08:59 Last Admin: 07/30/22 10:41 Dose: 400 mg Meclizine HCl (Meclizine Hcl 25 Mg Tab) 25 mg PO TID PRN PRN Reason: dizziness Stop: 08/29/22 01:20 Melatonin (Melatonin 3 Mg Tab) 3 mg PO HS [facility] Stop: 08/29/22 20:59 Metoprolol Succinate (Metoprolol Succ 25mg Ext Rel Tab) 12.5 mg PO DAILY [facility] Stop: 08/29/22 08:59 Last Admin: 07/30/22 10:41 Dose: 12.5 mg Morphine Sulfate (Morphine Sulfate Cr 15 Mg Tabcr) 15 mg PO BID [facility] Stop: 08/13/22 08:59 Last Admin: 07/30/22 10:40 Dose: 15 mg Multivitamins (Multivitamin Tab) 1 tab PO DAILY [facility] Stop: 08/29/22 08:59 Last Admin: 07/30/22 10:41 Dose: 1 tab Nitroglycerin (Nitroglycerin Sl 0.4 Mg/Tab Tab) 0.4 mg SL UD PRN PRN Reason: Chest Pain Stop: 08/29/22 01:20 Ondansetron HCl (Ondansetron Inj 2 Mg/Ml 2 Ml Vial) 4 mg IV Q6H PRN PRN Reason: Nausea Stop: 08/29/22 01:20 Pantoprazole Sodium (Pantoprazole 40 Mg Tab) 40 mg PO DAILY [facility] Stop: 08/29/22 08:59 Last Admin: 07/30/22 10:41 Dose: 40 mg Polyethylene Glycol (Polyethylene (Miralax) 17 Gm Pack) 17 gm PO DAILY PRN PRN Reason: Constipation Stop: 08/29/22 01:20 Sennosides (Senna 8.6 Mg Tab) 17.2 mg PO HS [facility] Stop: 08/29/22 20:59 Urea (Urea (Urea-Na) 15 Gm Pack) 15 gm PO BID [facility] Stop: 08/29/22 13:29 Last Admin: 07/30/22 15:26 Dose: 15 gm Vitamin D (Cholecalciferol 1,000 Units 25 Mcg Tab) 1,000 units PO DAILY [facility] Stop: 08/29/22 08:59 Last Admin: 07/30/22 10:41 Dose: 1,000 units Warfarin Sodium (Warfarin Sod 5 Mg Tab) 5 mg PO SuMoWeFrSa@1600 [facility] Stop: 08/29/22 15:59 Warfarin Sodium (Warfarin Sod 2.5 Mg Tab) 2.5 mg PO TuTh@1600 [facility] Stop: 09/02/22 15:59
[2022-07-30] MEDS: WARFARIN SOD 5 MG TAB PO SCH (16:41)
[2022-07-30] MEDS ORDERED: Flu Vaccine (Fluarix) 0.5mL SYR (Standard Dose) IM ONE (18:00)
[2022-07-30] MEDS ORDERED: Flu Vaccine-High Dose (Fluzone-HD) PF 65+ 0.7mL SYR IM ONE (18:00)
[2022-07-30] MEDS: MELATONIN 3 MG TAB PO SCH (21:19)
[2022-07-30] MEDS: ATORVASTATIN 10 MG TAB PO SCH (21:19)
[2022-07-30] MEDS: SENNA 8.6 MG TAB PO SCH (21:19)
[2022-07-31] MEDS: LEVOTHYROXINE SODIUM 100 MCG TABLET PO SCH (06:21)
[2022-07-31 07:41] LABS: Hematocrit (blood only) 39.5 % (34.1-44.9); Hemoglobin 13.3 g/dl (12.0-16.0); Mean Corpuscular Hemoglobin 30.5 pg (25.0-34.0); Mean Corpuscular Hgb Conc 33.7 g/dL (32.0-36.0); Mean Corpuscular Volume 90.6 fL (80.0-100.0); Mean Platelet Volume 10.1 fL (9.4-12.3); Platelet Count 199 K/uL (130-400); RDW Coefficient of Variation 14.3 % (11.5-14.5); RDW Standard Deviation 47.8 fL (36.4-46.3); Red Blood Count 4.36 M/uL (3.93-5.22); White Blood Count 5.48 K/ul (4.8-10.8)
[2022-07-31 07:55] LABS: Prothrombin Time 20.9 Seconds (9.0-12.0)
[2022-07-31 08:11] LABS: Creatinine Clr Calc Pharmacy 58.4 ml/min; Est GFR (African American) 76.6 ml/min; Est GFR (Non-African American) 66.1 ml/min; Magnesium 1.8 mg/dl (1.7-2.4); Phosphorus 3.3 mg/dl (2.5-4.9); Potassium 4.6 mmol/L (3.5-5.1)
[2022-07-31] MEDS: ASPIRIN 81 MG ECTAB PO SCH (08:49)
[2022-07-31] MEDS: amLODIPine BESYLATE 5 MG TAB PO SCH (08:49)
[2022-07-31] MEDS: MAGNESIUM OXIDE 400 MG TAB PO SCH ×2 (08:50→20:11)
[2022-07-31] MEDS: DOCUSATE SODIUM 100 MG CAP PO SCH ×2 (08:50→20:13)
[2022-07-31] MEDS: CHOLECALCIFEROL 1,000 UNITS 25 MCG TAB PO SCH (08:50)
[2022-07-31] MEDS: MULTIVITAMIN TAB PO SCH (08:51)
[2022-07-31] MEDS: PANTOprazole 40 MG TAB PO SCH (08:51)
[2022-07-31] MEDS: METOPROLOL SUCC 25MG EXT REL TAB PO SCH (08:51)
[2022-07-31] MEDS: UREA (UREA-NA) 15 GM PACK PO SCH ×2 (08:52→20:10)
[2022-07-31] MEDS: MoRPHine SULFATE CR 15 MG TABCR PO SCH ×2 (08:55→20:10)
--- NOTE | 2022-07-31 12:53 | Hospitalist Progress Note ---
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 - started on urea by renal - fluid restriction per renal - trend BMPs (2) Fall: Plan: - likely mechanical as patient denied any symptoms prior or LOC - elevated troponin could be in the setting of demand given fall - patient feels well and at baseline, remembers all details - imaging negative for hemorrhage or fractures - PT/OT evaluation (3) Non-ST elevation (NSTEMI) myocardial infarction: Plan: - likely demand - no ECG changes to suggest ischemia - no chest pain or change in respiratory status - seen by cardiology - trop trended down - telemetry monitoring (4) Acute kidney injury: Plan: - Cr on presentation 1.5, baseline around 1 - likely due to decreased PO intake - given IVF gently overnight with improvement in Cr - holding IVF and diuretics now - monitor UOP - trend Cr - back to baseline at 0.8 - renal following (5) Pulmonary HTN: Plan: - suggested on TTE - extensive history of tobacco use in the past - will hold on diuretics for now - continue chronic home O2 by NC 2L - at baseline (6) Hypertension: Plan: - continue amlodipine and metoprolol - hold lisinopril and diuretics given RUTH - restrat lisinopril as tolerated - BP is acceptable at this time - restart as tolerated - cardiology and renal following (7) Chronic atrial fibrillation: Plan: - rate controlled - continue metoprolol - continue coumadin - daily INR while inpatient - goal INR 2-3 (8) COPD (chronic obstructive pulmonary disease): Plan: - no formal diagnosis but has extensive tobacco use history - no wheezing or shortness of breath on exam - continue home O2 at 2L NC (9) Obesity: Plan: - noted Plan DVT ppx: coumadin Code Status: Full code Dispo: telemetry Roe Lopez MD Hospital Medicine Admission and Anticipated Discharge Date Admission Date: July 29, 2022 Subjective Patient with hypothyroidism, HLD, COPD on home O2 at 2L NC, CAD, carotid stenosis, HTN, afib h/o of lung CA, anemia who presented after a fall. Found to have elevated troponin, no chest pain or ECG changes. also found to have hyponatremia that appears chronic, as well as RUTH. Fall thought to be mechanical, for evaluation with PT/OT. Nephrology for urea tabs for hyponatremia. Cardiology consulted for further recs but likely not cardiac fall. The patient feels well today. Would like to go home but denied chest pain, shortness of breath, cough, fever, n/v/d, abdominal pain, dysuria, LOC. Review of Systems Review of Systems: All systems reviewed & are unremarkable except as noted in Subjective Physical Exam Physical Exam: GENERAL: The patient is obese, not in acute distress. HEENT No pallor, no icterus Pupils equal, round and reactive to light. Oral mucosa moist. NECK: No JVD, no neck masses. CARDIOVASCULAR: S1 and S2 heard. Regular rate and rhythm. No murmur, no gallop. RESPIRATORY SYSTEM: Normal AP diameter. No accessory muscle use. No wheezing, no crackles. ABDOMEN: Soft, bowel sounds present, nontender, no distention. CENTRAL NERVOUS SYSTEM: Alert and oriented. Speech is clear. No facial droop. Insight is good. Obeys simple commands. Moves extremities. EXTREMITIES: Mild pedal edema present, no erythema seen. Results & Data Results & Data ([facility]) Vital Signs (Past 12 Hours) Vital Signs Temp Pulse Pulse Resp BP BP Pulse Ox 07/31/22 12:00 37.0 C 76 20 138/94 93 07/31/22 08:00 69 07/31/22 07:35 07/31/22 08:01 36.6 C 73 18 138/79 97 07/31/22 03:00 36.6 C 71 18 124/79 94 O2 Del Method O2 Flow Rate 07/31/22 12:00 Nasal Cannula 2 07/31/22 08:00 07/31/22 07:35 Nasal Cannula 2 07/31/22 08:01 Nasal Cannula 2 07/31/22 03:00 Nasal Cannula 2 Laboratory Results Short CBC 07/31/22 Range/Units 06:43 WBC 5.48 (4.8-10.8) K/ul Hgb 13.3 (12.0-16.0) g/dl Hct 39.5 (34.1-44.9) % Plt Count 199 (130-400) K/uL BMP 07/31/22 06:43 Sodium 128 L Potassium 4.6 Chloride 91 L Carbon Dioxide 33 H BUN 42 H Creatinine 0.84 D Glucose 96 Calcium 9.0 Diagnostic Findings reviewed Medications Administered Current Inpatient Medications Acetaminophen (Acetaminophen 325 Mg Tab) 650 mg PO Q4H PRN PRN Reason: Pain or Fever Stop: 08/29/22 01:20 Hydrocodone Bitart/Acetaminophen (Hydrocodone/Acetaminophen 7.5/325mg Tab) 1 tab PO Q6 PRN PRN Reason: Pain Stop: 08/13/22 01:20 Albuterol (Albuterol Hfa 8 Gm Inhaler) 2 puffs INH Q6H PRN PRN Reason: shortness of breath or wheezin Stop: 08/29/22 01:20 Albuterol (Albut/Ipratrop 3mg/0.5mg Neb 3 Ml Vial) 3 ml INH Q4 PRN; Protocol PRN Reason: Shortness Of Breath Or Wheezing Stop: 08/29/22 01:20 Alprazolam (Alprazolam 0.5 Mg Tablet) 1 mg PO BID PRN PRN Reason: Anxiety Stop: 08/29/22 01:20 Amlodipine Besylate (Amlodipine Besylate 5 Mg Tab) 2.5 mg PO DAILY [facility] Stop: 08/29/22 08:59 Last Admin: 07/31/22 08:49 Dose: 2.5 mg Aspirin (Aspirin 81 Mg Ectab) 81 mg PO DAILY [facility] Stop: 08/29/22 08:59 Last Admin: 07/31/22 08:49 Dose: 81 mg Atorvastatin Calcium (Atorvastatin 10 Mg Tab) 10 mg PO PM [facility] Stop: 08/29/22 20:59 Last Admin: 07/30/22 21:19 Dose: 10 mg Cyclobenzaprine HCl (Cyclobenzaprine Hcl 10 Mg Tab) 10 mg PO DAILY PRN PRN Reason: Muscle Spasm Stop: 08/29/22 01:20 Last Admin: 07/30/22 10:40 Dose: 10 mg Docusate Sodium (Docusate Sodium 100 Mg Cap) 100 mg PO BID [facility] Stop: 08/29/22 08:59 Last Admin: 07/31/22 08:50 Dose: 100 mg Fluticasone Propionate (Fluticasone Propionate Na Spr 16 Gm Btl) 2 sprays NA DAILY PRN PRN Reason: allergies Stop: 08/29/22 01:20 Levothyroxine Sodium (Levothyroxine Sodium 100 Mcg Tablet) 100 mcg PO DAILYBB [facility] Stop: 08/29/22 06:29 Last Admin: 07/31/22 06:21 Dose: 100 mcg Magnesium Oxide (Magnesium Oxide 400 Mg Tab) 400 mg PO BID [facility] Stop: 08/01/22 08:59 Last Admin: 07/31/22 08:50 Dose: 400 mg Meclizine HCl (Meclizine Hcl 25 Mg Tab) 25 mg PO TID PRN PRN Reason: dizziness Stop: 08/29/22 01:20 Melatonin (Melatonin 3 Mg Tab) 3 mg PO HS [facility] Stop: 08/29/22 20:59 Last Admin: 07/30/22 21:19 Dose: 3 mg Metoprolol Succinate (Metoprolol Succ 25mg Ext Rel Tab) 12.5 mg PO DAILY [facility] Stop: 08/29/22 08:59 Last Admin: 07/31/22 08:51 Dose: 12.5 mg Morphine Sulfate (Morphine Sulfate Cr 15 Mg Tabcr) 15 mg PO BID [facility] Stop: 08/13/22 08:59 Last Admin: 07/31/22 08:55 Dose: 15 mg Multivitamins (Multivitamin Tab) 1 tab PO DAILY [facility] Stop: 08/29/22 08:59 Last Admin: 07/31/22 08:51 Dose: 1 tab Nitroglycerin (Nitroglycerin Sl 0.4 Mg/Tab Tab) 0.4 mg SL UD PRN PRN Reason: Chest Pain Stop: 08/29/22 01:20 Ondansetron HCl (Ondansetron Inj 2 Mg/Ml 2 Ml Vial) 4 mg IV Q6H PRN PRN Reason: Nausea Stop: 08/29/22 01:20 Pantoprazole Sodium (Pantoprazole 40 Mg Tab) 40 mg PO DAILY [facility] Stop: 08/29/22 08:59 Last Admin: 07/31/22 08:51 Dose: 40 mg Polyethylene Glycol (Polyethylene (Miralax) 17 Gm Pack) 17 gm PO DAILY PRN PRN Reason: Constipation Stop: 08/29/22 01:20 Sennosides (Senna 8.6 Mg Tab) 17.2 mg PO HS [facility] Stop: 08/29/22 20:59 Last Admin: 07/30/22 21:19 Dose: 17.2 mg Urea (Urea (Urea-Na) 15 Gm Pack) 15 gm PO BID [facility] Stop: 08/29/22 13:29 Last Admin: 07/31/22 08:52 Dose: 15 gm Vitamin D (Cholecalciferol 1,000 Units 25 Mcg Tab) 1,000 units PO DAILY [facility] Stop: 08/29/22 08:59 Last Admin: 07/31/22 08:50 Dose: 1,000 units Warfarin Sodium (Warfarin Sod 5 Mg Tab) 5 mg PO SuMoWeFrSa@1600 [facility] Stop: 08/29/22 15:59 Last Admin: 07/30/22 16:41 Dose: 5 mg Warfarin Sodium (Warfarin Sod 2.5 Mg Tab) 2.5 mg PO TuTh@1600 [facility] Stop: 09/02/22 15:59
--- NOTE | 2022-07-31 14:02 | Electrocardiogram Report ---
Test Reason : Blood Pressure : / mmHG Vent. Rate : 078 BPM Atrial Rate : 085 BPM P-R Int : 000 ms QRS Dur : 090 ms QT Int : 372 ms P-R-T Axes : 000 027 -37 degrees QTc Int : 424 ms Atrial fibrillation T wave abnormality, consider inferior ischemia Abnormal ECG When compared with ECG of 30-JUL-2022 09:30, Nonspecific T wave abnormality now evident in Anterolateral leads Confirmed by Jasen Quiñones ([id number]) on 07/31/2022 2:01:52 PM Referred By: REFERRED SELF Confirmed By:Jasen Quiñones
[2022-07-31] MEDS: WARFARIN SOD 5 MG TAB PO SCH (16:33)
[2022-07-31] MEDS: ONDANSETRON INJ 2 MG/ML 2 ML VIAL IV PRN (20:07)
[2022-07-31] MEDS: SENNA 8.6 MG TAB PO SCH (20:11)
[2022-07-31] MEDS: ATORVASTATIN 10 MG TAB PO SCH (20:11)
[2022-07-31] MEDS: MELATONIN 3 MG TAB PO SCH (20:13)
[2022-08-01] MEDS: LEVOTHYROXINE SODIUM 100 MCG TABLET PO SCH (06:20)
[2022-08-01 06:27] LABS: INR 2.8 (0.9-1.1); Prothrombin Time 27.9 Seconds (9.0-12.0)
[2022-08-01 06:32] LABS: BUN Creatinine Ratio 47.9 (10-20); Calcium 9.1 mg/dl (8.5-10.1); Creatinine Clr Calc Pharmacy 69.1 ml/min; Est GFR (African American) 93.9 ml/min; Potassium 4.5 mmol/L (3.5-5.1)
[2022-08-01] MEDS: METOPROLOL SUCC 25MG EXT REL TAB PO SCH (08:42)
[2022-08-01] MEDS: ASPIRIN 81 MG ECTAB PO SCH (08:43)
[2022-08-01] MEDS: CHOLECALCIFEROL 1,000 UNITS 25 MCG TAB PO SCH (08:43)
[2022-08-01] MEDS: amLODIPine BESYLATE 5 MG TAB PO SCH (08:44)
[2022-08-01] MEDS: MULTIVITAMIN TAB PO SCH (08:45)
[2022-08-01] MEDS: PANTOprazole 40 MG TAB PO SCH (08:45)
[2022-08-01] MEDS: UREA (UREA-NA) 15 GM PACK PO SCH (08:46)
[2022-08-01] MEDS: DOCUSATE SODIUM 100 MG CAP PO SCH ×2 (08:51→20:16)
[2022-08-01] MEDS: MoRPHine SULFATE CR 15 MG TABCR PO SCH ×2 (08:51→20:16)
[2022-08-01] MEDS: ONDANSETRON INJ 2 MG/ML 2 ML VIAL IV PRN ×2 (10:51→17:54)
--- NOTE | 2022-08-01 11:03 | Hospitalist Progress Note ---
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 - started on urea by renal - fluid restriction per renal - trend BMPs - improving slowly - will follow up with renal about discharge planning - pending PT/OT evaluation (2) Fall: Plan: - likely mechanical as patient denied any symptoms prior or LOC - elevated troponin could be in the setting of demand given fall - patient feels well and at baseline, remembers all details - imaging negative for hemorrhage or fractures - PT/OT evaluation - pending (3) Non-ST elevation (NSTEMI) myocardial infarction: Plan: - likely demand - no ECG changes to suggest ischemia - no chest pain or change in respiratory status - seen by cardiology - trop trended down - telemetry monitoring (4) Acute kidney injury: Plan: - Cr on presentation 1.5, baseline around 1 - likely due to decreased PO intake - given IVF gently overnight with improvement in Cr - holding IVF and diuretics now - monitor UOP - trend Cr - back to baseline at 0.8 - renal following (5) Pulmonary HTN: Plan: - suggested on TTE - extensive history of tobacco use in the past - will hold on diuretics for now - continue chronic home O2 by NC 2L - at baseline (6) Hypertension: Plan: - continue amlodipine and metoprolol - hold lisinopril and diuretics given RUTH - restrat lisinopril as tolerated - BP is acceptable at this time - restart as tolerated - cardiology and renal following (7) Chronic atrial fibrillation: Plan: - rate controlled - continue metoprolol - continue coumadin - daily INR while inpatient - goal INR 2-3 (8) COPD (chronic obstructive pulmonary disease): Plan: - no formal diagnosis but has extensive tobacco use history - no wheezing or shortness of breath on exam - continue home O2 at 2L NC (9) Obesity: Plan: - noted Plan DVT ppx: coumadin Code Status: Full code Dispo: telemetry Roe Lopez MD [facility] Medicine Admission and Anticipated Discharge Date Admission Date: July 29, 2022 Subjective Patient with hypothyroidism, HLD, COPD on home O2 at 2L NC, CAD, carotid stenosis, HTN, afib h/o of lung CA, anemia who presented after a fall. Found to have elevated troponin, no chest pain or ECG changes. also found to have h yponatremia that appears chronic, as well as RUTH. Fall thought to be mechanical, for evaluation with PT/OT. Nephrology for urea tabs for hyponatremia. Cardiology consulted for further recs but likely not cardiac fall. The patient feels well today. Would like to go home but denied chest pain, shortness of breath, cough, fever, n/v/d, abdominal pain, dysuria, LOC. Review of Systems Review of Systems: All systems reviewed & are unremarkable except as noted in Subjective Physical Exam Physical Exam: GENERAL: The patient is obese, not in acute distress. HEENT No pallor, no icterus Pupils equal, round and reactive to light. Oral m ucosa moist. NECK: No JVD, no neck masses. CARDIOVASCULAR: S1 and S2 heard. Regular rate and rhythm. No murmur, no gallop. RESPIRATORY SYSTEM: Normal AP diameter. No accessory muscle use. No wheezing, no crackles. ABDOMEN: Soft, bowel sounds present, nontender, no distention. CENTRAL NERVOUS SYSTEM: Alert and oriented. Speech is clear. No facial droop. Insight is good. Obeys simple commands. Moves extremities. EXTREMITIES: Mild pedal edema present, no erythema seen. Results & Data Results & Data ([facility]) Vital Signs (Past 12 Hours) Vital Signs Temp Pulse Pulse Resp BP BP Pulse Ox 08/01/22 08:16 36.9 C 81 16 164/82 H 94 08/01/22 07:32 78 08/01/22 03:25 36.6 C 81 20 175/101 H 97 O2 Del Method O2 Flow Rate 08/01/22 08:16 Nasal Cannula 4 08/01/22 07:32 08/01/22 03:25 Nasal Cannula 2 Laboratory Results BMP 08/01/22 05:47 Sodium 129 L Potassium 4.5 Chloride 89 L Carbon Dioxide 33 H BUN 34 H Creatinine 0.71 Glucose 99 Calcium 9.1 Diagnostic Findings reviewed Medications Administered Current Inpatient Medications Acetaminophen (Acetaminophen 325 Mg Tab) 650 mg PO Q4H PRN PRN Reason: Pain or Fever Stop: 08/29/22 01:20 Hydrocodone Bitart/Acetaminophen (Hydrocodone/Acetaminophen 7.5/325mg Tab) 1 tab PO Q6 PRN PRN Reason: Pain Stop: 08/13/22 01:20 Albuterol (Albuterol Hfa 8 Gm Inhaler) 2 puffs INH Q6H PRN PRN Reason: shortness of breath or wheezin Stop: 08/29/22 01:20 Albuterol (Albut/Ipratrop 3mg/0.5mg Neb 3 Ml Vial) 3 ml INH Q4 PRN; Protocol PRN Reason: Shortness Of Breath Or Wheezing Stop: 08/29/22 01:20 Alprazolam (Alprazolam 0.5 Mg Tablet) 1 mg PO BID PRN PRN Reason: Anxiety Stop: 08/29/22 01:20 Amlodipine Besylate (Amlodipine Besylate 5 Mg Tab) 2.5 mg PO DAILY CADEN Stop: 08/29/22 08:59 Last Admin: 08/01/22 08:44 Dose: 2.5 mg Aspirin (Aspirin 81 Mg Ectab) 81 mg PO DAILY CADEN Stop: 08/29/22 08:59 Last Admin: 08/01/22 08:43 Dose: 81 mg Atorvastatin Calcium (Atorvastatin 10 Mg Tab) 10 mg PO PM CADEN Stop: 08/29/22 20:59 Last Admin: 07/31/22 20:11 Dose: 10 mg Cyclobenzaprine HCl (Cyclobenzaprine Hcl 10 Mg Tab) 10 mg PO DAILY PRN PRN Reason: Muscle Spasm Stop: 08/29/22 01:20 Last Admin: 07/30/22 10:40 Dose: 10 mg Docusate Sodium (Docusate Sodium 100 Mg Cap) 100 mg PO BID CADEN Stop: 08/29/22 08:59 Last Admin: 08/01/22 08:51 Dose: 100 mg Fluticasone Propionate (Fluticasone Propionate Na Spr 16 Gm Btl) 2 sprays NA DAILY PRN PRN Reason: allergies Stop: 08/29/22 01:20 Levothyroxine Sodium (Levothyroxine Sodium 100 Mcg Tablet) 100 mcg PO DAILYBB CADEN Stop: 08/29/22 06:29 Last Admin: 08/01/22 06:20 Dose: 100 mcg Meclizine HCl (Meclizine Hcl 25 Mg Tab) 25 mg PO TID PRN PRN Reason: dizziness Stop: 08/29/22 01:20 Melatonin (Melatonin 3 Mg Tab) 3 mg PO HS CADEN Stop: 08/29/22 20:59 Last Admin: 07/31/22 20:13 Dose: 3 mg Metoprolol Succinate (Metoprolol Succ 25mg Ext Rel Tab) 12.5 mg PO DAILY [facility] Stop: 08/29/22 08:59 Last Admin: 08/01/22 08:42 Dose: 12.5 mg Morphine Sulfate (Morphine Sulfate Cr 15 Mg Tabcr) 15 mg PO BID CADEN Stop: 08/13/22 08:59 Last Admin: 08/01/22 08:51 Dose: 15 mg Multivitamins (Multivitamin Tab) 1 tab PO DAILY CADEN Stop: 08/29/22 08:59 Last Admin: 08/01/22 08:45 Dose: 1 tab Nitroglycerin (Nitroglycerin Sl 0.4 Mg/Tab Tab) 0.4 mg SL UD PRN PRN Reason: Chest Pain Stop: 08/29/22 01:20 Ondansetron HCl (Ondansetron Inj 2 Mg/Ml 2 Ml Vial) 4 mg IV Q6H PRN PRN Reason: Nausea Stop: 08/29/22 01:20 Last Admin: 08/01/22 10:51 Dose: 4 mg Pantoprazole Sodium (Pantoprazole 40 Mg Tab) 40 mg PO DAILY CADEN Stop: 08/29/22 08:59 Last Admin: 08/01/22 08:45 Dose: 40 mg Polyethylene Glycol (Polyethylene (Miralax) 17 Gm Pack) 17 gm PO DAILY PRN PRN Reason: Constipation Stop: 08/29/22 01:20 Sennosides (Senna 8.6 Mg Tab) 17.2 mg PO HS CADEN Stop: 08/29/22 20:59 Last Admin: 07/31/22 20:11 Dose: 17.2 mg Urea (Urea (Urea-Na) 15 Gm Pack) 15 gm PO BID CADEN Stop: 08/29/22 13:29 Last Admin: 08/01/22 08:46 Dose: 15 gm Vitamin D (Cholecalciferol 1,000 Units 25 Mcg Tab) 1,000 units PO DAILY CADEN Stop: 08/29/22 08:59 Last Admin: 08/01/22 08:43 Dose: 1,000 units Warfarin Sodium (Warfarin Sod 5 Mg Tab) 5 mg PO SuMoWeFrSa@1600 [facility] Stop: 08/29/22 15:59 Last Admin: 07/31/22 16:33 Dose: 5 mg Warfarin Sodium (Warfarin Sod 2.5 Mg Tab) 2.5 mg PO TuTh@1600 [facility] Stop: 09/02/22 15:59
[2022-08-01] MEDS: lisinopril 20 MG TAB PO SCH (12:08)
--- NOTE | 2022-08-01 13:24 | Nephrology Progress Note ---
Date of Service August 01, 2022 Assessment & Plan Admission and Anticipated Discharge Date Admission Date: July 29, 2022 Subjective Assessment & Plan (1) Hyponatremia: Hyponatremia: She has Chronic Hyponatremia--na hgih 120's and low 130's. Rec: 1 FFR to 1.5 lit 2 Higher protein intake 3 restart lasix at a higher dose of 20 daily. ( as a loop diuretic Much less likely to lower na--infact more likely to raise the serum Na by lowering urine Osm) but stop Aldactone ( more likely to cause hyponatremia) 4 Stop Urea 15 mg BID.( cannot get it outpt easily and tastes horrible with very poor compliance) 5 No salt tabs as she is Hypertensive. 6 Plan for Discharge tomorrow S---feels fine. wants to go home. She feels her leg is more edematous and feels tight. Physical Exam Physical Exam: GENERAL: Elderly white female who does not appear to be in any overt respiratory distress. She is awake, alert, oriented x3, was able to give me a detailed account of her medical problem. HEENT: Mucous membranes moist. NECK: Supple. No jugular venous distention. CHEST: Bilaterally clear to auscultation. Diminished breath sound in the right upper lobe area. CARDIOVASCULAR: S1 and S2, regular. ABDOMEN: Soft, nontender, obese. EXTREMITIES: Show trace edema. SKIN: Shows no rashes Results & Data ([facility]) Vital Signs (Past 12 Hours) Vital Signs Temp Pulse Pulse Resp BP BP Pulse Ox 08/01/22 11:46 37.0 C 94 H 16 149/92 H 94 08/01/22 08:00 08/01/22 10:58 97 08/01/22 08:16 36.9 C 81 16 164/82 H 94 08/01/22 07:32 78 08/01/22 03:25 36.6 C 81 20 175/101 H 97 O2 Del Method O2 Flow Rate 08/01/22 11:46 Nasal Cannula 2 08/01/22 08:00 Nasal Cannula 2 08/01/22 10:58 08/01/22 08:16 Nasal Cannula 4 08/01/22 07:32 08/01/22 03:25 Nasal Cannula 2
[2022-08-01] MEDS: FUROSEMIDE 20 MG TAB PO SCH (13:45)
[2022-08-01] MEDS: WARFARIN SOD 5 MG TAB PO SCH (15:48)
[2022-08-01] MEDS ORDERED: PROMETHAZINE HCL 12.5 MG in SODIUM CHLORIDE 0.9% 50 ML IV STA (19:57)
[2022-08-01] MEDS: ATORVASTATIN 10 MG TAB PO SCH (20:15)
[2022-08-01] MEDS: MELATONIN 3 MG TAB PO SCH (20:16)
[2022-08-01] MEDS: SENNA 8.6 MG TAB PO SCH (20:16)
[2022-08-02] MEDS: LEVOTHYROXINE SODIUM 100 MCG TABLET PO SCH (06:08)
[2022-08-02 07:11] LABS: BUN Creatinine Ratio 26.7 (10-20); Calcium 9.5 mg/dl (8.5-10.1); Creatinine Clr Calc Pharmacy 55.7 ml/min; Est GFR (African American) 74.5 ml/min; Est GFR (Non-African American) 64.3 ml/min; Magnesium 1.8 mg/dl (1.7-2.4); Phosphorus 3.9 mg/dl (2.5-4.9); Potassium 4.1 mmol/L (3.5-5.1)
[2022-08-02 07:22] LABS: INR 3.6 (0.9-1.1); Prothrombin Time 35.4 Seconds (9.0-12.0)
[2022-08-02] MEDS: CHOLECALCIFEROL 1,000 UNITS 25 MCG TAB PO SCH (08:26)
[2022-08-02] MEDS: PANTOprazole 40 MG TAB PO SCH (08:27)
[2022-08-02] MEDS: FUROSEMIDE 20 MG TAB PO SCH (08:27)
[2022-08-02] MEDS: ASPIRIN 81 MG ECTAB PO SCH (08:27)
[2022-08-02] MEDS: amLODIPine BESYLATE 5 MG TAB PO SCH (08:27)
[2022-08-02] MEDS: MULTIVITAMIN TAB PO SCH (08:27)
[2022-08-02] MEDS: METOPROLOL SUCC 25MG EXT REL TAB PO SCH (08:27)
[2022-08-02] MEDS: lisinopril 20 MG TAB PO SCH (08:27)
[2022-08-02] MEDS: MoRPHine SULFATE CR 15 MG TABCR PO SCH (08:30)
[2022-08-02] MEDS: DOCUSATE SODIUM 100 MG CAP PO SCH (08:30)
--- NOTE | 2022-08-02 10:50 | Nephrology Progress Note ---
Date of Service August 02, 2022 Assessment & Plan Admission and Anticipated Discharge Date Admission Date: July 29, 2022 Subjective Subjective Assessment & Plan (1) Hyponatremia: Hyponatremia: She has Chronic Hyponatremia--na hgih 120's and low 130's. Rec: 1 FFR to 1.5 lit for outpt--most important 2 Higher protein intake 3 restart lasix at a dose of 20 MWF ( as a loop diuretic Much less likely to lower na--infact more likely to raise the serum Na by lowering urine Osm) but stop Aldactone ( more likely to cause hyponatremia) 4 Stop Urea 15 mg BID.( cannot get it outpt easily and tastes horrible with very poor compliance) 5 No salt tabs as she is Hypertensive. 6 Plan for Discharge 7 nephrology f/u within 1-2 weeks S---feels fine. wants to go home. She feels her leg is more edematous and feels tight. Physical Exam Physical Exam: GENERAL: Elderly white female who does not appear to be in any overt respiratory distress. She is awake, alert, oriented x3, was able to give me a detailed account of her medical problem. HEENT: Mucous membranes moist. NECK: Supple. No jugular venous distention. CHEST: Bilaterally clear to auscultation. Diminished breath sound in the right upper lobe area. CARDIOVASCULAR: S1 and S2, regular. ABDOMEN: Soft, nontender, obese. EXTREMITIES: Show trace edema. SKIN: Shows no rashes Results & Data ([facility]) Vital Signs (Past 12 Hours) Vital Signs Temp Pulse Pulse Resp BP BP Pulse Ox 08/02/22 09:53 79 08/02/22 07:52 36.6 C 84 16 157/92 H 95 08/02/22 04:34 166/93 H 08/02/22 02:42 36.6 C 74 18 170/105 H 95 08/01/22 22:55 70 O2 Del Method O2 Flow Rate 08/02/22 09:53 08/02/22 07:52 Nasal Cannula 2 08/02/22 04:34 08/02/22 02:42 Nasal Cannula 2 08/01/22 22:55
--- NOTE | 2022-08-02 13:39 | Discharge Summary ---
Date of Service August 02, 2022 Admission HPI Per Admitting Provider DATE OF ADMISSION: 07/29/2022. CHIEF COMPLAINT: Fall. HISTORY OF PRESENT ILLNESS: This is a 77-year-old female with past medical history significant for postsurgical hypothyroidism, hyperlipidemia, allergic rhinitis, on 2 liters home oxygen, history of atherosclerotic cardiovascular disease, history of carotid stenosis, hypertension, atrial fibrillation, chronic slow transit constipation, GERD, generalized osteoarthrosis, generalized osteoporosis, lumbar degenerative disc disease, chronic pain of right knee, iron deficiency anemia, history of lung cancer, who lives alone at home, but her kids live close by. Comes with a fall. The patient says she was ambulating with a walker and her oxygen cannula could have been stuck in the wheels and she fell on the oxygen tank on the wall. There was some blood coming on the back of the head. Son came in and wiped it and brought her to the hospital. Currently, resting comfortably, hemodynamically stable, but her troponin I high sensitivity came back 2071 . The patient says she is also having some right flank and right lower rib cage pain going for about a week, but today after the fall, she is having more pain while ambulating. She denied loss of consciousness with the fall. Denies any chest pain. No other abdominal pain. No cough. Has some runny nose for the last few days. No blurred visions, no earache, no headache, no dizziness, no sore throat, no fevers. Appetite is okay. No difficulty swallowing. She is chronically constipated. She states she is taking some water pills, but since last 2 days, she did not micturate much. ALLERGIES: MORPHINE, ATORVASTATIN, LEXAPRO, EZETIMIBE, FENTANYL, HYDRALAZINE, METOCLOPRAMIDE, SIMVASTATIN, CLARITHROMYCIN. PAST MEDICAL HISTORY: As mentioned above. PAST SURGICAL HISTORY: Colonoscopy, dental surgery, ERCP, needle biopsy of liver, thyroidectomy total, cholecystectomy, right thoracotomy and right carotid endarterectomy. MEDICATIONS: The patient is on albuterol 2 puffs inhalation q. 6 hours p.r.n., alprazolam 1 mg p.o. b.i.d. p.r.n., amlodipine 2.5 mg p.o. daily, aspirin 81 mg p.o. daily,atorvastatin 10 mg p.o. daily, vitamin D 25 mcg p.o. daily, cyclobenzaprine 10 mg p.o. daily p.r.n., Colace 100 mg p.o. b.i.d., esomeprazole 20 mg p.o. daily, Flonase 2 sprays intranasal daily p.r.n., Lasix 20 mg p.o. 2 times a week, spironolactone 12.5 mg p.o. 2 times a week, hydrocod one/acetaminophen 1 tablet p.o. q. 6 hours p.r.n., DuoNebs q. 4 hours p.r.n. for shortness of breath and wheezing, levothyroxine 100 mcg p.o. daily, lisinopril 20 mg p.o. daily, meclizine 25 mg p.o. t.i.d. p.r.n., melatonin 3 mg p.o. at bedtime, metoprolol succinate 12.5 mg p.o. daily, morphine 15 mg p.o. b.i.d., multivitamin 1 tablet p.o. daily, omega 1 mg p.o. daily, MiraLax 17 grams p.o. daily p.r.n., Senokot 17.2 mg p.o. at bedtime, Coumadin 2.5 mg on Tuesdays and and 5 mg on rest of the days. FAMILY HISTORY: Significant for mother had stroke. Father had AR. Mother had uterine cancer, hypertension. Brother has diabetes. Paternal grandmother has breast cancer. Aunt has AR. SOCIAL HISTORY: Lives alone. Family live close by. . Quit smoking in 2006, smoked on average 2 packs a day for 30 years. No alcohol use. No drug use. REVIEW OF SYSTEMS: As per HPI. Rest of review of systems is negative. Admission Exam Per Admitting Provider GENERAL: The patient is obese, not in acute distress. VITAL SIGNS: Temperature 36.7, pulse 78, respiratory rate 20, blood pressure 121/71, oxygen 93% saturation on 2 liters. HEENT No pallor, no icterus Pupils equal, round and reactive to light. Oral mucosa moist. NECK: No JVD, no neck masses. CARDIOVASCULAR: S1 and S2 heard. Regular rate and rhythm. No murmur, no gallop. RESPIRATORY SYSTEM: Normal AP diameter. No accessory muscle use. No wheezing, no crackles. ABDOMEN: Soft, bowel sounds present, nontender, no distention. CENTRAL NERVOUS SYSTEM: Alert and oriented. Speech is clear. No facial droop. Insight is good. Obeys simple commands. Moves extremities. EXTREMITIES: Mild pedal edema present, no erythema seen. Principal Diagnosis 45 Discharge Exam GENERAL: The patient is obese, not in acute distress. 2L NC O2 HEENT No pallor, no icterus Pupils equal, round and reactive to light. Oral mucosa moist. NECK: No JVD, no neck masses. CARDIOVASCULAR: S1 and S2 heard. Regular rate and rhythm. No murmur, no gallop. RESPIRATORY SYSTEM: Normal AP diameter. No accessory muscle use. No wheezing, no crackles. ABDOMEN: Soft, bowel sounds present, nontender, no distention. CENTRAL NERVOUS SYSTEM: Alert and oriented. Speech is clear. No facial droop. Insight is good. Obeys simple commands. Moves extremities. EXTREMITIES: No edema present, no erythema seen. Discharge Data Allergies Allergy/AdvReac Type Severity Reaction Status Date / Time No Known Allergies Allergy Unverified 07/30/22 14:56 Consultations 07/29/22 21:55 ED Decision to Admit Stat 07/30/22 08:00 Consult Cardiology Routine Consult Nephrology Routine Ordered Studies 07/29/22 18:25 CT head/brain wo con Stat Hospital Course (1) Fall: Plan 77-year-old lady was managed for the following: Hyponatremia: Appears chronic in the high 120s to low 130s, nephrology evaluated, Lasix increased to 20 mg 3 times a week, Aldactone stopped, increase protein content in diet, fluid restriction to 1.5 L/day, low-sodium diet. Blood test BMP in a week time after PCP visit. Fall: Likely mechanical, imaging negative for hemorrhage or fracture. PT/OT dakota noel and recommends home with home health. And NSTEMI, likely demand ischemia, no chest pain or change in respiratory status. Troponin trended down. Acute kidney injury: Resolved. Other chronic medical conditions: Patient to continue with home meds. Patient to skip a dose of Coumadin today, follow-up with Coumadin clinic in 2 days upon discharge. Patient being discharged to home with home meds with following instruction at the point of discharge: Follow-up with your primary care physician within a week time. You will likely need blood test BMP and CBC in a week time after your primary care visit. Because your INR is elevated at 3.6 today, skip a dose of Coumadin today, resume your Coumadin from tomorrow as prior, follow-up with Coumadin clinic in 2 days upon discharge for further medical dose adjustment as appropriate. Maintain heart healthy diet, low-sodium diet [2 g sodium daily], fluid restriction of 1.5 L/day. Increase protein content in diet. Your Aldactone has been stopped and Lasix has been increased to 20 mg 3 times a week. Follow-up with your nephrology as an outpatient in 1 to 2 weeks. Take your medications as prescribed. Total Time Total Time Spent Total Time Spent (In Minutes): 40 Discharge Plan Discharge Items Patient Disposition: Home - Home Health Services Reason For Visit: FALL ON HEAD, R HIP PAIN, ABD PAIN Discharge Diagnosis: Fall, right hip pain Demand ischemia Acute kidney injury Chronic hyponatremia Activity: Resume your previous activity Non-emergency contact: Primary Care Provider Call non-emergency contact if: you have any medication questions, your symptoms worsen and your temperature is above 101 Follow-up/Referrals: Danelle Pierre MD [Primary Care Provider] - (Date & Time 08/06/2022 11:20 AM Provider Danelle Pierre MD Department Family Medicine [facility] ) Diet: Heart Healthy and Low Sodium (2gm) Fluids: 1500ml (6 cups) Addtl Attending Provider Instructions: Follow-up with your primary care physician within a week time. You will likely need blood test BMP and CBC/Mg level in a week time after your primary care visit. Because your INR is elevated at 3.6 today, skip a dose of Coumadin today, resume your Coumadin from tomorrow as prior, follow-up with Coumadin clinic in 2 days upon discharge for further medical dose adjustment as appropriate. Maintain heart healthy diet, low-sodium diet [2 g sodium daily], fluid restri ction of 1.5 L/day. Increase protein content in diet. Your Aldactone has been stopped and Lasix has been increased to 20 mg 3 times a week. Follow-up with your nephrology as an outpatient in 1 to 2 weeks. Take your medications as prescribed. Pending Studies at Discharge: No Stand-Alone Forms: [facility], Smoking Cessation Medications and DC Order Prescriptions: Continued cholecalciferol (vitamin D3) 25 mcg (1,000 unit) tablet 50 mcg PO DAILY cyclobenzaprine 10 mg tablet 10 mg PO DAILY PRN (Reason: Muscle Spasm) alprazolam 1 mg tablet 1 mg PO BID PRN (Reason: Anxiety) lisinopril 20 mg tablet 20 mg PO QAM amlodipine 2.5 mg tablet 2.5 mg PO QAM aspirin 81 mg Tablet,Delayed Release (Dr/Ec) 81 mg PO DAILY levothyroxine [Levoxyl] 100 mcg tablet 100 mcg PO DAILYBB hydrocodone-acetaminophen 7.5-325 mg tablet 1 tab PO Q12H PRN (Reason: Pain) morphine 15 mg tablet extended release 15 mg PO AMPM metoprolol succinate 25 mg tablet extended release 24 hr 12.5 mg PO QAM docusate sodium 100 mg Tablet 100 mg PO BID esomeprazole magnesium 20 mg capsule,delayed release(DR/EC) 20 mg PO QAM meclizine 25 mg tablet 25 mg PO TID PRN (Reason: dizziness) Qty: 90 0RF albuterol sulfate 90 mcg/actuation HFA aerosol inhaler 2 puffs INH Q6H PRN (Reason: shortness of breath or wheezing) Qty: 6.7 0RF warfarin 5 mg tablet 2.5 mg PO 2XWK Rx Instructions: TAKE 1/2 TABLET EVERY TUESDAY AND TUESDAY. warfarin 5 mg tablet 5 mg PO 5XWK Rx Instructions: TAKE 5MG EVERY TUESDAY/TUESDAY/TUESDAY/TUESDAY/TUESDAY. omega-3 fatty acids [Fish Oil Concentrate] 1,000 mg Capsule 1,000 mg PO DAILY magnesium hydroxide 400 mg/5 mL Suspension 30 - 60 ml PO DAILY PRN (Reason: SUPPLEMENT) diclofenac sodium 1 % gel 1 ea TOPICAL BID Rx Instructions: APPLY TWICE DAILY TO KNEES multivitamin Tablet 1 tab PO DAILY alendronate 10 mg tablet 10 mg PO DAILY Rx Instructions: take 30 min before meal, remain upright for 30 min. sennosides [senna] 8.6 mg Tablet 8.6 mg PO HS PRN (Reason: Constipation) ipratropium-albuterol 0.5 mg-3 mg(2.5 mg base)/3 mL solution for nebulization 3 ml INHALATION Q4 PRN (Reason: Shortness Of Breath Or Wheezing) atorvastatin 10 mg tablet 10 mg PO QAM melatonin 3 mg Tablet 3 mg PO HS polyethylene glycol 3350 [Miralax] 17 gram/dose Powder 17 g PO DAILY PRN (Reason: Constipation) fluticasone propionate [Flonase Allergy Relief] 50 mcg/actuation Dyke,Suspension 2 spray INTRANASAL DAILY PRN (Reason: allergies) (DME) Oxygen Home Liters Per Minute See Rx Instructions .Route Qty: 1 0RF Rx Instructions: 2LPM with ambulation Changed furosemide 20 mg tablet 20 mg PO 3XWK Qty: 20 0RF Rx Instructions: lasix 20mg one tab twice weekly. give on Tue and tuesday. Discontinued spironolactone 25 mg tablet 12.5 mg PO 2XWK Rx Instructions: spironolactone 12.5mg one tab twice weekly. Can give tue and tuesday for now Discharge Orders: Discharge Order (Routine); Ordered 08/02/22 Ordered By: Zunilda Girard Admission Data Admit Date/Time: 07/29/22 23:15 Attending Provider: Zunilda Girard Admit Provider: Marciano Elliott Primary Care Provider: Danelle Pierre Other Providers: Marciano Elliott ; Blas Martinez ; Rosa Shay
[2022-08-03] MEDS ORDERED: WARFARIN SOD 2.5 MG TAB PO SCH (16:00)
--- NOTE | 2022-08-10 08:59 | Coding Query ---
CODING QUERY To promote full compliance with coding requirements relating to patient care, provider participation is requested in all cases of decontaminator uncertainty. Please assist us with the question(s) below: Coding Question(s): Pt admitted after a fall. Cardiology Consult : Type II Demand Myocardial Infarction. Discharge Summary documented demand ischemia- absence of EKG changes,no chest pain. Please check below the diagnosis that was observed/treated during this IP stay. Thank you . Douglas Curtis [facility] Physician's Response(s): ___x Demand Ischemia Type II Demand Myocardial Infarction Cannot Clinically Correlate if demand ischemia or type II Deman [place] was treated Other: Please document: Principal Diagnosis: "that condition established after study, to be chiefly responsible for occasioning the admission of the patient to the hospital for care." Co-Existing Principal Diagnosis: "when two or more diagnoses equally meet the criteria for principal diagnosis as determined by the circumstances of admission, diagnostic work up, and/or therapy provided, and the Alphabetic Index, Tabular List, or another coding guideline does not provide sequencing direction, any one of the diagnoses may be sequenced first." "When the physician has documented what appears to be a current diagnosis in the body of the record, but has not included the diagnosis in the final diagnostic statement, the physician should be asked whether the diagnosis should be added." (Source Coding Clinic 2 QTR90. p3-4) [facility]
== END 2022-08-02 15:35 | disposition home health service (06) | DRG 311 ==
LOC: ED 17:03 → EDINP 23:15 → SUATTDRO 23:15 → EDINP 07-30 14:02 → 2N 07-30 14:36

== ENCOUNTER 2023-09-15 17:21 | Inpatient (IN) ==
--- NOTE | 2023-09-15 17:40 | ED Triage Note ---
Date of Service September 15, 2023 History of Present Illness This patient was briefly evaluated while in triage. An abbreviated physical exam was performed. This patient is a 78-year-old Female who presents to the ED for evaluation of back pain. She fell a week ago and states she slid out of her chair. Pain has progressed over the past week. Physical Exam VITALS: Vitals are noted on the nurse's note and reviewed by myself. GENERAL: This is an 78-year-old female, in no acute distress, sitting up in a wheelchair in triage. MUSCULOSKELETAL: Tenderness to palpation across the lumbar back. NEURO: Patient was alert and oriented to person place and time. Initial orders for labs and / or imaging were placed and patient was placed in the waiting area until a bed is available. Please see further documentation for the full ED course. MDM / Impression Impression Impression: Compression of lumbar vertebra, Intractable back pain Impression: Compression of lumbar vertebra Qualifiers: Encounter type: initial encounter Lumbar vertebra fracture level: L2 Qualified Code(s): S32.020A - Wedge compression fracture of second lumbar vertebra, initial encounter for closed fracture
--- NOTE | 2023-09-15 18:35 | CT Scan Report ---
CT OF THE LUMBAR SPINE CLINICAL HISTORY: Low back pain following fall. COMPARISON STUDY: Lumbar spine CT January 15, 2020 and lumbar spine radiographs July 29, 2022. CT of the abdomen and pelvis June 05, 2021. TECHNIQUE: Helical axial images of the lumbar spine were obtained. Sagittal and coronal reconstruct ions were viewed. Automated exposure control was utilized for the study. A dose lowering technique was utilized adhering to the principles of ALARA. FINDINGS: A moderate L1 compression fracture is unchanged since CT of January 15, 2020. A fracture of th e superior plate of L2 is also unchanged. There has been interval development of mild concavity of th e inferior endplate of L2 since abdominal CT of June 05, 2021. This is age indeterminate. Slight conc avity of the superior endplate of L3 is chronic. Moderate multilevel facet arthrosis is noted. There is mild to moderate multilevel degenerative disc disease. Paravertebral soft tissues are unremarkable . The sacroiliac joints are intact. IMPRESSION: 1. Interval development of concavity of the inferior endplate of L2. This represents an age indetermi saulo compression fracture. 2. Otherwise, no significant change in appearance of the lumbar spine with several old compression fr actures. 3. Moderate multilevel degenerative changes within the lumbar spine. ACT 112: Negative or not required by law. Electronically signed by: Armando Glover M.D. 09/15/2023 6:32 PM
[2023-09-15 19:06] LABS: Basophils # (auto) 0.02 K/uL (0.00-0.20); Basophils % (auto) 0.3 %; Eosinophils # (auto) 0.02 K/uL (0.00-0.50); Eosinophils % (auto) 0.3 %; Hematocrit (blood only) 39.3 % (37.0-47.0); Hemoglobin 12.3 g/dl (12.0-16.0); Immature Granulocytes # (auto) 0.02 K/uL (0.01-0.20); Immature Granulocytes % (auto) 0.3 %; Lymphocytes % (auto) 15.2 %; Mean Corpuscular Hgb Conc 31.3 g/dL (32.0-36.0); Mean Corpuscular Volume 89.5 fL (80.0-100.0); Mean Platelet Volume 10.2 fL (9.4-12.4); Monocytes # (auto) 0.52 K/uL (0.11-0.59); Monocytes % (auto) 7.2 %; Neutrophils # (auto) 5.57 K/uL (1.40-6.50); Neutrophils % (auto) 76.7 %; Platelet Count 226 K/uL (130-400); RDW Standard Deviation 52.9 fL (36.4-46.3); Red Blood Count 4.39 M/uL (4.20-5.40); White Blood Count 7.25 K/ul (4.8-10.8)
[2023-09-15 19:15] LABS: Alanine Aminotransferase 14 U/L (7-52); Albumin Globulin Ratio 0.9 (0.9-2); Albumin Level 3.9 gm/dl (3.4-5.0); Alkaline Phosphatase 128 U/L (34-104); Anion Gap 8 (3-11); Aspartate Aminotransferase 33 U/L (13-39); BUN Creatinine Ratio 21.9 (10-20); Bilirubin,Total 0.6 mg/dl (0.2-1.0); Blood Urea Nitrogen 16 mg/dl (6-23); Calcium 9.4 mg/dl (8.6-10.3); Carbon Dioxide 31 mmol/L (21-32); Chloride 94 mmol/L (98-107); Est GFR (African American) 90.2 ml/min; Est GFR (Non-African American) 77.8 ml/min; Globulin 4.5 gm/dl (2.5-4.0); Glucose 90 mg/dl (70-99(Fasting)); Potassium 4.2 mmol/L (3.5-5.1); Sodium 133 mmol/L (136-145); Total Protein 8.4 gm/dl (6.0-8.3)
[2023-09-15] MEDS ORDERED: ACETAMINOPHEN 1,000 MG/100 ML VIAL IV STA (20:32)
[2023-09-15] MEDS ORDERED: MoRPHine SULFATE 2 MG/ML CARP IV STA (20:32)
--- NOTE | 2023-09-15 20:37 | Emergency Department Note ---
Impression & Plan Compression of lumbar vertebra, Intractable back pain, Chronic pain ED Provider Note NAME: NIKKIE BALDWIN AGE: 78 SEX: F ARRIVES VIA: Ambulance INFORMANT: Patient ED PROVIDER(S): Ben Donato MD CHIEF COMPLAINT: Back pain, fall three weeks ago. PLAN: Disposition: Admit MEDICAL DECISION MAKING: The patient is a pleasant 78-year-old woman with a past medical history of COPD on home oxygen, chronic atrial fibrillation, pulmonary hypertension on Lasix, type 2 diabetes, CAD, chronic pain on Morphine who presents to the emergency department accompanied by family via EMS for evaluation of worsening back pain over the past several weeks after having a fall several weeks ago where she got her feet stuck on the rug when she was getting out of her chair and fell backwards onto the ground hitting her lower back. Patient reports moving at all worsens her pain and so cannot even sit up to ambulate with her walker which is her baseline in the setting of history of ambulatory dysfunction. The patient reports that she was managing at home during the past couple of weeks but decided that her pain was not getting better and even getting worse and so presents today. They had not follow-up with her primary care doctor for the pain. She denies any fevers, chills, cough, congestion, GI or symptoms. Of note, the patient did arrive to emergency department during time of high volume, acuity and prolonged emergency department waiting times. Critical pathways initiated from triage. On my evaluation the patient is uncomfortable no acute distress, afebrile with stable vital signs on her home oxygen. Patient has moderate tenderness of the mid to lower lumbar region without step-offs. She has generalized weakness of bilateral upper and lower extremities related to pain with range of motion but otherwise no focal weakness. Reflexes within normal limits. WBC, H/H and platelets within normal limits. INR 2.9, therapeutic. Chemistry without metabolic acidosis. Electrolytes and LFTs without significant abnormality. CT of the lumbar spine performed and demonstrates interval development of concavity of inferior endplate of L2 which represents age-indeterminate compression fracture but may correlate with the patient's fall several weeks ago and her worsening pain. Given her functional status is significantly impaired due to this they do agree with plan for admission for further management for pain control and PT OT and possible placement. Patient was provided with IV Morphine and IV APAP. Case was discussed with Dr. Moya, [facility] hospitalist who will evaluate the patient for admission. Further management per admitting team. Triage Nursing notes reviewed and agree them. Prior/external medical records reviewed Vital Signs: reviewed Differential diagnosis: Musculoskeletal, disc herniation, fracture, metastatic disease, cord compression, discitis, sciatica, cauda equina, infection, aortic disease, renal colic, gastrointestinal, as well as other pathologies. ER treatment provided: See below. Diagnostics interpreted by me: Cardiac Monitoring: An order for continuous cardiac monitoring was placed and demonstrated atrial fibrillation, 89 bpm, no ectopy. Laboratory studies: See below Imaging studies: See below Consultation(s): [facility]. HPI: The patient is a pleasant 78-year-old woman with a past medical history of COPD on home oxygen, chronic atrial fibrillation, pulmonary hypertension on Lasix, type 2 diabetes, CAD, chronic pain on Morphine who presents to the emergency department accompanied by family via EMS for evaluation of worsening back pain over the past several weeks after having a fall several weeks ago where she got her feet stuck on the rug when she was getting out of her chair and fell backwards onto the ground hitting her lower back. Patient reports moving at all worsens her pain and so cannot even sit up to ambulate with her walker which is her baseline in the setting of history of ambulatory dysfunction. The patient reports that she was managing at home during the past couple of weeks but decided that her pain was not getting better and even getting worse and so presents today. They had not follow-up with her primary care doctor for the pain. She denies any fevers, chills, cough, congestion, GI or symptoms. ROS: See above HPI for pertinent positives & negatives. A total of 10 systems reviewed and were otherwise negative. VITALS:See Below PHYSICAL EXAMINATION: GENERAL: Awake, alert, chronically ill/uncomfortable-appearing, in no distress, BMI 37.1. HENT: Normocephalic, atraumatic. Oropharynx unremarkable. EYES: Normal conjunctiva. Sclera non-icteric. NECK: Supple. No nuchal rigidity. FROM. No JVD. RESPIRATORY: Clear to auscultation. CARDIAC: Regular rate, normal rhythm. Extremities warm and well perfused. Pulses equal. ABDOMEN: Soft, non-distended. No tenderness to palpation. No rebound or guarding. No masses. RECTAL: Deferred. MUSCULOSKELETAL: Chest examination reveals no tenderness. Moderate tenderness of the mid to lower lumbar region without step-offs. There is no CVA tenderness to palpation. No joint edema. LOWER EXTREMITIES: Calves are equal size bilaterally and non-tender. No edema. No discoloration. NEURO: Generalized weakness of bilateral upper and lower extremities related to pain with range of motion but otherwise no focal weakness. Reflexes within normal limits. SKIN: No rash or jaundice noted. Ben Donato MD Past Med/Surg History Medical History Obesity Iron deficiency anemia History of lung cancer Chronic anticoagulation Chronic pain GERD (gastroesophageal reflux disease) Chronic atrial fibrillation Hypertension Dyslipidemia Post-surgical hypothyroidism Surgical History History of carotid endarterectomy Right Hx of cholecystectomy H/O thyroidectomy H/O pneumonectomy Right upper lobe secondary to lung cancer Family History Mother Stroke Hypertension Uterine cancer Father Heart disease Cardiac disorder Aunt Cardiac disorder Brother Diabetes Sister Diabetes Grandmother (Paternal) Breast cancer Social History Smoking Status: Former smoker Tobacco Type: Cigarettes Second Hand Exposure: No; Do You Dip or Chew Tobacco: No; Tobacco Cessation Education Requested by Patient: No Hx Alcohol Use: No Hx Substance Use: No Preferred Language: Yakut 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 Ability: Effective Intermediate Card Tender Required: No Beliefs That Will Affect Care: None marital status: / Current Living Situation: Alone Current Living Situation Comment: Children live 5 mins away Other Information That Helps Us Care for You: No Feels Safe at Home: Yes Safety Concerns: Feels Safe At This Time Assistive Devices: Glasses, Oxygen - Continuous and Walker Allergies Allergies Allergy/AdvReac Type Severity Reaction Status Date / Time No Known Allergies Allergy Unverified 09/15/23 21:20 Home Meds Home Medications Medication Instructions Recorded Confirmed alprazolam 1 mg tablet 1 mg PO BID PRN Anxiety 01/15/20 09/15/23 amlodipine 2.5 mg tablet 2.5 mg PO QAM 01/15/20 09/15/23 aspirin 81 mg tablet,delayed 81 mg PO DAILY 01/15/20 09/15/23 release cyclobenzaprine 10 mg tablet 10 mg PO DAILY PRN Muscle Spasm 01/15/20 09/15/23 docusate sodium 100 mg tablet 100 mg PO BID 01/15/20 09/15/23 esomeprazole magnesium 20 mg 20 mg PO QAM 01/15/20 09/15/23 capsule,delayed release lisinopril 20 mg tablet 20 mg PO QAM 01/15/20 09/15/23 metoprolol succinate 25 mg 12.5 mg PO QAM 01/15/20 09/15/23 tablet,extended release 24 hr morphine 15 mg tablet,extended 15 mg PO AMPM 01/15/20 09/15/23 release cholecalciferol (vitamin D3) 25 50 mcg PO DAILY 02/13/20 09/15/23 mcg (1,000 unit) tablet melatonin 3 mg tablet 3 mg PO HS 06/05/21 09/15/23 multivitamin 1 tab PO DAILY 06/05/21 09/15/23 polyethylene glycol 3350 17 17 g PO DAILY PRN Constipation 06/05/21 09/15/23 gram/dose oral powder (Miralax) sennosides 8.6 mg tablet (senna) 8.6 mg PO HS PRN Constipation 06/05/21 09/15/23 warfarin 5 mg tablet 2.5 mg PO 2XWK 07/30/22 09/15/23 warfarin 5 mg tablet 5 mg PO 5XWK 07/30/22 09/15/23 alendronate 70 mg tablet 70 mg PO WK 08/07/23 09/15/23 furosemide 20 mg tablet 20 mg PO 3XWK 08/07/23 09/15/23 omega-3 fatty acids 1,000 mg 1,000 mg PO DAILY 08/07/23 09/15/23 capsule rosuvastatin 10 mg tablet 10 mg PO QAM 08/07/23 09/15/23 sertraline 25 mg tablet 25 mg PO QAM 08/07/23 09/15/23 ipratropium 0.5 mg-albuterol 3 mg 3 ml inhalation Q4 PRN Wheezing 09/15/23 09/15/23 (2.5 mg base)/3 mL nebulization soln levothyroxine 125 mcg tablet 125 mcg PO DAILYBB 09/15/23 09/15/23 Previous Rx's Medication Instructions Recorded albuterol sulfate 90 mcg/actuation 2 puffs inhalation Q6H PRN 01/19/20 aerosol inhaler shortness of breath or wheezing #6.7 grams meclizine 25 mg tablet 25 mg PO TID PRN dizziness #90 tabs 01/19/20 Oxygen Home #1 ea 06/09/21 potassium chloride 10 mEq 10 meq PO DAILY #30 tabs 08/09/23 tablet,extended release(part/cryst) Results & Data (ED) Vital Signs Vital Signs - 24 hr 09/15/23 17:37 09/15/23 20:50 09/15/23 21:00 Temperature 36.8 C Temperature Source Temporal Artery Scan Pulse Rate 82 90 Pulse Rate [Finger] 93 H Pulse Rhythm [Finger] Regular Pulse Strength [Finger] Normal Respiratory Rate 18 20 Respiratory Effort / Characteristics Non-Labored Spontaneous Respiratory Depth Normal Respiratory Pattern Regular Blood Pressure 130/80 Blood Pressure [Right Arm] 171/106 H Blood Pressure Mean 96 Blood Pressure Mean [Right Arm] 127 Blood Pressure Position [Right Arm] Lying Pulse Oximetry 96 97 Oxygen Delivery Method Nasal Cannula Nasal Cannula Oxygen Flow Rate 4 4 Sepsis Recent Fever Within 48 Hours No Sepsis New/Unexplained Change in Mental Status No Sepsis Action Taken by Nursing No Action Required Laboratory Data Attestation: I reviewed the patient's lab results. 09/15/23 18:29 09/15/23 18:29 Lab Results 09/15/23 09/15/23 Range/Units 18:29 18:30 WBC 7.25 (4.8-10.8) K/ul RBC 4.39 (4.20-5.40) M/uL Hgb 12.3 (12.0-16.0) g/dl Hct 39.3 (37.0-47.0) % MCV 89.5 (80.0-100.0) fL MCH 28.0 (25.0-34.0) pg MCHC 31.3 L (32.0-36.0) g/dL RDW Std Deviation 52.9 H (36.4-46.3) fL RDW Coeff of Richar 16.0 H (11.5-14.5) % Plt Count 226 (130-400) K/uL MPV 10.2 (9.4-12.4) fL Immature Gran % (Auto) 0.3 % Neut % (Auto) 76.7 % Lymph % (Auto) 15.2 % Gentry % (Auto) 7.2 % Eos % (Auto) 0.3 % Baso % (Auto) 0.3 % Neut # (Auto) 5.57 (1.40-6.50) K/uL Lymph # (Auto) 1.10 L (1.20-3.40) K/uL Gentry # (Auto) 0.52 (0.11-0.59) K/uL Eos # (Auto) 0.02 (0.00-0.50) K/uL Baso # (Auto) 0.02 (0.00-0.20) K/uL Immature Gran # (Auto) 0.02 (0.01-0.20) K/uL PT 29.9 H (9.0-12.0) Seconds INR 2.9 H (0.9-1.1) Sodium 133 L (136-145) mmol/L Potassium 4.2 (3.5-5.1) mmol/L Chloride 94 L (98-107) mmol/L Carbon Dioxide 31 (21-32) mmol/L Anion Gap 8 (3-11) BUN 16 (6-23) mg/dl Creatinine 0.73 (0.6-1.2) mg/dl Est Cr Clr Drug Dosing Not Reportable Est GFR ( Amer) 90.2 ml/min Est GFR (Non-Af Amer) 77.8 ml/min BUN/Creatinine Ratio 21.9 H (10-20) Glucose 90 (70-99(Fasting)) mg/dl Calcium 9.4 (8.6-10.3) mg/dl Total Bilirubin 0.6 (0.2-1.0) mg/dl AST 33 (13-39) U/L ALT 14 (7-52) U/L Alkaline Phosphatase 128 H (34-104) U/L Total Protein 8.4 H (6.0-8.3) gm/dl Albumin 3.9 (3.4-5.0) gm/dl Globulin 4.5 H (2.5-4.0) gm/dl Albumin/Globulin Ratio 0.9 (0.9-2) Administered Medications Discontinued Medications Amlodipine Besylate (Amlodipine Besylate 5 Mg Tab) 2.5 mg PO NOW ONE Stop: 11/02/23 21:27 Last Admin: 09/15/23 22:04 Dose: 2.5 mg Documented By: DM Furosemide (Furosemide Inj 20 Mg/2 Ml Vial) 20 mg IV ONE ONE Stop: 09/15/23 22:59 Last Admin: 09/15/23 23:15 Dose: 20 mg Documented By: DM Acetaminophen (Ofirmev) 1,000 mg in 100 mls @ 400 mls/hr IV NOW STA Stop: 09/15/23 20:46 Last Infusion: 09/15/23 22:00 Dose: Infused Documented By: Admin: 09/15/23 21:09 Dose: 400 mls/hr Documented By: DM Lactulose (Lactulose Syrup 30 Gm/45 Ml Udp) 30 gm PO NOW STA Stop: 09/15/23 21:36 Last Admin: 09/15/23 23:19 Dose: Not Given Documented By: DM Magnesium Hydroxide (Magnesium Hydroxide Susp 30 Ml Udc) 30 ml PO NOW ONE Stop: 09/15/23 21:36 Last Admin: 09/15/23 22:03 Dose: 30 ml Documented By: DM Miscellaneous (Patient's Height &/Or Weight Needed) 1 each N/A Q2H CADEN Stop: 10/15/23 17:36 Last Admin: 09/15/23 22:30 Dose: Not Given Documented By: Admin: 09/15/23 22:09 Dose: 1 each Documented By: DM Morphine Sulfate (Morphine Sulfate 2 Mg/Ml Carp) 2 mg IV NOW STA Stop: 09/15/23 20:33 Last Admin: 09/15/23 21:09 Dose: 2 mg Documented By: DM Senna/Docusate Sodium (Docusate Sodium/Senna 50/8.6mg Tab) 1 tab PO NOW STA Stop: 09/15/23 21:36 Last Admin: 09/15/23 22:04 Dose: 1 tab Documented By: DM Imaging Data Radiologist's Impression: Lumbar Spine CT 09/15/23 17:40 CT OF THE LUMBAR SPINE CLINICAL HISTORY: Low back pain following fall. COMPARISON STUDY: Lumbar spine CT January 15, 2020 and lumbar spine radiographs July 29, 2022. CT of the abdomen and pelvis June 05, 2021. TECHNIQUE: Helical axial images of the lumbar spine were obtained. Sagittal and coronal reconstructions were viewed. Automated exposure control was utilized for the study. A dose lowering technique was utilized adhering to the principles of ALARA. FINDINGS: A moderate L1 compression fracture is unchanged since CT of January 15, 2020. A fracture of the superior plate of L2 is also unchanged. There has been interval development of mild concavity of the inferior endplate of L2 since abdominal CT of June 05, 2021. This is age indeterminate. Slight concavity of the superior endplate of L3 is chronic. Moderate multilevel facet arthrosis is noted. There is mild to moderate multilevel degenerative disc disease. Paravertebral soft tissues are unremarkable. The sacroiliac joints are intact. IMPRESSION: 1. Interval development of concavity of the inferior endplate of L2. This represents an age indeterminate compression fracture. 2. Otherwise, no significant change in appearance of the lumbar spine with several old compression fractures. 3. Moderate multilevel degenerative changes within the lumbar spine. ACT 112: Negative or not required by law. Electronically signed by: Armando Glover M.D. 09/15/2023 6:32 PM Discharge Plan Visit Data Chief Complaint: Back Injury/Pain Stated Complaint: FELL 1 WK AGO, NOT FEELING BETTER, BACK PAIN ED Provider: Ben Donato Discharge Problem: Compression of lumbar vertebra, Intractable back pain, Chronic pain Patient Disposition: Admitted As Inpatient Discharge Instructions Interventions: ED Discharge Assessment Last Done: 09/15/23 23:38 Discharge Problem: Compression of lumbar vertebra Qualifiers: Encounter type: initial encounter Lumbar vertebra fracture level: L2 Qualified Code(s): S32.020A - Wedge compression fracture of second lumbar vertebra, initial encounter for closed fracture Chronic pain Qualifiers: Chronic pain type: other chronic pain Qualified Code(s): G89.29 - Other chronic pain
[2023-09-15 21:23] LABS: INR 2.9 (0.9-1.1); Prothrombin Time 29.9 Seconds (9.0-12.0)
[2023-09-15] MEDS ORDERED: amLODIPine BESYLATE 5 MG TAB PO ONE (21:26)
[2023-09-15] MEDS ORDERED: ACETAMINOPHEN 325 MG TAB PO PRN (21:27)
[2023-09-15] MEDS ORDERED: LACTULOSE SYRUP 30 GM/45 ML UDP PO STA (21:35)
[2023-09-15] MEDS ORDERED: DOCUSATE SODIUM/SENNA 50/8.6MG TAB PO STA (21:35)
[2023-09-15] MEDS ORDERED: MAGNESIUM HYDROXIDE SUSP 30 ML UDC PO ONE (21:35)
[2023-09-15] MEDS: Patient's HEIGHT &/or WEIGHT Needed SCH ×2 (22:09→22:30)
[2023-09-15] MEDS ORDERED: FUROSEMIDE INJ 20 MG/2 ML VIAL IV ONE (22:58)
--- NOTE | 2023-09-15 22:59 | History & Physical Report ---
Date of Service September 15, 2023 Assessment & Plan (1) Decompensated heart failure: Plan: Mild symptoms hx diastolic dysfunction Underlying pulmonary hypertension Hypertension elevated secondary to discomfort from lumbar vertebral fracture Narcotic induced constipation, history chronic pain on narcotics chronic respiratory failure secondary to COPD on home O2 CAD/PVD status post surgery/history TIA A-fib on Coumadin, INR therapeutic valvular heart disease (severe TR/mild MR) NSCLC status post surgery chronic hyponatremia postsurgical hypothyroidism, euthyroid as of recent outpatient TSH prediabetes, hemoglobin A1c of 5.9 August 06 past tobacco abuse Medical telemetry Facilitate home diuretic Rx Fluid restriction Analgesia Orthopedic spine consult Re: Lumbar fracture Hold antiplatelet and anticoagulant Rx until patient seen by orthopedics Bowel regimen, Relistor if unresponsive DVT prophylaxis. SCDs while Coumadin on hold if INR less than 2 DNR Patient son requesting updates providers. Mr. Jenaro Ayers, contact #[phone]. Text document was generated using [employer] voice recognition software. It may contain grammatical or spelling errors. Kindly contact undersigned for clarification of any documentation item in question. History of Present Illness Chief Complaint: Worsening back pain Primary Care Provider: Danelle Pierre MD History obtained from patient and records. Medical history significant for chronic respiratory failure secondary to COPD on home O2, chronic diastolic heart failure (EF 60 to 65%, TTE 2022), CAD/PVD status post surgery/history TIA, A-fib on Coumadin, valvular heart disease (severe TR/mild MR ), pulmonary hypertension, NSCLC status post surgery, GERD, chronic hyponatremia, chronic pain on narcotics, postsurgical hypothyroidism prediabetes, past tobacco abuse. Last confinement July 2023 for decompensated heart failure, right lower lobe pneumonia. 2 weeks ago, patient slid off her bed which resulted in low back pain without radiation as per patient. No unusual leg weakness, no incontinence symptoms. Back pain worse with ambulation. Achy abdominal discomfort, no bowel movement for about a week which can be usual for her. No nausea, no emesis. Usual shortness of breath. No chest pain. Patient brought by family to ER for evaluation. 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 Allergies Allergy/AdvReac Type Severity Reaction Status Date / Time No Known Allergies Allergy Unverified 09/15/23 21:20 Home Medications Medication Instructions Recorded Confirmed Type alprazolam 1 mg tablet 1 mg PO BID PRN Anxiety 01/15/20 09/15/23 History amlodipine 2.5 mg tablet 2.5 mg PO QAM 01/15/20 09/15/23 History aspirin 81 mg tablet,delayed 81 mg PO DAILY 01/15/20 09/15/23 History release cyclobenzaprine 10 mg tablet 10 mg PO DAILY PRN Muscle Spasm 01/15/20 09/15/23 History docusate sodium 100 mg tablet 100 mg PO BID 01/15/20 09/15/23 History esomeprazole magnesium 20 mg 20 mg PO QAM 01/15/20 09/15/23 History capsule,delayed release lisinopril 20 mg tablet 20 mg PO QAM 01/15/20 09/15/23 History metoprolol succinate 25 mg 12.5 mg PO QAM 01/15/20 09/15/23 History tablet,extended release 24 hr morphine 15 mg tablet,extended 15 mg PO AMPM 01/15/20 09/15/23 History release albuterol sulfate 90 mcg/actuation 2 puffs inhalation Q6H PRN 01/19/20 09/15/23 Rx aerosol inhaler shortness of breath or wheezing #6.7 grams meclizine 25 mg tablet 25 mg PO TID PRN dizziness #90 tabs 01/19/20 09/15/23 Rx cholecalciferol (vitamin D3) 25 50 mcg PO DAILY 02/13/20 09/15/23 History mcg (1,000 unit) tablet melatonin 3 mg tablet 3 mg PO HS 06/05/21 09/15/23 History multivitamin 1 tab PO DAILY 06/05/21 09/15/23 History polyethylene glycol 3350 17 17 g PO DAILY PRN Constipation 06/05/21 09/15/23 History gram/dose oral powder (Miralax) sennosides 8.6 mg tablet (senna) 8.6 mg PO HS PRN Constipation 06/05/21 09/15/23 History Oxygen Home #1 ea 06/09/21 09/15/23 Rx warfarin 5 mg tablet 2.5 mg PO 2XWK 07/30/22 09/15/23 History warfarin 5 mg tablet 5 mg PO 5XWK 07/30/22 09/15/23 History alendronate 70 mg tablet 70 mg PO WK 08/07/23 09/15/23 History furosemide 20 mg tablet 20 mg PO DAILY 08/07/23 09/16/23 History omega-3 fatty acids 1,000 mg 1,000 mg PO DAILY 08/07/23 09/15/23 History capsule rosuvastatin 10 mg tablet 10 mg PO QAM 08/07/23 09/15/23 History sertraline 25 mg tablet 25 mg PO QAM 08/07/23 09/15/23 History potassium chloride 10 mEq 10 meq PO DAILY #30 tabs 08/09/23 09/15/23 Rx tablet,extended release(part/cryst) ipratropium 0.5 mg-albuterol 3 mg 3 ml inhalation Q4 PRN Wheezing 09/15/23 09/15/23 History (2.5 mg base)/3 mL nebulization soln levothyroxine 125 mcg tablet 125 mcg PO DAILYBB 09/15/23 09/15/23 History Past Med/Surg History Medical History Obesity Iron deficiency anemia History of lung cancer Chronic anticoagulation Chronic pain GERD (gastroesophageal reflux disease) Chronic atrial fibrillation Hypertension Dyslipidemia Post-surgical hypothyroidism Surgical History History of carotid endarterectomy Right Hx of cholecystectomy H/O thyroidectomy H/O pneumonectomy Right upper lobe secondary to lung cancer Family History Mother Stroke Hypertension Uterine cancer Father Heart disease Cardiac disorder Aunt Cardiac disorder Brother Diabetes Sister Diabetes Grandmother (Paternal) Breast cancer Social History Smoking Status: Former smoker Tobacco Type: Cigarettes Second Hand Exposure: No; Do You Dip or Chew Tobacco: No; Tobacco Cessation Education Requested by Patient: No Hx Alcohol Use: No Hx Substance Use: No Preferred Language: Telugu 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 Ability: Effective Telesales Supervisor Required: No Beliefs That Will Affect Care: None marital status: / Current Living Situation: Alone Current Living Situation Comment: Children live 5 mins away Other Information That Helps Us Care for You: No Feels Safe at Home: Yes Safety Concerns: Feels Safe At This Time Assistive Devices: Glasses, Oxygen - Continuous and Walker Review of Systems Review of Systems: As per HPI, all other systems reviewed and negative Physical Exam Physical Exam: GENERAL: Slightly uncomfortable, obese, no respiratory distress SKIN: Normal color, warm HEENT: Bespectacled, [place] palpebral conjunctivae, no ptosis, dry buccal mucosa, nasal cannula in place NECK : Supple, short neck, no tenderness CHEST : Decreased breath sounds, no tenderness HEART : Irregular, no obvious murmurs ABDOMEN: Some distention, nontender BACK : Low back tenderness. EXTREMITIES : Minimal LE swelling, no LE tenderness, no other conspicuous deformities noted NEUROLOGIC : Coherent, no facial asymmetry, gait and stance not assessed Results & Data Results & Data Vital Signs (Past 12 Hours) Vital Signs Temp Pulse Pulse Resp BP BP Pulse Ox 09/15/23 21:00 93 H 20 171/106 H 97 09/15/23 20:50 90 09/15/23 17:37 36.8 C 82 18 130/80 96 O2 Del Method O2 Flow Rate 09/15/23 21:00 Nasal Cannula 4 09/15/23 20:50 09/15/23 17:37 Nasal Cannula 4 Laboratory Results Laboratory Results WBC 7.25 K/ul (4.8-10.8) 09/15/23 18: RBC 4.39 M/uL (4.20-5.40) 09/15/23 18:29 Hgb 12.3 g/dl (12.0-16.0) 09/15/23 18: Hct 39.3 % (37.0-47.0) 09/15/23 18: MCV 89.5 fL (80.0-100.0) 09/15/23 18: MCH 28.0 pg (25.0-34.0) 09/15/23 18: MCHC 31.3 g/dL (32.0-36.0) L 09/15/23 18: RDW Std Deviation 52.9 fL (36.4-46.3) H 09/15/23 18: RDW Coeff of Richar 16.0 % (11.5-14.5) H 09/15/23 18: Plt Count 226 K/uL (130-400) 09/15/23 18: MPV 10.2 fL (9.4-12.4) 09/15/23 18: Immature Gran % (Auto) 0.3 % 09/15/23 18: Neut % (Auto) 76.7 % 09/15/23 18: Lymph % (Auto) 15.2 % 09/15/23 18: Moody % (Auto) 7.2 % 09/15/23 18: Eos % (Auto) 0.3 % 09/15/23 18: Baso % (Auto) 0.3 % 09/15/23 18: Neut # (Auto) 5.57 K/uL (1.40-6.50) 09/15/23 18: Lymph # (Auto) 1.10 K/uL (1.20-3.40) L 09/15/23 18: Moody # (Auto) 0.52 K/uL (0.11-0.59) 09/15/23 18: Eos # (Auto) 0.02 K/uL (0.00-0.50) 09/15/23 18: Baso # (Auto) 0.02 K/uL (0.00-0.20) 09/15/23 18: Immature Gran # (Auto) 0.02 K/uL (0.01-0.20) 09/15/23 18: PT 29.9 Seconds (9.0-12.0) H 09/15/23 18: INR 2.9 (0.9-1.1) H 09/15/23 18: Sodium 133 mmol/L (136-145) L 09/15/23 18: Potassium 4.2 mmol/L (3.5-5.1) 09/15/23 18: Chloride 94 mmol/L (98-107) L 09/15/23 18: Carbon Dioxide 31 mmol/L (21-32) 09/15/23 18: Anion Gap 8 (3-11) 09/15/23 18: BUN 16 mg/dl (6-23) 09/15/23 18: Creatinine 0.73 mg/dl (0.6-1.2) 09/15/23 18: Est Cr Clr Drug Dosing Not Reportable 09/15/23 18:29 Est GFR ( Amer) 90.2 ml/min 09/15/23 18:29 Est GFR (Non-Af Amer) 77.8 ml/min 09/15/23 18:29 BUN/Creatinine Ratio 21.9 (10-20) H 09/15/23 18:29 Glucose 90 mg/dl (70-99(Fasting)) 09/15/23 18:29 Calcium 9.4 mg/dl (8.6-10.3) 09/15/23 18:29 Total Bilirubin 0.6 mg/dl (0.2-1.0) 09/15/23 18:29 AST 33 U/L (13-39) 09/15/23 18:29 ALT 14 U/L (7-52) 09/15/23 18:29 Alkaline Phosphatase 128 U/L (34-104) H 09/15/23 18:29 Total Protein 8.4 gm/dl (6.0-8.3) H 09/15/23 18:29 Albumin 3.9 gm/dl (3.4-5.0) 09/15/23 18: Globulin 4.5 gm/dl (2.5-4.0) H 09/15/23 18:29 Albumin/Globulin Ratio 0.9 (0.9-2) 09/15/23 18:[address] 09/15/23 17:40 CT OF THE LUMBAR SPINE CLINICAL HISTORY: Low back pain following fall. COMPARISON STUDY: Lumbar spine CT January 15, 2020 and lumbar spine radiographs July 29, 2022. CT of the abdomen and pelvis June 05, 2021. TECHNIQUE: Helical axial images of the lumbar spine were obtained. Sagittal and coronal reconstructions were viewed. Automated exposure control was utilized for the study. A dose lowering technique was utilized adhering to the principles of ALARA. FINDINGS: A moderate L1 compression fracture is unchanged since CT of January 15, 2020. A fracture of the superior plate of L2 is also unchanged. There has been interval development of mild concavity of the inferior endplate of L2 since abdominal CT of June 05, 2021. This is age indeterminate. Slight concavity of the superior endplate of L3 is chronic. Moderate multilevel facet arthrosis is noted. There is mild to moderate multilevel degenerative disc disease. Paravertebral soft tissues are unremarkable. The sacroiliac joints are intact. IMPRESSION: 1. Interval development of concavity of the inferior endplate of L2. This represents an age indeterminate compression fracture. 2. Otherwise, no significant change in appearance of the lumbar spine with several old compression fractures. 3. Moderate multilevel degenerative changes within the lumbar spine. ACT 112: Negative or not required by law. Electronically signed by: Armando Glover M.D. 09/15/2023 6:32 PM Lumbar MRI: Acute on chronic 2 column fracture of the L1 vertebral body with extensive bone marrow edema and 37% loss of vertebral body height. This fracture is amenable to vertebroplasty or kyphoplasty. Acute and chronic single column L2 vertebral body fracture with extensive bone marrow edema and 35% loss of vertebral body height. This fracture is amenable to vertebroplasty or kyphoplasty. Diagnostic Findings Chest x-ray as per my interpretation cardiomegaly, congestion EKG as per my interpretation :
[2023-09-15] MEDS ORDERED: MoRPHine SULFATE 2 MG/ML CARP IV PRN (23:09)
[2023-09-15] MEDS ORDERED: PROMETHAZINE HCL 12.5 MG in SODIUM CHLORIDE 0.9% 50 ML IV PRN (23:09)
[2023-09-16] MEDS ORDERED: POLYETHYLENE (MIRALAX) 17 GM PACK PO PRN (01:00)
[2023-09-16] MEDS: oxyCODONE HCL IR 5 MG TAB (IMMEDIATE RELEASE) PO PRN ×2 (01:48→14:43)
[2023-09-16] MEDS: ALPRAZolam 0.5 MG TABLET PO PRN ×3 (01:49→21:06)
[2023-09-16] MEDS: MELATONIN 3 MG TAB PO SCH ×2 (01:49→21:07)
[2023-09-16] MEDS: Patient's HEIGHT &/or WEIGHT Needed SCH (01:55)
--- NOTE | 2023-09-16 02:16 | Magnetic Resonance Report ---
Exam(s): MRI L SPINE Without Contrast EXAM: MR Lumbar Spine Without Intravenous Contrast CLINICAL HISTORY: Reason for exam: back pain. TECHNIQUE: Magnetic resonance images of the lumbar spine without intravenous contrast in multiple planes. COMPARISON: Comparison made to prior CT scan lumbar spine from September 15, 2023 and January 15, 2020. FINDINGS: Vertebrae: There is an acute on chronic 2 column fracture of the L1 vertebral body with bulging the posterior mild spinal canal, extensive bone edema and 37% loss of vertebral body height. There is an acute on chronic single column fracture of the L2 vertebral body with extensive bone marrow edema and 35% loss of vertebral body height. Spinal cord: The conus is normal size, shape and signal characteristics, terminating at L1-2. Soft tissues: Advanced atrophy of the iliopsoas, paraspinous intraspinous musculature. The aorta and IVC flow voids are intact. The visualized kidneys are unremarkable. IMPRESSION: Acute on chronic 2 column fracture of the L1 vertebral body with extensive bone marrow edema and 37% loss of vertebral body height. This fracture is amenable to vertebroplasty or kyphoplasty. Acute and chronic single column L2 vertebral body fracture with extensive bone marrow edema and 35% loss of vertebral body height. This fracture is amenable to vertebroplasty or kyphoplasty. Electronically signed by: Lissy Gonzales MD 09/16/23 02:15 AM
[2023-09-16] MEDS ORDERED: LACTULOSE SYRUP 30 GM/45 ML UDP PO ONE (04:15)
[2023-09-16] MEDS: LEVOTHYROXINE SODIUM 125 MCG TABLET PO SCH (06:23)
[2023-09-16 07:02] LABS: Basophils # (auto) 0.03 K/uL (0.00-0.20); Basophils % (auto) 0.5 %; Eosinophils # (auto) 0.03 K/uL (0.00-0.50); Eosinophils % (auto) 0.5 %; Hematocrit (blood only) 37.2 % (37.0-47.0); Immature Granulocytes # (auto) 0.01 K/uL (0.01-0.20); Immature Granulocytes % (auto) 0.2 %; Lymphocytes # (auto) 0.81 K/uL (1.20-3.40); Lymphocytes % (auto) 14.7 %; Mean Corpuscular Hemoglobin 28.2 pg (25.0-34.0); Mean Corpuscular Hgb Conc 32.3 g/dL (32.0-36.0); Mean Corpuscular Volume 87.5 fL (80.0-100.0); Mean Platelet Volume 9.9 fL (9.4-12.4); Monocytes # (auto) 0.51 K/uL (0.11-0.59); Monocytes % (auto) 9.3 %; Neutrophils # (auto) 4.11 K/uL (1.40-6.50); Neutrophils % (auto) 74.8 %; Platelet Count 184 K/uL (130-400); RDW Coefficient of Variation 16.1 % (11.5-14.5); RDW Standard Deviation 51.7 fL (36.4-46.3); Red Blood Count 4.25 M/uL (4.20-5.40)
[2023-09-16 07:06] LABS: BUN Creatinine Ratio 18.7 (10-20); Calcium 8.9 mg/dl (8.6-10.3); Creatinine Clr Calc Pharmacy 60.7 ml/min; Est GFR (African American) 87.3 ml/min; Est GFR (Non-African American) 75.3 ml/min; Potassium 3.9 mmol/L (3.5-5.1)
[2023-09-16 07:08] LABS: INR 2.4 (0.9-1.1); Prothrombin Time 24.4 Seconds (9.0-12.0)
--- NOTE | 2023-09-16 07:11 | XRay Report ---
XR chest 1V portable HISTORY: hyponatremia COMPARISON: Chest 08/07/2023. FINDINGS: No pneumothorax. There are low lung volumes. The heart remains enlarged. There is mild cent ral pulmonary vascular congestion without overt edema. This remains unchanged. There are calcificatio ns within the aortic knob. Bibasilar airspace opacities and interstitial thickening have slightly imp roved. No significant pleural fusions. IMPRESSION: 1. Low lung volumes with interval improvement of bibasilar airspace opacities. 2. Cardiomegaly and mild pulmonary congestion persists. ACT 112: Negative or not required by law. Electronically signed by: William Beach M.D. 09/16/2023 7:10 AM
[2023-09-16 07:26] LABS: Appearance Urine Clear (Clear); Bilirubin Urine Negative (Negative); Blood Urine Negative (Negative); Color Urine Yellow; Glucose Urine UA Negative (Negative); Ketones Urine Negative (Negative); Leukocyte Esterase Urine Negative (Negative); Nitrite Urine Negative (Negative); Protein Urine Negative (Negative); Urobilinogen Urine Negative (Negative)
[2023-09-16] MEDS ORDERED: FUROSEMIDE 20 MG TAB PO SCH (09:00)
[2023-09-16] MEDS: PANTOprazole 40 MG TAB PO SCH (09:27)
[2023-09-16] MEDS: lisinopril 20 MG TAB PO SCH (09:27)
[2023-09-16] MEDS: POTASSIUM CHLORIDE 10 MEQ TABCR PO SCH (09:27)
[2023-09-16] MEDS: MULTIVITAMIN TAB PO SCH (09:27)
[2023-09-16] MEDS: METOPROLOL SUCC 25MG EXT REL TAB PO SCH (09:27)
[2023-09-16] MEDS: amLODIPine BESYLATE 5 MG TAB PO SCH (09:27)
[2023-09-16] MEDS: ROSUVASTATIN CALCIUM 10 MG TAB PO SCH (09:28)
[2023-09-16] MEDS: FUROSEMIDE 20 MG TAB PO SCH (09:28)
[2023-09-16] MEDS: DOCUSATE SODIUM/SENNA 50/8.6MG TAB PO SCH ×2 (09:28→21:07)
[2023-09-16] MEDS: SERTRALINE HCL 50 MG TABLET PO SCH (09:28)
[2023-09-16] MEDS: MoRPHine SULFATE CR 15 MG TABCR PO SCH ×2 (09:31→21:07)
--- NOTE | 2023-09-16 10:55 | Orthopedic Consultation ---
Date of Consultation September 16, 2023 Assessment & Plan (1) Compression of lumbar vertebra: I reviewed the findings on her MRI with the patient. Given her multiple medical comorbidities would like to try to avoid a general anesthesia. Her pain seems to be better controlled today than it was when she first came in. I am going to order a new TLSO she has an old brace that no longer fits. She can be up with physical therapy once the brace is in place. She needs to wear the brace when she is up and walking but does not need it when she is sitting in the chair or in bed. If there are any further concerns please contact our service. History of Present Illness Attending Physician: Edy Brice MD History of Present Illness Patient was seen bedside in room 285. She states that yesterday she went to stand up out of her couch she felt her feet slipped out from under her room she went to stand up and fell directly backwards into the hard part of the couch itself. This resulted in severe pain. She was brought to [facility] and admitted to the medical service. She has multiple medical comorbidities including oxygen dependent COPD aortic stenosis and hypertensive urgency. Through the evaluation it is noted that she had acute to subacute compression deformities of L1 and L2 and we are consulted. She has had multiple compression fractures in the past secondary to other falls. She is not having any john radicular complaints or significant leg weakness. Initially she was short of breath but that has improved. She denies any other numbness, tingling, paresthesias. Allergies Allergy/AdvReac Type Severity Reaction Status Date / Time No Known Allergies Allergy Unverified 09/15/23 21:20 Home Medications Medication Instructions Recorded Confirmed Type alprazolam 1 mg tablet 1 mg PO BID PRN Anxiety 01/15/20 09/15/23 History amlodipine 2.5 mg tablet 2.5 mg PO QAM 01/15/20 09/15/23 History aspirin 81 mg tablet,delayed 81 mg PO DAILY 01/15/20 09/15/23 History release cyclobenzaprine 10 mg tablet 10 mg PO DAILY PRN Muscle Spasm 01/15/20 09/15/23 History docusate sodium 100 mg tablet 100 mg PO BID 01/15/20 09/15/23 History esomeprazole magnesium 20 mg 20 mg PO QAM 01/15/20 09/15/23 History capsule,delayed release lisinopril 20 mg tablet 20 mg PO QAM 01/15/20 09/15/23 History metoprolol succinate 25 mg 12.5 mg PO QAM 01/15/20 09/15/23 History tablet,extended release 24 hr morphine 15 mg tablet,extended 15 mg PO AMPM 01/15/20 09/15/23 History release albuterol sulfate 90 mcg/actuation 2 puffs inhalation Q6H PRN 01/19/20 09/15/23 Rx aerosol inhaler shortness of breath or wheezing #6.7 grams meclizine 25 mg tablet 25 mg PO TID PRN dizziness #90 tabs 01/19/20 09/15/23 Rx cholecalciferol (vitamin D3) 25 50 mcg PO DAILY 02/13/20 09/15/23 History mcg (1,000 unit) tablet melatonin 3 mg tablet 3 mg PO HS 06/05/21 09/15/23 History multivitamin 1 tab PO DAILY 06/05/21 09/15/23 History polyethylene glycol 3350 17 17 g PO DAILY PRN Constipation 06/05/21 09/15/23 History gram/dose oral powder (Miralax) sennosides 8.6 mg tablet (senna) 8.6 mg PO HS PRN Constipation 06/05/21 09/15/23 History Oxygen Home #1 ea 06/09/21 09/15/23 Rx warfarin 5 mg tablet 2.5 mg PO 2XWK 07/30/22 09/15/23 History warfarin 5 mg tablet 5 mg PO 5XWK 07/30/22 09/15/23 History alendronate 70 mg tablet 70 mg PO WK 08/07/23 09/15/23 History furosemide 20 mg tablet 20 mg PO DAILY 08/07/23 09/16/23 History omega-3 fatty acids 1,000 mg 1,000 mg PO DAILY 08/07/23 09/15/23 History capsule rosuvastatin 10 mg tablet 10 mg PO QAM 08/07/23 09/15/23 History sertraline 25 mg tablet 25 mg PO QAM 08/07/23 09/15/23 History potassium chloride 10 mEq 10 meq PO DAILY #30 tabs 08/09/23 09/15/23 Rx tablet,extended release(part/cryst) ipratropium 0.5 mg-albuterol 3 mg 3 ml inhalation Q4 PRN Wheezing 09/15/23 09/15/23 History (2.5 mg base)/3 mL nebulization soln levothyroxine 125 mcg tablet 125 mcg PO DAILYBB 09/15/23 09/15/23 History Patient History Medical History Obesity Iron deficiency anemia History of lung cancer Chronic anticoagulation Chronic pain GERD (gastroesophageal reflux disease) Chronic atrial fibrillation Hypertension Dyslipidemia Post-surgical hypothyroidism Surgical History History of carotid endarterectomy Right Hx of cholecystectomy H/O thyroidectomy H/O pneumonectomy Right upper lobe secondary to lung cancer Family History Mother Stroke Hypertension Uterine cancer Father Heart disease Cardiac disorder Aunt Cardiac disorder Brother Diabetes Sister Diabetes Grandmother (Paternal) Breast cancer Social History Smoking Status: Former smoker Tobacco Type: Cigarettes Second Hand Exposure: No; Do You Dip or Chew Tobacco: No; Tobacco Cessation Education Requested by Patient: No Hx Alcohol Use: No Hx Substance Use: No Preferred Language: Arabic 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 Ability: Effective 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 She is alert and oriented. Her calves are supple and nontender her abdomen supple nontender cardiovascular exam reveals no gross abnormalities. Her lower extremity motor exam reveals no focal atrophy or strength 5 out of 5 with plantarflexion, dorsiflexion, knee extension, and hip flexion. She has full range of motion of the hips and knees. Her gait was not observed. Results & Data Vital Signs (Past 12 Hours) Vital Signs Temp Pulse Pulse Resp BP Pulse Ox O2 Del Method 09/16/23 07:44 36.6 C 77 18 136/78 94 Nasal Cannula 09/16/23 07:09 84 09/16/23 02:14 92 H 09/16/23 01:06 Nasal Cannula 09/16/23 01:06 36.8 C 89 22 140/84 92 Nasal Cannula 09/15/23 23:38 Nasal Cannula O2 Flow Rate 09/16/23 07:44 4 09/16/23 07:09 09/16/23 02:14 09/16/23 01:06 4 09/16/23 01:06 4 09/15/23 23:38 4 Diagnostic Findings MRI of the lumbar spine reveals bony edema in the L1 and L2 vertebral bodies there is 2 column involvement at L1 and 1 column and L2 there are multiple old chronic compression fractures (1) Compression of lumbar vertebra Encounter type: initial encounter Lumbar vertebra fracture level: L2 Qualified Code(s): S32.020A - Wedge compression fracture of second lumbar vertebra, initial encounter for closed fracture
--- NOTE | 2023-09-16 14:12 | Hospitalist Progress Note ---
Date of Service September 16, 2023 Assessment & Plan (1) Decompensated heart failure: Plan: Acute on chronic lumbar fracture Age-related osteoporosis with current pathological fracture, L1-L2 vertebrae Secondary to recent fall --MRI Lumbar Spine:Acute on chronic 2 column fracture of the L1 vertebral body with extensive bone marrow edema and 37% loss of vertebral body height. This fracture is amenable to vertebroplasty or kyphoplasty. Acute and chronic single column L2 vertebral body fracture with extensive bone marrow edema and 35% loss of vertebral body height. This fracture is amenable to vertebroplasty or kyphoplasty. -- Patient prefers no surgery Plan for TLSO brace PT OT, fall precautions Currently patient not interested in rehab placement Appreciate orthopedics input Acute on chronic diastolic heart failure Chronic respiratory failure with hypoxia--on 4 L of supplemental oxygen at baseline --CXR: Low lung volumes with interval improvement of bibasilar airspace opacities. Cardiomegaly and mild pulmonary congestion persists. --Last ECHO Jul 2023: Mild concentric LVH. LVEF 60 to 65%. Severe biatrial enlargement is present. Mild mitral regurgitation, severe tricuspid regurgitation. Right ventricle is mildly dilated. Right ventricle systolic function is normal. Mild pulmonary hypertension was present. Received IV Lasix Monitor volume status Continue p.o. Lasix at home dose Continue lisinopril, metoprolol Continue supplemental oxygen Hypertension BP elevated situational secondary to pain Continue amlodipine, metoprolol, lisinopril Monitor BP Narcotic induced constipation H/O chronic pain on narcotics Minimize IV narcotics as able Bowel regimen to prevent constipation COPD No signs of exacerbation Continue nebs as needed CAD/PVD S/P surgery H/O TIA Continue aspirin, statin, metoprolol A-fib on Coumadin, INR therapeutic valvular heart disease (severe TR/mild MR) Continue Coumadin Monitor INR 2.4 Continue metoprolol Other chronic conditions NSCLC S/P surgery Chronic hyponatremia Postsurgical hypothyroidism Prediabetes, hemoglobin A1c of 5.9 August 06 Past tobacco abuse Monitor sodium levels DVT Px: Coumadin Code Status DNI/DNR Admission and Anticipated Discharge Date Admission Date: September 15, 2023 Subjective Patient is seen and examined at bedside States having lower back pain Denies any chest pain, dyspnea, dizziness, nausea, vomiting, abdominal pain Discussed with orthopedics today No other complaints Review of Systems Review of Systems: All systems reviewed & are unremarkable except as noted in Subjective Physical Exam Physical Exam: Physical Exam: Vitals signs as noted above General Appearance:Obese, no apparent distress Head: normocephalic, Atraumatic Eyes: normal inspection, EOMI Neck: supple, Trachea midline Respiratory/Chest: Decreased breath sounds, CTA, No accessory muscle use Cardiovascular: Irregularly irregular, No murmur Abdomen/GI:Soft, Non tender, Bowel sounds present Extremities/Musculoskeletal:normal inspection, no edema Neurologic/Psych:AAOX3, grossly no focal neurological deficits Skin: normal color, warm Results & Data Results & Data Vital Signs (Past 12 Hours) Vital Signs Temp Pulse Pulse Resp BP Pulse Ox Pulse Ox 09/16/23 11:11 36.6 C 86 18 141/92 H 96 09/16/23 08:00 94 09/16/23 07:45 09/16/23 07:44 36.6 C 77 18 136/78 94 09/16/23 07:09 84 09/16/23 02:14 92 H O2 Del Method O2 Del Method O2 Flow Rate 09/16/23 11:11 Nasal Cannula 4 09/16/23 08:00 Room Air 09/16/23 07:45 Nasal Cannula 4 09/16/23 07:44 Nasal Cannula 4 09/16/23 07:09 09/16/23 02:14 Laboratory Results Short CBC 09/15/23 09/16/23 Range/Units 18:29 06:03 WBC 7.25 5.50 (4.8-10.8) K/ul Hgb 12.3 12.0 (12.0-16.0) g/dl Hct 39.3 37.2 (37.0-47.0) % Plt Count 226 184 (130-400) K/uL BMP 09/15/23 09/16/23 18:29 06:03 Sodium 133 L 136 Potassium 4.2 3.9 Chloride 94 L 95 L Carbon Dioxide 31 36 H BUN 16 14 Creatinine 0.73 0.75 Glucose 90 93 Calcium 9.4 8.9 Liver Function 09/15/23 Range/Units 18:29 Total Bilirubin 0.6 (0.2-1.0) mg/dl AST 33 (13-39) U/L ALT 14 (7-52) U/L Alkaline Phosphatase 128 H (34-104) U/L Albumin 3.9 (3.4-5.0) gm/dl Urine 09/16/23 Range/Units 06:20 Urine Color Yellow Urine Appearance Clear (Clear) Urine pH 7.0 (4.5-7.5) Ur Specific Dania 1.010 (1.000-1.030) Urine Protein Negative (Negative) Urine Glucose (UA) Negative (Negative)
[2023-09-16] MEDS ORDERED: ALBUT/IPRATROP 3MG/0.5MG NEB 3 ML VIAL NEB PRN (14:14)
[2023-09-16] MEDS: ASPIRIN 81 MG ECTAB PO SCH (14:43)
[2023-09-16] MEDS: WARFARIN SOD 5 MG TAB PO SCH (16:44)
[2023-09-16] MEDS: LIDOCAINE 5% 1 PATCH TD SCH (21:08)
[2023-09-17] MEDS: oxyCODONE HCL IR 5 MG TAB (IMMEDIATE RELEASE) PO PRN ×2 (03:17→15:56)
[2023-09-17] MEDS: LEVOTHYROXINE SODIUM 125 MCG TABLET PO SCH (06:03)
[2023-09-17 07:01] LABS: Hematocrit (blood only) 37.8 % (37.0-47.0); Hemoglobin 12.1 g/dl (12.0-16.0); Mean Corpuscular Hemoglobin 28.2 pg (25.0-34.0); Mean Corpuscular Volume 88.1 fL (80.0-100.0); Mean Platelet Volume 10.4 fL (9.4-12.4); Platelet Count 180 K/uL (130-400); RDW Standard Deviation 51.7 fL (36.4-46.3); Red Blood Count 4.29 M/uL (4.20-5.40); White Blood Count 5.56 K/ul (4.8-10.8)
[2023-09-17 07:27] LABS: BUN Creatinine Ratio 19.1 (10-20); Calcium 8.8 mg/dl (8.6-10.3); Creatinine Clr Calc Pharmacy 51.7 ml/min; Est GFR (African American) 70.9 ml/min; Est GFR (Non-African American) 61.2 ml/min; Magnesium 1.8 mg/dl (1.7-2.4); Potassium 4.1 mmol/L (3.5-5.1)
[2023-09-17 07:55] LABS: INR 2.3 (0.9-1.1); Prothrombin Time 23.5 Seconds (9.0-12.0)
[2023-09-17] MEDS: SERTRALINE HCL 50 MG TABLET PO SCH (08:38)
[2023-09-17] MEDS: amLODIPine BESYLATE 5 MG TAB PO SCH (08:39)
[2023-09-17] MEDS: MULTIVITAMIN TAB PO SCH (08:39)
[2023-09-17] MEDS: DOCUSATE SODIUM/SENNA 50/8.6MG TAB PO SCH ×2 (08:39→20:31)
[2023-09-17] MEDS: ASPIRIN 81 MG ECTAB PO SCH (08:39)
[2023-09-17] MEDS: lisinopril 20 MG TAB PO SCH (08:39)
[2023-09-17] MEDS: POTASSIUM CHLORIDE 10 MEQ TABCR PO SCH (08:39)
[2023-09-17] MEDS: FUROSEMIDE 20 MG TAB PO SCH (08:40)
[2023-09-17] MEDS: PANTOprazole 40 MG TAB PO SCH (08:40)
[2023-09-17] MEDS: METOPROLOL SUCC 25MG EXT REL TAB PO SCH (08:40)
[2023-09-17] MEDS: ROSUVASTATIN CALCIUM 10 MG TAB PO SCH (08:40)
[2023-09-17] MEDS: ALPRAZolam 0.5 MG TABLET PO PRN ×2 (08:42→20:29)
[2023-09-17] MEDS: MoRPHine SULFATE CR 15 MG TABCR PO SCH ×2 (08:42→20:30)
[2023-09-17] MEDS ORDERED: SODIUM CHLORIDE 0.9% 500 ML IV ONE (11:56)
[2023-09-17] MEDS: WARFARIN SOD 5 MG TAB PO SCH (15:57)
--- NOTE | 2023-09-17 17:31 | Hospitalist Progress Note ---
Date of Service September 17, 2023 Assessment & Plan (1) Decompensated heart failure: Plan: Acute on chronic lumbar fracture Age-related osteoporosis with current pathological fracture, L1-L2 vertebrae Secondary to recent fall --MRI Lumbar Spine:Acute on chronic 2 column fracture of the L1 vertebral body with extensive bone marrow edema and 37% loss of vertebral body height. This fracture is amenable to vertebroplasty or kyphoplasty. Acute and chronic single column L2 vertebral body fracture with extensive bone marrow edema and 35% loss of vertebral body height. This fracture is amenable to vertebroplasty or kyphoplasty. -- Patient prefers no surgery Continue TLSO brace with activity PT OT, fall precautions Currently patient not interested in rehab placement Appreciate orthopedics input Pain is controlled Acute on chronic diastolic heart failure Chronic respiratory failure with hypoxia--on 4 L of supplemental oxygen at baseline --CXR: Low lung volumes with interval improvement of bibasilar airspace opacities. Cardiomegaly and mild pulmonary congestion persists. --Last ECHO Jul 2023: Mild concentric LVH. LVEF 60 to 65%. Severe biatrial enlargement is present. Mild mitral regurgitation, severe tricuspid regurgitation. Right ventricle is mildly dilated. Right ventricle systolic function is normal. Mild pulmonary hypertension was present. Received IV Lasix Monitor volume status Hold home Lasix, lisinopril as currently hypotensive Continue, metoprolol with holding parameter Continue supplemental oxygen Hypertension BP elevated situational secondary to pain on presentation Hold amlodipine, lisinopril as BP low currently Minimize IV narcotic use Monitor BP closely Narcotic induced constipation H/O chronic pain on narcotics Minimize IV narcotics as able Bowel regimen to prevent constipation COPD No signs of exacerbation Continue nebs as needed CAD/PVD S/P surgery H/O TIA Continue aspirin, statin, metoprolol A-fib on Coumadin, INR therapeutic valvular heart disease (severe TR/mild MR) Continue Coumadin Monitor INR 2.3 today Continue metoprolol Other chronic conditions NSCLC S/P surgery Chronic hyponatremia Postsurgical hypothyroidism Prediabetes, hemoglobin A1c of 5.9 August 06 Past tobacco abuse Monitor sodium levels DVT Px: Coumadin Code Status DNI/DNR Admission and Anticipated Discharge Date Admission Date: September 15, 2023 Subjective Patient is seen and examined at bedside Reports lower back pain and minimal dizziness Noted to be hypertensive today Denies any chest pain, dyspnea, nausea, vomiting, abdominal pain No other complaints Review of Systems Review of Systems: All systems reviewed & are unremarkable except as noted in Subjective Physical Exam Physical Exam: Physical Exam: Vitals signs as noted above General Appearance:Obese, no apparent distress Head: normocephalic, Atraumatic Eyes: normal inspection, EOMI Neck: supple, Trachea midline Respiratory/Chest: Decreased breath sounds, CTA, No accessory muscle use Cardiovascular: Irregularly irregular, No murmur Abdomen/GI:Soft, Non tender, Bowel sounds present Extremities/Musculoskeletal:normal inspection, no edema Neurologic/Psych:AAOX3, grossly no focal neurological deficits Skin: normal color, warm Results & Data Results & Data Vital Signs (Past 12 Hours) Vital Signs Temp Pulse Pulse Resp BP BP Pulse Ox 09/17/23 16:00 09/17/23 15:59 36.8 C 89 18 90/66 L 94 09/17/23 15:47 84 09/17/23 11:40 78/48 L 09/17/23 11:37 36.8 C 75 18 76/46 L 78/48 L 94 09/17/23 08:00 09/17/23 07:59 36.5 C 87 18 123/81 96 09/17/23 07:55 09/17/23 07:49 36.4 C L 82 18 96/57 L 91 09/17/23 06:54 76 Pulse Ox O2 Del Method O2 Del Method O2 Flow Rate O2 Flow Rate 09/17/23 16:00 96 Nasal Cannula 4 09/17/23 15:59 Nasal Cannula 4 09/17/23 15:47 09/17/23 11:40 09/17/23 11:37 Nasal Cannula 4 09/17/23 08:00 96 Nasal Cannula 96 09/17/23 07:59 Nasal Cannula 4 09/17/23 07:55 Nasal Cannula 4 09/17/23 07:49 Nasal Cannula 4 09/17/23 06:54 Laboratory Results Short CBC 09/17/23 Range/Units 06:15 WBC 5.56 (4.8-10.8) K/ul Hgb 12.1 (12.0-16.0) g/dl Hct 37.8 (37.0-47.0) % Plt Count 180 (130-400) K/uL BMP 09/17/23 06:15 Sodium 135 L Potassium 4.1 Chloride 96 L Carbon Dioxide 34 H BUN 17 Creatinine 0.89 Glucose 94 Calcium 8.8
[2023-09-17] MEDS: LIDOCAINE 5% 1 PATCH TD SCH (20:30)
[2023-09-17] MEDS: MELATONIN 3 MG TAB PO SCH (20:31)
[2023-09-18] MEDS: oxyCODONE HCL IR 5 MG TAB (IMMEDIATE RELEASE) PO PRN ×2 (03:38→16:18)
[2023-09-18] MEDS: LEVOTHYROXINE SODIUM 125 MCG TABLET PO SCH (05:39)
[2023-09-18 08:00] LABS: Prothrombin Time 30.5 Seconds (9.0-12.0)
[2023-09-18 08:05] LABS: BUN Creatinine Ratio 23.5 (10-20); Calcium 8.6 mg/dl (8.6-10.3); Creatinine Clr Calc Pharmacy 55.1 ml/min; Est GFR (Non-African American) 64.7 ml/min; Potassium 4.5 mmol/L (3.5-5.1)
[2023-09-18] MEDS: PANTOprazole 40 MG TAB PO SCH (08:12)
[2023-09-18] MEDS: DOCUSATE SODIUM/SENNA 50/8.6MG TAB PO SCH ×2 (08:12→20:15)
[2023-09-18] MEDS: POTASSIUM CHLORIDE 10 MEQ TABCR PO SCH (08:12)
[2023-09-18] MEDS: METOPROLOL SUCC 25MG EXT REL TAB PO SCH (08:12)
[2023-09-18] MEDS: MULTIVITAMIN TAB PO SCH (08:12)
[2023-09-18] MEDS: ASPIRIN 81 MG ECTAB PO SCH (08:12)
[2023-09-18] MEDS: ROSUVASTATIN CALCIUM 10 MG TAB PO SCH (08:13)
[2023-09-18] MEDS: SERTRALINE HCL 50 MG TABLET PO SCH (08:13)
[2023-09-18] MEDS: MoRPHine SULFATE CR 15 MG TABCR PO SCH ×2 (08:13→20:14)
[2023-09-18] MEDS: ALPRAZolam 0.5 MG TABLET PO PRN ×2 (08:18→20:14)
--- NOTE | 2023-09-18 16:36 | Hospitalist Progress Note ---
Date of Service September 18, 2023 Assessment & Plan (1) Decompensated heart failure: Plan: Acute on chronic lumbar fracture Age-related osteoporosis with current pathological fracture, L1-L2 vertebrae Secondary to recent fall --MRI Lumbar Spine:Acute on chronic 2 column fracture of the L1 vertebral body with extensive bone marrow edema and 37% loss of vertebral body height. This fracture is amenable to vertebroplasty or kyphoplasty. Acute and chronic single column L2 vertebral body fracture with extensive bone marrow edema and 35% loss of vertebral body height. This fracture is amenable to vertebroplasty or kyphoplasty. -- Patient prefers no surgery Continue TLSO brace with activity PT OT, fall precautions Appreciate orthopedics input Pain is controlled We will consult orthotics for brace adjustment Patient agrees to go to rehab facility Case management to help with discharge planning Acute on chronic diastolic heart failure Chronic respiratory failure with hypoxia--on 4 L of supplemental oxygen at baseline --CXR: Low lung volumes with interval improvement of bibasilar airspace opacities. Cardiomegaly and mild pulmonary congestion persists. --Last ECHO Jul 2023: Mild concentric LVH. LVEF 60 to 65%. Severe biatrial enlargement is present. Mild mitral regurgitation, severe tricuspid regurgitation. Right ventricle is mildly dilated. Right ventricle systolic function is normal. Mild pulmonary hypertension was present. Received IV Lasix Monitor volume status Hold home Lasix, lisinopril as currently low BP Continue, metoprolol with holding parameter Continue supplemental oxygen Patient requesting for portable oxygen concentrator--will discuss with case management Hypertension BP elevated situational secondary to pain on presentation Hold amlodipine, lisinopril as BP low currently Minimize IV narcotic use Monitor BP closely Narcotic induced constipation H/O chronic pain on narcotics Minimize IV narcotics as able Bowel regimen to prevent constipation COPD No signs of exacerbation Continue nebs as needed CAD/PVD S/P surgery H/O TIA Continue aspirin, statin, metoprolol A-fib on Coumadin, INR therapeutic valvular heart disease (severe TR/mild MR) Continue Coumadin Monitor INR 3.0 today Continue metoprolol Other chronic conditions NSCLC S/P surgery Chronic hyponatremia Postsurgical hypothyroidism Prediabetes, hemoglobin A1c of 5.9 August 06 Past tobacco abuse Monitor sodium levels DVT Px: Coumadin Code Status DNI/DNR Admission and Anticipated Discharge Date Admission Date: September 15, 2023 Subjective Patient is seen and examined at bedside Still has some dizziness States inability to use the brace as it needs to be adjusted per patient Denies any chest pain, dyspnea, nausea, vomiting, abdominal pain BP relatively low today Accepts to go to rehab facility Review of Systems Review of Systems: All systems reviewed & are unremarkable except as noted in Subjective Physical Exam Physical Exam: Physical Exam: Vitals signs as noted above General Appearance:Obese, no apparent distress Head: normocephalic, Atraumatic Eyes: normal inspection, EOMI Neck: supple, Trachea midline Respiratory/Chest: Decreased breath sounds, CTA, No accessory muscle use Cardiovascular: Irregularly irregular, No murmur Abdomen/GI:Soft, Non tender, Bowel sounds present Extremities/Musculoskeletal:normal inspection, no edema Neurologic/Psych:AAOX3, grossly no focal neurological deficits Skin: normal color, warm Results & Data Results & Data Vital Signs (Past 12 Hours) Vital Signs Temp Pulse Pulse Resp BP Pulse Ox Pulse Ox 09/18/23 15:55 83 09/18/23 15:35 36.6 C 85 18 101/68 91 09/18/23 12:02 37.1 C 86 18 92/67 L 93 09/18/23 09:25 80 09/18/23 08:00 94 09/18/23 07:48 36.8 C 84 18 141/88 H 94 09/18/23 07:42 O2 Del Method O2 Del Method O2 Flow Rate O2 Flow Rate 09/18/23 15:55 09/18/23 15:35 Nasal Cannula 4 09/18/23 12:02 Nasal Cannula 4 09/18/23 09:25 09/18/23 08:00 Nasal Cannula 4 09/18/23 07:48 Nasal Cannula 4 09/18/23 07:42 Nasal Cannula 4 Laboratory Results [facility] 09/18/23 06:35 Sodium 134 L Potassium 4.5 Chloride 97 L Carbon Dioxide 34 H BUN 20 Creatinine 0.85 Glucose 90 Calcium 8.6
[2023-09-18] MEDS: WARFARIN SOD 5 MG TAB PO SCH (16:56)
[2023-09-18] MEDS: LIDOCAINE 5% 1 PATCH TD SCH (20:14)
[2023-09-18] MEDS: MELATONIN 3 MG TAB PO SCH (20:15)
[2023-09-19] MEDS: ALPRAZolam 0.5 MG TABLET PO PRN (00:44)
[2023-09-19] MEDS: oxyCODONE HCL IR 5 MG TAB (IMMEDIATE RELEASE) PO PRN ×2 (00:44→13:56)
[2023-09-19] MEDS: LEVOTHYROXINE SODIUM 125 MCG TABLET PO SCH (06:19)
[2023-09-19] MEDS: ASPIRIN 81 MG ECTAB PO SCH (09:30)
[2023-09-19] MEDS: MULTIVITAMIN TAB PO SCH (09:31)
[2023-09-19] MEDS: DOCUSATE SODIUM/SENNA 50/8.6MG TAB PO SCH (09:31)
[2023-09-19] MEDS: METOPROLOL SUCC 25MG EXT REL TAB PO SCH (09:31)
[2023-09-19] MEDS: PANTOprazole 40 MG TAB PO SCH (09:31)
[2023-09-19] MEDS: SERTRALINE HCL 50 MG TABLET PO SCH (09:32)
[2023-09-19] MEDS: POTASSIUM CHLORIDE 10 MEQ TABCR PO SCH (09:32)
[2023-09-19] MEDS: ROSUVASTATIN CALCIUM 10 MG TAB PO SCH (09:32)
[2023-09-19] MEDS: MoRPHine SULFATE CR 15 MG TABCR PO SCH (09:35)
--- NOTE | 2023-09-19 12:40 | Hospitalist Progress Note ---
Date of Service September 19, 2023 Assessment & Plan (1) Decompensated heart failure: Plan: Acute on chronic lumbar fracture Age-related osteoporosis with current pathological fracture, L1-L2 vertebrae Secondary to recent fall --MRI Lumbar Spine:Acute on chronic 2 column fracture of the L1 vertebral body with extensive bone marrow edema and 37% loss of vertebral body height. This fracture is amenable to vertebroplasty or kyphoplasty. Acute and chronic single column L2 vertebral body fracture with extensive bone marrow edema and 35% loss of vertebral body height. This fracture is amenable to vertebroplasty or kyphoplasty. -- Patient prefers no surgery Continue TLSO brace with activity PT OT, fall precautions Appreciate orthopedics input Pain is controlled Orthotics for brace adjustment requested Plan to discharge to Rehab facility today Acute on chronic diastolic heart failure Chronic respiratory failure with hypoxia--on 4 L of supplemental oxygen at baseline --CXR: Low lung volumes with interval improvement of bibasilar airspace opacities. Cardiomegaly and mild pulmonary congestion persists. --Last ECHO Jul 2023: Mild concentric LVH. LVEF 60 to 65%. Severe biatrial enlargement is present. Mild mitral regurgitation, severe tricuspid regurgitation. Right ventricle is mildly dilated. Right ventricle systolic function is normal. Mild pulmonary hypertension was present. Received IV Lasix Monitor volume status Continue, metoprolol with holding parameter Continue supplemental oxygen Resume home po Lasix Hypertension BP elevated situational secondary to pain on presentation Hold amlodipine, lisinopril as BP low currently Minimize IV narcotic use BP stable off antihypertensives Will need adjustment of antihypertensives as outpatient Narcotic induced constipation H/O chronic pain on narcotics Minimize IV narcotics as able Bowel regimen to prevent constipation COPD No signs of exacerbation Continue nebs as needed CAD/PVD S/P surgery H/O TIA Continue aspirin, statin, metoprolol A-fib on Coumadin, INR therapeutic valvular heart disease (severe TR/mild MR) Continue Coumadin Monitor INR 3.0 today Continue metoprolol Other chronic conditions NSCLC S/P surgery Chronic hyponatremia Postsurgical hypothyroidism Prediabetes, hemoglobin A1c of 5.9 August 06 Past tobacco abuse Monitor sodium levels DVT Px: Coumadin Code Status DNI/DNR Disposition Acute rehab Admission and Anticipated Discharge Date Admission Date: September 15, 2023 Subjective Patient is seen and examined at bedside States feeling well today No dizziness today Still has some back pain Denies any chest pain, dyspnea, nausea, vomiting, abdominal pain BP stable off medications Plan to be discharged to rehab facility today Review of Systems Review of Systems: All systems reviewed & are unremarkable except as noted in Subjective Physical Exam Physical Exam: Physical Exam: Vitals signs as noted above General Appearance:Obese, no apparent distress Head: normocephalic, Atraumatic Eyes: normal inspection, EOMI Neck: supple, Trachea midline Respiratory/Chest: Decreased breath sounds, CTA, No accessory muscle use Cardiovascular: Irregularly irregular, No murmur Abdomen/GI:Soft, Non tender, Bowel sounds present Extremities/Musculoskeletal:normal inspection, no edema Neurologic/Psych:AAOX3, grossly no focal neurological deficits Skin: normal color, warm Results & Data Results & Data Vital Signs (Past 12 Hours) Vital Signs Temp Pulse Pulse Pulse Resp BP BP 09/19/23 12:14 36.5 C 86 18 130/82 09/19/23 11:41 09/19/23 08:16 36.8 C 82 14 132/86 09/19/23 08:00 09/19/23 07:42 81 09/19/23 04:13 36.9 C 84 18 125/79 Pulse Ox Pulse Ox O2 Del Method O2 Del Method O2 Flow Rate O2 Flow Rate 09/19/23 12:14 94 Nasal Cannula 4 09/19/23 11:41 95 Nasal Cannula 4 09/19/23 08:16 97 Nasal Cannula 4 09/19/23 08:00 Room Air 09/19/23 07:42 09/19/23 04:13 95 Nasal Cannula 4
--- NOTE | 2023-09-19 12:47 | Discharge Summary ---
Date of Service September 19, 2023 Admission HPI Per Admitting Provider History obtained from patient and records. Medical history significant for chronic respiratory failure secondary to COPD on home O2, chronic diastolic heart failure (EF 60 to 65%, TTE 2022), CAD/PVD status post surgery/history TIA, A-fib on Coumadin, valvular heart disease (severe TR/mild MR ), pulmonary hypertension, NSCLC status post surgery, GERD, chronic hyponatremia, chronic pain on narcotics, postsurgical hypothyroidism prediabetes, past tobacco abuse. Last confinement July 2023 for decompensated heart failure, right lower lobe pneumonia. 2 weeks ago, patient slid off her bed which resulted in low back pain without radiation as per patient. No unusual leg weakness, no incontinence symptoms. Back pain worse with ambulation. Achy abdominal discomfort, no bowel movement for about a week which can be usual for her. No nausea, no emesis. Usual shortness of breath. No chest pain. Patient brought by family to ER for evaluation. 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 EXTREMITIES : Minimal LE swelling, no LE tenderness, no other conspicuous deformities noted NEUROLOGIC : Coherent, no facial asymmetry, gait and stance not assessed Principal Diagnosis Age-related osteoporosis with current pathological fracture, L1-L2 vertebrae Mechanical fall Acute on chronic diastolic heart failure Variable blood pressure Discharge Data Allergies Allergy/AdvReac Type Severity Reaction Status Date / Time No Known Allergies Allergy Unverified 09/15/23 21:20 Consultations 09/15/23 20:32 ED Decision to Admit Stat 09/16/23 04:15 Consult Orthopedic Spine Surgery Routine Procedures Performed Laboratory Results WBC 5.56 K/ul (4.8-10.8) 09/17/23 06:15 RBC 4.29 M/uL (4.20-5.40) 09/17/23 06:15 Hgb 12.1 g/dl (12.0-16.0) 09/17/23 06:15 Hct 37.8 % (37.0-47.0) 09/17/23 06:15 MCV 88.1 fL (80.0-100.0) 09/17/23 06:15 MCH 28.2 pg (25.0-34.0) 09/17/23 06:15 MCHC 32.0 g/dL (32.0-36.0) 09/17/23 06:15 RDW Std Deviation 51.7 fL (36.4-46.3) H 09/17/23 06:15 RDW Coeff of Richar 16.0 % (11.5-14.5) H 09/17/23 06:15 Plt Count 180 K/uL (130-400) 09/17/23 06:15 MPV 10.4 fL (9.4-12.4) 09/17/23 06:15 Immature Gran % (Auto) 0.2 % 09/16/23 06:03 Neut % (Auto) 74.8 % 09/16/23 06:03 Lymph % (Auto) 14.7 % 09/16/23 06:03 [place] % (Auto) 9.3 % 09/16/23 06:03 Eos % (Auto) 0.5 % 09/16/23 06:03 Baso % (Auto) 0.5 % 09/16/23 06:03 Neut # (Auto) 4.11 K/uL (1.40-6.50) 09/16/23 06:03 Lymph # (Auto) 0.81 K/uL (1.20-3.40) L 09/16/23 06:03 [place] # (Auto) 0.51 K/uL (0.11-0.59) 09/16/23 06:03 Eos # (Auto) 0.03 K/uL (0.00-0.50) 09/16/23 06:03 Baso # (Auto) 0.03 K/uL (0.00-0.20) 09/16/23 06:03 Immature Gran # (Auto) 0.01 K/uL (0.01-0.20) 09/16/23 06:03 PT 31.0 Seconds (9.0-12.0) H 09/19/23 05:45 INR 3.0 (0.9-1.1) H 09/19/23 05:45 Sodium 134 mmol/L (136-145) L 09/18/23 06:35 Potassium 4.5 mmol/L (3.5-5.1) 09/18/23 06:35 Chloride 97 mmol/L (98-107) L 09/18/23 06:35 Carbon Dioxide 34 mmol/L (21-32) H 09/18/23 06:35 Anion Gap 3 (3-11) 09/18/23 06:35 BUN 20 mg/dl (6-23) 09/18/23 06:35 Creatinine 0.85 mg/dl (0.6-1.2) 09/18/23 06:35 Est Cr Clr Drug Dosing 55.1 ml/min 09/18/23 06:35 Est GFR ( Amer) 75.0 ml/min 09/18/23 06:35 Est GFR (Non-Af Amer) 64.7 ml/min 09/18/23 06:35 BUN/Creatinine Ratio 23.5 (10-20) H 09/18/23 06:35 Glucose 90 mg/dl (70-99(Fasting)) 09/18/23 06:35 Calcium 8.6 mg/dl (8.6-10.3) 09/18/23 06:35 Magnesium 1.8 mg/dl (1.7-2.4) 09/17/23 06:15 Total Bilirubin 0.6 mg/dl (0.2-1.0) 09/15/23 18:29 AST 33 U/L (13-39) 09/15/23 18:29 ALT 14 U/L (7-52) 09/15/23 18:29 Alkaline Phosphatase 128 U/L (34-104) H 09/15/23 18:29 Total Protein 8.4 gm/dl (6.0-8.3) H 09/15/23 18:29 Albumin 3.9 gm/dl (3.4-5.0) 09/15/23 18:29 Globulin 4.5 gm/dl (2.5-4.0) H 09/15/23 18:29 Albumin/Globulin Ratio 0.9 (0.9-2) 09/15/23 18:29 Urine Color Yellow 09/16/23 06:20 Urine Appearance Clear (Clear) 09/16/23 06:20 Urine pH 7.0 (4.5-7.5) 09/16/23 06:20 Ur Specific [place] 1.010 (1.000-1.030) 09/16/23 06:20 Urine Protein Negative (Negative) 09/16/23 06:20 Urine Glucose (UA) Negative (Negative) 09/16/23 06:20 Urine Ketones Negative (Negative) 09/16/23 06:20 Urine Blood Negative (Negative) 09/16/23 06:20 Urine Nitrite Negative (Negative) 09/16/23 06:20 Urine Bilirubin Negative (Negative) 09/16/23 06:20 Urine Urobilinogen Negative (Negative) 09/16/23 06:20 Ur Leukocyte Esterase Negative (Negative) 09/16/23 06:[address] 09/15/23 17:40 CT OF THE LUMBAR SPINE CLINICAL HISTORY: Low back pain following fall. COMPARISON STUDY: Lumbar spine CT January 15, 2020 and lumbar spine radiographs July 29, 2022. CT of the abdomen and pelvis June 05, 2021. TECHNIQUE: Helical axial images of the lumbar spine were obtained. Sagittal and coronal reconstructions were viewed. Automated exposure control was utilized for the study. A dose lowering technique was utilized adhering to the principles of ALARA. FINDINGS: A moderate L1 compression fracture is unchanged since CT of January 15, 2020. A fracture of the superior plate of L2 is also unchanged. There has been interval development of mild concavity of the inferior endplate of L2 since abdominal CT of June 05, 2021. This is age indeterminate. Slight concavity of the superior endplate of L3 is chronic. Moderate multilevel facet arthrosis is noted. There is mild to moderate multilevel degenerative disc disease. Paravertebral soft tissues are unremarkable. The sacroiliac joints are intact. IMPRESSION: 1. Interval development of concavity of the inferior endplate of L2. This represents an age indeterminate compression fracture. 2. Otherwise, no significant change in appearance of the lumbar spine with several old compression fractures. 3. Moderate multilevel degenerative changes within the lumbar spine. ACT 112: Negative or not required by law. Electronically signed by: Armando Glover M.D. 09/15/2023 6:32 PM Chest X-Ray 09/15/23 21:27 XR chest 1V portable HISTORY: hyponatremia COMPARISON: Chest 08/07/2023. FINDINGS: No pneumothorax. There are low lung volumes. The heart remains enlarged. There is mild central pulmonary vascular congestion without overt edema. This remains unchanged. There are calcifications within the aortic knob. Bibasilar airspace opacities and interstitial thickening have slightly improved. No significant pleural fusions. IMPRESSION: 1. Low lung volumes with interval improvement of bibasilar airspace opacities. 2. Cardiomegaly and mild pulmonary congestion persists. ACT 112: Negative or not required by law. Electronically signed by: William Beach M.D. 09/16/2023 7:10 AM Lumbar Spine MRI 09/16/23 00:07 Exam(s): MRI L SPINE Without Contrast EXAM: MR Lumbar Spine Without Intravenous Contrast CLINICAL HISTORY: Reason for exam: back pain. TECHNIQUE: Magnetic resonance images of the lumbar spine without intravenous contrast in multiple planes. COMPARISON: Comparison made to prior CT scan lumbar spine from September 15, 2023 and January 15, 2020. FINDINGS: Vertebrae: There is an acute on chronic 2 column fracture of the L1 vertebral body with bulging the posterior mild spinal canal, extensive bone edema and 37% loss of vertebral body height. There is an acute on chronic single column fracture of the L2 vertebral body with extensive bone marrow edema and 35% loss of vertebral body height. Spinal cord: The conus is normal size, shape and signal characteristics, terminating at L1-2. Soft tissues: Advanced atrophy of the iliopsoas, paraspinous intraspinous musculature. The aorta and IVC flow voids are intact. The visualized kidneys are unremarkable. IMPRESSION: Acute on chronic 2 column fracture of the L1 vertebral body with extensive bone marrow edema and 37% loss of vertebral body height. This fracture is amenable to vertebroplasty or kyphoplasty. Acute and chronic single column L2 vertebral body fracture with extensive bone marrow edema and 35% loss of vertebral body height. This fracture is amenable to vertebroplasty or kyphoplasty. Electronically signed by: Lissy Gonzales MD 09/16/23 02:15 AM Ordered Studies 09/15/23 17:40 CT lumbar spine wo con Stat 09/16/23 00:07 MR lumbar spine wo con Stat Hospital Course (1) Decompensated heart failure: Acute lumbar Vertebral fracture Age-related osteoporosis with current pathological fracture, L1-L2 vertebrae Secondary to recent fall H/O Prior Lumbar Vertebral factures in the past --MRI Lumbar Spine:Acute on chronic 2 column fracture of the L1 vertebral body with extensive bone marrow edema and 37% loss of vertebral body height. This fracture is amenable to vertebroplasty or kyphoplasty. Acute and chronic single column L2 vertebral body fracture with extensive bone marrow edema and 35% loss of vertebral body height. This fracture is amenable to vertebroplasty or kyphoplasty. -- Patient prefers no surgery Continue TLSO brace with activity PT OT, fall precautions Appreciate orthopedics input Pain is controlled Orthotics for brace adjustment requested Plan to discharge to Rehab facility today Acute on chronic diastolic heart failure Chronic respiratory failure with hypoxia--on 4 L of supplemental oxygen at baseline --CXR: Low lung volumes with interval improvement of bibasilar airspace opacities. Cardiomegaly and mild pulmonary congestion persists. --Last ECHO Jul 2023: Mild concentric LVH. LVEF 60 to 65%. Severe biatrial enlargement is present. Mild mitral regurgitation, severe tricuspid regurgitation. Right ventricle is mildly dilated. Right ventricle systolic function is normal. Mild pulmonary hypertension was present. Received IV Lasix Monitor volume status Continue, metoprolol with holding parameter Continue supplemental oxygen Resume home po Lasix Hypertension BP elevated situational secondary to pain on presentation Hold amlodipine, lisinopril as BP low currently Minimize IV narcotic use BP stable off antihypertensives Will need adjustment of antihypertensives as outpatient Narcotic induced constipation H/O chronic pain on narcotics Minimize IV narcotics as able Bowel regimen to prevent constipation COPD No signs of exacerbation Continue nebs as needed CAD/PVD S/P surgery H/O TIA Continue aspirin, statin, metoprolol A-fib on Coumadin, INR therapeutic valvular heart disease (severe TR/mild MR) Continue Coumadin Monitor INR 3.0 today Continue metoprolol Other chronic conditions NSCLC S/P surgery Chronic hyponatremia Postsurgical hypothyroidism Prediabetes, hemoglobin A1c of 5.9 August 06 Past tobacco abuse Monitor sodium levels DVT Px: Coumadin Code Status DNI/DNR Disposition Acute rehab Total Time Total Time Spent Total Time Spent (In Minutes): 57 minutes Discharge Plan Discharge Items Patient Disposition: Transfer Inpatient Rehab Fac Reason For Visit: CHF, LUMBAR COMP FX Discharge Diagnosis: Age-related osteoporosis with current pathological fracture, L1-L2 vertebrae Mechanical fall Acute on chronic diastolic heart failure Variable blood pressure Activity: Per Instructions section Exercise/Sports: Gradually increase as tolerated Non-emergency contact: Primary Care Provider Call non-emergency contact if: you have any medication questions, your symptoms worsen, your pain is concerning for you and you have a fever Follow-up/Referrals: Danelle Pierre MD [Primary Care Provider] - Diet: Heart Healthy Addtl Attending Provider Instructions: Follow-up with your primary care physician in 1 week upon discharge from your physician Follow-up with your orthopedic surgeon Dr. Hernandez as needed --- Monitor your blood pressure while at rehab facility. Can resume blood pressure medications as able once blood pressure more stable. --- Use TLSO brace with activity as advised. -- Monitor your PT/INR in 3 days and adjust Coumadin dose as needed. Seek immediate medical attention if your symptoms reoccur or worsen Please take all medications as instructed on discharge list below. Please call if you have any questions or problems. You can reach a [facility] hospitalist on duty at [facility] 24 hours a day by calling [phone] Pending Studies at Discharge: No Stand-Alone Forms: My [facility] Skilled Items Patient informed of condition?: Yes DNR: Yes Discharge Level of Care: Acute rehab Communicable Disease: No Discharge Prognosis: Stable Lines: None Urinary Catheter: No Medications and DC Order Prescriptions: Continued cholecalciferol (vitamin D3) 25 mcg (1,000 unit) tablet 50 mcg PO DAILY cyclobenzaprine 10 mg tablet 10 mg PO DAILY PRN (Reason: Muscle Spasm) alprazolam 1 mg tablet 1 mg PO BID PRN (Reason: Anxiety) aspirin 81 mg Tablet,Delayed Release (Dr/Ec) 81 mg PO DAILY morphine 15 mg tablet extended release 15 mg PO AMPM metoprolol succinate 25 mg tablet extended release 24 hr 12.5 mg PO QAM docusate sodium 100 mg Tablet 100 mg PO BID esomeprazole magnesium 20 mg capsule,delayed release(DR/EC) 20 mg PO QAM meclizine 25 mg tablet 25 mg PO TID PRN (Reason: dizziness) Qty: 90 0RF albuterol sulfate 90 mcg/actuation HFA aerosol inhaler 2 puffs INH Q6H PRN (Reason: shortness of breath or wheezing) Qty: 6.7 0RF warfarin 5 mg tablet 2.5 mg PO 2XWK Rx Instructions: TAKE 1/2 TABLET EVERY TUESDAY AND TUESDAY. warfarin 5 mg tablet 5 mg PO 5XWK Rx Instructions: TAKE 5MG EVERY TUESDAY/TUESDAY/TUESDAY/TUESDAY/TUESDAY. omega-3 fatty acids 1,000 mg Capsule 1,000 mg PO DAILY alendronate 70 mg tablet 70 mg PO WK Rx Instructions: fridays sertraline 25 mg tablet 25 mg PO QAM rosuvastatin 10 mg tablet 10 mg PO QAM furosemide 20 mg tablet 20 mg PO DAILY potassium chloride 10 mEq Tablet,Er Particles/Crystals 10 meq PO DAILY Qty: 30 0RF Rx Instructions: take with your daily lasix dose. levothyroxine 125 mcg tablet 125 mcg PO DAILYBB ipratropium-albuterol 0.5 mg-3 mg(2.5 mg base)/3 mL solution for nebulization 3 ml INHALATION Q4 PRN (Reason: Wheezing) multivitamin Tablet 1 tab PO DAILY sennosides [senna] 8.6 mg Tablet 8.6 mg PO HS PRN (Reason: Constipation) melatonin 3 mg Tablet 3 mg PO HS polyethylene glycol 3350 [Miralax] 17 gram/dose Powder 17 g PO DAILY PRN (Reason: Constipation) (DME) Oxygen Home Liters Per Minute See Rx Instructions .Route Qty: 1 0RF Rx Instructions: 2LPM with ambulation Held lisinopril 20 mg tablet 20 mg PO QAM Hold Instructions: Once Blood Pressure more stable. Physician at rehab facility to decide. amlodipine 2.5 mg tablet 2.5 mg PO QAM Hold Instructions: Once Blood Pressure more stable. Physician at rehab facility to decide. Discharge Orders: Discharge Order (Routine); Ordered 09/19/23 Ordered By: Edy Brice Admission Data Admit Date/Time: 09/15/23 23:08 Attending Provider: Edy Birce Admit Provider: Damian Moya Primary Care Provider: Danelle Pierre Other Providers: Damian Moya; Ramo Hernandez; [facility]
[2023-09-20] MEDS ORDERED: WARFARIN SOD 2.5 MG TAB PO SCH (16:00)
== END 2023-09-19 14:32 | DRG 542 ==
LOC: ED 17:21 → 2N 23:08

== ENCOUNTER 2024-11-18 18:51 | Inpatient (IN) ==
--- OUTSIDE RECORDS SUMMARY | 2024-11-18 18:57 | External Medical Summary ---
Author Name Unknown Address Unknown Organization [id number]:[facility] [place] [address] [place] [id number] Laboratory Report Ordering Provider Test Date Status BO THOMPSON 09/19/2024 07:41:00 Final Please draw PT/INR every 1-4 weeks or as requested by the [facility]

Warfarin Therapy
INR: 2.0-3.0 conventional anticoagulation
INR: 2.5-3.5 high intensity anticoagulation Observation Date Value Abnormality Reference (Units ) Status PT 09/19/2024 07:41:00 23.9 Above high normal 11 .6-15.2 (seconds) Final INR 09/19/2024 07:41:00 2.1 Above high normal 0. 8-1.2 Final Performing Location [facility] [place] [address] [place] [id number]
--- OUTSIDE RECORDS SUMMARY | 2024-11-18 18:57 | External Medical Summary | Summary of Care ---
Author Name Unknown Organization [facility] Address [address] [facility] [place] [address] Phone [phone] Care Team Providers Care Funeral Planner Name Role Phone Danelle Pierre MD Primary Care Provide r Reason for Visit * Reason Onset Date Comments Medication Refill 11/10/2024 Encounter Details Date Type Department Care Team (Late st Contact Info) Description 11/10/2024 Refill Family Medicine [address] [place] [address] Danelle Pierre MD [address] [place] [address] [place] Merc[place] [phone] Anxiety; Lumbar degenerative disc disease Allergies Active Allergy Reactions Criticality Noted Date Comments Clarithromycin Abdominal pain 01/29/2002 Stomach pain Escitalopram Oxalate 09/22/2010 jitters Fentanyl Itching 03/20/2009 Patch- itchy Hydralazine Hcl 04/03/2010 Flushed,shaking,burni ng sensation Atorvastatin Calcium Other (Please comment) Low 11/23/2007 Pain in chest Metoclopramide Hcl Other (Please comment) High 10/03/2007 Parkinson symptoms Simvastatin Other (Please comment) Low 10/12/2007 Breast tenderness Metoprolol Succinate Other (Please comment) Medium 06/30/2010 SOB Ezetimibe Other (Please comment) Low 11/23/2007 Pain in chest documented as of this encounter (statuses as of 11/15/2024) Medications ASPIRIN 81 MG PO TABS daily Active MAGNESIUM HYDROXIDE 400 MG/5ML PO SUSPIndications:S low transit constipation 30-60 ML DAILY NEEDED 0 09/14/20 12 Active FISH OIL 1000 MG PO CAPS daily Active VITAMIN D 1000 UNITS PO CAPSIndications:G eneralized osteoarthritis 2 capsule daily 0 01/17/20 14 Active Melatonin 3 MG CapsuleIndication s:Insomnia, unspecified type Take 1 Cap by mouth at bedtime. 30 Cap 1 04/23/20 20 Active Multiple Vitamins-Minerals (MULTIVITAMIN ADULT) TABS Take by mouth. Act malathi fluticasone (FLONASE) 50 MCG/ACT nasal sprayIndications: Nasal congestion Administer 2 Sprays into each nostril daily. 9.9 mL 2 06/24/20 20 Active Meclizine HCl 25 MG Oral Tablet (Antivert) Take 1 Tab by mouth 3 times a day as needed for Dizziness. 60 Tab 2 04/08/20 21 Active oxygen IN GAS Use 4 L/min(Oxygen) as directed. Active Diclofenac Sodium 1 % Transdermal GelIndications:Pr imary osteoarthritis of both knees APPLY 4GM TOPICALLY ON THE SKIN TWO TIMES A DAY TO KNEES DIRECTED 300 g 3 12/22/19 22 Active Polyethylene Glycol 3350 17 GM/SCOOP Oral Powder (MiraLax)Indicati ons:Constipation, unspecified constipation type Take by mouth 17 g as needed for Constipation. Dissolve one heaping tablespoon in 8 ounces of water or juice. 850 g 2 12/22/19 22 Active FT Mucus Relief 12HR 600 MG Oral Tablet Extended Release 12 Hour TAKE TWO TABLETS BY MOUTH EVERY TWELVE HOURS FOR 5 DAYS 08/09/20 23 Active Probiotic & Acidophilus Ex St Oral Capsule Take 1 Capsule by mouth in the morning and 1 Capsule at noon and 1 Capsule in the evening. Take with meals. Active Ipratropium-Albut osvaldo 0.5-2.5 (3) MG/3ML Inhalation Solution (Duoneb)Indicatio ns:COPD exacerbation (HCC) INHALE ONE vial via NEBULIZER EVERY 4 HOURS NEEDED FOR wheezing 180 mL 1 10/07/20 23 Active MEDICAL INSTRUCTIONSIndic ations:Pulmonary hypertension (HCC),Chronic respiratory failure with hypoxia (HCC) Pt may use 4 Liters of Oxygen with Exertion, and 3 Liters at rest 10/04/20 23 Active Albuterol Sulfate HFA 108 (90 Base) MCG/ACT Inhalation Aerosol SolutionIndicatio ns:COPD exacerbation (HCC) Inhale 2 Puffs by mouth in the morning and 2 Puffs at noon and 2 Puffs in the evening and 2 Puffs before bedtime. 18 g 1 01/30/20 24 Active Rosuvastatin Calcium 10 MG Oral Tablet (Crestor)Indicati ons:Atrial fibrillation, chronic (HCC),Dyslipidemi a, goal LDL below 70,Carotid stenosis, asymptomatic, bilateral Take 1 Tablet by mouth every evening. 90 Tablet 3 03/08/20 24 Active Lisinopril 20 MG Oral Tablet (Prinivil)Indicat ions:Chronic atrial fibrillation (HCC),ASCVD (arteriosclerotic cardiovascular disease),Essentia l hypertension with goal blood pressure less than 140/90 TAKE ONE TABLET BY MOUTH IN THE MORNING 90 Tablet 3 03/23/20 24 Active Senna 30 MG Oral Take one tablet by mouth daily as needed. 90 Each 1 04/10/20 24 Active Furosemide 20 MG Oral Tablet (Lasix)Indication s:Chronic atrial fibrillation (HCC),HTN, goal below 140/90,Edema, unspecified type TAKE ONE TABLET BY MOUTH THREE TIMES A WEEK 40 Tablet 3 05/10/20 24 Active Cyclobenzaprine HCl 10 MG Oral Tablet (Flexeril) TAKE 1 TABLET DAILY NEEDED FOR MUSCLE SPASMS 30 Tablet 06/07/20 24 Active Docusate Sodium 100 MG Oral Capsule (Colace)Indicatio ns:Constipation, unspecified constipation type Take 1 Capsule by mouth in the morning and 1 Capsule before bedtime. 180 Capsule 1 08/17/20 24 Active Esomeprazole Magnesium 20 MG Oral Capsule Delayed ReleaseIndication s:Gastroesophagea l reflux disease without esophagitis Take 1 Capsule by mouth daily before breakfast. 90 Capsule 1 08/17/20 24 Active Potassium Chloride ER 10 MEQ Oral Tablet Extended Release Take 1 Tablet by mouth daily. Take with daily Lasix dose 90 Tablet 1 09/14/20 24 Active amLODIPine Besylate 2.5 MG Oral Tablet (Norvasc) Take 1 Tablet by mouth in the morning. 90 Tablet 1 09/14/20 24 Active Warfarin Sodium 5 MG Oral Tablet (Coumadin)Indicat ions:Chronic atrial fibrillation, unspecified (HCC) TAKE 1/2 TABLET BY MOUTH every Tuesday, ,and Tuesday and TAKE ONE TABLET BY MOUTH ALL other DAYS OR DIRECTED by anticoagulation clinic 80 Tablet 2 10/01/20 24 Active Alendronate Sodium 70 MG Oral Tablet (Fosamax)Indicati ons:Age-related osteoporosis without current pathological fracture Take 1 Tablet by mouth once a week. with 8 oz. water 30 minutes before first meal of the day. Remain upright for 30 min after taking tablet. 12 Tablet 10/01/20 24 Active Levothyroxine Sodium 137 MCG Oral TabletIndications :Postsurgical hypothyroidism Take 1 Tablet by mouth daily first thing in the morning. (at least 30 min prior to breakfast or other meds) 90 Tablet 1 10/08/20 24 Active Sertraline HCl 25 MG Oral Tablet (Zoloft)Indicatio ns:Anxiety,Curren t mild episode of major depressive disorder without prior episode (HCC) Take 1 Tablet by mouth in the morning. In the morning.. 90 Tablet 1 10/08/20 24 Active Metoprolol Succinate ER 25 MG Oral Tablet Extended Release 24 Hour (toPROL XL)Indications:HT N, goal below 140/90,Atrial fibrillation, chronic (HCC) Take by mouth 1/2 tablet in the morning 45 Tablet 1 10/08/20 24 Active ALPRAZolam 1 MG Oral Tablet (xaNAX)Indication s:Anxiety TAKE ONE TABLET BY MOUTH TWICE DAILY NEEDED FOR anxiety. 60 Tablet 11/12/20 24 Active Morphine Sulfate ER 15 MG Oral Tablet Extended Release (Ms Contin)Indication s:Lumbar degenerative disc disease Take 1 Tablet by mouth in the morning and 1 Tablet before bedtime. 60 Tablet 11/12/20 24 Active ALPRAZolam 1 MG Oral Tablet (xaNAX)Indication s:Anxiety TAKE ONE TABLET BY MOUTH TWICE DAILY NEEDED FOR anxiety. 60 Tablet 10/08/20 24 2023 Disconti nued(Ref ill) Morphine Sulfate ER 15 MG Oral Tablet Extended Release (Ms Contin)Indication s:Lumbar degenerative disc disease Take 1 Tablet by mouth in the morning and 1 Tablet before bedtime. 60 Tablet 10/08/20 24 2023 Disconti nued(Ref ill) documented as of this encounter (statuses as of 11/15/2024) Active Problems Problem Noted Date Diagnosed Date MEDICATION USE AGREEMENT 05/25/2023 Overview (05/25/2023): Dr. Pierre - 05/25/23 Carotid stenosis, asymptomatic, bilateral 2022 History of CEA (carotid endarterectomy) 11/18/19 Pulmonary hypertension 11/18/2022 Chronic respiratory failure with hypoxia 023 History of cholangitis 11/18/2022 Chronic diastolic HF (heart failure) 11/18/2022 On home oxygen therapy 06/15/2021 S/P ERCP 06/15/2021 MEDICATION USE AGREEMENT 06/15/2021 Overview (07/01/2021): Dr. Pierre - 06/15/2021 Chronic atrial fibrillation 01/02/2020 History of colon polyps 04/23/2019 Atrial fibrillation, chronic 12/22/2018 Chronic pain of right knee 07/27/2018 Iron deficiency anemia 01/16/2016 Lumbar degenerative disc disease 01/18/2013 Anticoagulation management encounter 09/01/2012 care home current use of anticoagulant therapy 1 Overview (08/15/2017): ICD-10 update of inactive term History of lung cancer 08/23/2012 Dyslipidemia, goal LDL below 100 04/03/2010 HTN, goal below 140/90 04/03/2010 Carotid stenosis, symptomatic w/o infarct 2009 ASCVD (arteriosclerotic cardiovascular disease) 04/03/2010 Anxiety state 08/31/2007 Postsurgical hypothyroidism 08/31/2007 Slow transit constipation 04/15/2004 Other allergic rhinitis 02/12/2004 Overview (09/06/2017): ICD-10 update of inactive term GENERAL OSTEOARTHROSIS 08/12/2003 Esophageal reflux Benign neoplasm of colon Senile osteoporosis MEDICATION USE AGREEMENT documented as of this encounter (statuses as of 11/15/2024) Resolved Problems Problem Noted Date Diagnosed Date Resolved Date Prediabetes 11/18/2022 08/25/2023 Benign hypertension with CKD (chronic kidney disease) stage III 12/22/2018 05/11/2021 Kidney disease, chronic, sta ge III (GFR 30-59 ml/min) 11/22/2016 12/22/2018 Overview: Per CKD protocol #1 Impaired fasting glucose 02/22/201306/2019 Atrial fibrillation 08/23/2012 12/22/19 19 Backache 10/26/2010 04/08/2011 TIA (transient ischemic attack) 04/03/2010 12/22/2018 Dyslipidemia, goal LDL below 160 10/29/2009 04/03/2010 Dyslipidemia, goal to be determined 10/21/2009 10/29/2009 Overview (10/21/2009): Per Lipid Taxonomy. HTN, goal below 140/90 09/19/200904/03 Overview (09/19/2009): Modified per HTN Taxonomy. Cystocele, midline 09/18/2008 6 Rectocele 09/18/2008 01/15/2016 Uterine prolapse 09/18/2008 10/29/2009 ADVANCE DIRECTIVE INFORMATION 01/22/2008 09/17/2024 Overview (01/22/2008): No, Advance Directive brochure given to patient at prior appointment. PARKINSON'S DISEASE SECONDARY TO DRUGS 10/03/2007 10/29/2009 Major depressive disorder, s chin episode, moderate 08/31/2007 07/15/2015 Viral labyrinthitis 08/31/2007 02/05/20 08 Malignant neoplasm of bronchus and lung 02/13/2007 08/23/2012 Overview (08/23/2023): ICD-10 update of inactive term BENIGN HYPERTENSION 02/15/2003 09/19/20 09 Overview (09/19/2009): Modified per HTN Taxonomy. ABN LIVER FUNCTION STUDY 02/15/200311/2014 XANTHELASMA OF EYELID 2014 NONTOX MULTINODUL GOITER 11/2014 PURE HYPERCHOLESTEROLEM 09/15 Other specified disorders of biliary tract 07/15/2015 Chronic constipation 008 Mixed dyslipidemia 9 Overview (10/21/2009): Per Lipid Taxonomy. Ectopic production of endocrine substance 07/15/2015 Overview (07/30/2008): ADH, INAPPROPRIATE ECTOPIC Left atrial enlargement 01/2016 documented as of this encounter (statuses as of 11/15/2024) Immunizations Name Administration Dates Next Due COVID-19 mRNA, LNP-s, No Pre serve, 2-Dose Series (Moderna) 01/23/2021,12/26/2020 COVID-19, mRNA, LNP-s, PF, B ooster, 100mcg/0.5mg (Moderna) 10/27/2021 Influenza, Whole Virus 11/02/2000 Pneumococcal Conjugate Vacc, 13 Valent (Prevnar) 02/21/2015 Pneumococcal Polysaccharide PPV23 (Pneumovax) 09/03/2016,08/31/2007,09/23/2000 Season Influenza, Quad, PF, Adjuvanted, 65+ Yrs, IM (FLUAD) 09/12/2020 Seasonal Influenza Vac., MDV , IM, 0.5 mL (Fluzone) 09/10/2014,08/27/2013,08/23/2012,08/17,08/24/2010,08/19/2009,10/01/2008 ,08/31/2007,08/18/2006,08/26/2005,08/15,09/05/2002 Seasonal Influenza, PF, 6 M & above, IM , (FluLaval or Fluzone) 07/24/2019,07/27/2018,09/06/2017 Seasonal Influenza, Quadriva lent Hd (Fluzone Hd) 08/17/2023,10/06/2022,08/13/2021 Seasonal Influenza, Quadriva lent, No Preserve, IM 09/03/2016,09/02/2015 Varicella Zoster Vaccine (Adult) 08/23/2012 documented as of this encounter Social History Tobacco Use Types Packs/Day Years Used Date Smoking Tobacco: Former Cigarettes 2 30 0 01/25/1977 - 01/25/2007 Smokeless Tobacco: Former Comments:quit 01/18 Alcohol Use Standard Drinks/Week Comments No 0 (1 standard drink = 0.6 oz pur e alcohol) PHQ-2 Answer Date Recorded PHQ-2 Score 2 12/21/2019 Comments No Sex and Gender Information Value Date Recorded Sex Assigned at Not on file Legal Sex Female 5:26 AM EST Gender Identity Not on file Sexual Orientation Not on file Occupation Industry Job Start Date Job End Date retired Not on file Not on file Not on file documented as of this encounter Miscellaneous Notes * Telephone Encounter - Karly Petit pier master assistant - 11/15/2024 4:22 PM EST Son calling to check on the status of the prescriptions. Karly Kate Label Printer II [facility] 11/15/2024 4:22 PM * Telephone Encounter - Danelle Pierre MD - 11/12/2024 1:19 PM EST Signed Prescriptions: Disp Refills ALPRAZolam 1 MG Oral Tablet (xaNAX) 60 Tab*0 Sig: TAKE ONE TABLET BY MOUTH TWICE DAILY NEEDED FOR anxiety. Authorizing Provider: DANELLE PIERRE Morphine Sulfate ER 15 MG Oral Tablet Exte*60 Tab*0 Sig: Take 1 Tablet by mouth in the morning and 1 Tablet before bedtime. Authorizing Provider: DANELLE PIERRE * Telephone Encounter - [facility] - 11/12/2024 12:34 PM EST Pending Prescriptions: Disp Refills ALPRAZolam 1 MG Oral Tablet (xaNAX) 60 Tab*0 Sig: TAKE ONE TABLET BY MOUTH TWICE DAILY NEEDED FOR anxiety. Morphine Sulfate ER 15 MG Oral Tablet Exte*60 Tab*0 Sig: Take 1 Tablet by mouth in the morning and 1 Tablet before bedtime. Electronically signed by [facility] at 11/12/2024 12:34 PM EST * Telephone Encounter - [facility] - 11/12/2024 12:34 PM EST I have reviewed the patients controlled substance dispensing history in the Prescription Drug Monitoring Program in compliance with the [facility] regulations before prescribing a controlled substance. PDMP checked on 11/12/2024. Pending Prescriptions: Disp Refills ALPRAZolam 1 MG Oral Tablet (xaNAX) 60 Tab*0 Sig: TAKE ONE TABLET BY MOUTH TWICE DAILY NEEDED FOR anxiety. Morphine Sulfate ER 15 MG Oral Tablet Ext*60 Tab*0 Sig: Take 1 Tablet by mouth in the morning and 1 Tablet before bedtime. Last Visit: 08/17/2023 (in office), Visit date not found (telemedicine) Next Visit: 12/31/2024 Date medication was last filled: 10/12/24 Date medication is due for refill: 11/10/24 Pharmacy: [facility], [address] [place] Is this request for a controlled substance? Yes and Urine Drug Screen Not completed Toxicology results: Results for orders placed or performed in visit on 06/15/21 PAIN MANAGEMENT DRUG PANEL, URINE W/ INTERPRETATION Result Value Compliance Interpretation Based on the medication information provided and obtained from [facility]: The presence of morphine, hydrocodone, dihydrocodeine, and hydromorphone is CONSISTENT with currentuse of morphine and hydrocodone. The presence of alpha-hydroxyalprazolam is CONSISTENT with current use of alprazolam. Amphetamines Screen, U Negative Benzodiazepines Screen, U Refer to confirmation results (A) Cannabinoids Screen, U Negative Cocaine Metabolite Screen, U Negative Hydrocodone Screen, U Refer to confirmation results (A) Methadone Metabolite Screen, U Negative Morphine/Codeine Screen, U Refer to confirmation results (A) Oxycodone Screen, U Refer to confirmation results (A) Valid Interpretation Normal Creatinine, U 72 Narrative Cutoff Concentrations: Drug Level Amphetamines 500 ng/mL Benzodiazepines 100 ng/mL Cannabinoids 50 ng/mL Cocaine Metabolite 150 ng/mL Hydrocodone / Hydromorphone 100 ng/mL Methadone Metabolite 100 ng/mL Morphine / Codeine 300 ng/mL Oxycodone / Oxymorphone 100 ng/mL Screening results are presumptive and can only be used for medical purposes. Confirmatory testing is available upon request. *Note: Due to a large number of results and/or encounters for the requested time period, some results have not been displayed. A complete set of results can be found in Results Review. Please approve if appropriate. Thank you, Myra Mooney, PharmD Clinical Pharmacist [facility] ([facility]) [phone] 11/12/2024, 12:34 PM Electronically signed by [facility] at 11/12/2024 12:34 PM EST documented in this encounter Plan of Treatment Upcoming Encounters Date Type Department Care Team (Late st Contact Info) Description 11/21/2024 7:00 AM EST Laboratory Lab Mobile Phlebotomy [facility] [address] [place] [address] [facility] Mobile Home Draw [address] [place] [id number] 11/22/2024 6:00 AM EST Anticoagulation [facility], Isreal Rivera [address] [place] [address] [place] [address] [facility], [address] [place] [address] 12/31/2024 10:40 AM EST Telemedicine Family Medicine [address] [place] [phone] Danelle Pierre MD [address] [place] [address] [place] [id number] Health Maintenance Due Date Last Done Comments DTap/Tdap Vaccines (1 - Tdap) 1964 Adult Wellness Visit 2009 Zoster Vaccines (2 of 3) 10/18/2012 08/23/2012 Depression Screening 12/20/2020 12/20/2019 DXA Scan 05/21/2023 05/21/2021, 05/15, 03/20/2014, Additional history exists COVID-19 Vaccine ( season) 2024 10/27/2021, 01/23/2021, 12/26/2020 Influenza Vaccine (FLU shot) (#1) 2024 08/17/2023, 10/06/2022, 08/13/2021, Additional history exists GFR 02/01/2025 02/02/2024, 09/14, 09/28/2023, Additional history exists TSH 08/22/2025 08/22/2024, 06/14, 10/26/2023, Additional history exists Albumin/Creatinine Ratio 11/18/2025 11/18/2022 Pneumococcal Vaccine: 50+ Years Completed 09/03/2016, 02/21/2015, 08/31/2007, Additional history exists VITAMIN D LEVEL ONCE IN A LIFETIME-USE SMARTSET# [id number] Completed 05/29/2020, 09/11/2019, 05/24/2014, Additional history exists HPV (Gardasil) Vaccine Aged Out No lo nger eligible based on patient's age to complete this topic Hepatitis B Vaccine Aged Out No longe r eligible based on patient's age to complete this topic MENINGOCOCCAL (MENACTRA/MENVEO) Aged Out No longer eligible based on patient's age to complete this topic documented as of this encounter Medical Devices Not on filedocumented as of this encounter Visit Diagnoses Diagnosis Anxiety Anxiety state, unspecified Lumbar degenerative disc disease Degeneration of lumbar or lumbosacral intervertebral disc documented in this encounter Care Teams Funeral Planner Relationship Specialty Start Date End Date Danelle Pierre MD [address] [place] [address] [place] [id number] PCP - General Family Medicine 01/02/20 documented as of this encounter
--- OUTSIDE RECORDS SUMMARY | 2024-11-18 18:57 | External Medical Summary | Summary of Care ---
Author Name Unknown Organization [facility] Address [address] [place] [place] [place] [place] [address] Phone [phone] Care Team Providers Care Lead Athlete Name Role Phone Danelle Pierre MD Primary Care Provide r Reason for Visit * Reason Onset Date Comments Medication Refill 10/06/2024 Encounter Details Date Type Department Care Team (Late st Contact Info) Description 10/06/2024 Refill Family Medicine [address] [place] [address] Danelle Pierre MD [address] [place] [address] [place] [phone] Postsurgical hypothyroidism; Anxiety; Current mild episode of major depressive disorder without prior episode (HCC); Lumbar degenerative disc disease; HTN, goal below 140/90; Atrial fibrillation, chronic (HCC) Allergies Active Allergy Reactions Criticality Noted Date [...] as of this encounter (statuses as of 10/08/2024) Medications ASPIRIN 81 MG PO TABS daily [...] morning.. 90 Tablet 1 10/08/20 24 Active ALPRAZolam 1 MG Oral Tablet (xaNAX)Indication s:Anxiety TAKE ONE TABLET BY MOUTH TWICE DAILY NEEDED FOR anxiety. 60 Tablet 10/08/20 24 Active Morphine Sulfate ER 15 MG Oral Tablet Extended Release (Ms Contin)Indication s:Lumbar degenerative disc disease Take 1 Tablet by mouth in the morning and 1 Tablet before bedtime. 60 Tablet 10/08/20 24 Active Metoprolol Succinate ER 25 MG Oral Tablet Extended Release 24 Hour (toPROL XL)Indications:HT N, goal below 140/90,Atrial fibrillation, chronic (HCC) Take by mouth 1/2 tablet in the morning 45 Tablet 1 10/08/20 24 Active Levothyroxine Sodium 137 MCG Oral TabletIndications :Postsurgical hypothyroidism Take 1 Tablet by mouth daily first thing in the morning. (at least 30 min prior to breakfast or other meds) 90 Tablet 06/29/20 24 2023 Disconti nued(Ref ill) Sertraline HCl 25 MG Oral Tablet (Zoloft)Indicatio ns:Anxiety,Curren t mild episode of major depressive disorder without prior episode (HCC) TAKE ONE TABLET BY MOUTH IN THE MORNING 90 Tablet 1 08/23/20 24 2023 Disconti nued(Ref ill) ALPRAZolam 1 MG Oral Tablet (xaNAX)Indication s:Anxiety TAKE ONE TABLET BY MOUTH TWICE DAILY NEEDED FOR ANXIETY 60 Tablet 09/12/20 24 2023 Disconti nued(Ref ill) Morphine Sulfate ER 15 MG Oral Tablet Extended Release (Ms Contin)Indication s:Lumbar degenerative disc disease TAKE ONE TABLET BY MOUTH TWICE DAILY 60 Tablet 09/12/20 24 2023 Disconti nued(Ref ill) Metoprolol Succinate ER 25 MG Oral Tablet Extended Release 24 Hour (toPROL XL)Indications:HT N, goal below 140/90,Atrial fibrillation, chronic (HCC) Take by mouth 1/2 tablet in the morning 45 Tablet 1 09/14/20 24 2023 Disconti nued(Ref ill) documented as of this encounter (statuses as of 10/08/2024) Active Problems Problem Noted Date Diagnosed Date [...] disc disease 01/18/2013 Anticoagulation management encounter 09/01/2012 residential current use of anticoagulant therapy 1 Overview [...] as of this encounter (statuses as of 10/08/2024) Resolved Problems Problem Noted Date Diagnosed Date [...] as of this encounter (statuses as of 10/08/2024) Immunizations Name Administration Dates Next Due COVID-19 mRNA, LNP-s, No Pre serve, 2-Dose Series (Moderna) 01/23/2021,12/26/2020 COVID-19, mRNA, LNP-s, PF, B ooster, 100mcg/0.5mg (Moderna) 10/27/2021 Pneumococcal Conjugate Vacc, 13 Valent (Prevnar) 02/21/2015 Pneumococcal Polysaccharide PPV23 (Pneumovax) 09/03/2016,08/31/2007 Season Influenza, Quad, PF, Adjuvanted, 65+ Yrs, IM (FLUAD) 09/12/2020 Seasonal Influenza Vac., MDV , IM, 0.5 mL (Fluzone) 09/10/2014,08/27/2013,08/23/2012,08/17,08/24/2010,08/19/2009,10/01/2008 ,08/31/2007,08/18/2006 Seasonal Influenza, PF, 6 M & above, [...] encounter Miscellaneous Notes * Telephone Encounter - Danelle Pierre MD - 10/08/2024 1:07 PM EST Signed Prescriptions: Disp Refills Levothyroxine Sodium 137 MCG Oral Tablet 90 Tab*1 Sig: Take 1 Tablet by mouth daily first thing in the morning. (at least 30 min prior to breakfast or other meds) Authorizing Provider: DANELLE PIERRE Sertraline HCl 25 MG Oral Tablet (Zoloft) 90 Tab*1 Sig: Take 1 Tablet by mouth in the morning. In the morning.. Authorizing Provider: DANELLE PIERRE ALPRAZolam 1 MG Oral Tablet (xaNAX) 60 Tab*0 Sig: TAKE ONE TABLET BY MOUTH TWICE DAILY NEEDED FOR anxiety. Authorizing Provider: DANELLE PIERRE Morphine Sulfate ER 15 MG Oral Tablet Exte*60 Tab*0 Sig: Take 1 Tablet by mouth in the morning and 1 Tablet before bedtime. Authorizing Provider: DANELLE CLAY Metoprolol Succinate ER 25 MG Oral Tablet *45 Tab*1 Sig: Take by mouth 1/2 tablet in the morning Authorizing Provider: DANELLE PIERRE * Telephone Encounter - Nicole Lundberg CMA - 10/08/2024 10:07 AM EST Did you pend patient's preferred pharmacy and medication before forwarding?yes [facility] [address] [place] Pending Prescriptions: Disp Refills Levothyroxine Sodium 137 MCG Oral Tablet 90 Tab*0 last filled 06/29/24 Sig: Take 1 Tablet by mouth daily first thing in the morning. (at least 30 min prior to breakfast or other meds) Sertraline HCl 25 MG Oral Tablet (Zoloft) 90 Tab*1 Sig: Take 1 Tablet by mouth in the morning. In the morning.. last filled 08/23/24 ALPRAZolam 1 MG Oral Tablet (xaNAX) 60 Tab*0 Sig: TAKE ONE TABLET BY MOUTH TWICE DAILY NEEDED last filled 09/12/24 FOR anxiety. Morphine Sulfate ER 15 MG Oral Tablet Ext*60 Tab*0 last filled 09/12/24 Sig: Take 1 Tablet by mouth in the morning and 1 Tablet before bedtime. Metoprolol Succinate ER 25 MG Oral Tablet*45 Tab*1 last filled 09/14/24 Sig: Take by mouth 1/2 tablet in the morning Last Visit: 08/17/2023 (in office), Visit date not found (telemedicine) Next Visit: 12/31/2024 If no future appointments scheduled, and last appointment is greater than a year ago, please schedule patient for a follow-up appointment Last date the medication was ordered: see above Is this request for a controlled substance?Yes, What was the last refill date 09/12/24 w/ quantity 60 and dosage 15mg and Urine Drug Screen Not completed Urine Drug Screen: Results for orders placed or performed in visit on 06/15/21 PAIN MANAGEMENT DRUG PANEL, URINE W/ INTERPRETATION Result Value Compliance Interpretation Based on the medication information provided and obtained from [facility]: The presence of morphine, hydrocodone, dihydrocodeine, and [...] results can be found in Results Review. Patient Phone Numbers Labs: Lab Results Component Value Date/Time CREAT 0.8 02/02/2024 01:40 PM CREAT 0.82 06/08/2021 12:00 AM CREAT 0.9 05/29/2020 12:06 PM POTASSIUM 4.9 02/02/2024 01:40 PM POTASSIUM 3.9 06/08/2021 12:00 AM POTASSIUM 4.4 05/29/2020 12:06 PM TSH 3.11 08/22/2024 08:03 AM TSH 2.54 05/29/2020 12:06 PM LDL 69 03/23/2023 01:56 PM LDL 169 (H) 05/29/2020 12:06 PM LDL NOT APPLICABLE 05/29/2020 12:06 PM ALT 18 03/23/2023 01:56 PM ALT 20 05/29/2020 12:06 PM ALT 228 (H) 01/23/1997 10:06 AM HGBA1C 5.9 (H) 11/18/2022 11:19 AM HGBA1C 5.8 (H) 05/29/2020 12:06 PM documented in this encounter Plan of Treatment Upcoming Encounters Date Type Department Care Team (Late st Contact Info) Description 10/17/2024 7:00 AM EST Laboratory Lab Mobile Phlebotomy [facility] [address] [facility] [place] [place] [address] Mvmg, Gml Mobile Home Draw [address] [employer] [place] [address] 10/18/2024 6:00 AM EST Anticoagulation Centralized Clinical Pharmacy Services, Isreal Rivera [address] [place] [address] [place] [address] [facility], [address] [place] [address] 12/31/2024 10:40 AM EST Telemedicine Family Medicine [address] [place] [phone] Danelle Pierre MD [address] [place] [address] [place] [address] Health Maintenance Due Date Last Done Comments [...] exists Albumin/Creatinine Ratio 11/18/2025 11/18/2022 Pneumococcal Vaccine: 65+ Years Completed 09/03/2016, 02/21/2015, 08/31/2007, Additional history exists VITAMIN D LEVEL ONCE IN A LIFETIME-USE SMARTSET# [id number] Completed 05/29/2020, 09/11/2019, 05/24/2014, Additional history exists [...] as of this encounter Visit Diagnoses Diagnosis Postsurgical hypothyroidism Anxiety Anxiety state, unspecified Current mild episode of major depressive disorder without prior episode (HCC) Lumbar degenerative disc disease Degeneration of lumbar or lumbosacral intervertebral disc HTN, goal below 140/90 Unspecified essential hypertension Atrial fibrillation, chronic (HCC) Atrial fibrillation documented in this encounter Care Teams Lead Athlete Relationship Specialty Start Date End Date Danelle Pierre MD [address] [place] [address] [place] [address] PCP - General Family Medicine 01/02/20 documented as of this encounter
--- OUTSIDE RECORDS SUMMARY | 2024-11-18 18:57 | External Medical Summary | Summary of Care ---
Author Name Unknown Organization [facility] Address [address] [place] [facility] [place] [address] Phone [phone] Care Team Providers Care Aircraft Refueler Name Role Phone Danelle Pierre MD Primary Care Provide r Reason for Visit * Reason Onset Date Comments Advice 10/01/2024 Encounter Details Date Type Department Care Team (Late st Contact Info) Description 10/01/[address] [place] [address] Danelle Pierre MD [address] [place] [address] [place] [phone] Advice Allergies Active Allergy Reactions Criticality Noted Date [...] as of this encounter (statuses as of 10/01/2024) Medications ASPIRIN 81 MG PO TABS daily [...] MUSCLE SPASMS 30 Tablet 06/07/20 24 Active Levothyroxine Sodium 137 MCG Oral TabletIndications :Postsurgical hypothyroidism Take 1 Tablet by mouth daily first thing in the morning. (at least 30 min prior to breakfast or other meds) 90 Tablet 06/29/20 24 Active Docusate Sodium 100 MG Oral Capsule (Colace)Indicatio ns:Constipation, unspecified constipation type Take 1 Capsule by mouth in the morning and 1 Capsule before bedtime. 180 Capsule 1 08/17/20 24 Active Esomeprazole Magnesium 20 MG Oral Capsule Delayed ReleaseIndication s:Gastroesophagea l reflux disease without esophagitis Take 1 Capsule by mouth daily before breakfast. 90 Capsule 1 08/17/20 24 Active Sertraline HCl 25 MG Oral Tablet (Zoloft)Indicatio ns:Anxiety,Curren t mild episode of major depressive disorder without prior episode ([facility]) TAKE ONE TABLET BY MOUTH IN THE MORNING 90 Tablet 1 08/23/20 24 Active ALPRAZolam 1 MG Oral Tablet (xaNAX)Indication s:Anxiety TAKE ONE TABLET BY MOUTH TWICE DAILY NEEDED FOR ANXIETY 60 Tablet 09/12/20 24 Active Morphine Sulfate ER 15 MG Oral Tablet Extended Release (Ms Contin)Indication s:Lumbar degenerative disc disease TAKE ONE TABLET BY MOUTH TWICE DAILY 60 Tablet 09/12/20 24 Active Potassium Chloride ER 10 MEQ Oral Tablet Extended Release Take 1 Tablet by mouth daily. Take with daily Lasix dose 90 Tablet 1 09/14/20 24 Active amLODIPine Besylate 2.5 MG Oral Tablet (Norvasc) Take 1 Tablet by mouth in the morning. 90 Tablet 1 09/14/20 24 Active Metoprolol Succinate ER 25 MG Oral Tablet Extended Release 24 Hour (toPROL XL)Indications:HT N, goal below 140/90,Atrial fibrillation, chronic (HCC) Take by mouth 1/2 tablet in the morning 45 Tablet 1 09/14/20 24 Active Warfarin Sodium [...] taking tablet. 12 Tablet 10/01/20 24 Active documented as of this encounter (statuses as of 10/01/2024) Active Problems Problem Noted Date Diagnosed Date MEDICATION USE AGREEMENT 05/25/2023 Overview (05/25/2023): Dr. Pierre - 05/25/23 Carotid stenosis, asymptomatic, bilateral 2022 History of CEA (carotid endarterectomy) 11/18/19 23 Pulmonary hypertension 11/18/2022 Chronic respiratory failure with [...] disc disease 01/18/2013 Anticoagulation management encounter 09/01/2012 [facility] current use of anticoagulant therapy 1 Overview [...] as of this encounter (statuses as of 10/01/2024) Resolved Problems Problem Noted Date Diagnosed Date [...] as of this encounter (statuses as of 10/01/2024) Immunizations Name Administration Dates Next Due COVID-19 [...] Telephone Encounter - Danelle Pierre MD - 10/01/2024 10:59 AM EST I have approached this subject with pt but pt was not willing - will discuss with pt during next clinic visit and will place the order * Telephone Encounter - Danelle Pierre MD - 10/01/2024 10:59 AM EST ----- Message from Ana Ovalle sent at 10/01/2024 10:56 AM EST ----- Regarding: RE: PAIN REFERRAL Hello, Please consider an [facility] pain referral, if appropriate. Patient identified as being on both opioid and benzodiazepines. Thank you, Ana Ovalle, Pharm D, [facility] Clinical Pharmacist 10/01/2024, 10:56 AM ----- Message ----- From: Myra Mooney RP Sent: 10/01/2024 10:48 AM EST To: Ana Ovalle RPh Subject: PAIN REFERRAL Hello, This patient may be a good candidate for [facility] pain. I also verified they have not been discharged from [facility] within the last 6 months. If you feel it's appropriate, please reach out to the provider for a referral. Thanks, Myra Mooney, DianeD documented in this encounter Plan of Treatment Upcoming Encounters Date Type Department Care Team (Late st Contact Info) Description 10/17/2024 7:00 AM EST Laboratory Lab Mobile Phlebotomy [facility] [address] [facility] [place] [address] Mvmg, Gml Mobile Home Draw [address] [facility] [place] [address] 10/18/2024 6:00 AM EST Anticoagulation Centralized Clinical Pharmacy Services, Isreal Rivera [address] [place] [address] [place] [address] [facility], [address] [place] [address] 12/31/2024 10:40 AM EST Telemedicine Family Medicine [address] [place] [phone] Danelle Pierre MD [address] [place] [address] [place] [address] Health Maintenance Due Date Last Done Comments [...] D LEVEL ONCE IN A LIFETIME-USE SMARTSET# [id number] Completed 05/29/2020, 09/11/2019, 05/24/2014, Additional history exists [...] Not on filedocumented as of this encounter Care Teams Aircraft Refueler Relationship Specialty Start Date End Date Danelle Pierre MD [address] [place] [address] [place] [address] PCP - General Family Medicine 01/02/20 documented as of this encounter
--- OUTSIDE RECORDS SUMMARY | 2024-11-18 18:57 | External Medical Summary | Summary of Care ---
Author Name Unknown Organization [facility] Address [address] [place] [facility] [place] [address] Phone [phone] Care Team Providers Care Health Occupations Instructor Name Role Phone Danelle Pierre MD Primary Care Provide r Reason for Visit * Reason Onset Date Comments Medication Refill 10/06/2024 Encounter Details Date Type Department Care Team (Late st Contact Info) Description 10/06/2024 Refill Cardiology, [facility] [address] [place] [address] Edy Alvarez PA-C [address] [place] [address] Atrial fibrillation, chronic (HCC); Dyslipidemia, goal LDL below 70; Carotid stenosis, asymptomatic, bilateral; Chronic atrial fibrillation (HCC); HTN, goal below 140/90; Edema, unspecified type Allergies Active Allergy Reactions Criticality Noted Date [...] as of this encounter (statuses as of 10/09/2024) Medications ASPIRIN 81 MG PO TABS daily [...] morning 45 Tablet 1 10/08/20 24 Active documented as of this encounter (statuses as of 10/09/2024) Active Problems Problem Noted Date Diagnosed Date MEDICATION USE AGREEMENT 05/25/2023 Overview (05/25/2023): Dr. 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 1 Overview [...] as of this encounter (statuses as of 10/09/2024) Resolved Problems Problem Noted Date Diagnosed Date [...] as of this encounter (statuses as of 10/09/2024) Immunizations Name Administration Dates Next Due COVID-19 [...] encounter Miscellaneous Notes * Telephone Encounter - Keshawn Fraser, [facility] - 10/09/2024 11:19 AM EST Refused Prescriptions: Disp Refills Rosuvastatin Calcium 10 MG Oral Tablet (Cr*90 Tab*3 Sig: Take 1Tablet by mouth every evening.Refused By: KESHAWN FRASER for Refusal: Too soon Furosemide 20 MG Oral Tablet (Lasix) 40 Tab*3 Sig: TAKE ONE TABLET BY MOUTH THREE TIMES A WEEKRefused By: KESHAWN FRASER for Refusal: Too soon documented in this encounter Plan of Treatment Upcoming Encounters Date Type Department Care Team (Late st Contact Info) Description 10/17/2024 7:00 AM EST Laboratory Lab Mobile Phlebotomy [facility] [place] [address] Mvmg, Gml Mobile Home Draw [address] [employer] [facility] [place] [address] 10/18/2024 6:00 AM EST Anticoagulation Centralized Clinical Pharmacy Services, Isreal [address] [place] [address] [place] [address] 12/31/2024 10:40 AM EST Telemedicine Family Medicine [address] [place] [phone] Danelle Pierre MD [address] [place] [address] [place] [address] Health Maintenance Due Date Last Done Comments [...] D LEVEL ONCE IN A LIFETIME-USE SMARTSET# [id number] Completed 05/29/2020, 09/11/2019, 05/24/2014, Additional history exists [...] as of this encounter Visit Diagnoses Diagnosis Atrial fibrillation, chronic (HCC) Atrial fibrillation Dyslipidemia, goal LDL below 70 Other and unspecified hyperlipidemia Carotid stenosis, asymptomatic, bilateral Chronic atrial fibrillation (HCC) Atrial fibrillation HTN, goal below 140/90 Unspecified essential hypertension Edema, unspecified type documented in this encounter Care Teams Health Occupations Instructor Relationship Specialty Start Date End Date Danelle Pierre MD [address] [place] [address] [place] [phone] PCP - General Family Medicine 01/02/20 documented as of this encounter
--- OUTSIDE RECORDS SUMMARY | 2024-11-18 18:57 | External Medical Summary | Summary of Care ---
Author Name Unknown Organization [facility] [address] [facility] [address] Phone [phone] Care Team Providers Care Pharmacy Director Name Role Phone Danelle Pierre MD Primary Care Provide r Reason for Visit * Reason Onset Date Comments Medication Refill 11/10/2024 Encounter Details Date Type Department Care Team (Late st Contact Info) Description 11/10/2024 Refill Family Medicine [address] [place] [address] Danelle Pierre MD [address] [place] [address] [place] [phone] Anxiety; Lumbar degenerative disc disease Allergies Active [...] as of this encounter (statuses as of 11/12/2024) Medications ASPIRIN 81 MG PO TABS daily [...] as of this encounter (statuses as of 11/12/2024) Active Problems Problem Noted Date Diagnosed Date [...] disc disease 01/18/2013 Anticoagulation management encounter 09/[facility]/2012 [facility] use of [facility] 1 Overview [...] as of this encounter (statuses as of 11/12/2024) Resolved Problems Problem Noted Date Diagnosed Date [...] as of this encounter (statuses as of 11/12/2024) Immunizations Name Administration Dates Next Due COVID-19 [...] PIERRE * Telephone Encounter - Myra Mooney [facility] - 11/12/2024 12:34 PM EST Pending Prescriptions: Disp Refills ALPRAZolam 1 MG Oral Tablet (xaNAX) 60 Tab*0 Sig: TAKE ONE TABLET BY MOUTH TWICE DAILY NEEDED FOR anxiety. Morphine Sulfate ER 15 MG Oral Tablet Exte*60 Tab*0 Sig: Take 1 Tablet by mouth in the morning and 1 Tablet before bedtime. * Telephone Encounter - Myra Mooney [facility] - 11/12/2024 12:34 PM EST I have reviewed the patients controlled substance dispensing history in the Prescription Drug Monitoring Program in compliance with the [facility] regulations before prescribing a controlled substance. PDMP [...] medication is due for refill: 11/10/24 Pharmacy: [facility], [address] [place] Is this request for a controlled substance? Yes and Urine Drug Screen Not completed Toxicology results: Results for orders placed or performed in visit on 06/15/21 PAIN MANAGEMENT DRUG PANEL, URINE W/ INTERPRETATION Result Value Compliance Interpretation Based on the medication information provided and obtained from [facility]: The presence of morphine, hydrocodone, dihydrocodeine, and [...] Clinical Pharmacist Centralized Clinical Pharmacy Services ([facility]) [phone] 11/12/2024, 12:34 PM documented in this encounter Plan of Treatment Upcoming Encounters Date Type Department Care Team (Late st Contact Info) Description 11/21/2024 7:00 AM EST Laboratory Lab Mobile Phlebotomy [facility] [address] [facility] [place] [address] Mvmg, Gml Mobile Home Draw [address] [employer] [place] [address] 11/22/2024 6:00 AM EST Anticoagulation Centralized Clinical Pharmacy Services, Isreal Rivera [address] [place] [address] [place] [address] [facility], [address] [place] [address] 12/31/2024 10:40 AM EST Telemedicine Family Medicine [address] [place] [phone] Danelle Pierre MD [address] [place] [address] [place] [address] Health Maintenance Due Date Last Done Comments [...] D LEVEL ONCE IN A LIFETIME-USE SMARTSET# [id number] Completed 05/29/2020, 09/11/2019, 05/24/2014, Additional history exists [...] disc documented in this encounter Care Teams Pharmacy Director Relationship Specialty Start Date End Date Danelle Pierre MD [address] [place] [address] [place] [address] PCP - General Family Medicine 01/02/20 documented as of this encounter
--- OUTSIDE RECORDS SUMMARY | 2024-11-18 18:57 | External Medical Summary ---
Author Name Unknown Address Unknown Organization [id number]:[facility]ATORY [facility] - [address] [place] [address] Laboratory Report Ordering Provider Test Date Status BO THOMPSON 10/17/2024 07:49:00 Final Please draw PT/INR every 1-4 weeks or as requested by the [facility]

Warfarin Therapy
INR: 2.0-3.0 conventional anticoagulation
INR: 2.5-3.5 high intensity anticoagulation Observation Date Value Abnormality Reference (Units ) Status PT 10/17/2024 07:49:00 26.2 Above high normal 11 .6-15.2 (seconds) Final INR 10/17/2024 07:49:00 2.4 Above high normal 0. 8-1.2 Final Performing Location [facility] - [address] [place] [address]
--- OUTSIDE RECORDS SUMMARY | 2024-11-18 18:57 | External Medical Summary | Summary of Care ---
Author Name Unknown Organization [facility] Address [address] [facility] [place] [address] Phone [phone] Care Team Providers Care Registered Midwife Name Role Phone Danelle Pierre MD Primary Care Provide r Reason for Visit * Reason Onset Date Comments Medication Refill 09/28/2024 Encounter Details Date Type Department Care Team (Late st Contact Info) Description 09/28/2024 Refill Family Medicine [address] [place] [address] Danelle Pierre MD [address] [place] [address] [place] [id number] Chronic atrial fibrillation, unspecified (HCC); Age-related osteoporosis without current pathological fracture; Anxiety; Lumbar degenerative disc disease Allergies Active [...] taking tablet. 12 Tablet 10/01/20 24 Active Warfarin Sodium 5 MG Oral Tablet (Coumadin)Indicat ions:Chronic atrial fibrillation, unspecified (HCC) TAKE 1/2 TABLET BY MOUTH every tuesday AND ; TAKE ONE TABLET BY MOUTH ALL other DAYS OR DIRECTED by anticoagulation clinic 80 Tablet 2 03/08/20 24 2023 Disconti nued(Ref ill) Alendronate Sodium 70 MG Oral Tablet (Fosamax)Indicati ons:Age-related osteoporosis without current pathological fracture Take 1 Tablet by mouth once a week. with 8 oz. water 30 minutes before first meal of the day. Remain upright for 30 min after taking tablet. 12 Tablet 1 04/10/20 24 2023 Disconti nued(Ref ill) Levothyroxine Sodium 137 MCG Oral TabletIndications :Postsurgical [...] disc disease 01/18/2013 Anticoagulation management encounter 09/01/2012 senior care current use of anticoagulant therapy 1 Overview [...] of inactive term BENIGN HYPERTENSION 02/15/2003 09/19/20 Overview (09/19/2009): Modified per HTN Taxonomy. ABN [...] encounter Miscellaneous Notes * Telephone Encounter - Isma Ackerman, [facility] - 10/09/2024 4:12 AM ESTSigned Prescriptions: Disp Refills Warfarin Sodium 5 MG Oral Tablet (Coumadin)80 Tab*2 Sig: TAKE 1/2 TABLET BY MOUTH every Tuesday, ,and Tuesday and TAKE ONE TABLET BY MOUTH ALL other DAYS OR DIRECTED by anticoagulation clinicAuthorizing Provider: Peter PIERRE User: MYRA VAZQUEZ Alendronate Sodium 70 MG Oral Tablet (Fosa*12 Tab*0 Sig: Take 1 Tablet by mouth once a week. with 8 oz. water 30 minutes before first meal of the day. Remain upright for 30 min after taking tablet.Authorizing Provider: Peter PIERRE User: MYRA VAZQUEZ Prescriptions: Disp Refills ALPRAZolam 1 MG Oral Tablet (xaNAX) 60 Tab*0 Sig: TAKE ONE TABLET BY MOUTH TWICE DAILY NEEDED FOR anxiety.Refused By: ISMA ACKERMAN LReason for Refusal: Duplicate Request Morphine Sulfate ER 15 MG Oral Tablet Exte*60 Tab*0 Sig: Take 1 Tablet by mouth in the morning and 1 Tablet before bedtime.Refused By: ISMA ACKERMAN LReason for Refusal: Duplicate Request * Telephone Encounter - Myra Vazquez [facility] - 10/01/2024 10:42 AM EST RX postponed until 10/09 I have reviewed the patients controlled substance dispensing history in the Prescription Drug Monitoring Program in compliance with the [facility] regulations before prescribing a controlled substance. PDMP checked on 10/01/2024. Pending Prescriptions: Disp Refills ALPRAZolam 1 MG Oral Tablet (xaNAX) 60 Tab*0 Sig: TAKE ONE TABLET BY MOUTH TWICE DAILY NEEDED FOR anxiety. Morphine Sulfate ER 15 MG Oral Tablet Ext*60 Tab*0 Sig: Take 1 Tablet by mouth in the morning and 1 Tablet before bedtime. Signed Prescriptions: Disp Refills Warfarin Sodium 5 MG Oral Tablet (Coumadin)80 Tab*2 Sig: TAKE 1/2 TABLET BY MOUTH every Tuesday, ,and Tuesday and TAKE ONE TABLET BY MOUTH ALL other DAYS OR DIRECTED by anticoagulation clinic Authorizing Provider: DANELLE PIERRE Ordering User: MYRA VAZQUEZ Alendronate Sodium 70 MG Oral Tablet (Fosa*12 Tab*0 Sig: Take 1 Tablet by mouth once a week. with 8 oz. water 30 minutes before first meal of the day. Remain upright for 30 min after taking tablet. Authorizing Provider: DANELLE PIERRE Ordering User: MYRA VAZQUEZ Last Visit: 08/17/2023 (in office), Visit date not found (telemedicine) Next Visit: 12/31/2024 Date medication was last filled: 09/12/24 Date medication is due for refill: 10/11/24 Pharmacy: [facility], [address] [place] Is this request for a controlled substance? Yes and Urine Drug Screen Not completed Toxicology results: Results for orders placed or performed in visit on 06/15/21 PAIN MANAGEMENT DRUG PANEL, URINE W/ INTERPRETATION Result Value Compliance Interpretation Based on the medication information provided and obtained from [facility]: The presence of morphine, hydrocodone, dihydrocodeine, [...] Please approve if appropriate. Thank you, Myra Vazquez, DianeD Clinical Pharmacist [facility] ([facility]) [phone] 10/01/2024, 10:44 AM documented in this encounter Plan of Treatment Upcoming Encounters Date Type Department Care Team (Late st Contact Info) Description 10/17/2024 7:00 AM EST Laboratory Lab Mobile [facility] [address] [facility] [place] [address] [facility] Mobile [facility] Draw [address] [place] [employer] [place] [address] 10/18/2024 6:00 AM EST Anticoagulation [facility], Isreal Rivera [address] [place] [address] [place] [address] [facility], [address] [place] [address] 12/31/2024 10:40 AM EST Telemedicine Family [address] [address] Danelle Pierre MD [address] [place] [address] [place] [address] Health Maintenance Due Date Last Done Comments [...] D LEVEL ONCE IN A LIFETIME-USE SMARTSET# [id number] Completed 05/29/2020, 09/11/2019, 05/24/2014, Additional history exists [...] as of this encounter Visit Diagnoses Diagnosis Chronic atrial fibrillation, unspecified (HCC) Age-related osteoporosis without current pathological fracture Senile osteoporosis Anxiety Anxiety state, unspecified Lumbar degenerative disc disease Degeneration of lumbar or lumbosacral intervertebral disc documented in this encounter Care Teams Registered Midwife Relationship Specialty Start Date End Date Danelle Pierre MD [address] [place] [address] [place] [phone] PCP - General Family Medicine 01/02/20 documented as of this encounter
--- OUTSIDE RECORDS SUMMARY | 2024-11-18 18:57 | External Medical Summary | Summary of Care ---
Author Name Unknown Organization [facility] Address [address] [facility] [place] [address] Phone [phone] Care Team Providers Care Director Of Business Continuity Name Role Phone Danelle Pierre MD Primary Care Provide r Reason for Visit * Reason Comments Dosage Adjustment Via Phone (anticoag Cl inic) Encounter Details Date Type Department Care Team (Late st Contact Info) Description 10/18/2024 6:00 AM EST Anticoagulation [facility], Isreal Rivera [address] [place] [address] [place] [address] [place] [address] Atrial fibrillation, chronic (HCC)* Allergies Active Allergy Reactions Criticality Noted Date [...] as of this encounter (statuses as of 10/18/2024) Medications ASPIRIN 81 MG PO TABS daily [...] as of this encounter (statuses as of 10/18/2024) Active Problems Problem Noted Date Diagnosed Date [...] disc disease 01/18/2013 Anticoagulation management encounter 09/01/2012 jail current use of anticoagulant therapy 1 Overview [...] as of this encounter (statuses as of 10/18/2024) Resolved Problems Problem Noted Date Diagnosed Date [...] as of this encounter (statuses as of 10/18/2024) Immunizations Name Administration Dates Next Due COVID-19 [...] on file documented as of this encounter Progress Notes * Jaden Huffman, machine joint cutter - 10/18/2024 8:57 AM EST Contacts Contact Date/Time Type Contact Phone/Fax 10/18/2024 08:55 AM EST Phone (Outgoing) Jose Alberto Ayers (Emergency Contact) [phone] (M) spoke alise Abrams Subjective Patient Findings Negatives: Signs/symptoms of thrombosis, Signs/symptoms of bleeding, Change in health, Change in alcohol use, Change in activity, Upcoming invasive procedure, Missed doses, Extra doses, Change in medications, Change in diet/appetite, Bruising Advised patient to contact Anticoagulation Clinic if any unusual bruising or bleeding, recent illness, changes in medication, or questions/concerns. PT/INR results, Coumadin dose instructions, and next PT/INR date communicated as noted by Pharmacist: Yes Jaden Huffman CPhT 10/18/2024, 8:57 AM * Ashlie Juares RPh - 10/18/2024 8:12 AM EST Coumadin Clinic (region specific) Objective Current Warfarin Dose As of 10/18/2024 Warfarin maintenance plan: 2.5 mg (5 mg x 0.5) every Tue, Leona, Sat; 5 mg (5 mg x 1) all other days INR Result As of 10/18/2024 INR goal: 2.0-3.0 INR used for dosin.4 (10/17/2024) Assessment & Plan Warfarin Plan As of 10/18/2024 Full warfarin instructions: 2.5 mg every Tue, Leona, Sat; 5 mg all other days No change documented: Ashlie Juares RPh Next INR check: 11/21/2024 Repeat PT/INR in 5 week(s) Weekly dose: not changed Additional Dosing Information: Description [facility] W & F Ensure/boost daily Tech to contact patient with dose instructions as noted. Ashlie Juares RPh 10/18/2024, 8:13 AM documented in this encounter Plan of Treatment Upcoming Encounters Date Type Department Care Team (Late st Contact Info) Description 11/21/2024 7:00 AM EST Laboratory Lab Mobile Phlebotomy [facility] [address] [place] [address] [facility], l Mobile Home Draw [address] [place], [place] [address] 11/22/2024 6:00 AM EST Anticoagulation [facility] Clinical [facility], Isreal Rivera [address] [place] [address] [place] [address] [facility], [facility] [address] [place] [address] 12/31/2024 10:40 AM EST Telemedicine [address] [place] [phone] Danelle Pierre MD [address] [place] [address] [place] [address] Health Maintenance Due Date Last Done Comments [...] D LEVEL ONCE IN A LIFETIME-USE SMARTSET# [id number] Completed 05/29/2020, 09/11/2019, 05/24/2014, Additional history exists [...] encounter Visit Diagnoses Diagnosis Atrial fibrillation, chronic (HCC)- Primary Atrial fibrillation documented in this encounter Care Teams Director Of Business Continuity Relationship Specialty Start Date End Date Danelle Pierre MD [address] [place] [address] [place] [id number] PCP - General Family Medicine 01/02/20 documented as of this encounter
--- OUTSIDE RECORDS SUMMARY | 2024-11-18 18:57 | External Medical Summary | Summary of Care ---
Author Name Unknown Organization [facility] Address [address] [facility] [place] [address] Phone [phone] Care Team Providers Care Engraver Picture Name Role Phone Danelle Pierre MD Primary Care Provide r Reason for Visit * Reason Comments Dosage Adjustment Via Phone (anticoag Cl inic) Encounter Details Date Type Department Care Team (Late st Contact Info) Description 09/20/2024 6:00 AM EST Anticoagulation [facility], Isreal Rivera [address] [place] [address] [place] [address] [place] [address] Atrial fibrillation, chronic (HCC)* Allergies Active Allergy [...] as of this encounter (statuses as of 09/20/2024) Medications Medication Sig Dispensed Refills Start Date End Date Status ASPIRIN 81 MG PO TABS daily Active MAGNESIUM HYDROXIDE 400 MG/5ML PO SUSPIndications:Slo w transit constipation 30-60 ML DAILY NEEDED 0 2 Active FISH OIL 1000 MG PO CAPS daily Active VITAMIN D 1000 UNITS PO CAPSIndications:Gen eralized osteoarthritis 2 capsule daily 0 4 Active Melatonin 3 MG CapsuleIndications: Insomnia, unspecified type Take 1 Cap by mouth at bedtime. 30 Cap 1 0 Active Multiple Vitamins-Minerals (MULTIVITAMIN ADULT) TABS Take by mouth. Active fluticasone (FLONASE) 50 MCG/ACT nasal sprayIndications:Na tamera congestion Administer 2 Sprays into each nostril daily. 9.9 mL 2 0 Active Meclizine HCl 25 MG Oral Tablet (Antivert) Take 1 Tab by mouth 3 times a day as needed for Dizziness. 60 Tab 2 1 Active oxygen IN GAS Use 4 L/min(Oxygen) as directed. Active Diclofenac Sodium 1 % Transdermal GelIndications:Prim adry osteoarthritis of both knees APPLY 4GM TOPICALLY ON THE SKIN TWO TIMES A DAY TO KNEES DIRECTED 300 g 3 2 Active Polyethylene Glycol 3350 17 GM/SCOOP Oral Powder (MiraLax)Indication s:Constipation, unspecified constipation type Take by mouth 17 g as needed for Constipation. Dissolve one heaping tablespoon in 8 ounces of water or juice. 850 g 2 2 Active FT Mucus Relief 12HR 600 MG Oral Tablet Extended Release 12 Hour TAKE TWO TABLETS BY MOUTH EVERY TWELVE HOURS FOR 5 DAYS 3 Active Probiotic & Acidophilus Ex St Oral Capsule Take 1 Capsule by mouth in the morning and 1 Capsule at noon and 1 Capsule in the evening. Take with meals. Active Ipratropium-Albuter ol 0.5-2.5 (3) MG/3ML Inhalation Solution (Duoneb)Indications :COPD exacerbation (HCC) INHALE ONE vial via NEBULIZER EVERY 4 HOURS NEEDED FOR wheezing 180 mL 1 3 Active MEDICAL INSTRUCTIONSIndicat ions:Pulmonary hypertension (HCC),Chronic respiratory failure with hypoxia (HCC) Pt may use 4 Liters of Oxygen with Exertion, and 3 Liters at rest 3 Active Albuterol Sulfate HFA 108 (90 Base) MCG/ACT Inhalation Aerosol SolutionIndications :COPD exacerbation (HCC) Inhale 2 Puffs by mouth in the morning and 2 Puffs at noon and 2 Puffs in the evening and 2 Puffs before bedtime. 18 g 1 4 Active Rosuvastatin Calcium 10 MG Oral Tablet (Crestor)Indication s:Atrial fibrillation, chronic (HCC),Dyslipidemia, goal LDL below 70,Carotid stenosis, asymptomatic, bilateral Take 1 Tablet by mouth every evening. 90 Tablet 3 4 Active Warfarin Sodium 5 MG Oral Tablet (Coumadin)Indicatio ns:Chronic atrial fibrillation, unspecified (HCC) TAKE 1/2 TABLET BY MOUTH every tuesday AND ; TAKE ONE TABLET BY MOUTH ALL other DAYS OR DIRECTED by anticoagulation clinic 80 Tablet 2 4 Active Lisinopril 20 MG Oral Tablet (Prinivil)Indicatio ns:Chronic atrial fibrillation (HCC),ASCVD (arteriosclerotic cardiovascular disease),Essential hypertension with goal blood pressure less than 140/90 TAKE ONE TABLET BY MOUTH IN THE MORNING 90 Tablet 3 4 Active Senna 30 MG Oral Take one tablet by mouth daily as needed. 90 Each 1 4 Active Alendronate Sodium 70 MG Oral Tablet (Fosamax)Indication s:Age-related osteoporosis without current pathological fracture Take 1 Tablet by mouth once a week. with 8 oz. water 30 minutes before first meal of the day. Remain upright for 30 min after taking tablet. 12 Tablet 1 4 Active Furosemide 20 MG Oral Tablet (Lasix)Indications: Chronic atrial fibrillation (HCC),HTN, goal below 140/90,Edema, unspecified type TAKE ONE TABLET BY MOUTH THREE TIMES A WEEK 40 Tablet 3 4 Active Cyclobenzaprine HCl 10 MG Oral Tablet (Flexeril) TAKE 1 TABLET DAILY NEEDED FOR MUSCLE SPASMS 30 Tablet 4 Active Levothyroxine Sodium 137 MCG Oral TabletIndications:P ostsurgical hypothyroidism Take 1 Tablet by mouth daily first thing in the morning. (at least 30 min prior to breakfast or other meds) 90 Tablet 4 Active Docusate Sodium 100 MG Oral Capsule (Colace)Indications :Constipation, unspecified constipation type Take 1 Capsule by mouth in the morning and 1 Capsule before bedtime. 180 Capsule 1 4 Active Esomeprazole Magnesium 20 MG Oral Capsule Delayed ReleaseIndications: Gastroesophageal reflux disease without esophagitis Take 1 Capsule by mouth daily before breakfast. 90 Capsule 1 4 Active Sertraline HCl 25 MG Oral Tablet (Zoloft)Indications :Anxiety,Current mild episode of major depressive disorder without prior episode (HCC) TAKE ONE TABLET BY MOUTH IN THE MORNING 90 Tablet 1 4 Active ALPRAZolam 1 MG Oral Tablet (xaNAX)Indications: Anxiety TAKE ONE TABLET BY MOUTH TWICE DAILY NEEDED FOR ANXIETY 60 Tablet 4 Active Morphine Sulfate ER 15 MG Oral Tablet Extended Release (Ms Contin)Indications: Lumbar degenerative disc disease TAKE ONE TABLET BY MOUTH TWICE DAILY 60 Tablet 4 Active Potassium Chloride ER 10 MEQ Oral Tablet Extended Release Take 1 Tablet by mouth daily. Take with daily Lasix dose 90 Tablet 1 4 Active amLODIPine Besylate 2.5 MG Oral Tablet (Norvasc) Take 1 Tablet by mouth in the morning. 90 Tablet 1 4 Active Metoprolol Succinate ER 25 MG Oral Tablet Extended Release 24 Hour (toPROL XL)Indications:HTN, goal below 140/90,Atrial fibrillation, chronic (HCC) Take by mouth 1/2 tablet in the morning 45 Tablet 1 4 Active documented as of this encounter (statuses as of 09/20/2024) Active Problems Problem Noted Date Diagnosed Date MEDICATION USE AGREEMENT 05/25/2023 Overview: Dr. Pierre - 05/25/23 Carotid stenosis, asymptomatic, bilateral 2022 History of CEA (carotid endarterectomy) 11/18/19 Pulmonary hypertension 11/18/2022 Chronic respiratory failure with hypoxia 023 History of cholangitis 11/18/2022 Chronic diastolic HF (heart failure) 11/18/2022 On home oxygen therapy 06/15/2021 S/P ERCP 06/15/2021 MEDICATION USE AGREEMENT 06/15/2021 Overview: Dr. Pierre - 06/15/2021 Chronic atrial fibrillation 01/02/2020 History of colon polyps 04/23/2019 Atrial fibrillation, chronic 12/22/2018 Chronic pain of right knee 07/27/2018 Iron deficiency anemia 01/16/2016 Lumbar degenerative disc disease 01/18/2013 Anticoagulation management encounter 09/01/2012 half-way current use of anticoagulant therapy 1 Overview: ICD-10 update of inactive term History of lung cancer 08/23/2012 Dyslipidemia, goal LDL below 100 04/03/2010 HTN, goal below 140/90 04/03/2010 Carotid stenosis, symptomatic w/o infarct 2009 ASCVD (arteriosclerotic cardiovascular disease) 04/03/2010 Anxiety state 08/31/2007 Postsurgical hypothyroidism 08/31/2007 Slow transit constipation 04/15/2004 Other allergic rhinitis 02/12/2004 Overview: ICD-10 update of inactive term GENERAL OSTEOARTHROSIS 08/12/2003 Esophageal reflux Benign neoplasm of colon Senile osteoporosis MEDICATION USE AGREEMENT documented as of this encounter (statuses as of 09/20/2024) Resolved Problems Problem Noted Date Diagnosed Date [...] Dyslipidemia, goal to be determined 10/21/2009 10/29/2009 Overview: Per Lipid Taxonomy. HTN, goal below 140/90 09/19/200904/03 Overview: Modified per HTN Taxonomy. Cystocele, midline 09/18/2008 6 Rectocele 09/18/2008 01/15/2016 Uterine prolapse 09/18/2008 10/29/2009 ADVANCE DIRECTIVE INFORMATION 01/22/2008 09/17/2024 Overview: No, Advance Directive brochure given to patient at prior appointment. PARKINSON'S DISEASE SECONDARY TO DRUGS 10/03/2007 10/29/2009 Major depressive disorder, s chin episode, moderate 08/31/2007 07/15/2015 Viral labyrinthitis 08/31/2007 02/05/20 08 Malignant neoplasm of bronchus and lung 02/13/2007 08/23/2012 Overview: ICD-10 update of inactive term BENIGN HYPERTENSION 02/15/2003 09/19/20 09 Overview: Modified per HTN Taxonomy. ABN LIVER FUNCTION STUDY 02/15/200311/2014 XANTHELASMA OF EYELID 2014 NONTOX MULTINODUL GOITER 11/2014 PURE HYPERCHOLESTEROLEM 09/15 Other specified disorders of biliary tract 07/15/2015 Chronic constipation 008 Mixed dyslipidemia 9 Overview: Per Lipid Taxonomy. Ectopic production of endocrine substance 07/15/2015 Overview: ADH, INAPPROPRIATE ECTOPIC Left atrial enlargement 01/2016 documented as of this encounter (statuses as of 09/20/2024) Immunizations Name Administration Dates Next Due COVID-19 [...] Answer Date Recorded PHQ-2 Score 2 12/21/2019 Sex and Gender Information Value Date Recorded Sex Assigned at Not on file Gender Identity Not on file Sexual Orientation Not on file Job Start Date Occupation Industry Not on file Not on file Not on file documented as of this encounter Progress Notes * Nanette Mcbride CPhT - 09/20/2024 8:36 AM EST Contacts Contact Date/Time Type Contact Phone/Fax 09/20/2024 08:35 AM EST Phone (Outgoing) Jose Alberto Ayers (Emergency Contact) [phone] (M) spoke to Jose Alberto Subjective Patient Findings Negatives: Signs/symptoms of bleeding, Change in health, Change in activity, Upcoming invasive procedure, Missed doses, Extra doses, Change in medications, Change in diet/appetite, Bruising Advised patient to contact Anticoagulation Clinic if any unusual bruising or bleeding, recent illness, changes in medication, or questions/concerns. PT/INR results, Coumadin dose instructions, and next PT/INR date communicated as noted by Pharmacist: Yes NANETTE MCBRIDE CPhT 09/20/2024, 8:36 AM * Ashlie Juares [facility] - 09/20/2024 7:47 AM EST Coumadin Clinic (region specific) Objective Current Warfarin Dose As of 09/20/2024 Warfarin maintenance plan: 2.5 mg (5 mg x 0.5) every Tue, Leona, Sat; 5 mg (5 mg x 1) all other days INR Result As of 09/20/2024 INR goal: 2.0-3.0 INR used for dosin.1 (09/19/2024) Assessment & Plan Warfarin Plan As of 09/20/2024 Full warfarin instructions: 2.5 mg every Tue, Leona, Sat; 5 mg all other days No change documented: Ashlie Juares RPh Next INR check: 10/17/2024 Repeat PT/INR in 4 week(s) Weekly dose: not changed Additional Dosing Information: Description [facility] W & F Ensure/boost daily Tech to contact patient with dose instructions as noted. Ashlie Juares RPh 09/20/2024, 7:47 AM documented in this encounter Plan of Treatment Upcoming Encounters Date Type Department Care Team (Late st Contact Info) Description 10/18/2024 6:00 AM EST Anticoagulation Centralized Clinical Pharmacy Services, Isreal Rivera [address] [place] [address] [place] [address] [place] [address] 12/31/2024 10:40 AM EST Telemedicine Family Medicine [address] [place] [phone] Danelle Pierre MD [address] [place] [address] [place] [address] Health Maintenance Due Date Last Done Comments [...] D LEVEL ONCE IN A LIFETIME-USE SMARTSET# [id number] Completed 05/29/2020, 09/11/2019, 05/24/2014, Additional history exists [...] fibrillation documented in this encounter Care Teams Engraver Picture Relationship Specialty Start Date End Date Danelle Pierre MD [address] [place] [address] [place] [address] PCP - General Family Medicine 01/02/20 documented as of this encounter
--- OUTSIDE RECORDS SUMMARY | 2024-11-18 18:58 | External Medical Summary | Summary of Care ---
Author Name Unknown Organization [facility] Address [address] [place] [facility] [place] [address] Phone [phone] Care Team Providers Care Alpine Patroller Name Role Phone Danelle Pierre MD Primary Care Provide r Reason for Visit * Reason Onset Date Comments Medication Refill 09/01/2024 Encounter Details Date Type Department Care Team (Late st Contact Info) Description 09/01/2024 Refill Family Medicine [address] [place] [address] Danelle Pierre MD [address] [place] [address] [place] [phone] Lumbar degenerative disc disease; Anxiety Allergies Active Allergy Reactions Criticality Noted Date [...] as of this encounter (statuses as of 09/03/2024) Medications Medication Sig Dispensed Refills Start Date [...] as needed. 90 Each 1 4 Active Potassium Chloride ER 10 MEQ Oral Tablet Extended Release Take 1 Tablet by mouth daily. Take with daily Lasix dose 90 Tablet 1 4 Active Alendronate Sodium 70 MG [...] A WEEK 40 Tablet 3 4 Active amLODIPine Besylate 2.5 MG Oral Tablet (Norvasc) Take 1 Tablet by mouth in the morning. 90 Tablet 2 4 Active Cyclobenzaprine HCl 10 MG Oral Tablet (Flexeril) TAKE 1 TABLET DAILY NEEDED FOR MUSCLE SPASMS 30 Tablet 4 Active Metoprolol Succinate ER 25 MG Oral Tablet Extended Release 24 Hour (toPROL XL)Indications:HTN, goal below 140/90,Atrial fibrillation, chronic (HCC) Take by mouth 1/2 tablet in the morning 45 Tablet 3 4 Active Levothyroxine Sodium 137 MCG Oral TabletIndications:P ostsurgical hypothyroidism Take 1 Tablet by mouth daily first thing in the morning. (at least 30 min prior to breakfast or other meds) 90 Tablet 4 Active Morphine Sulfate ER 15 MG Oral Tablet Extended Release (Ms Contin)Indications: Lumbar degenerative disc disease Take 1 Tablet by mouth in the morning and 1 Tablet before bedtime. 60 Tablet 4 Active ALPRAZolam 1 MG Oral Tablet (xaNAX)Indications: Anxiety TAKE ONE TABLET BY MOUTH TWICE DAILY NEEDED FOR anxiety. 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 Anxiety state 08/31/2007 Postsurgical hypothyroidism 08/31/2007 Slow transit constipation 04/15/2004 Other allergic rhinitis 02/12/2004 Overview: ICD-10 update of inactive term GENERAL OSTEOARTHROSIS 08/12/2003 Esophageal reflux Benign neoplasm of colon Senile osteoporosis MEDICATION USE AGREEMENT documented as of this encounter (statuses as of 09/03/2024) Resolved Problems Problem Noted Date Diagnosed Date [...] Rectocele 09/18/2008 01/15/2016 Uterine prolapse 09/18/2008 10/29/2009 PARKINSON'S DISEASE SECONDARY TO DRUGS 10/03/2007 10/29/2009 [...] as of this encounter (statuses as of 09/03/2024) Immunizations Name Administration Dates Next Due COVID-19 [...] encounter Miscellaneous Notes * Telephone Encounter - Denys Graves RPh - 09/03/2024 3:35 PM EDT Refused Prescriptions: Disp Refills Morphine Sulfate ER 15 MG Oral Tablet Exte*60 Tab*0 Sig: Take 1Tablet by mouth in the morning and 1 Tablet before bedtime.Refused By: DENYS GRAVESfor Refusal: Too soon ALPRAZolam 1 MG Oral Tablet (xaNAX) 60 Tab*0 Sig: TAKE ONE TABLET BY MOUTH TWI CE DAILY NEEDED FOR anxiety.Refused By: DENYS GRAVES for Refusal: Too soon documented in this encounter Plan of Treatment Upcoming Encounters Date Type Department Care Team (Late st Contact Info) Description 09/05/2024 7:05 AM EDT Laboratory Lab Mobile Phlebotomy [facility] [address] [facility] [place] [address] Mvmg, Gml Mobile Home Draw [address] [facility] [place] [address] 09/06/2024 6:00 AM EDT Anticoagulation [facility], Isreal Rivera [address] [place] [address] [place] [phone] [facility], [address] [place] [address] 12/31/2024 10:40 AM EST Telemedicine Family Medicine [address] [place] [phone] Danelle Pierre MD [address] [place] [address] [place] [address] Health Maintenance Due Date Last Done Comments [...] D LEVEL ONCE IN A LIFETIME-USE SMARTSET# [id number] Completed 05/29/2020, 09/11/2019, 05/24/2014, Additional history exists [...] as of this encounter Visit Diagnoses Diagnosis Lumbar degenerative disc disease Degeneration of lumbar or lumbosacral intervertebral disc Anxiety Anxiety state, unspecified documented in this encounter Care Teams Alpine Patroller Relationship Specialty Start Date End Date Danelle Pierre MD [address] [place] [address] [place] [address] PCP - General Family Medicine 01/02/20 documented as of this encounter
--- OUTSIDE RECORDS SUMMARY | 2024-11-18 18:58 | External Medical Summary | Summary of Care ---
Author Name Unknown Organization [facility] Address [address] [facility] [place] [address] Phone [phone] Care Team Providers Care Vp Research Name Role Phone Danelle Pierre MD Primary Care Provide r Reason for Visit * Reason Comments Dosage Adjustment Via Phone (anticoag Cl inic) Encounter Details Date Type Department Care Team (Late st Contact Info) Description 08/23/2024 6:00 AM EDT Anticoagulation [facility] Services, Isreal Rivera [address] [place] [address] [place] [address] [place] [address] Atrial fibrillation, chronic (HCC)* Allergies Active Allergy [...] as of this encounter (statuses as of 08/23/2024) Medications Medication Sig Dispensed Refills Start Date [...] and 3 Liters at rest 3 Active Sertraline HCl 25 MG Oral Tablet (Zoloft)Indications :Anxiety,Current mild episode of major depressive disorder without prior episode (HCC) TAKE ONE TABLET BY MOUTH IN THE MORNING 90 Tablet 2 4 Active Albuterol Sulfate HFA 108 (90 Base) [...] before breakfast. 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 1 Overview: [...] as of this encounter (statuses as of 08/23/2024) Resolved Problems Problem Noted Date Diagnosed Date [...] as of this encounter (statuses as of 08/23/2024) Immunizations Name Administration Dates Next Due COVID-19 [...] this encounter Progress Notes * Nanette Mcbride wastewater supervisor - 08/23/2024 8:16 AM EDT Contacts Contact Date/Time Type Contact Phone/Fax 08/23/2024 08:14 AM EDT Phone (Outgoing) Jose Alberto Ayers (Emergency Contact) [phone] (M) spoke to Jose Alberto Subjective Patient [...] date communicated as noted by Pharmacist: Yes FOREIGN GARCIA Tech 08/23/2024, 8:16 AM * Ashlie Juares RPh - 08/23/2024 8:08 AM EDT Coumadin Clinic (region specific) Objective Current Warfarin Dose As of 08/23/2024 Warfarin maintenance plan: 2.5 mg (5 mg x 0.5) every Tue, Leona, Sat; 5 mg (5 mg x 1) all other days INR Result As of 08/23/2024 INR goal: 2.0-3.0 INR used for dosin.1 (08/22/2024) Assessment & Plan Warfarin Plan As of 08/23/2024 Full warfarin instructions: 2.5 mg every Tue, Leona, Sat; 5 mg all other days No change documented: Ashlie Juares RPh Next INR check: 09/05/2024 Repeat PT/INR in 2 week(s) Weekly dose: not changed Additional Dosing Information: Description GML W & F Ensure/boost daily Tech to contact patient with dose instructions as noted. Ashlie Juares RPh 08/23/2024, 8:08 AM documented in this encounter Plan of Treatment Upcoming Encounters Date Type Department Care Team (Late st Contact Info) Description 09/06/2024 6:00 AM EDT Anticoagulation Centralized Clinical Pharmacy Services, Isreal Rivera [address] [place] [address] [place] [address] [facility], [address] [place] [address] 12/31/2024 10:40 AM EST Telemedicine Family Medicine [address] [place] [phone] Danelle Pierre MD [address] [place] [address] [place] [address] Health Maintenance Due Date Last Done Comments [...] D LEVEL ONCE IN A LIFETIME-USE SMARTSET# [id number] Completed 05/29/2020, 09/11/2019, 05/24/2014, Additional history exists [...] fibrillation documented in this encounter Care Teams Vp Research Relationship Specialty Start Date End Date Danelle Pierre MD [address] [place] [address] [place] [phone] PCP - General Family Medicine 01/02/20 documented as of this encounter
--- OUTSIDE RECORDS SUMMARY | 2024-11-18 18:58 | External Medical Summary | Summary of Care ---
Author Name Unknown Organization [facility] [address] [facility] [address] Phone [phone] Care Team Providers Care Securities Adviser Name Role Phone Danelle Pierre MD Primary Care Provide r Reason for Visit * Reason Comments eRx-Medication Refill Encounter Details Date Type Department Care Team (Late st Contact Info) Description 09/10/2024 Refill Family Medicine [address] [place] [phone] Danelle Pierre MD [address] [place] [address] [place] [address] Anxiety; Lumbar degenerative disc disease Allergies Active [...] as of this encounter (statuses as of 09/12/2024) Medications Medication Sig Dispensed Refills Start Date End Date Status ASPIRIN 81 MG PO TABS daily Active MAGNESIUM HYDROXIDE 400 MG/5ML PO SUSPIndications:Sl ow transit constipation 30-60 ML DAILY NEEDED 0 09/14/20 12 Active FISH OIL 1000 MG PO CAPS daily Active VITAMIN D 1000 UNITS PO CAPSIndications:Ge neralized osteoarthritis 2 capsule daily 0 01/17/20 14 Active Melatonin 3 MG CapsuleIndications :Insomnia, unspecified type Take 1 Cap by mouth at bedtime. 30 Cap 1 04/23/20 20 Active Multiple Vitamins-Minerals (MULTIVITAMIN ADULT) TABS Take by mouth. Active fluticasone (FLONASE) 50 MCG/ACT nasal sprayIndications:N adrien congestion Administer 2 Sprays into each nostril daily. 9.9 mL 2 06/24/20 20 Active Meclizine HCl 25 MG Oral Tablet (Antivert) Take 1 Tab by mouth 3 times a day as needed for Dizziness. 60 Tab 2 04/08/20 21 Active oxygen IN GAS Use 4 L/min(Oxygen) as directed. Active Diclofenac Sodium 1 % Transdermal GelIndications:Nadira bautista osteoarthritis of both knees APPLY 4GM TOPICALLY ON THE SKIN TWO TIMES A DAY TO KNEES DIRECTED 300 g 3 12/22/19 22 Active Polyethylene Glycol 3350 17 GM/SCOOP Oral Powder (MiraLax)Indicatio ns:Constipation, unspecified constipation type Take by mouth 17 [...] in the evening. Take with meals. Active Ipratropium-Albute rol 0.5-2.5 (3) MG/3ML Inhalation Solution (Duoneb)Indication s:COPD exacerbation (HCC) INHALE ONE vial via NEBULIZER EVERY 4 HOURS NEEDED FOR wheezing 180 mL 1 10/07/20 23 Active MEDICAL INSTRUCTIONSIndica tions:Pulmonary hypertension (HCC),Chronic respiratory failure with hypoxia (HCC) Pt may use 4 Liters of Oxygen with Exertion, and 3 Liters at rest 10/04/20 23 Active Albuterol Sulfate HFA 108 (90 Base) MCG/ACT Inhalation Aerosol SolutionIndication s:COPD exacerbation (HCC) Inhale 2 Puffs by mouth in the morning and 2 Puffs at noon and 2 Puffs in the evening and 2 Puffs before bedtime. 18 g 1 01/30/20 24 Active Rosuvastatin Calcium 10 MG Oral Tablet (Crestor)Indicatio ns:Atrial fibrillation, chronic (HCC),Dyslipidemia , goal LDL below 70,Carotid stenosis, asymptomatic, bilateral Take 1 Tablet by mouth every evening. 90 Tablet 3 03/08/20 24 Active Warfarin Sodium 5 MG Oral Tablet (Coumadin)Indicati ons:Chronic atrial fibrillation, unspecified (HCC) TAKE 1/2 TABLET BY MOUTH every tuesday AND ; TAKE ONE TABLET BY MOUTH ALL other DAYS OR DIRECTED by anticoagulation clinic 80 Tablet 2 03/08/20 24 Active Lisinopril 20 MG Oral Tablet (Prinivil)Indicati ons:Chronic atrial fibrillation (HCC),ASCVD (arteriosclerotic cardiovascular disease),Essential hypertension with goal blood pressure less than 140/90 TAKE ONE TABLET BY MOUTH IN THE MORNING 90 Tablet 3 03/23/20 24 Active Senna 30 MG Oral Take one tablet by mouth daily as needed. 90 Each 1 04/10/20 24 Active Potassium Chloride ER 10 MEQ Oral Tablet Extended Release Take 1 Tablet by mouth daily. Take with daily Lasix dose 90 Tablet 1 04/10/20 24 Active Alendronate Sodium 70 MG Oral Tablet (Fosamax)Indicatio ns:Age-related osteoporosis without current pathological fracture Take 1 Tablet by mouth once a week. with 8 oz. water 30 minutes before first meal of the day. Remain upright for 30 min after taking tablet. 12 Tablet 1 04/10/20 24 Active Furosemide 20 MG Oral Tablet (Lasix)Indications :Chronic atrial fibrillation (HCC),HTN, goal below 140/90,Edema, unspecified type TAKE ONE TABLET BY MOUTH THREE TIMES A WEEK 40 Tablet 3 05/10/20 24 Active amLODIPine Besylate 2.5 MG Oral Tablet (Norvasc) Take 1 Tablet by mouth in the morning. 90 Tablet 2 05/10/20 24 Active Cyclobenzaprine HCl 10 MG Oral Tablet (Flexeril) TAKE 1 TABLET DAILY NEEDED FOR MUSCLE SPASMS 30 Tablet 06/07/20 24 Active Metoprolol Succinate ER 25 MG Oral Tablet Extended Release 24 Hour (toPROL XL)Indications:HTN , goal below 140/90,Atrial fibrillation, chronic (HCC) Take by mouth 1/2 tablet in the morning 45 Tablet 3 06/06/20 24 Active Levothyroxine Sodium 137 MCG Oral TabletIndications: Postsurgical hypothyroidism Take 1 Tablet by mouth daily first thing in the morning. (at least 30 min prior to breakfast or other meds) 90 Tablet 06/29/20 24 Active Docusate Sodium 100 MG Oral Capsule (Colace)Indication s:Constipation, unspecified constipation type Take 1 Capsule by mouth in the morning and 1 Capsule before bedtime. 180 Capsule 1 08/17/20 24 Active Esomeprazole Magnesium 20 MG Oral Capsule Delayed ReleaseIndications :Gastroesophageal reflux disease without esophagitis Take 1 Capsule by mouth daily before breakfast. 90 Capsule 1 08/17/20 24 Active Sertraline HCl 25 MG Oral Tablet (Zoloft)Indication s:Anxiety,Current mild episode of major depressive disorder without prior episode (HCC) TAKE ONE TABLET BY MOUTH IN THE MORNING 90 Tablet 1 08/23/20 24 Active ALPRAZolam 1 MG Oral Tablet (xaNAX)Indications :Anxiety TAKE ONE TABLET BY MOUTH TWICE DAILY NEEDED FOR ANXIETY 60 Tablet 09/12/20 24 Active Morphine Sulfate ER 15 MG Oral Tablet Extended Release (Ms Contin)Indications :Lumbar degenerative disc disease TAKE ONE TABLET BY MOUTH TWICE DAILY 60 Tablet 09/12/20 24 Active Morphine Sulfate ER 15 MG Oral Tablet Extended Release (Ms Contin)Indications :Lumbar degenerative disc disease Take 1 Tablet by mouth in the morning and 1 Tablet before bedtime. 60 Tablet 08/14/20 24 024 Discontinued ALPRAZolam 1 MG Oral Tablet (xaNAX)Indications :Anxiety TAKE ONE TABLET BY MOUTH TWICE DAILY NEEDED FOR anxiety. 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 current use of anticoagulant therapy 1 Overview: [...] as of this encounter (statuses as of 09/12/2024) Resolved Problems Problem Noted Date Diagnosed Date [...] as of this encounter (statuses as of 09/12/2024) Immunizations Name Administration Dates Next Due COVID-19 [...] Telephone Encounter - Danelle Pierre MD - 09/12/2024 10:28 AM EDT Signed Prescriptions: Disp Refills ALPRAZolam 1 MG Oral Tablet (xaNAX) 60 Tab*0 Sig: TAKE ONE TABLET BY MOUTH TWICE DAILY NEEDED FOR ANXIETY Authorizing Provider: DANELLE PIERRE Morphine Sulfate ER 15 MG Oral Tablet Exte*60 Tab*0 Sig: TAKE ONE TABLET BY MOUTH TWICE DAILY Authorizing Provider: DANELLE PIERRE * Telephone Encounter - Homero Solano [facility] - 09/11/2024 5:50 PM EDTPending Prescriptions: Disp Refills ALPRAZolam 1 MG Oral Tablet [Pharmacy Med *60 Tab*0 Sig: TAKE ONE TABLET BY MOUTH TWICE DAILY NEEDED FOR anxiety. Morphine Sulfate ER 15 MG Oral Tablet Exte*60 Tab*0 Sig: TAKE ONE TABLET BY MOUTH TWICE DAILY * Telephone Encounter - Homero Solano [facility] - 09/11/2024 5:50 PM EDT I have reviewed the patients controlled substance dispensing history in the Prescription Drug Monitoring Program in compliance with the [facility] regulations before prescribing a controlled substance. PDMP checked on 09/11/2024. Pending Prescriptions: Disp Refills ALPRAZolam 1 MG Oral Tablet [Pharmacy Med *60 Tab*0 Sig: TAKE ONE TABLET BY MOUTH TWICE DAILY NEEDED FOR anxiety. Morphine Sulfate ER 15 MG Oral Tablet Exte*60 Tab*0 Sig: TAKE ONE TABLET BY MOUTH TWICE DAILY Last Visit: 08/17/2023 (in office), Visit date not found (telemedicine) Next Visit: 12/31/2024 Date medication was last filled: 08-14-24 Date medication is due for refill: 09-12-24 Pharmacy: [facility], [address] [place] Is this request for a controlled substance? and Urine Drug Screen Not completed Toxicology results: Results for orders placed or performed in visit on 06/15/21 PAIN MANAGEMENT DRUG PANEL, URINE W/ INTERPRETATION Result Value Compliance Interpretation Based on the medication information provided and obtained from [facility]: The presence of morphine, hydrocodone, dihydrocodeine, and [...] in Results Review. Please approve if appropriate. Homero Solano, Jeannie.Ph. Clinical Pharmacist Centralized Clinical Pharmacy Services ([facility]) [address] [place] [address] [place] [address] MC: [phone] [id number] 09/11/2024,5:50 PM documented in this encounter Plan of Treatment Upcoming Encounters Date Type Department Care Team (Late st Contact Info) Description 09/19/2024 7:10 AM EST Laboratory Lab Mobile Phlebotomy [facility] [address] [facility] [place] [address] Mvmg, Gml Mobile Home Draw [address] [employer] [place] [address] 09/20/2024 6:00 AM EST Anticoagulation Centralized Clinical Pharmacy Services, [address] [place] [address] [place] [address] 12/31/2024 10:40 AM EST Telemedicine [address] [place] [phone] Danelle Pierre MD [address] [place] [address] [place] [address] Health Maintenance Due Date Last Done Comments [...] D LEVEL ONCE IN A LIFETIME-USE SMARTSET# [id number] Completed 05/29/2020, 09/11/2019, 05/24/2014, Additional history exists [...] disc documented in this encounter Care Teams Securities Adviser Relationship Specialty Start Date End Date Danelle Pierre MD [address] [place] [address] [place] [address] PCP - General Family Medicine 01/02/20 documented as of this encounter
--- OUTSIDE RECORDS SUMMARY | 2024-11-18 18:58 | External Medical Summary ---
Author Name Unknown Address Unknown Organization K01:[facility] [address] [place] [address] Laboratory Report Ordering Provider Test Date Status WHITNEY RAMOS 08/22/2024 08:03:00 Final Observation Date Value Abnormality Reference (Units ) Status Magnesium 08/22/2024 08:03:00 1.6 1.5-2.6 (m g/dL) Final Performing Location [facility] [address] [place] [address]
--- OUTSIDE RECORDS SUMMARY | 2024-11-18 18:58 | External Medical Summary ---
Author Name Unknown Address Unknown Organization K01:[facility] [place] [address] [address] Laboratory Report Ordering Provider Test Date Status ANDREW BOSS 08/22/2024 08:03:00 Jesi l Observation Date Value Abnormality Reference (Units ) Status TSH 08/22/2024 08:03:00 3.11 0.27-4.20 (uIU/mL) Final Performing Location [facility] [address] [place] [address]
--- OUTSIDE RECORDS SUMMARY | 2024-11-18 18:58 | External Medical Summary | Summary of Care ---
Author Name Unknown Organization [facility] [address] [facility] [address] Phone [phone] Care Team Providers Care Load Out Worker Name Role Phone Danelle Pierre MD Primary Care Provide r Encounter Details Date Type Department Care Team (Late st Contact Info) Description 08/21/2024 Orders Only PATIENT PORTAL DO NOT DELETE THIS DEPT USED BY [place] [id number] Allergies Active Allergy Reactions Criticality Noted Date [...] as of this encounter (statuses as of 08/21/2024) Medications Medication Sig Dispensed Refills Start Date [...] as of this encounter (statuses as of 08/21/2024) Active Problems Problem Noted Date Diagnosed Date MEDICATION USE AGREEMENT 05/25/2023 Overview: Dr. 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 1 Overview: [...] as of this encounter (statuses as of 08/21/2024) Resolved Problems Problem Noted Date Diagnosed Date [...] as of this encounter (statuses as of 08/21/2024) Immunizations Name Administration Dates Next Due COVID-19 [...] on file documented as of this encounter Plan of Treatment Upcoming Encounters Date Type Department Care Team (Late st Contact Info) Description 08/22/2024 7:10 AM EDT Laboratory Lab Mobile Phlebotomy [facility] [address] [employer] [place] [address] Mvmg, Gml Mobile Home Draw [address] [employer] [place] [address] 08/23/2024 6:00 AM EDT Anticoagulation Centralized Clinical Pharmacy Services, Isreal Rivera [address] [place] [address] [place] [address] [place] [address] 12/31/2024 10:40 AM EST Telemedicine Family Medicine [address] [place] [phone] Danelle Pierre MD [address] [place] [address] [place] [address] Health Maintenance Due Date Last Done Comments [...] 02/02/2024, 09/14, 09/28/2023, Additional history exists TSH 06/27/2025 06/27/2024, 10/14, 08/17/2023, Additional history exists Albumin/Creatinine Ratio 11/18/2025 11/18/2022 Pneumococcal Vaccine: 65+ Years Completed 09/03/2016, 02/21/2015, 08/31/2007, Additional history exists VITAMIN D LEVEL ONCE IN A LIFETIME-USE SMARTSET# [id number] Completed 05/29/2020, 09/11/2019, 05/24/2014, Additional history exists [...] filedocumented as of this encounter Care Teams Load Out Worker Relationship Specialty Start Date End Date Danelle Pierre MD [address] [place] [address] [place] [phone] PCP - General Family Medicine 01/02/20 documented as of this encounter
--- OUTSIDE RECORDS SUMMARY | 2024-11-18 18:58 | External Medical Summary | Summary of Care ---
Author Name Unknown Organization [facility] Address [address] [place] [address] Phone [phone] Care Team Providers Care Vial Gauger Name Role Phone Danelle Pierre MD Primary Care Provide r Reason for Visit * Reason Onset Date Comments Medication Refill 09/13/2024 Encounter Details Date Type Department Care Team (Late st Contact Info) Description 09/13/2024 Refill Cardiology, [facility] [address] [place] [address] Edy Alvarez PA-C [address] [place] [address] Atrial fibrillation, chronic (HCC); Dyslipidemia, goal LDL [...] as of this encounter (statuses as of 09/14/2024) Medications Medication Sig Dispensed Refills Start Date [...] MOUTH TWICE DAILY 60 Tablet 4 Active documented as of this encounter (statuses as of 09/14/2024) Active Problems Problem Noted Date Diagnosed Date [...] residential current use of anticoagulant therapy 1 Overview: [...] as of this encounter (statuses as of 09/14/2024) Resolved Problems Problem Noted Date Diagnosed Date [...] as of this encounter (statuses as of 09/14/2024) Immunizations Name Administration Dates Next Due COVID-19 [...] encounter Miscellaneous Notes * Telephone Encounter - Bibi Pelayo, [facility] - 09/14/2024 10:56 AM EDT Refused Prescriptions: Disp Refills Rosuvastatin Calcium 10 MG Oral Tablet (Cr*90 Tab*3 Sig: Take 1Tablet by mouth every evening.Refused By: BIBI PELAYO for Refusal: Too soon Furosemide 20 MG Oral Tablet (Lasix) 40 Tab*3 Sig: TAKE ONE TABLET BY MOUTH THREE TIMES A WEEKRefused By: BIBI PELAYO for Refusal: Too soon documented in this encounter Plan of Treatment Upcoming Encounters Date Type Department Care Team (Late st Contact Info) Description 09/19/2024 7:10 AM EST Laboratory Lab Mobile Phlebotomy [facility] [address] [facility] [place] [address] Mvmg, Gml Mobile Home Draw [address] [facility] [place] [address] 09/20/2024 6:00 AM EST Anticoagulation Centralized Clinical Pharmacy Services, Isreal Rivera [address] [place] [address] [place] [address] [facility], [address] [place] [address] 12/31/2024 10:40 AM EST Telemedicine Family [address] [place] [phone] Danelle Pierre MD [address] [place] [address] [place] [address] Health Maintenance Due Date Last Done Comments [...] D LEVEL ONCE IN A LIFETIME-USE SMARTSET# [id number] Completed 05/29/2020, 09/11/2019, 05/24/2014, Additional history exists [...] type documented in this encounter Care Teams Vial Gauger Relationship Specialty Start Date End Date Danelle Pierre MD [address] [place] [address] [place] [address] PCP - General Family Medicine 01/02/20 documented as of this encounter
--- OUTSIDE RECORDS SUMMARY | 2024-11-18 18:58 | External Medical Summary ---
Author Name Unknown Address Unknown Organization [id number]:[facility] [place] [address] [place] [id number] Laboratory Report Ordering Provider Test Date Status BO THOMPSON 09/05/2024 08:01:00 Final Please draw PT/INR every 1-4 weeks or as requested by the [facility]

Warfarin Therapy
INR: 2.0-3.0 conventional anticoagulation
INR: 2.5-3.5 high intensity anticoagulation Observation Date Value Abnormality Reference (Units ) Status PT 09/05/2024 08:01:00 28.2 Above high normal 11 .6-15.2 (seconds) Final INR 09/05/2024 08:01:00 2.6 Above high normal 0. 8-1.2 Final Performing Location [facility] [place] [address] [place] [id number]
--- OUTSIDE RECORDS SUMMARY | 2024-11-18 18:58 | External Medical Summary | Summary of Care ---
Author Name Unknown Organization [facility] Address [address] [place] [facility] [place] [address] Phone [phone] Care Team Providers Care Heel Sander Rubber Name Role Phone Danelle Pierre MD Primary Care Provide r Reason for Visit * Reason Onset Date Comments Medication Refill 09/13/2024 Encounter Details Date Type Department Care Team (Late st Contact Info) Description 09/13/2024 Refill Family Medicine [address] [place] [address] Danelle Pierre MD [address] [place] [address] [place] [phone] Anxiety; Lumbar degenerative disc disease Allergies Active [...] disc disease 01/18/2013 Anticoagulation management encounter 09/01/2012 nursing home current use of anticoagulant therapy 1 Overview: [...] encounter Miscellaneous Notes * Telephone Encounter - Delores Hilliard RP - 09/14/2024 3:01 PM EDTRefused Prescriptions: Disp Refills ALPRAZolam 1 MG Oral Tablet (xaNAX) 60 Tab*0 Sig: TAKE ONE TABLET BY MOUTH TWICE DAILY NEEDED FOR anxiety.Refused By: DELORES HILLIARD for Refusal: Duplicate Request Morphine Sulfate ER 15 MG Oral Tablet Exte*60 Tab*0 Sig: Take 1 Tablet by mouth in themorning and 1 Tablet before bedtime.Refused By: DELORES HILLIARD for Refusal: Duplicate Request documented in this encounter Plan of Treatment Upcoming Encounters Date Type Department Care Team (Late st Contact Info) Description 09/19/2024 7:10 AM EST Laboratory Lab Mobile Phlebotomy [facility] [address] [facility] [place] [address] Mvmg, Gml Mobile Home Draw [address] [facility] [place] [address] 09/20/2024 6:00 AM EST Anticoagulation Centralized Clinical Pharmacy Services, Isreal Rivera [address] [place] [address] [place] [address] [facility], [address] [place] [address] 12/31/2024 10:40 AM EST Telemedicine Family Medicine [address] [place] [phone] Danelle Pierre MD [address] [place] [address] [place] [address] Health Maintenance Due Date Last Done Comments [...] D LEVEL ONCE IN A LIFETIME-USE SMARTSET# [id number] Completed 05/29/2020, 09/11/2019, 05/24/2014, Additional history exists [...] disc documented in this encounter Care Teams Heel Sander Rubber Relationship Specialty Start Date End Date Danelle Pierre MD [address] [place] [address] [place] [phone] PCP - General Family Medicine 01/02/20 documented as of this encounter
--- OUTSIDE RECORDS SUMMARY | 2024-11-18 18:58 | External Medical Summary | Summary of Care ---
Author Name Unknown Organization [facility] Address [address] [facility] [place] [address] Phone [phone] Care Team Providers Care Expansion Envelope Maker Hand Name Role Phone Danelle Pierre MD Primary Care Provide r Reason for Visit * Reason Comments Dosage Adjustment Via Phone (anticoag Cl inic) Encounter Details Date Type Department Care Team (Late st Contact Info) Description 09/06/2024 6:00 AM EDT Anticoagulation Centralized Clinical Pharmacy Services, Isreal Rivera [address] [place] [address] [place] [address] [place] [address] Atrial fibrillation, chronic (HCC)* Allergies Active Allergy [...] as of this encounter (statuses as of 09/06/2024) Medications Medication Sig Dispensed Refills Start Date [...] as of this encounter (statuses as of 09/06/2024) Active Problems Problem Noted Date Diagnosed Date [...] disc disease 01/18/2013 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 1 Overview: [...] as of this encounter (statuses as of 09/06/2024) Resolved Problems Problem Noted Date Diagnosed Date [...] as of this encounter (statuses as of 09/06/2024) Immunizations Name Administration Dates Next Due COVID-19 [...] as of this encounter Progress Notes * Ana Malave CPhT - 09/06/2024 9:30 AM EDT Contacts Contact Date/Time Type Contact Phone/Fax 09/06/2024 09:30 AM EDT Phone (Outgoing) Jose Alberto Ayers (Emergency Contact) [phone] (H) Spoke with Jose Alberto Subjective Advised patient to contact Anticoagulation Clinic if any unusual bruising or bleeding, recent illness, changes in medication, or questions/concerns. PT/INR results, Coumadin dose instructions, and next PT/INR date communicated as noted by Pharmacist: Yes ANA MALAVE CPhT 09/06/2024, 9:30 AM * Ashlie Juares [facility] - 09/06/2024 8:19 AM EDT Coumadin Clinic (region specific) Objective Current Warfarin Dose As of 09/06/2024 Warfarin maintenance plan: 2.5 mg (5 mg x 0.5) every Tue, Leona, Sat; 5 mg (5 mg x 1) all other days INR Result As of 09/06/2024 INR goal: 2.0-3.0 INR used for dosin.6 (09/05/2024) Assessment & Plan Warfarin Plan As of 09/06/2024 Full warfarin instructions: 2.5 mg every Tue, Leona, Sat; 5 mg all other days No change documented: Ashlie Juares RPh Next INR check: 09/19/2024 Repeat PT/INR in 2 week(s) Weekly dose: not changed Additional Dosing Information: Description GML W & F Ensure/boost daily Tech to contact patient with dose instructions as noted. Ashlie Juares RPh 09/06/2024, 8:19 AM documented in this encounter Plan of Treatment Upcoming Encounters Date Type Department Care Team (Late st Contact Info) Description 09/20/2024 6:00 AM EST Anticoagulation Centralized Clinical Pharmacy Services, Isreal Rivera [address] [place] [address] [place] [address] [facility], [address] [place] [address] 12/31/2024 10:40 AM EST Telemedicine Family Medicine [address] [place] [phone] Danelle Pierre MD [address] [place] [address] [place] [address] Health Maintenance Due Date Last Done Comments [...] D LEVEL ONCE IN A LIFETIME-USE SMARTSET# [id number] Completed 05/29/2020, 09/11/2019, 05/24/2014, Additional history exists [...] fibrillation documented in this encounter Care Teams Expansion Envelope Maker Hand Relationship Specialty Start Date End Date Danelle Pierre MD [address] [place] [address] [place] [phone] PCP - General Family Medicine 01/02/20 documented as of this encounter
--- OUTSIDE RECORDS SUMMARY | 2024-11-18 18:58 | External Medical Summary | Summary of Care ---
Author Name Unknown Organization [facility] Address [address] [facility] [place] [address] Phone [phone] Care Team Providers Care Contact Printer Dry Film Name Role Phone Danelle Pierre MD Primary Care Provide r Reason for Visit * Reason Onset Date Comments Medication Refill 09/13/2024 Encounter Details Date Type Department Care Team (Late st Contact Info) Description 09/13/2024 Refill Family Medicine [address] [place] [address] Danelle Pierre MD [address] [place] [address] [place] [phone] Allergies Active Allergy Reactions Criticality Noted Date [...] CAPSIndications:Ge neralized osteoarthritis 2 capsule daily 0 4 Active Melatonin 3 MG CapsuleIndications :Insomnia, unspecified [...] wheezing 180 mL 1 3 Active MEDICAL INSTRUCTIONSIndica tions:Pulmonary hypertension (HCC),Chronic respiratory [...] 4 Active Lisinopril 20 MG Oral Tablet (Prinivil)Indicati [...] 4 Active Furosemide 20 MG Oral Tablet (Lasix)Indications :Chronic atrial fibrillation (HCC),HTN, goal below 140/90,Edema, unspecified type TAKE ONE TABLET BY MOUTH THREE TIMES A WEEK 40 Tablet 3 4 Active Cyclobenzaprine HCl 10 MG Oral Tablet (Flexeril) TAKE 1 TABLET DAILY NEEDED FOR MUSCLE SPASMS 30 Tablet 4 Active Levothyroxine Sodium 137 MCG Oral TabletIndications: [...] 4 Active ALPRAZolam 1 MG Oral Tablet (xaNAX)Indications [...] the morning. 90 Tablet 1 4 Active Potassium Chloride ER 10 MEQ Oral Tablet Extended Release Take 1 Tablet by mouth daily. Take with daily Lasix dose 90 Tablet 1 4 09/13/20 Discontinu ed(Refill) amLODIPine Besylate 2.5 MG Oral Tablet (Norvasc) Take 1 Tablet by mouth in the morning. 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 Take with daily Lasix doseAuthorizing Provider: Peter PIERRE User: DUANE PHAN amLODIPine Besylate 2.5 MG Oral Tablet (No*90 Tab*1 Sig: Take 1 Tablet by mouth in the morning.Authorizing Provider: Peter PIERRE User: DUANE PHAN * Telephone Encounter - Duane Sarah [facility] - 09/14/2024 3:54 PM EDT Approved refill to hold until office visit on 12/31/24. * Telephone Encounter - Duane Sarah [facility] - 09/14/2024 3:53 PM EDT Pending Prescriptions: Disp Refills Potassium Chloride ER 10 MEQ Oral Tablet *90 Tab*1 Sig: Take 1 Tablet by mouth daily. Take with daily Lasix dose amLODIPine Besylate 2.5 MG Oral Tablet (N*90 Tab*2 Sig: Take 1 Tablet by mouth in the morning. Last Visit: 08/17/2023 (in office), Visit date not found (telemedicine) Next Visit: 12/31/2024 If no future appointments scheduled, and last appointment is greater than a year ago, please schedule patient for a follow-up appointment Last date the medication was ordered: 04/10/24, 05/10/24 Pharmacy: [facility], [address] [place] Is this request for a controlled substance? No Urine Drug Screen: Results for orders placed or performed in visit on 06/15/21 PAIN MANAGEMENT DRUG PANEL, URINE W/ INTERPRETATION Result Value Compliance Interpretation Based on the medication information provided and obtained from [facility]: The presence of morphine, hydrocodone, [...] AM EST Laboratory Lab Mobile Phlebotomy [facility] [address] [place] [address] Mv[facility], Gml Mobile Home Draw [address] [place] [address] 09/20/2024 6:00 AM EST Anticoagulation Centralized Clinical Pharmacy Services, Isreal Rivera [address] [place] [address] [place] [address] [facility], [address] [place] [address] 12/31/2024 10:40 AM EST Telemedicine Family [address] [place] [phone] Danelle Pierre MD [address] [place] [address] [place] [address] Health Maintenance Due Date Last Done Comments [...] D LEVEL ONCE IN A LIFETIME-USE SMARTSET# [id number] Completed 05/29/2020, 09/11/2019, 05/24/2014, Additional history exists [...] filedocumented as of this encounter Care Teams Contact Printer Dry Film Relationship Specialty Start Date End Date Danelle Pierre MD [address] [place] [address] [place] [phone] PCP - General Family Medicine 01/02/20 documented as of this encounter
--- OUTSIDE RECORDS SUMMARY | 2024-11-18 18:58 | External Medical Summary ---
Author Name Unknown Address Unknown Organization K01:LAB[facility]ATORY [facility] - [address] [place] [address] Laboratory Report Ordering Provider Test Date Status WHITNEY RAMOS 08/22/2024 08:03:00 Final Observation Date Value Abnormality Reference (Units ) Status Vitamin B12 08/22/2024 08:03:00 [phone] (pg/mL) Final Performing Location LAB[facility]ATORY [facility] - [address] [place] [id number]
--- OUTSIDE RECORDS SUMMARY | 2024-11-18 18:58 | External Medical Summary | Summary of Care ---
Author Name Unknown Organization [facility] Address [address] [place] [facility] [place] [address] Phone [phone] Care Team Providers Care Biztalk Consultant Name Role Phone Danelle Pierre MD Primary Care Provide r Reason for Visit * Reason Onset Date Comments Medication Refill 09/13/2024 Encounter Details Date Type Department Care Team (Late st Contact Info) Description 09/13/2024 Refill Family Medicine [address] [place] [address] Danelle Pierre MD [address] [place] [address] [place] [phone] HTN, goal below 140/90; Atrial fibrillation, chronic [...] MOUTH TWICE DAILY 60 Tablet 4 Active Metoprolol Succinate ER 25 MG Oral Tablet Extended Release 24 Hour (toPROL XL)Indications:HTN , goal below 140/90,Atrial fibrillation, chronic (HCC) Take by mouth 1/2 tablet in the morning 45 Tablet 1 4 Active Potassium Chloride ER [...] disc disease 01/18/2013 Anticoagulation management encounter 09/01/2012 alf current use of anticoagulant therapy 1 Overview: [...] Notes * Telephone Encounter - Duane Sarah, [facility] - 09/14/2024 3:56 PM EDTSigned Prescriptions: Disp Refills Metoprolol Succinate ER 25 MG Oral Tablet *45 Tab*1 Sig: Take by mouth 1/2 tablet in the morning Authorizing Provider: DANELLE PIERRE Ordering User: DUANE PHAN * Telephone Encounter - Jose Pelayo [facility] - 09/14/2024 11:10 AM EDT Pending Prescriptions: Disp Refills Metoprolol Succinate ER 25 MG Oral Tablet *45 Tab*3 Sig: Take by mouth 1/2 tablet in the morning documented in this encounter Plan of Treatment Upcoming Encounters Date Type Department Care Team (Late st Contact Info) Description 09/19/2024 7:10 AM EST Laboratory Lab Mobile Phlebotomy [facility] [address] [place] [address] [place] [address] Mvmg, Gml Mobile Home Draw [address] [place] [address] [place] [address] 09/20/2024 6:00 AM EST Anticoagulation Centralized Clinical Pharmacy Services, [address] [place] [address] [place] [address] 12/31/2024 10:40 AM EST Telemedicine Family Medicine [address] [place] [phone] Danelle Pierre MD [address] [place] [address] [place] [address] Health Maintenance Due Date Last Done Comments [...] D LEVEL ONCE IN A LIFETIME-USE SMARTSET# [id number] Completed 05/29/2020, 09/11/2019, 05/24/2014, Additional history exists [...] as of this encounter Visit Diagnoses Diagnosis HTN, goal below 140/90 Unspecified essential hypertension Atrial fibrillation, chronic (HCC) Atrial fibrillation documented in this encounter Care Teams Biztalk Consultant Relationship Specialty Start Date End Date Danelle Pierre MD [address] [place] [address] [place] [address] PCP - General Family Medicine 01/02/20 documented as of this encounter
--- OUTSIDE RECORDS SUMMARY | 2024-11-18 18:58 | External Medical Summary | Summary of Care ---
Author Name Unknown Organization [facility] Address [address] [place] [facility] [place] [address] Phone [phone] Care Team Providers Care Supervisor Press Room Name Role Phone Danelle Pierre MD Primary Care Provide r Reason for Visit * Reason Comments eRx-Medication Refill Encounter Details Date Type Department Care Team (Late st Contact Info) Description 08/22/2024 Refill Family Medicine [address] [place] [address] Danelle Pierre MD [address] [place] [address] [place] [address] Anxiety; Current mild episode of major depressive disorder without prior episode (HCC) Allergies Active Allergy Reactions Criticality Noted [...] directed. Active Diclofenac Sodium 1 % Transdermal GelIndications:Ndaira bautista osteoarthritis of both knees APPLY 4GM [...] other meds) 90 Tablet 06/29/20 24 Active Morphine Sulfate ER 15 MG Oral Tablet Extended Release (Ms Contin)Indications :Lumbar degenerative disc disease Take 1 Tablet by mouth in the morning and 1 Tablet before bedtime. 60 Tablet 08/14/20 24 Active ALPRAZolam 1 MG Oral Tablet (xaNAX)Indications :Anxiety TAKE ONE TABLET BY MOUTH TWICE DAILY NEEDED FOR anxiety. 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 Thank you, Alejandro Sandhu, PharmD Clinical Pharmacist Centralized Clinical Pharmacy Services ([facility]) 08/23/24 3:40 PM [phone] documented in this encounter Plan of Treatment Upcoming Encounters Date Type Department Care Team (Late st Contact Info) Description 09/05/2024 7:05 AM EDT Laboratory Lab Mobile Phlebotomy [facility] [address] [place] [address] Mvmg, Gml Mobile Home Draw [address] [place] [address] 09/06/2024 6:00 AM EDT Anticoagulation Centralized Clinical Pharmacy Services, Isreal Rivera [address] [place] [address] [place] [address] [facility], [address] [place] [address] 12/31/2024 10:40 AM EST Telemedicine Family Medicine [address] [place] [phone] Danelle Pierre MD [address] [place] [address] [place] [address] Health Maintenance Due Date Last Done Comments [...] D LEVEL ONCE IN A LIFETIME-USE SMARTSET# [id number] Completed 05/29/2020, 09/11/2019, 05/24/2014, Additional history exists [...] Visit Diagnoses Diagnosis Anxiety Anxiety state, unspecified Current mild episode of major depressive disorder without prior episode (HCC) documented in this encounter Care Teams Supervisor Press Room Relationship Specialty Start Date End Date Danelle Pierre MD [address] [place] [address] [place] [phone] PCP - General Family Medicine 01/02/20 documented as of this encounter
--- OUTSIDE RECORDS SUMMARY | 2024-11-18 18:59 | External Medical Summary ---
Author Name Unknown Address Unknown Organization K0G:[facility] [address] [place] [address] Laboratory Report Ordering Provider Test Date Status BO THOMPSON 06/27/2024 08:00:00 Final Please draw PT/INR every 1-4 weeks or as requested by the [facility]

Warfarin Therapy
INR: 2.0-3.0 conventional anticoagulation
INR: 2.5-3.5 high intensity anticoagulation Observation Date Value Abnormality Reference (Units ) Status PT 06/27/2024 08:00:00 23.0 Above high normal 11 .6-15.2 (seconds) Final INR 06/27/2024 08:00:00 2.0 Above high normal 0. 8-1.2 Final Performing Location [facility] [address] - [address] [place] [id number]
--- OUTSIDE RECORDS SUMMARY | 2024-11-18 18:59 | External Medical Summary | Summary of Care ---
Author Name Unknown Organization [facility] Address [address] [facility] [place] [address] Phone [phone] Care Team Providers Care Transfusion Nurse Name Role Phone Danelle Pierre MD Primary Care Provide r Reason for Visit * Reason Comments Dosage Adjustment Via Phone (anticoag Cl inic) Encounter Details Date Type Department Care Team (Late st Contact Info) Description 06/07/2024 6:00 AM EDT Anticoagulation Centralized Clinical Pharmacy Services, Isreal Rivera [address] [place] [address] [place] [address] [place] [address] Atrial fibrillation, chronic (HCC)* Allergies Active Allergy [...] as of this encounter (statuses as of 06/07/2024) Medications Medication Sig Dispensed Refills Start Date [...] anticoagulation clinic 80 Tablet 2 4 Active Esomeprazole Magnesium 20 MG Oral Capsule Delayed ReleaseIndications: Gastroesophageal reflux disease without esophagitis Take 1 Capsule by mouth daily before breakfast. 90 Capsule 1 4 Active Lisinopril 20 MG Oral Tablet (Prinivil)Indicatio ns:Chronic atrial fibrillation (HCC),ASCVD (arteriosclerotic cardiovascular disease),Essential hypertension with goal blood pressure less than 140/90 TAKE ONE TABLET BY MOUTH IN THE MORNING 90 Tablet 3 4 Active Levothyroxine Sodium 125 MCG Oral Tablet (Levoxyl)Indication s:Postsurgical hypothyroidism TAKE ONE TABLET BY MOUTH IN THE MORNING (AT least 30 minutes prior TO food) 90 Tablet 4 Active Senna 30 MG Oral Take one tablet by mouth daily as needed. 90 Each 1 4 Active Docusate Sodium 100 MG Oral Capsule (Stool Softener)Indication s:Constipation, unspecified constipation type Take 1 Capsule by mouth in the morning and 1 Capsule before bedtime. 180 Capsule 1 4 Active Potassium Chloride ER 10 [...] the morning. 90 Tablet 2 4 Active Morphine Sulfate ER 15 MG Oral Tablet Extended Release (Ms Contin)Indications: Lumbar degenerative disc disease Take 1 Tablet by mouth in the morning and 1 Tablet before bedtime. 60 Tablet 4 Active ALPRAZolam 1 MG Oral Tablet (xaNAX)Indications: Anxiety TAKE ONE TABLET BY MOUTH TWICE DAILY NEEDED FOR anxiety. 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 therapy 1 Overview: [...] as of this encounter (statuses as of 06/07/2024) Resolved Problems Problem Noted Date Diagnosed Date [...] as of this encounter (statuses as of 06/07/2024) Immunizations Name Administration Dates Next Due COVID-19 mRNA, LNP-s, No Pre serve, 2-Dose Series (Moderna) 01/23/2021,12/26/2020 COVID-19, mRNA, LNP-s, PF, B ooster, 100mcg/0.5mg (Moderna) 10/27/2021 Pneumococcal Conjugate Vacc, 13 Valent (Prevnar) 02/21/2015 Pneumococcal Polysaccharide PPV23 (Pneumovax) 09/03/2016,08/31/2007 Season Influenza, Quad, PF, Adjuvanted, 65+ Yrs, IM (FLUAD) 09/12/2020 Seasonal Influenza, PF, 6 M & above, IM , (FluLaval or Fluzone) 07/24/2019,07/27/2018,09/06/2017 Seasonal Influenza, Quadriva lent Hd (Fluzone Hd) 08/17/2023,10/06/2022,08/13/2021 Seasonal Influenza, Quadriva lent, No Preserve, IM 09/03/2016,09/02/2015 Seasonal Influenza, Split, I IV3, With Preserve, Inj 09/10/2014,08/27/2013,08/23/2012,08/17,08/24/2010,08/19/2009,10/01/2008 ,08/31/2007,08/18/2006 Varicella Zoster Vaccine (Adult) 08/23/2012 documented as [...] as of this encounter Progress Notes * Rosemarie Brooke PHARM Tech - 06/07/2024 8:54 AM EDT Contacts Type Contact Phone/Fax 06/07/2024 08:52 AM EDT Phone (Outgoing) Jose Alberto Ayers (Emergency Contact) [phone] (H) Spoke to Jose Alberto Subjective Patient Findings Negatives: [...] communicated as noted by Pharmacist: Yes FOREIGN VALENCIA 06/07/2024, 8:54 AM * Sada Long [facility] - 06/07/2024 8:50 AM EDT Coumadin Clinic (region specific) Objective Current Warfarin Dose As of 06/07/2024 Warfarin maintenance plan: 5 mg (5 mg x 1) every Mon, Wed, Fri; 2.5 mg (5 mg x 0.5) all other days INR Result As of 06/07/2024 INR goal: 2.0-3.0 INR used for dosin.5 (06/06/2024) Assessment & Plan Warfarin Plan As of 06/07/2024 Full warfarin instructions: 5 mg every Mon, Wed, Fri; 2.5 mg all other days No change documented: Sada Long RPh Next INR check: 06/27/2024 Repeat PT/INR in 3 week(s) Weekly dose: not changed Additional Dosing Information: Description GML W & F Ensure/boost daily Tech to contact patient with dose instructions as noted. Sada Long RPh 06/07/2024, 8:50 AM documented in this encounter Plan of Treatment Upcoming Encounters Date Type Department Care Team (Late st Contact Info) Description 12/31/2024 10:40 AM EST Telemedicine Family Medicine [address] [phone] Danelle Pierre MD [address] [place] [address] [place] [address] Health Maintenance Due Date Last Done Comments DTaP,Tdap,and Td Vaccines (1 - Tdap) 1964 Zoster Vaccines (2 of 3) 10/18/2012 08/23/2012 Depression Screening 12/20/2020 12/20/2019 DXA Scan 05/21/2023 05/21/2021, 05/15, 03/20/2014, Additional history exists COVID-19 Vaccine ( season) 2023 10/27/2021, 01/23/2021, 12/26/2020 Influenza Vaccine (FLU shot) (#1) 2024 08/17/2023, 10/06/2022, 08/13/2021, Additional history exists TSH 10/26/2024 10/26/2023, 02/2023, 05/25/2023, Additional history exists GFR 02/01/2025 02/02/2024, 09/14, 09/28/2023, Additional history exists Albumin/Creatinine Ratio 11/18/2025 11/18/2022 Pneumococcal Vaccine: 65+ Years Completed 09/03/2016, 02/21/2015, 08/31/2007, Additional history exists VITAMIN D LEVEL ONCE IN A LIFETIME-USE SMARTSET# [id number] Completed 05/29/2020, 09/11/2019, 05/24/2014, Additional history exists [...] fibrillation documented in this encounter Care Teams Transfusion Nurse Relationship Specialty Start Date End Date Danelle Pierre MD [address] [place] [address] [place] [phone] PCP - General Family Medicine 01/02/20 documented as of this encounter
--- OUTSIDE RECORDS SUMMARY | 2024-11-18 18:59 | External Medical Summary | Summary of Care ---
Author Name Unknown Organization [facility] [address] [facility] [address] Phone [phone] Care Team Providers Care Field Sales Associate Name Role Phone Danelle Pierre MD Primary Care Provide r Reason for Visit * Reason Onset Date Comments Medication Refill 08/12/2024 Encounter Details Date Type Department Care Team (Late st Contact Info) Description 08/12/2024 Refill Cardiology, [facility] [address] [place] [address] Edy Alvarez PA-C [address] [place] [phone] Chronic atrial fibrillation (HCC); HTN, goal below [...] as of this encounter (statuses as of 08/14/2024) Medications Medication Sig Dispensed Refills Start Date [...] NEEDED FOR anxiety. 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 1 Overview: [...] as of this encounter (statuses as of 08/14/2024) Resolved Problems Problem Noted Date Diagnosed Date [...] as of this encounter (statuses as of 08/14/2024) Immunizations Name Administration Dates Next Due COVID-19 [...] encounter Miscellaneous Notes * Telephone Encounter - Alexia Casper RPh - 08/14/2024 3:14 PM EDTRefused Prescriptions: Disp Refills Furosemide 20 MG Oral Tablet (Lasix) 40 Tab*3 Sig: TAKE ONE TABLET BY MOUTH THREE TIMES A WEEKRefused By: Ernestina CASPER for Refusal: Too soonReason for Refusal Comment: RX called into pharmacy on 06/06 as a 90 day supply with 3 refills * Telephone Encounter - Alexia Casper RPh - 08/14/2024 2:58 PM EDT Lasix is requested about every month for refill. Per patient message on 03/07/24, medication was increased to 1 tablet daily which was a recommendation from when patient was in the hospital. A month later medication was refilled with directions take 1 tablet three times a week. Per refill request on06/05/24, pharmacy was contacted to refill lasix as 90 day supply with 3 refills. Per dispense records in [facility] medication was dispensed for 90 day supply on 06/06/24. There should be 3 refills on file at pharmacy for patient to get refilled. MyG message sent. Alexia Webb, PharmD Clinical Pharmacist Centralized Clinical Pharmacy Services ([facility]) 08/14/2024, 3:11 PM documented in this encounter Plan of Treatment Upcoming Encounters Date Type Department Care Team (Late st Contact Info) Description 08/22/2024 7:10 AM EDT Laboratory Lab Mobile Phlebotomy [facility] [address] [facility] [place] [address] Mvmg, Gml Mobile Home Draw [address] [facility] [place] [phone] 08/23/2024 6:00 AM EDT Anticoagulation Centralized Clinical Pharmacy Services, Isreal Rivera [address] [place] [address] [place] [address] [facility], [address] [place] [address] 12/31/2024 10:40 AM EST Telemedicine Family Medicine [address] [place] [phone] Danelle Pierre MD [address] [place] [address] [place] [phone] Health Maintenance Due Date Last Done Comments [...] D LEVEL ONCE IN A LIFETIME-USE SMARTSET# [id number] Completed 05/29/2020, 09/11/2019, 05/24/2014, Additional history exists [...] this encounter Visit Diagnoses Diagnosis Chronic atrial fibrillation (HCC) Atrial fibrillation HTN, goal below 140/90 Unspecified essential hypertension Edema, unspecified type documented in this encounter Care Teams Field Sales Associate Relationship Specialty Start Date End Date Danelle Pierre MD [address] [place] [address] [place] [phone] PCP - General Family Medicine 01/02/20 documented as of this encounter
--- OUTSIDE RECORDS SUMMARY | 2024-11-18 18:59 | External Medical Summary | Summary of Care ---
Author Name Unknown Organization [facility] Address [address] [facility] [place] [address] Phone [phone] Care Team Providers Care Real Estate Rental Agent Name Role Phone Danelle Pierre MD Primary Care Provide r Reason for Visit * Reason Comments Dosage Adjustment Via Phone (anticoag Cl inic) Encounter Details Date Type Department Care Team (Late st Contact Info) Description 06/28/2024 6:00 AM EDT Anticoagulation Centralized Clinical Pharmacy Services, Isreal Rivera [address] [place] [address] [place] [address] [place] [address] Atrial fibrillation, chronic (HCC)* Allergies Active Allergy [...] as of this encounter (statuses as of 06/28/2024) Medications Medication Sig Dispensed Refills Start Date [...] as of this encounter (statuses as of 06/28/2024) Active Problems Problem Noted Date Diagnosed Date [...] disc disease 01/18/2013 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 1 [...] as of this encounter (statuses as of 06/28/2024) Resolved Problems Problem Noted Date Diagnosed Date [...] as of this encounter (statuses as of 06/28/2024) Immunizations Name Administration Dates Next Due COVID-19 [...] this encounter Progress Notes * Nanette Mcbride PHARM Tech - 06/28/2024 10:03 AM EDT Contacts Type Contact Phone/Fax 06/28/2024 10:01 AM EDT Phone (Outgoing) Jose Alberto Ayers (Emergency Contact) [phone] (M) spoke to Jose Alberto Subjective Patient [...] as noted by Pharmacist: Yes FOREIGN GARCIA 06/28/2024, 10:03 AM * Ashlie Juares [facility] - 06/27/2024 8:45 PM EDT Coumadin Clinic (region specific) Objective Current Warfarin Dose As of 06/28/2024 Warfarin maintenance plan: 5 mg (5 mg x 1) every Mon, Wed, Fri; 2.5 mg (5 mg x 0.5) all other days INR Result As of 06/28/2024 INR goal: 2.0-3.0 INR used for dosin.0 (06/27/2024) Assessment & Plan Warfarin Plan As of 06/28/2024 Full warfarin instructions: 5 mg every Mon, Wed, Fri; 2.5 mg all other days No change documented: Ashlie Juares RPh Next INR check: 07/18/2024 Repeat PT/INR in 3 week(s) Weekly dose: not changed Additional Dosing Information: Description GML W & F Ensure/boost daily Tech to contact patient with dose instructions as noted. Ashlie Juares RPh 06/27/2024, 8:45 PM documented in this encounter Plan of Treatment Upcoming Encounters Date Type Department Care Team (Late st Contact Info) Description 12/31/2024 10:40 AM EST Telemedicine Family Medicine [address] [place] [phone] Danelle Pierre MD [address] [place] [address] [place] [address] Health Maintenance Due Date Last Done Comments DTaP,Tdap,and Td Vaccines (1 - Tdap) 1964 Adult Wellness [...] D LEVEL ONCE IN A LIFETIME-USE SMARTSET# [id number] Completed 05/29/2020, 09/11/2019, 05/24/2014, Additional history exists [...] fibrillation documented in this encounter Care Teams Real Estate Rental Agent Relationship Specialty Start Date End Date Danelle Pierre MD [address] [place] [address] [place] [id number] PCP - General Family Medicine 01/02/20 documented as of this encounter
--- OUTSIDE RECORDS SUMMARY | 2024-11-18 18:59 | External Medical Summary ---
Author Name Unknown Address Unknown Organization K01:[facility] - [address] [place] [address] Laboratory Report Ordering Provider Test Date Status KATEY BOSSSTEPHANIE 06/27/2024 09:45:00 Jesi l Observation Date Value Abnormality Reference (Units ) Status TSH 06/27/2024 09:45:00 10.90 Above high normal 0. 27-4.20 (uIU/mL) Final Performing Location [facility] - [address] [place] [address]
--- OUTSIDE RECORDS SUMMARY | 2024-11-18 18:59 | External Medical Summary | Summary of Care ---
Author Name Unknown Organization [facility] Address [address] [facility] [place] [address] Phone [phone] Care Team Providers Care Diesel Powerplant Supervisor Name Role Phone Danelle Pierre MD Primary Care Provide r Reason for Visit * Reason Onset Date Comments Medication Refill 06/05/2024 Encounter Details Date Type Department Care Team (Late st Contact Info) Description 06/05/2024 Refill Family [address] [place] [phone] Danelle Pierre MD [address] [place] [address] [place] [phone] Chronic atrial fibrillation, unspecified (HCC); Postsurgical hypothyroidism; Age-related osteoporosis without current pathological fracture; Lumbar degenerative disc disease; Anxiety Allergies Active [...] Active Levothyroxine Sodium 125 MCG Oral Tablet (Levoxyl)Indicatio ns:Postsurgical hypothyroidism TAKE ONE TABLET BY MOUTH IN THE MORNING (AT least 30 minutes prior TO food) 90 Tablet 4 Active Senna 30 MG Oral Take one tablet by mouth daily as needed. 90 Each 1 4 Active Docusate Sodium 100 MG Oral Capsule (Stool Softener)Indicatio ns:Constipation, unspecified constipation type Take 1 Capsule [...] the morning 45 Tablet 3 4 Active Morphine Sulfate ER 15 MG Oral Tablet Extended Release (Ms Contin)Indications :Lumbar degenerative disc disease Take 1 Tablet by mouth in the morning and 1 Tablet before bedtime. 60 Tablet 4 06/05/20 24 Discontinu ed(Refill) ALPRAZolam 1 MG Oral Tablet (xaNAX)Indications :Anxiety TAKE ONE TABLET BY MOUTH TWICE DAILY NEEDED FOR anxiety. 60 Tablet 4 06/05/20 24 Discontinu ed(Refill) Cyclobenzaprine HCl 10 MG Oral Tablet (Flexeril) TAKE 1 TABLET DAILY NEEDED FOR MUSCLE SPASMS 30 Tablet 4 06/05/20 24 Discontinu ed(Refill) documented as of this encounter [...] disease 01/18/2013 Anticoagulation management encounter 09/01/2012 intermediate current use of anticoagulant therapy 1 Overview: [...] Telephone Encounter - Danelle Pierre MD - 06/07/2024 7:56 AM EDT I would not recommend daily use of meclizine - discontinued * Telephone Encounter - Danelle Pierre MD - 06/07/2024 7:56 AM EDT Signed Prescriptions: Disp Refills Morphine Sulfate ER 15 MG Oral Tablet Exte*60 Tab*0 Sig: Take 1 Tablet by mouth in the morning and 1 Tablet before bedtime. Authorizing Provider: DANELLE PIERRE ALPRAZolam 1 MG Oral Tablet (xaNAX) 60 Tab*0 Sig: TAKE ONE TABLET BY MOUTH TWICE DAILY NEEDED FOR anxiety. Authorizing Provider: DANELLE PIERRE Cyclobenzaprine HCl 10 MG Oral Tablet (Fle*30 Tab*0 Sig: TAKE 1 TABLET DAILY NEEDED FOR MUSCLE SPASMS Authorizing Provider: DANELLE PIERRE Refused Prescriptions: Disp Refills Meclizine HCl 25 MG Oral Tablet (Antivert) 60 Tab*2 Sig: Take 1 Tablet by mouth 3 times a day as needed for Dizziness. Refused By: DANELLE PIERRE Dania son for Refusal: Other (comment below) Warfarin Sodium 5 MG Oral Tablet (Coumadin)80 Tab*2 Sig: TAKE 1/2 TABLET BY MOUTH every tuesday AND ; TAKE ONE TABLET BY MOUTH ALL other DAYS OR DIRECTED by anticoagulation clinic Refused By: DULCE HUFFMAN Reason for Refusal: Duplicate Request Levothyroxine Sodium 125 MCG Oral Tablet (*90 Tab*0 Sig: (at least 30 min prior t o breakfast or other meds) Refused By: DULCE HUFFMAN Reason for Refusal: Duplicate Request Alendronate Sodium 70 MG Oral Tablet (Fosa*12 Tab*1 Sig: Take 1 Tablet by mouth once a week. with 8 oz. water 30 minutes before first meal of the day. Remain upright for 30 min after taking tablet. Refused By: DULCE HUFFMAN Reason for Refusal: Duplicate Request amLODIPine Besylat e 2.5 MG Oral Tablet (No*90 Tab*2 Sig: Take 1 Tablet by mouth in the morning. Refused By: DULCE HUFFMAN Reason for Refusal: Duplicate Request * Telephone Encounter - Dulce Huffman, [facility] - 06/06/2024 11:20 AM EDT Pending Prescriptions: Disp Refills Meclizine HCl 25 MG Oral Tablet (Antivert) 60 Tab*2 Sig: Take 1 Tablet by mouth 3 times a day as needed for Dizziness. Morphine Sulfate ER 15 MG Oral Tablet Exte*60 Tab*0 Sig: Take 1 Tablet by mouth in the morning and 1 Tablet before bedtime. ALPRAZolam 1 MG Oral Tablet (xaNAX) 60 Tab*0 Sig: TAKE ONE TABLE T BY MOUTH TWICE DAILY NEEDED FOR anxiety. Cyclobenzaprine HCl 10 MG Oral Tablet (Fle*30 Tab*0 Sig: TAKE 1 TABLET DAILY NEEDED FOR MUSCLE SPASMS Refused Prescriptions: Disp Refills Warfarin Sodium 5 MG Oral Tablet (Coumadin)80 Tab*2 Sig: TAKE 1/2 TABLET BY MOUTH every tuesday AND ; TAKE ONE TABLET BY MOUTH ALL other DAYS OR DIRECT ED by anticoagulation clinic Refused By: DULCE HUFFMAN Reason for Refusal: Duplicate Request Levothyroxine Sodium 125 MCG Oral Tablet (*90 Tab*0 Sig: (at least 30 min prior to breakfast or other meds) Refused By: DULCE HUFFMAN Reason for Refusal: Duplicate Request Alendronate Sodium 70 MG Oral Tablet (Fosa*12 Tab*1 Sig: Take 1 Tablet by mouth once a week. with 8 oz. water 30 minutes before first meal of the day. Remain upright for 30 min after taking tablet. Refused By: DULCE HUFFMAN Reason for Refusal: Duplicate Request amLODIPine Besylate 2.5 MG Oral Tablet (No*90 Tab*2 Sig: Take 1 Tablet by mouth in the morning. Refused By: DULCE HUFFMAN Reason for Refusal: Duplicate Request < BR> * Telephone Encounter - Dulce Huffman RPh - 06/06/2024 11:12 AM EDT I have reviewed the patients controlled substance dispensing history in the Prescription Drug Monitoring Program in compliance with the [facility] regulations before prescribing a controlled substance. PDMP checked on 06/06/2024. Pending Prescriptions: Disp Refills Meclizine HCl 25 MG Oral Tablet (Antivert)60 Tab*2 Sig: Take 1 Tablet by mouth 3 times a day as needed for Dizziness. Morphine Sulfate ER 15 MG Oral Tablet Ext*60 Tab*0 Sig: Take 1 Tablet by mouth in the morning and 1 Tablet before bedtime. ALPRAZolam 1 MG Oral Tablet (xaNAX) 60 Tab*0 Sig: TAKE ONE TABLET BY MOUTH TWICE DAILY NEEDED FOR anxiety. Cyclobenzaprine HCl 10 MG Oral Tablet (Fl*30 Tab*0 Sig: TAKE 1 TABLET DAILY NEEDED FOR MUSCLE SPASMS Refused Prescriptions: Disp Refills Warfarin Sodium 5 MG Oral Tablet (Coumadin)80 Tab*2 Sig: TAKE 1/2 TABLET BY MOUTH every tuesday AND ; TAKE ONE TABLET BY MOUTH ALL other DAYS OR DIRECTED by anticoagulation clinic Refused By: DULCE HUFFMAN Reason for Refusal: Duplicate Request Levothyroxine Sodium 125 MCG Oral Tablet (*90 Tab*0 Sig: (at least 30 min prior to breakfast or other meds) Refused By: DULCE HUFFMAN Reason for Refusal: Duplicate Request Alendronate Sodium 70 MG Oral Tablet (Fosa*12 Tab*1 Sig: Take 1 Tablet by mouth once a week. with 8 oz. water 30 minutes before first meal of the day. Remain upright for 30 min after taking tablet. Refused By: DULCE HUFFMAN Reason for Refusal: Duplicate Request amLODIPine Besylate 2.5 MG Oral Tablet (No*90 Tab*2 Sig: Take 1 Tablet by mouth in the morning. Refused By: DULCE HUFFMAN Reason for Refusal: Duplicate Request Last Visit: 08/17/2023 (in office), Visit date not found (telemedicine) Next Visit: 12/31/2024 Date medication was last filled: 05/10/24 Date medication is due for refill: 06/08/24 Pharmacy: [facility], [address] [place] Is this request for a controlled substance? Yes and Urine Drug Screen Not completed Toxicology results: Results for orders placed or performed in visit on 06/15/21 PAIN MANAGEMENT DRUG PANEL, URINE W/ INTERPRETATION Result Value Compliance Interpretation Based on the medication information provided and obtained from [facility]: The presence of morphine, hydrocodone, dihydrocodeine, [...] Results Review. Please approve if appropriate. Thank You Dulce Huffman, PharmD Clinical Pharmacist Centralized Clinical Pharmacy Services ([facility]) [phone] / [phone] 06/06/2024, 11:20 AM documented in this encounter Plan of Treatment Upcoming Encounters Date Type Department Care Team (Late st Contact Info) Description 12/31/2024 10:40 AM EST Telemedicine Family Medicine [address] [phone] Danelle Pierre MD [address] [place] [address] [place] [address] Health Maintenance Due Date Last Done Comments [...] D LEVEL ONCE IN A LIFETIME-USE SMARTSET# [id number] Completed 05/29/2020, 09/11/2019, 05/24/2014, Additional history exists [...] Diagnoses Diagnosis Chronic atrial fibrillation, unspecified (HCC) Postsurgical hypothyroidism Age-related osteoporosis without current pathological fracture Senile osteoporosis Lumbar degenerative disc disease Degeneration of lumbar or lumbosacral intervertebral disc Anxiety Anxiety state, unspecified documented in this encounter Care Teams Diesel Powerplant Supervisor Relationship Specialty Start Date End Date Danelle Pierre MD [address] [place] [address] [place] [phone] PCP - General Family Medicine 01/02/20 documented as of this encounter
--- OUTSIDE RECORDS SUMMARY | 2024-11-18 18:59 | External Medical Summary | Summary of Care ---
Author Name Unknown Organization [facility] Address [address] [facility] [place] [address] Phone [phone] Care Team Providers Care Case Supervisor Name Role Phone Danelle Pierre MD Primary Care Provide r Reason for Visit * Reason Comments Dosage Adjustment Via Phone (anticoag Cl inic) Encounter Details Date Type Department Care Team (Late st Contact Info) Description 07/19/2024 6:00 AM EDT Anticoagulation Centralized Clinical Pharmacy Services, Isreal Rivera [address] [place] [address] [place] [address] [place] [address] Atrial fibrillation, chronic (HCC)* Allergies Active Allergy [...] as of this encounter (statuses as of 07/19/2024) Medications Medication Sig Dispensed Refills Start Date [...] as of this encounter (statuses as of 07/19/2024) Active Problems Problem Noted Date Diagnosed Date [...] as of this encounter (statuses as of 07/19/2024) Resolved Problems Problem Noted Date Diagnosed Date [...] as of this encounter (statuses as of 07/19/2024) Immunizations Name Administration Dates Next Due COVID-19 [...] lent, No Preserve, IM 09/03/2016,09/02/2015 Seasonal Influenza, Trivalen t, (IIV3), with Preserv, (Fluzone) 09/10/2014,08/27/2013,08/23/2012,08/17,08/24/2010,08/19/2009,10/01/2008 ,08/31/2007,08/18/2006 Varicella Zoster Vaccine (Adult) 08/23/2012 [...] as of this encounter Progress Notes * Flaquita Hidalgo PHARM Tech - 07/19/2024 9:13 AM EDT Contacts Contact Date/Time Type Contact Phone/Fax 07/19/2024 09:12 AM EDT Phone (Outgoing) Jose Alberto Ayers (Emergency Contact) [phone] (M) Spoke to Patient Subjective Patient Findings Negatives: Signs/symptoms of bleeding, Change in health, Change in activity, Upcoming invasive procedure, Missed doses, Extra doses, Change in medications, Change in diet/appetite, Bruising Advised patient to contact Anticoagulation Clinic if any unusual bruising or bleeding, recent illness, changes in medication, or questions/concerns. PT/INR results, Coumadin dose instructions, and next PT/INR date communicated as noted by Pharmacist: Yes FOREIGN Clarke 07/19/2024, 9:13 AM * Ashlie Juares [facility] - 07/19/2024 8:14 AM EDT Images from the original note were not included. Coumadin Clinic (region specific) Objective Current Warfarin Dose As of 07/19/2024 Warfarin maintenance plan: 5 mg (5 mg x 1) every Mon, Wed, Fri; 2.5 mg (5 mg x 0.5) all other days INR Result As of 07/19/2024 INR goal: 2.0-3.0 INR used for dosin.7 (07/18/2024) Assessment & Plan Warfarin Plan As of 07/19/2024 Full warfarin instructions: 07/19: 5 mg; Otherwise 5 mg every Mon, Wed, Fri; 2.5 mg all other days Next INR check: 08/08/2024 Repeat PT/INR in 3 week(s) Weekly dose: not changed Additional Dosing Information: Description GML W & F Ensure/boost daily Tech to contact patient with dose instructions as noted. Ashlie Juares RPh 07/19/2024, 8:14 AM documented in this encounter Plan of Treatment Upcoming Encounters Date Type Department Care Team (Late st Contact Info) Description 12/31/2024 10:40 AM EST Telemedicine Family Medicine [address] [place] [phone] Danelle Pierre MD [address] [place] [address] [place] [phone] Health Maintenance Due Date Last Done Comments DTap/Tdap Vaccines (1 - Tdap) 1964 Adult Wellness Visit 2009 Zoster Vaccines (2 of 3) 10/18/2012 08/23/2012 Depression Screening 12/20/2020 12/20/2019 DXA Scan 05/21/2023 05/21/2021, 05/15, 03/20/2014, Additional history exists COVID-19 Vaccine (4 - 2023-24 season) 2024 10/27/2021, 01/23/2021, 12/26/2020 Influenza Vaccine (FLU shot) (#1) 2024 08/17/2023, 10/06/2022, 08/13/2021, Additional history exists GFR 02/01/2025 02/02/2024, 09/14, 09/28/2023, Additional history exists TSH 06/27/2025 06/27/2024, 10/14, 08/17/2023, Additional history exists Albumin/Creatinine Ratio 11/18/2025 11/18/2022 Pneumococcal Vaccine: 65+ Years Completed 09/03/2016, 02/21/2015, 08/31/2007, Additional history exists VITAMIN D LEVEL ONCE IN A LIFETIME-USE SMARTSET# [id number] Completed 05/29/2020, 09/11/2019, 05/24/2014, Additional history exists [...] fibrillation documented in this encounter Care Teams Case Supervisor Relationship Specialty Start Date End Date Danelle Pierre MD [address] [place] [address] [place] [phone] PCP - General Family Medicine 01/02/20 documented as of this encounter
--- OUTSIDE RECORDS SUMMARY | 2024-11-18 18:59 | External Medical Summary | Summary of Care ---
Author Name Unknown Organization [facility] Address [address] [facility] [place] [address] Phone [phone] Care Team Providers Care Cement Finisher Name Role Phone Danelle Pierre MD Primary Care Provide r Reason for Visit * Reason Comments Dosage Adjustment Via Phone (anticoag Cl inic) Encounter Details Date Type Department Care Team (Late st Contact Info) Description 08/09/2024 6:00 AM EDT Anticoagulation Centralized Clinical Pharmacy Services, Isreal Rivera [address] [place] [address] [place] [address] [place] [address] Atrial fibrillation, chronic (HCC)* Allergies Active Allergy [...] as of this encounter (statuses as of 08/09/2024) Medications Medication Sig Dispensed Refills Start Date [...] as of this encounter (statuses as of 08/09/2024) Active Problems Problem Noted Date Diagnosed Date [...] disease 01/18/2013 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 1 Overview: [...] as of this encounter (statuses as of 08/09/2024) Resolved Problems Problem Noted Date Diagnosed Date [...] as of this encounter (statuses as of 08/09/2024) Immunizations Name Administration Dates Next Due COVID-19 [...] Notes * Flaquita Hidalgo PHARM Tech - 08/09/2024 9:24 AM EDT Contacts Contact Date/Time Type Contact Phone/Fax 08/09/2024 09:22 AM EDT Phone (Outgoing) Jose Alberto Ayers (Emergency Contact) [phone] (M) Spoke to Patient Subjective Patient Findings [...] as noted by Pharmacist: Yes FOREIGN Clarke 08/09/2024, 9:24 AM * Kitty Huffman [facility] - 08/09/2024 9:03 AM EDT Images from the original note were not included. Coumadin Clinic (region specific) Objective Current Warfarin Dose As of 08/09/2024 Warfarin maintenance plan: 5 mg (5 mg x 1) every Mon, Wed, Fri; 2.5 mg (5 mg x 0.5) all other days INR Result As of 08/09/2024 INR goal: 2.0-3.0 INR used for dosin.8 (08/08/2024) Assessment & Plan Warfarin Plan As of 08/09/2024 Full warfarin instructions: 08/09: 5 mg; Otherwise 2.5 mg every Tue, Leona, Sat; 5 mg all other days Next INR check: 08/22/2024 Repeat PT/INR in 2 week(s) Weekly dose: increased Additional Dosing Information: Description GML W & F Ensure/boost daily Tech to contact patient with dose instructions as noted. Kitty Huffman RPh 08/09/2024, 9:03 AM documented in this encounter Plan of Treatment Upcoming Encounters Date Type Department Care Team (Late st Contact Info) Description 12/31/2024 10:40 AM EST Telemedicine Family Medicine [address] [place] [phone] Danelle Pierre MD [address] [place] [address] [place] [phone] Health Maintenance Due Date Last Done Comments DTap/Tdap Vaccines (1 - Tdap) 1964 Adult Wellness Visit 2009 Zoster Vaccines (2 of 3) 10/18/2012 08/23/2012 Depression Screening 12/20/2020 12/20/2019 DXA Scan 05/21/2023 05/21/2021, 05/15, 03/20/2014, Additional history exists COVID-19 Vaccine (4 - 2024-25 season) 2024 10/27/2021, 01/23/2021, 12/26/2020 Influenza Vaccine (FLU shot) (#1) 2024 08/17/2023, 10/06/2022, 08/13/2021, Additional history exists GFR 02/01/2025 02/02/2024, 09/14, 09/28/2023, Additional history exists TSH 06/27/2025 06/27/2024, 10/14, 08/17/2023, Additional history exists Albumin/Creatinine Ratio 11/18/2025 11/18/2022 Pneumococcal Vaccine: 65+ Years Completed 09/03/2016, 02/21/2015, 08/31/2007, Additional history exists VITAMIN D LEVEL ONCE IN A LIFETIME-USE SMARTSET# [id number] Completed 05/29/2020, 09/11/2019, 05/24/2014, Additional history exists [...] fibrillation documented in this encounter Care Teams Cement Finisher Relationship Specialty Start Date End Date Danelle Pierre MD [address] [place] [address] [place] [phone] PCP - General Family Medicine 01/02/20 documented as of this encounter
--- OUTSIDE RECORDS SUMMARY | 2024-11-18 18:59 | External Medical Summary | Summary of Care ---
Author Name Unknown Organization [facility] [address] [facility] [address] Phone [phone] Care Team Providers Care Goggles Assembler Name Role Phone Danelle Pierre MD Primary Care Provide r Reason for Visit * Reason Onset Date Comments Medication Refill 07/08/2024 Encounter Details Date Type Department Care Team (Late st Contact Info) Description 07/08/2024 Refill Family Medicine [address] [place] [phone] Danelle Pierre MD [address] [place] [address] [place] [address] Lumbar degenerative disc disease; Anxiety Allergies Active [...] as of this encounter (statuses as of 07/11/2024) Medications Medication Sig Dispensed Refills Start Date [...] Base) MCG/ACT Inhalation Aerosol SolutionIndication s:COPD exacerbation ([facility]) Inhale 2 Puffs by mouth in the [...] Oral Tablet (Coumadin)Indicati ons:Chronic atrial fibrillation, unspecified ([facility]) TAKE 1/2 TABLET BY MOUTH every tuesday [...] NEEDED FOR anxiety. 60 Tablet 4 Active Morphine Sulfate ER 15 MG Oral Tablet Extended Release (Ms Contin)Indications :Lumbar degenerative disc disease Take 1 Tablet by mouth in the morning and 1 Tablet before bedtime. 60 Tablet 4 07/08/20 24 Discontinu ed(Refill) ALPRAZolam 1 MG Oral Tablet (xaNAX)Indications :Anxiety TAKE ONE TABLET BY MOUTH TWICE DAILY NEEDED FOR anxiety. 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 Authorizing Provider: DANELLE PIERRE ALPRAZolam 1 MG Oral Tablet (xaNAX) 60 Tab*0 Sig: TAKE ONE TABLET BY MOUTH TWICE DAILY NEEDED FOR anxiety. Authorizing Provider: DANELLE PIERRE * Telephone Encounter - Myra Mooney [facility] - 07/10/2024 1:44 PM EDT Pending Prescriptions: Disp Refills Morphine Sulfate ER 15 MG Oral Tablet Exte*60 Tab*0 Sig: Take 1 Tablet by mouth in the morning and 1 Tablet before bedtime. ALPRAZolam 1 MG Oral Tablet (xaNAX) 60 Tab*0 Sig: TAKE ONE TABLET BY MOUTH TWICE DAILY NEEDED FOR anxiety. * Telephone Encounter - Myra Mooney [facility] - 07/10/2024 1:38 PM EDT I have reviewed the patients controlled substance dispensing history in the Prescription Drug Monitoring Program in compliance with the [facility] regulations before prescribing a controlled substance. PDMP checked on 07/10/2024. Pending Prescriptions: Disp Refills Morphine Sulfate ER 15 MG Oral Tablet Ext*60 Tab*0 Sig: Take 1 Tablet by mouth in the morning and 1 Tablet before bedtime. ALPRAZolam 1 MG Oral Tablet (xaNAX) 60 Tab*0 Sig: TAKE ONE TABLET BY MOUTH TWICE DAILY NEEDED FOR anxiety. Last Visit: 08/17/2023 (in office), Visit date not found (telemedicine) Next Visit: 12/31/2024 Date medication was last filled: 06/07/24 Date medication is due for refill: 07/06/24 Pharmacy: [facility], [address] [place] Is this request for a controlled substance? Yes and Urine Drug Screen Not completed Toxicology results: Results for orders placed or performed in visit on 06/15/21 PAIN MANAGEMENT DRUG PANEL, URINE W/ INTERPRETATION Result Value Compliance Interpretation Based on the medication information provided and obtained from Epic: The presence of morphine, hydrocodone, dihydrocodeine, and [...] approve if appropriate. Thank you, Myra Mooney, DianeD Clinical Pharmacist Centralized Clinical Pharmacy Services ([facility]) [phone] 07/10/2024, 1:39 PM documented in this encounter Plan of Treatment Upcoming Encounters Date Type Department Care Team (Late st Contact Info) Description 07/18/2024 7:00 AM EDT Laboratory Lab Mobile Phlebotomy [facility] [address] [place] [phone] Mvmg, Gml Mobile Home Draw [phone] [employer] [place] [address] 07/19/2024 6:00 AM EDT Anticoagulation Centralized Clinical Pharmacy Services, Isreal Rivera [address] [place] [address] [place] [phone] Ccps, [facility] [address] [place] [address] 12/31/2024 10:40 AM EST Telemedicine [address] [place] [phone] Danelle Pierre MD [address] [place] [address] [place] [address] Health Maintenance Due Date Last Done Comments [...] D LEVEL ONCE IN A LIFETIME-USE SMARTSET# [id number] Completed 05/29/2020, 09/11/2019, 05/24/2014, Additional history exists [...] unspecified documented in this encounter Care Teams Goggles Assembler Relationship Specialty Start Date End Date Danelle Pierre MD [address] [place] [address] [place] [phone] PCP - General Family Medicine 01/02/20 documented as of this encounter
--- OUTSIDE RECORDS SUMMARY | 2024-11-18 18:59 | External Medical Summary | Summary of Care ---
Author Name Unknown Organization [facility] Address [address] [place] [facility] [place] [address] Phone [phone] Care Team Providers Care Linen Checker Name Role Phone Danelle Pierre MD Primary Care Provide r Reason for Visit * Reason Onset Date Comments Medication Refill 06/05/2024 Encounter Details Date Type Department Care Team (Late st Contact Info) Description 06/05/2024 Refill Cardiology, [facility] [address] [place] [address] Edy Alvarez PA-C [address] [place] [address] Atrial fibrillation, chronic (HCC); Dyslipidemia, goal LDL [...] as of this encounter (statuses as of 06/06/2024) Medications Medication Sig Dispensed Refills Start Date [...] A WEEK 40 Tablet 3 4 Active Morphine Sulfate ER 15 MG Oral Tablet Extended Release (Ms Contin)Indications: Lumbar degenerative disc disease Take 1 Tablet by mouth in the morning and 1 Tablet before bedtime. 60 Tablet 4 Active ALPRAZolam 1 MG Oral Tablet (xaNAX)Indications: Anxiety TAKE ONE TABLET BY MOUTH TWICE DAILY NEEDED FOR anxiety. 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 * Telephone Encounter - Stacie Patterson CMA - 06/06/2024 1:44 PM EDTRefused Prescriptions: Disp Refills Rosuvastatin Calcium 10 MG Oral Tablet (Cr*90 Tab*3 Sig: Take 1Tablet by mouth every evening.Refused By: Bernardo LLANES for Refusal: Too soon Furosemide 20 MG Oral Tablet (Lasix) 40 Tab*3 Sig: TAKE ONE TABLET BY MOUTH THREE TIMES A WEEKRefused By: Bernardo LLANES for Refusal: Duplicate Request documented in this encounter Plan of Treatment Upcoming Encounters Date Type Department Care Team (Late st Contact Info) Description 06/07/2024 6:00 AM EDT Anticoagulation Centralized Clinical Pharmacy Services, Isreal Rivera [address] [place] [address] [place] [address] Ccps, [address] [place] [address] 12/31/2024 10:40 AM EST Telemedicine Family [address] [place] [phone] Danelle Pierre MD [address] [place] [address] [place] [address] Health Maintenance Due Date Last Done Comments DTaP,Tdap,and Td Vaccines (1 - Tdap) 1964 Zoster Vaccines (2 of 3) 10/18/2012 08/23/2012 Depression Screening 12/20/2020 12/20/2019 DXA Scan 05/21/2023 05/21/2021, 05/15, 03/20/2014, Additional history exists COVID-19 Vaccine ( - season) 2023 10/27/2021, 01/23/2021, 12/26/2020 Influenza Vaccine (FLU shot) (#1) 2024 08/17/2023, 10/06/2022, 08/13/2021, Additional history exists TSH 10/26/2024 10/26/2023, 1002/2023, 05/25/2023, Additional history exists GFR 02/01/2025 02/02/2024, 09/14, 09/28/2023, Additional history exists Albumin/Creatinine Ratio 11/18/2025 11/18/2022 Pneumococcal Vaccine: 65+ Years Completed 09/03/2016, 02/21/2015, 08/31/2007, Additional history exists VITAMIN D LEVEL ONCE IN A LIFETIME-USE SMARTSET# [id number] Completed 05/29/2020, 09/11/2019, 05/24/2014, Additional history exists [...] type documented in this encounter Care Teams Linen Checker Relationship Specialty Start Date End Date Danelle Pierre MD [address] [place] [address] [place] [phone] PCP - General Family Medicine 01/02/20 documented as of this encounter
--- OUTSIDE RECORDS SUMMARY | 2024-11-18 18:59 | External Medical Summary | Summary of Care ---
Author Name Unknown Organization [facility] Address [address] [facility] [place] [place] [address] Phone [phone] Care Team Providers Care Node Js Developer Name Role Phone Danelle Pierre MD Primary Care Provide r Reason for Visit * Reason Onset Date Comments Medication Refill 08/12/2024 Encounter Details Date Type Department Care Team (Late st Contact Info) Description 08/12/2024 Refill Family Medicine [address] [place] [phone] Danelle Pierre MD [address] [place] [address] [place] [phone] Lumbar degenerative disc disease; Anxiety Allergies Active [...] Base) MCG/ACT Inhalation Aerosol SolutionIndication s:COPD exacerbation ([facility]) Inhale 2 Puffs by mouth [...] Oral Tablet (Coumadin)Indicati ons:Chronic atrial fibrillation, unspecified ([facility]) TAKE 1/2 TABLET BY MOUTH [...] 1 Tablet before bedtime. 60 Tablet 4 08/12/20 24 Discontinu ed(Refill) ALPRAZolam 1 MG Oral Tablet (xaNAX)Indications :Anxiety TAKE ONE TABLET BY MOUTH TWICE DAILY NEEDED FOR anxiety. 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 Authorizing Provider: DANELLE PIERRE ALPRAZolam 1 MG Oral Tablet (xaNAX) 60 Tab*0 Sig: TAKE ONE TABLET BY MOUTH TWICE DAILY NEEDED FOR anxiety. Authorizing Provider: DANELLE PIERRE * Telephone Encounter - Lynda Marks [facility] - 08/14/2024 10:02 AM EDT Pending Prescriptions: Disp Refills Morphine Sulfate ER 15 MG Oral Tablet Exte*60 Tab*0 Sig: Take 1 Tablet by mouth in the morning and 1 Tablet before bedtime. ALPRAZolam 1 MG Oral Tablet (xaNAX) 60 Tab*0 Sig: TAKE ONE TABLET BY MOUTH TWICE DAILY NEEDED FOR anxiety. * Telephone Encounter - Lynda Marks [facility] - 08/14/2024 10:01 AM EDT I have reviewed the patients controlled substance dispensing history in the Prescription Drug Monitoring Program in compliance with the [facility] regulations before prescribing a controlled substance. PDMP checked on 08/14/2024. Pending Prescriptions: Disp Refills Morphine Sulfate ER [...] Visit: 12/31/2024 Date medication was last filled: 07/11/24 Date medication is due for refill: 08/09/24 Pharmacy: [facility], [address] [place] Is this request for [...] Review. Please approve if appropriate. Thank you, Lynda Marks, PharmD Clinical Pharmacist Centralized Clinical Pharmacy Services ([facility]) 08/14/24 10:01 AM [phone] documented in this encounter Plan of Treatment Upcoming Encounters Date Type Department Care Team (Late st Contact Info) Description 08/22/2024 7:10 AM EDT Laboratory Lab Mobile Phlebotomy [facility] [address] [place] [address] Mv[facility], Gml Mobile Home Draw [phone] [employer] [place] [address] 08/23/2024 6:00 AM EDT Anticoagulation Centralized Clinical Pharmacy Services, Isreal Rivera [address] [place] [address] [place] [address] [facility] [address] [place] [address] 12/31/2024 10:40 AM EST Telemedicine [address] [place] [phone] Danelle Pierre MD [address] [place] [address] [place] [address] Health Maintenance Due Date Last Done Comments [...] D LEVEL ONCE IN A LIFETIME-USE SMARTSET# [id number] Completed 05/29/2020, 09/11/2019, 05/24/2014, Additional history exists [...] unspecified documented in this encounter Care Teams Node Js Developer Relationship Specialty Start Date End Date Danelle Pierre MD [address] [place] [address] [place] [phone] PCP - General Family Medicine 01/02/20 documented as of this encounter
--- OUTSIDE RECORDS SUMMARY | 2024-11-18 18:59 | External Medical Summary ---
Author Name Unknown Address Unknown Organization [id number]:[facility] [place] [address] [place] [address] Laboratory Report Ordering Provider Test Date Status BO THOMPSON 07/18/2024 08:38:00 Final Please draw PT/INR every 1-4 weeks or as requested by the [facility]

Warfarin Therapy
INR: 2.0-3.0 conventional anticoagulation
INR: 2.5-3.5 high intensity anticoagulation Observation Date Value Abnormality Reference (Units ) Status PT 07/18/2024 08:38:00 20.2 Above high normal 11 .6-15.2 (seconds) Final INR 07/18/2024 08:38:00 1.7 Above high normal 0. 8-1.2 Final Performing Location [facility] [place] [address] [place] [address]
--- OUTSIDE RECORDS SUMMARY | 2024-11-18 18:59 | External Medical Summary ---
Author Name Unknown Address Unknown Organization [id number]:[facility] [place] [address] [place] [address] Laboratory Report Ordering Provider Test Date Status BO THOMPSON 08/08/2024 07:45:00 Final Please draw PT/INR every 1-4 weeks or as requested by the [facility] Cou[facility]

Warfarin Therapy
INR: 2.0-3.0 conventional anticoagulation
INR: 2.5-3.5 high intensity anticoagulation Observation Date Value Abnormality Reference (Units ) Status PT 08/08/2024 07:45:00 20.9 Above high normal 11 .6-15.2 (seconds) Final INR 08/08/2024 07:45:00 1.8 Above high normal 0. 8-1.2 Final Performing Location [facility] - [address] [place] [address]
--- OUTSIDE RECORDS SUMMARY | 2024-11-18 18:59 | External Medical Summary | Summary of Care ---
Author Name Unknown Organization [facility] Address [address] [place] [facility] [place] [address] Phone [phone] Care Team Providers Care Tool Dispatcher Name Role Phone Danelle Pierre MD Primary Care Provide r Reason for Visit * Reason Comments eRx-Medication Refill Encounter Details Date Type Department Care Team (Late st Contact Info) Description 08/16/2024 Refill Family Medicine [address] [place] [address] Danelle Pierre MD [address] [place] [address] [place] [address] Encounter for long-term (current) use of medications*; Constipation, unspecified constipation type; Gastroesophageal reflux disease without esophagitis Allergies Active Allergy Reactions Criticality Noted Date [...] as of this encounter (statuses as of 08/17/2024) Medications Medication Sig Dispensed Refills Start Date [...] 3 Liters at rest 10/04/20 23 Active Sertraline HCl 25 MG Oral Tablet (Zoloft)Indication s:Anxiety,Current mild episode of major depressive disorder without prior episode (HCC) TAKE ONE TABLET BY MOUTH IN THE MORNING 90 Tablet 2 01/19/20 24 Active Albuterol Sulfate HFA 108 (90 Base) [...] breakfast. 90 Capsule 1 08/17/20 24 Active Esomeprazole Magnesium 20 MG Oral Capsule Delayed ReleaseIndications :Gastroesophageal reflux disease without esophagitis Take 1 Capsule by mouth daily before breakfast. 90 Capsule 1 03/08/20 24 024 Discontinued Docusate Sodium 100 MG Oral Capsule (Stool Softener)Indicatio ns:Constipation, unspecified constipation type Take 1 Capsule by mouth in the morning and 1 Capsule before bedtime. 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 1 [...] as of this encounter (statuses as of 08/17/2024) Resolved Problems Problem Noted Date Diagnosed Date Resolved Date Prediabetes 11/18/2022 08/25/2023 Benign hypertension with CKD (chronic kidney disease) stage III 12/22/2018 05/11/2021 Kidney disease, chronic, sta ge III (GFR 30-59 ml/min) 11/22/2016 12/22/2018 Overview: Per CKD protocol #1 Impaired fasting glucose 02/22/2013 02/ 06/2019 Atrial fibrillation 08/23/2012 12/22/19 19 Backache 10/26/2010 [...] as of this encounter (statuses as of 08/17/2024) Immunizations Name Administration Dates Next Due COVID-19 [...] Telephone Encounter - Danelle Pierre MD - 08/17/2024 11:17 AM EDT Signed Prescriptions: Disp Refills Docusate Sodium 100 MG Oral Capsule (Colac*180 Ca*1 Sig: Take 1 Capsule by mouth in the morning and 1 Capsule before bedtime. Authorizing Provider: DANELLE PIERRE Esomeprazole Magnesium 20 MG Oral Capsule *90 Cap*1 Sig: Take 1 Capsule by mouth daily before breakfast. Authorizing Provider: DANELLE PIERRE User: RICHARD OLSON * Telephone Encounter - Richard Olson [facility] - 08/17/2024 10:57 AM EDT Pending Prescriptions: Disp Refills Docusate Sodium 100 MG Oral Capsule (Colac*180 Ca*1 Sig: Take 1 Capsule by mouth in the morning and 1 Capsule before bedtime. Signed Prescriptions: Disp Refills Esomeprazole Magnesium 20 MG Oral Capsule *90 Cap*1 Sig: Take 1 Capsule by mouth daily before breakfast. Authorizing Provider: SUSAN PIERRE User: RICHARD OLSON * Telephone Encounter - Richard Olson [facility] - 08/17/2024 10:52 AM EDT Per refill protocol patient needs magnesium and vitamin B-12 labs on file within the past 2 years while using PPIs. Lab work ordered. Patient may obtain with next routine labs. [facility] is currently not authorized to approve refills for the pended medication(s) per refill protocol. Please approve if appropriate. Thank you, Richard Olson PharmD, JORDAN Clinical Pharmacist Centralized Clinical Pharmacy Services ([facility]) 08/17/24 10:57 AM [phone] documented in this encounter Plan of Treatment Upcoming Encounters Date Type Department Care Team (Late st Contact Info) Description 08/22/2024 7:10 AM EDT Laboratory Lab Mobile Phlebotomy [facility] [address] [place] [address] [facility] Mobile Home Draw [address] [facility] [place] [address] 08/23/2024 6:00 AM EDT Anticoagulation Centralized Clinical Pharmacy Services, Isreal Rivera [address] [place] [address] [place] [address] [facility], [address] [place] [address] 12/31/2024 10:40 AM EST Telemedicine Family Medicine [address] [place] [phone] Danelle Pierre MD [address] [place] [address] [place] [address] Scheduled Orders Name Type Priority Associated Diagnoses Orde r Schedule VITAMIN B12 Lab Routine Encounter for long-term (current) use of medications Expected: 08/31/2024 (Approximate), Expires: 08/17/2025 MAGNESIUM Lab Routine Encounter for long-term (current) use of medications Expected: 08/31/2024 (Approximate), Expires: 08/17/2025 Health Maintenance Due Date Last Done Comments DTap/Tdap Vaccines (1 - Tdap) 1964 Adult Wellness Visit 2009 Zoster Vaccines (2 of 3) 10/18/2012 08/23/2012 Depression Screening 12/20/2020 12/20/2019 DXA Scan 05/21/2023 05/21/2021, 05/15, 03/20/2014, Additional history exists COVID-19 Vaccine ( - season) 2024 10/27/2021, 01/23/2021, 12/26/2020 Influenza Vaccine (FLU shot) (#1) 2024 08/17/2023, 10/06/2022, 08/13/2021, Additional history exists GFR 02/01/2025 02/02/2024, 09/14, 09/28/2023, Additional history exists TSH 06/27/2025 06/27/2024, 10/14, 08/17/2023, Additional history exists Albumin/Creatinine Ratio 11/18/2025 11/18/2022 Pneumococcal Vaccine: 65+ Years Completed 09/03/2016, 02/21/2015, 08/31/2007, Additional history exists VITAMIN D LEVEL ONCE IN A LIFETIME-USE SMARTSET# [id number] Completed 05/29/2020, 09/11/2019, 05/24/2014, Additional history exists [...] as of this encounter Visit Diagnoses Diagnosis Encounter for long-term (current) use of medications- Primary Encounter for long-term (current) use of other medications Constipation, unspecified constipation type Gastroesophageal reflux disease without esophagitis Esophageal reflux documented in this encounter Care Teams Tool Dispatcher Relationship Specialty Start Date End Date Danelle Pierre MD [address] [place] [address] [place] [address] PCP - General Family Medicine 01/02/20 documented as of this encounter
--- OUTSIDE RECORDS SUMMARY | 2024-11-18 19:00 | External Medical Summary ---
Author Name Unknown Address Unknown Organization [id number]:LABORATORY [facility] [place] - [address] [place] [address] Laboratory Report Ordering Provider Test Date Status BO THOMPSON 06/06/2024 08:08:00 Final Please draw PT/INR every 1-4 weeks or as requested by the [facility]

Warfarin Therapy
INR: 2.0-3.0 conventional anticoagulation
INR: 2.5-3.5 high intensity anticoagulation Observation Date Value Abnormality Reference (Units ) Status PT 06/06/2024 08:08:00 27.2 Above high normal 11 .6-15.2 (seconds) Final INR 06/06/2024 08:08:00 2.5 Above high normal 0. 8-1.2 Final Performing Location LAB[facility]ORY [facility] - [address] [place] [address]
--- OUTSIDE RECORDS SUMMARY | 2024-11-18 19:00 | External Medical Summary ---
Author Name Unknown Address Unknown Organization [id number][place] [address] [place] [address] Laboratory Report Ordering Provider Test Date Status BO THOMPSON 05/23/2024 07:46:00 Final Please draw PT/INR every 1-4 weeks or as requested by the [facility]

Warfarin Therapy
INR: 2.0-3.0 conventional anticoagulation
INR: 2.5-3.5 high intensity anticoagulation Observation Date Value Abnormality Reference (Units ) Status PT 05/23/2024 07:46:00 33.3 Above high normal 11 .6-15.2 (seconds) Final INR 05/23/2024 07:46:00 3.2 Above high normal 0. 8-1.2 Final Performing Location [facility] [place] [address] [place] [id number]
--- OUTSIDE RECORDS SUMMARY | 2024-11-18 19:00 | External Medical Summary | Summary of Care ---
Author Name Unknown Organization [facility] Address [address] [facility] [place] [address] Phone [phone] Care Team Providers Care Transitions Manager Rn Name Role Phone Danelle Pierre MD Primary Care Provide r Reason for Visit * Reason Comments eRx-Medication Refill Encounter Details Date Type Department Care Team (Late st Contact Info) Description 05/23/2024 Refill Family Medicine [address] [place] [address] Danelle Pierre MD [address] [place] [address] [place] [id number] Allergies Active Allergy Reactions Criticality Noted Date [...] as of this encounter (statuses as of 05/24/2024) Medications Medication Sig Dispensed Refills Start Date [...] evening. 90 Tablet 3 03/08/20 24 Active Metoprolol Succinate ER 25 MG Oral Tablet Extended Release 24 Hour (toPROL XL)Indications:HTN , goal below 140/90,Atrial fibrillation, chronic (HCC) Take by mouth 1/2 tablet in the morning 45 Tablet 3 03/08/20 24 Active Warfarin Sodium 5 MG Oral Tablet (Coumadin)Indicati ons:Chronic atrial fibrillation, unspecified (HCC) TAKE 1/2 TABLET BY MOUTH every tuesday AND ; TAKE ONE TABLET BY MOUTH ALL other DAYS OR DIRECTED by anticoagulation clinic 80 Tablet 2 03/08/20 24 Active Esomeprazole Magnesium 20 MG Oral Capsule Delayed ReleaseIndications :Gastroesophageal reflux disease without esophagitis Take 1 Capsule by mouth daily before breakfast. 90 Capsule 1 03/08/20 24 Active Lisinopril 20 MG Oral Tablet (Prinivil)Indicati ons:Chronic atrial fibrillation (HCC),ASCVD (arteriosclerotic cardiovascular disease),Essential hypertension with goal blood pressure less than 140/90 TAKE ONE TABLET BY MOUTH IN THE MORNING 90 Tablet 3 03/23/20 24 Active Levothyroxine Sodium 125 MCG Oral Tablet (Levoxyl)Indicatio ns:Postsurgical hypothyroidism TAKE ONE TABLET BY MOUTH IN THE MORNING (AT least 30 minutes prior TO food) 90 Tablet 04/03/20 24 Active Senna 30 MG Oral Take one tablet by mouth daily as needed. 90 Each 1 04/10/20 24 Active Docusate Sodium 100 MG Oral Capsule (Stool Softener)Indicatio ns:Constipation, unspecified constipation type Take 1 Capsule by mouth in the morning and 1 Capsule before bedtime. 180 Capsule 1 04/10/20 24 Active Potassium Chloride ER [...] WEEK 40 Tablet 3 05/10/20 24 Active Morphine Sulfate ER 15 MG Oral Tablet Extended Release (Ms Contin)Indications :Lumbar degenerative disc disease Take 1 Tablet by mouth in the morning and 1 Tablet before bedtime. 60 Tablet 05/10/20 24 Active ALPRAZolam 1 MG Oral Tablet (xaNAX)Indications :Anxiety TAKE ONE TABLET BY MOUTH TWICE DAILY NEEDED FOR anxiety. 60 Tablet 05/10/20 24 Active amLODIPine Besylate 2.5 MG Oral Tablet (Norvasc) Take 1 Tablet by mouth in the morning. 90 Tablet 2 05/10/20 24 Active Cyclobenzaprine HCl 10 MG Oral Tablet (Flexeril) TAKE 1 TABLET DAILY NEEDED FOR MUSCLE SPASMS 30 Tablet 05/24/20 24 Active Cyclobenzaprine HCl 10 MG Oral Tablet (Flexeril) TAKE 1 TABLET DAILY NEEDED FOR MUSCLE SPASMS 30 Tablet 04/10/20 24 024 Discontinued documented as of this encounter (statuses as of 05/24/2024) Active Problems Problem Noted Date Diagnosed Date [...] care current use of anticoagulant therapy 1 Overview: [...] as of this encounter (statuses as of 05/24/2024) Resolved Problems Problem Noted Date Diagnosed Date [...] as of this encounter (statuses as of 05/24/2024) Immunizations Name Administration Dates Next Due COVID-19 [...] Telephone Encounter - Danelle Pierre MD - 05/24/2024 1:13 PM EDT Signed Prescriptions: Disp Refills Cyclobenzaprine HCl 10 MG Oral Tablet (Fle*30 Tab*0 Sig: TAKE 1 TABLET DAILY NEEDED FOR MUSCLE SPASMS Authorizing Provider: DANELLE PIERRE * Telephone Encounter - Gemini [facility] - 05/24/2024 1:03 PM EDTPending Prescriptions: Disp Refills Cyclobenzaprine HCl 10 MG Oral Tablet [Pha*30 Tab*0 Sig: TAKE 1 TABLET DAILY NEEDED FOR MUSCLE SPASMS * Telephone Encounter - Gemini [facility] - 05/24/2024 1:03 PM EDT Did you pend patient's preferred pharmacy and medication before forwarding?yes Pharmacy: [facility], [address] [place] Pending Prescriptions: Disp Refills Cyclobenzaprine HCl 10 MG Oral Tablet (Fl*30 Tab*0 Sig: TAKE 1 TABLET DAILY NEEDED FOR MUSCLE SPASMS Last Visit: 08/17/2023 (in office), Visit date not found (telemedicine) Next Visit: 12/31/2024 If no future appointments scheduled, and last appointment is greater than a year ago, please schedule patient for a follow-up appointment Last date the medication was ordered: 04/10/24 Is this request for a controlled substance?No Urine Drug Screen: Results for orders placed or performed in visit on 06/15/21 PAIN MANAGEMENT DRUG PANEL, URINE W/ INTERPRETATION Result Value Compliance Interpretation Based on the medication information provided and obtained from [facility]: The presence of morphine, hydrocodone, dihydrocodeine, [...] AM POTASSIUM 4.4 05/29/2020 12:06 PM TSH 4.69 (H) 10/26/2023 09:01 AM TSH 2.54 05/29/2020 12:06 PM LDLCALC 69 03/23/2023 01:56 PM LDLCALC 169 (H) 05/29/2020 12:06 PM LDLDIRECT NOT APPLICABLE 05/29/2020 12:06 PM LDLDIRECT 205 (H) 04/16/2005 09:18 AM ALT 18 03/23/2023 01:56 PM ALT 20 05/29/2020 12:06 PM ALT 228 (H) 01/23/1997 10:06 AM HGBA1C 5.9 (H) 11/18/2022 11:19 AM HGBA1C 5.8 (H) 05/29/2020 12:06 PM documented in this encounter Plan of Treatment Upcoming Encounters Date Type Department Care Team (Late st Contact Info) Description 06/06/2024 7:10 AM EDT Laboratory Lab Mobile Phlebotomy [facility] [address] [place] [address] [facility], [facility] Mobile Home Draw [address] [place] [address] 06/07/2024 6:00 AM EDT Anticoagulation Centralized Clinical Pharmacy Services, Isreal Rivera [address] [place] [address] [place] [address] [facility], [facility] [address] [place] [address] 12/31/2024 10:40 AM EST Telemedicine [address] [place] [phone] Danelle Pierre MD [address] [place] [address] [place] [address] Health Maintenance Due Date Last Done Comments [...] D LEVEL ONCE IN A LIFETIME-USE SMARTSET# [id number] Completed 05/29/2020, 09/11/2019, 05/24/2014, Additional history exists [...] filedocumented as of this encounter Care Teams Transitions Manager Rn Relationship Specialty Start Date End Date Danelle Pierre MD [address] [place] [address] [place] [phone] PCP - General Family Medicine 01/02/20 documented as of this encounter
--- OUTSIDE RECORDS SUMMARY | 2024-11-18 19:00 | External Medical Summary | Summary of Care ---
Author Name Unknown Organization [facility] [address] [facility] [address] Phone [phone] Care Team Providers Care Opal Miner Name Role Phone Danelle Pierre MD Primary Care Provide r Reason for Visit * Reason Onset Date Comments Medication Refill 06/05/2024 Encounter Details Date Type Department Care Team (Late st Contact Info) Description 06/05/2024 Refill Cardiology [address] [place] [address] Danelle Pierre MD [address] [place] [address] [place] [address] HTN, goal below 140/90; Atrial fibrillation, chronic [...] the morning 45 Tablet 3 4 Active Metoprolol Succinate ER 25 MG Oral Tablet Extended Release 24 Hour (toPROL XL)Indications:HTN , goal below 140/90,Atrial fibrillation, chronic (HCC) Take by mouth 1/2 tablet in the morning 45 Tablet 3 4 06/05/20 24 Discontinu ed(Refill) documented as [...] disc disease 01/18/2013 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 1 [...] Telephone Encounter - Danelle Pierre MD - 06/06/2024 7:38 AM EDT Signed Prescriptions: Disp Refills Metoprolol Succinate ER 25 MG Oral Tablet *45 Tab*3 Sig: Take by mouth 1/2 tablet in the morning Authorizing Provider: DANELLE PIERRE * Telephone Encounter - Debby Day RN - 06/06/2024 6:48 AM EDTPending Prescriptions: Disp Refills Metoprolol Succinate ER 25 MG Oral Tablet *45 Tab*3 Sig: Take by mouth 1/2 tablet in the morning * Telephone Encounter - Debby Day RN - 06/06/2024 6:47 AM EDT Pending Prescriptions: Disp Refills Metoprolol Succinate ER 25 MG Oral Tablet*45 Tab*3 Sig: Take by mouth 1/2 tablet in the morning Last Visit: 02/02/2024 (in office), Visit date not found (telemedicine) Next Visit: 12/31/24 Last date the medication was ordered:03/07 Patient Active Problem List Diagnosis GENERAL OSTEOARTHROSIS Other allergic rhinitis Slow transit constipation ADVANCE DIRECTIVE INFORMATION Esophageal reflux Benign neoplasm of colon Anxiety state Postsurgical hypothyroidism Senile osteoporosis Dyslipidemia, goal LDL below 100 HTN, goal below 140/90 Carotid stenosis, symptomatic w/o infarct ASCVD (arteriosclerotic cardiovascular disease) History of lung cancer Anticoagulation management encounter senior living current use of anticoagulant therapy Lumbar degenerative disc disease MEDICATION USE AGREEMENT Iron deficiency anemia Chronic pain of right knee Atrial fibrillation, chronic (HCC) History of colon polyps Chronic atrial fibrillation (HCC) On home oxygen therapy S/P ERCP MEDICATION USE AGREEMENT History of CEA (carotid endarterectomy) Pulmonary hypertension (HCC) Chronic respiratory failure with hypoxia (HCC) History of cholangitis Chronic diastolic HF (heart failure) (HCC) Carotid stenosis, asymptomatic, bilateral MEDICATION USE AGREEMENT Labs: Lab Results Component Value Date/Time CREATININE - [facility] 0.8 02/02/2024 01:40 PM CREATININE - [facility] 0.9 05/29/2020 12:06 PM CREATININE JOI 59 05/04/2019 02:50 PM CREATININE JOI - [facility] 72 06/15/2021 12:28 PM CREATININE, RANDOM URINE - [facility] 85 11/18/2022 11:19 AM CREATININE-OUTSIDE LAB 0.82 06/08/2021 12:00 AM Lab Results Component Value Date/Time POTASSIUM - [facility] 4.9 02/02/2024 01:40 PM POTASSIUM - [facility] 4.4 05/29/2020 12:06 PM POTASSIUM-OUTSIDE LAB 3.9 06/08/2021 12:00 AM Lab Results Component Value Date/Time TSH - [facility] 4.69 (H) 10/26/2023 09:01 AM TSH - [facility] 2.54 05/29/2020 12:06 PM Lab Results Component Value Date/Time LDL CHOLESTEROL (CALCULATED) - [facility] 69 03/23/2023 01:56 PM LDL CHOLESTEROL (CALCULATED) - [facility] 127 11/18/2022 11:19 AM LDL CHOLESTEROL (CALCULATED) - [facility] 169 (H) 05/29/2020 12:06 PM LDL CHOLESTEROL (CALCULATED) - [facility] 195 (H) 09/11/2019 11:19 AM LDL CHOLESTEROL (DIRECT MEASURE) - [facility] NOT APPLICABLE 05/29/2020 12:06 PM LDL CHOLESTEROL (DIRECT MEASURE) - [facility] NOT APPLICABLE 09/11/2019 11:19 AM LDL CHOLESTEROL (DIRECT MEASURE) - [facility] 205 (H) 04/16/2005 09:18 AM Lab Results Component Value Date/Time ALT 228 (H) 01/23/1997 10:06 AM ALT - [facility] 18 03/23/2023 01:56 PM ALT - [facility] 20 05/29/2020 12:06 PM Hemoglobin AIC Results: Lab Results Component Value Date/Time HEMOGLOBIN A1C - [facility] 5.9 (H) 11/18/2022 11:19 AM HEMOGLOBIN A1C - [facility] 5.8 (H) 05/29/2020 12:06 PM HEMOGLOBIN A1C - [facility] 6.3 01/15/2016 11:33 AM HEMOGLOBIN A1C - [facility] 6.1 07/15/2015 10:28 AM * Telephone Encounter - Bautista Corona OSA - 06/05/2024 6:31 PM EDTPending Prescriptions: Disp Refills Metoprolol Succinate ER 25 MG Oral Tablet *45 Tab*3 Sig: Take by mouth 1/2 tablet in the morning documented in this encounter Plan of Treatment Upcoming Encounters Date Type Department Care Team (Late st Contact Info) Description 06/07/2024 6:00 AM EDT Anticoagulation Centralized Clinical Pharmacy Services, Isreal Rivera [address] [place] [address] [place] [address] [facility], [address] [place] [address] 12/31/2024 10:40 AM EST Telemedicine Family Medicine [address] [place] [phone] Danelle Pierre MD [address] [place] [address] [place] [address] Health Maintenance Due Date Last Done Comments DTaP,Tdap,and Td Vaccines (1 - Tdap) 1964 Zoster Vaccines (2 of 3) 10/18/2012 08/23/2012 Depression Screening 12/20/2020 12/20/2019 DXA Scan 05/21/2023 05/21/2021, 05/15, 03/20/2014, Additional history exists COVID-19 Vaccine ( season) 2023 10/27/2021, 01/23/2021, 12/26/2020 Influenza Vaccine (FLU shot) (#1) 2024 08/17/2023, 10/06/2022, 08/13/2021, Additional history exists TSH 10/26/2024 10/26/2023, 10/02/2023, 05/25/2023, Additional history exists GFR 02/01/2025 02/02/2024, 09/14, 09/28/2023, Additional history exists Albumin/Creatinine Ratio 11/18/2025 11/18/2022 Pneumococcal Vaccine: 65+ Years Completed 09/03/2016, 02/21/2015, 08/31/2007, Additional history exists VITAMIN D LEVEL ONCE IN A LIFETIME-USE SMARTSET# [id number] Completed 05/29/2020, 09/11/2019, 05/24/2014, Additional history exists [...] fibrillation documented in this encounter Care Teams Opal Miner Relationship Specialty Start Date End Date Danelle Pierre MD [address] [place] [address] [place] [address] PCP - General Family Medicine 01/02/20 documented as of this encounter
--- OUTSIDE RECORDS SUMMARY | 2024-11-18 19:00 | External Medical Summary | Summary of Care ---
Author Name Unknown Organization [facility] Address [address] [facility] [place] [address] Phone [phone] Care Team Providers Care Advertising Assistant Name Role Phone Danelle Pierre MD Primary Care Provide r Reason for Visit * Reason Comments Dosage Adjustment Via Phone (anticoag Cl inic) Encounter Details Date Type Department Care Team (Late st Contact Info) Description 05/24/2024 6:00 AM EDT Anticoagulation [facility], Isreal Rivera [address] [place] [address] [place] [id number] [place] [address] Atrial fibrillation, chronic (HCC)* Allergies Active Allergy [...] every evening. 90 Tablet 3 4 Active Metoprolol Succinate ER 25 MG Oral Tablet Extended Release 24 Hour (toPROL XL)Indications:HTN, goal below 140/90,Atrial fibrillation, chronic (HCC) Take by mouth 1/2 tablet in the morning 45 Tablet 3 4 Active Warfarin Sodium 5 [...] before bedtime. 180 Capsule 1 4 Active Cyclobenzaprine HCl 10 MG Oral Tablet (Flexeril) TAKE 1 TABLET DAILY NEEDED FOR MUSCLE SPASMS 30 Tablet 4 Active Potassium Chloride ER 10 [...] the morning. 90 Tablet 2 4 Active documented as of this encounter [...] disease 01/18/2013 Anticoagulation management encounter 09/01/2012 senior living current use of anticoagulant therapy 1 Overview: [...] as of this encounter Progress Notes * Bola Ibrahim CPhT - 05/24/2024 8:45 AM EDT Contacts Type Contact Phone/Fax 05/24/2024 08:44 AM EDT Phone (Outgoing) Jose Alberto Ayers (Emergency Contact) [phone] (M) Spoke to Patient Subjective Patient Findings Negatives: Signs/symptoms of thrombosis, [...] date communicated as noted by Pharmacist: Yes BOLA IBRAHIM CPhT 05/24/2024, 8:45 AM * Ashlie Juares RPh - 05/24/2024 8:35 AM EDT Images from the original note were not included. Coumadin Clinic (region specific) Objective Current Warfarin Dose As of 05/24/2024 Warfarin maintenance plan: 5 mg (5 mg x 1) every Mon, Wed, Fri; 2.5 mg (5 mg x 0.5) all other days INR Result As of 05/24/2024 INR goal: 2.0-3.0 INR used for dosin.2 (05/23/2024) Assessment & Plan Warfarin Plan As of 05/24/2024 Full warfarin instructions: 05/24: Hold; Otherwise 5 mg every Mon, Wed, Fri; 2.5 mg all other days Next INR check: 06/06/2024 Repeat PT/INR in 2 week(s) Weekly dose: not changed Additional Dosing Information: Description GML W & F Ensure/boost daily Tech to contact patient with dose instructions as noted. Ashlie Juares RPh 05/24/2024, 8:35 AM documented in this encounter Plan of Treatment Upcoming Encounters Date Type Department Care Team (Late st Contact Info) Description 06/07/2024 6:00 AM EDT Anticoagulation [facility], Isreal Rivera [address] [place] [address] [place] [id number] [facility], [address] [place] [address] 12/31/2024 10:40 AM EST Telemedicine Family Medicine [address] [place] [phone] Danelle Pierre MD [address] [place] [address] [place] [id number] Health Maintenance Due Date Last Done Comments [...] D LEVEL ONCE IN A LIFETIME-USE SMARTSET# [id number] Completed 05/29/2020, 09/11/2019, 05/24/2014, Additional history exists [...] fibrillation documented in this encounter Care Teams Advertising Assistant Relationship Specialty Start Date End Date Danelle Pierre MD [address] [place] [address] [place] [phone] PCP - General Family Medicine 01/02/20 documented as of this encounter
[2024-11-18 19:28] LABS: Hematocrit (blood only) 39.4 % (37.0-47.0); Hemoglobin 12.1 g/dl (12.0-16.0); Mean Corpuscular Hemoglobin 27.4 pg (25.0-34.0); Mean Corpuscular Hgb Conc 30.7 g/dL (32.0-36.0); Mean Corpuscular Volume 89.1 fL (80.0-100.0); Red Blood Count 4.42 M/uL (4.20-5.40); White Blood Count 10.98 K/ul (4.8-10.8)
[2024-11-18 19:29] LABS: Basophils # (auto) 0.05 K/uL (0.00-0.20); Basophils % (auto) 0.5 %; Eosinophils # (auto) 0.04 K/uL (0.00-0.50); Eosinophils % (auto) 0.4 %; Immature Granulocytes # (auto) 0.03 K/uL (0.01-0.20); Immature Granulocytes % (auto) 0.3 %; Lymphocytes # (auto) 0.92 K/uL (1.20-3.40); Lymphocytes % (auto) 8.4 %; Mean Platelet Volume 10.3 fL (9.4-12.4); Monocytes # (auto) 0.84 K/uL (0.11-0.59); Monocytes % (auto) 7.7 %; Neutrophils % (auto) 82.7 %; Platelet Count 245 K/uL (130-400); RDW Coefficient of Variation 16.2 % (11.5-14.5); RDW Standard Deviation 53.3 fL (36.4-46.3)
[2024-11-18 19:46] LABS: Alanine Aminotransferase 18 U/L (7-52); Alkaline Phosphatase 94 U/L (34-104); Anion Gap 7 (3-11); Aspartate Aminotransferase 40 U/L (13-39); BUN Creatinine Ratio 25.3 (10-20); Bilirubin Direct 0.1 mg/dl (0-0.2); Bilirubin,Total 0.5 mg/dl (0.2-1.0); Blood Urea Nitrogen 23 mg/dl (6-23); Calcium 9.2 mg/dl (8.6-10.3); Carbon Dioxide 32 mmol/L (21-32); Chloride 94 mmol/L (98-107); Glucose 145 mg/dl (70-99(Fasting)); Lipase 22 U/L (11-82); Potassium 4.4 mmol/L (3.5-5.1); Sodium 133 mmol/L (136-145); Total Protein 7.9 gm/dl (6.0-8.3)
[2024-11-18] MEDS: oxyCODONE HCL IR 5 MG TAB (IMMEDIATE RELEASE) PO STA (20:12)
--- NOTE | 2024-11-18 20:42 | Emergency Department Note ---
Impression & Plan Acute hypoxemic respiratory failure, Back pain ED Provider Note NAME: NIKKIE BALDWIN AGE: 79 SEX: F : 1945 ARRIVES VIA: Walk-In INFORMANT: Patient, ED PROVIDER(S): Carolyn Browne MD CHIEF COMPLAINT: Abdominal pain HPI: This is a 79-year-old female presenting for abdominal pain/back pain. Patient notes she has had no nausea or vomiting. She does have some slight diarrhea. She notes that she had 3 days worth of anterior abdominal pain as well as new/chronic thoracic back pain. She notes she has had 2 previous compression fractures, spontaneous, in her lumbar spine. She notes feels similar. Otherwise she notes no current fevers, chills, shortness of breath or chest pain. She is chronically on 4 L nasal cannula. A ROS: See above HPI for pertinent positives & negatives. A total of 10 systems reviewed and were otherwise negative. PAST MEDICAL HISTORY: See Below PAST SURGICAL HISTORY: See Below FAMILY HISTORY: See Below SOCIAL HISTORY: See Below HOME MEDICATIONS: See Below ALLERGIES: See Below VITALS: See Below PHYSICAL EXAMINATION: General: resting comfortably in no acute distress Head: Normocephalic and atraumatic Eyes: Normal inspection, extraocular muscles intact Ear, nose, throat: Normal external exam Neck: Normal range of motion Respiratory: lungs clear to auscultation bilaterally Cardiovascular: Regular rate/rhythm, no murmur GI: Right lower quadrant abdominal tenderness Extremities: nontender, moves all extremities Neuro: The patient awake and alert, appropriately conversive, no focal deficits, symmetric faces Skin: Warm, dry, and intact MEDICAL DECISION MAKING: Is an 79-year-old female present for abdominal/back pain. Will do CT of the abdomen/pelvis as well as thoracic spine. Patient will get basic blood work and UA as well. -Leukocytosis to to 10.98 is noted. Otherwise slight hyponatremia/hypochloremia. -Patient is hypoxic without clear cause. She is requires 4 L but is currently on 6 L and only saturating 89 to 90%. -In addition patient has significant distress when laying flat for CAT scan. Unfortunately her IV blew so there is minimal contrast load with the imaging. Otherwise she reportedly turned purple when laying flat. -X-ray ordered for hypoxia and work of breathing. Chest Xray independently interpreted by me showing no pneumothorax, focal opacity, or pleural effusions. -Patient also having excruciating back pain. She is requesting IV options for medication as oxycodone or did not work for her. Will give her IV Dilaudid. -Patient will require admission due to her pain, hypoxia, work of breathing. Admitted to Dr. Elliott at this time. Differential diagnosis: Thoracic spine fracture, diverticulitis, appendicitis, dissection Independent History obtained from: Son's and daughter Diagnostics interpreted by me: ECG: None Cardiac Monitoring: An order was placed for continuous cardiac monitoring. The monitor shows a rate of 90 with sinus rhythm. Past Med/Surg History Problem List (Updated 11/19/24 @ 00:24 by Carolyn Browne MD) Back pain (Acute) Acute hypoxemic respiratory failure (Acute) Decompensated heart failure Intractable back pain (Acute) Compression of lumbar vertebra (Acute) Acute on chronic right-sided congestive heart failure Morbid obesity Acute on chronic respiratory failure with hypoxia and hypercapnia (Acute) Pneumonia (Acute) Hypervolemia (Acute) Hypomagnesemia (Acute) Acute exacerbation of CHF (congestive heart failure) Acute and chronic respiratory failure with hypoxia Acute kidney injury COPD (chronic obstructive pulmonary disease) Fall (Acute) Non-ST elevation (NSTEMI) myocardial infarction (Acute) Type 2 MD (myocardial infarction) Encounter for pre-operative examination Obesity Hyponatremia Cholangitis Choledocholithiasis SIRS (systemic inflammatory response syndrome) Pulmonary HTN Elevated troponin I level Fx medial malleolus-closed Constipation due to opioid therapy Elevated transaminase measurement Sepsis Post-surgical hypothyroidism Chronic pain (Acute) Urinary retention Supratherapeutic INR DVT prophylaxis Compression fracture Hypertension Chronic atrial fibrillation Hypoxia (Acute) Medical History Obesity Iron deficiency anemia History of lung cancer Chronic anticoagulation Chronic pain GERD (gastroesophageal reflux disease) Chronic atrial fibrillation Hypertension Dyslipidemia Post-surgical hypothyroidism Surgical History History of carotid endarterectomy Right Hx of cholecystectomy H/O thyroidectomy H/O pneumonectomy Right upper lobe secondary to lung cancer Family History Mother Stroke Hypertension Uterine cancer Father Heart disease Cardiac disorder Aunt Cardiac disorder Brother Diabetes Sister Diabetes Grandmother (Paternal) Breast cancer Social History Smoking Status: Former smoker Tobacco Type: Cigarettes Second Hand Exposure: No; Do You Dip or Chew Tobacco: No; Hx Alcohol Use: No Hx Substance Use: No Preferred Language: Chinese 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 Ability: Effective [employer] Required: No Beliefs That Will Affect Care: None marital status: / Current Living Situation: Alone Current Living Situation Comment: Children live 5 mins away Feels Safe at Home: Yes Assistive Devices: Oxygen - Continuous and Walker Allergies Allergies Allergy/AdvReac Type Severity Reaction Status Date / Time No Known Allergies Allergy Unverified 09/15/23 21:20 Home Meds Home Medications Medication Instructions Recorded Confirmed alprazolam 1 mg tablet 1 mg PO BID PRN Anxiety 01/15/20 11/19/24 amlodipine 2.5 mg tablet 2.5 mg PO QAM 01/15/20 11/19/24 aspirin 81 mg tablet,delayed 81 mg PO DAILY 01/15/20 11/19/24 release cyclobenzaprine 10 mg tablet 10 mg PO DAILY PRN Muscle Spasm 01/15/20 11/19/24 docusate sodium 100 mg tablet 100 mg PO BID 01/15/20 11/19/24 esomeprazole magnesium 20 mg 20 mg PO DAILYBB 01/15/20 11/19/24 capsule,delayed release lisinopril 20 mg tablet 20 mg PO QAM 01/15/20 09/15/23 metoprolol succinate 25 mg 12.5 mg PO QAM 01/15/20 09/15/23 tablet,extended release 24 hr morphine 15 mg tablet,extended 15 mg PO AMPM 01/15/20 09/15/23 release cholecalciferol (vitamin D3) 25 50 mcg PO DAILY 02/13/20 11/19/24 mcg (1,000 unit) tablet melatonin 3 mg tablet 3 mg PO HS 06/05/21 09/15/23 multivitamin 1 tab PO DAILY 06/05/21 09/15/23 polyethylene glycol 3350 17 17 g PO DAILY PRN Constipation 06/05/21 09/15/23 gram/dose oral powder (Miralax) sennosides 8.6 mg tablet (senna) 8.6 mg PO HS PRN Constipation 06/05/21 09/15/23 warfarin 5 mg tablet 2.5 mg PO 2XWK 07/30/22 09/15/23 warfarin 5 mg tablet 5 mg PO 5XWK 07/30/22 09/15/23 alendronate 70 mg tablet 70 mg PO WK 08/07/23 11/19/24 furosemide 20 mg tablet 20 mg PO DAILY 08/07/23 11/19/24 omega-3 fatty acids 1,000 mg 1,000 mg PO DAILY 08/07/23 09/15/23 capsule rosuvastatin 10 mg tablet 10 mg PO QAM 08/07/23 09/15/23 sertraline 25 mg tablet 25 mg PO QAM 08/07/23 09/15/23 ipratropium 0.5 mg-albuterol 3 mg 3 ml inhalation Q4 PRN Wheezing 09/15/23 11/19/24 (2.5 mg base)/3 mL nebulization soln levothyroxine 137 mcg tablet 137 mcg PO DAILYBB 11/19/24 11/19/24 Previous Rx's Medication Instructions Recorded albuterol sulfate 90 mcg/actuation 2 puffs inhalation Q6H PRN 01/19/20 aerosol inhaler shortness of breath or wheezing #6.7 grams meclizine 25 mg tablet 25 mg PO TID PRN dizziness #90 tabs 01/19/20 Oxygen Home #1 ea 06/09/21 potassium chloride 10 mEq 10 meq PO DAILY #30 tabs 08/09/23 tablet,extended release(part/cryst) Results & Data (ED) Vital Signs Vital Signs - 24 hr 11/18/24 18:58 11/18/24 19:15 11/18/24 20:06 Temperature 36.9 C Temperature Source Temporal Artery Scan Pulse Rate 86 81 Pulse Rate [Apical] 80 Pulse Rate from SpO2 Sensor Respiratory Rate 20 17 Respiratory Effort / Characteristics Non-Labored Respiratory Depth Normal Blood Pressure 112/75 Blood Pressure [Left Arm] 127/85 Blood Pressure Mean 87 Blood Pressure Mean [Left Arm] 99 Pulse Oximetry 90 90 Oxygen Delivery Method Nasal Cannula Nasal Cannula Oxygen Flow Rate 4 6 Sepsis Recent Fever Within 48 Hours No Sepsis New/Unexplained Change in Mental Status No Sepsis Action Taken by Nursing No Action Required 11/18/24 21:00 11/18/24 21:24 11/18/24 22:12 Temperature Temperature Source Pulse Rate 90 Pulse Rate [Apical] 89 88 Pulse Rate from SpO2 Sensor 81 Respiratory Rate 24 18 24 Respiratory Effort / Characteristics Respiratory Depth Blood Pressure 128/102 H Blood Pressure [Left Arm] 144/88 H 144/88 H Blood Pressure Mean 110 Blood Pressure Mean [Left Arm] 106 106 Pulse Oximetry 90 90 91 Oxygen Delivery Method Nasal Cannula Oxymask Oxygen Flow Rate 6 6 Sepsis Recent Fever Within 48 Hours Sepsis New/Unexplained Change in Mental Status Sepsis Action Taken by Nursing 11/18/24 22:39 11/18/24 23:10 Temperature Temperature Source Pulse Rate 88 90 Pulse Rate [Apical] Pulse Rate from SpO2 Sensor 79 Respiratory Rate 21 Respiratory Effort / Characteristics Respiratory Depth Blood Pressure 101/69 Blood Pressure [Left Arm] Blood Pressure Mean 79 Blood Pressure Mean [Left Arm] Pulse Oximetry 90 Oxygen Delivery Method Oxygen Flow Rate Sepsis Recent Fever Within 48 Hours Sepsis New/Unexplained Change in Mental Status Sepsis Action Taken by Nursing Laboratory Data 11/18/24 19:14 11/18/24 19:14 Lab Results 11/18/24 Range/Units 19:14 WBC 10.98 H (4.8-10.8) K/ul RBC 4.42 (4.20-5.40) M/uL Hgb 12.1 (12.0-16.0) g/dl Hct 39.4 (37.0-47.0) % MCV 89.1 (80.0-100.0) fL MCH 27.4 (25.0-34.0) pg MCHC 30.7 L (32.0-36.0) g/dL RDW Std Deviation 53.3 H (36.4-46.3) fL RDW Coeff of Richar 16.2 H (11.5-14.5) % Plt Count 245 (130-400) K/uL MPV 10.3 (9.4-12.4) fL Immature Gran % (Auto) 0.3 % Neut % (Auto) 82.7 % Lymph % (Auto) 8.4 % [place] % (Auto) 7.7 % Eos % (Auto) 0.4 % Baso % (Auto) 0.5 % Neut # (Auto) 9.10 H (1.40-6.50) K/uL Lymph # (Auto) 0.92 L (1.20-3.40) K/uL [place] # (Auto) 0.84 H (0.11-0.59) K/uL Eos # (Auto) 0.04 (0.00-0.50) K/uL Baso # (Auto) 0.05 (0.00-0.20) K/uL Immature Gran # (Auto) 0.03 (0.01-0.20) K/uL Sodium 133 L (136-145) mmol/L Potassium 4.4 (3.5-5.1) mmol/L Chloride 94 L (98-107) mmol/L Carbon Dioxide 32 (21-32) mmol/L Anion Gap 7 (3-11) BUN 23 (6-23) mg/dl Creatinine 0.91 (0.6-1.2) mg/dl Est Cr Clr Drug Dosing Not Reportable eGFR 63.38 BUN/Creatinine Ratio 25.3 H (10-20) Glucose 145 H (70-99(Fasting)) mg/dl Calcium 9.2 (8.6-10.3) mg/dl Total Bilirubin 0.5 (0.2-1.0) mg/dl Direct Bilirubin 0.1 (0-0.2) mg/dl AST 40 H (13-39) U/L ALT 18 (7-52) U/L Alkaline Phosphatase 94 (34-104) U/L Total Protein 7.9 (6.0-8.3) gm/dl Albumin 4.0 (3.4-5.0) gm/dl Lipase 22 (11-82) U/L Administered Medications Discontinued Medications Hydromorphone HCl (Hydromorphone Inj 0.5 Mg/0.5 Ml Syr) 0.5 mg IV NOW STA Stop: 11/18/24 21:17 Last Admin: 11/18/24 21:23 Dose: 0.5 mg Documented By: TITI Oxycodone HCl (Oxycodone Hcl Ir 5 Mg Tab (Immediate Release)) 5 mg PO NOW STA Stop: 11/18/24 20:07 Last Admin: 11/18/24 20:12 Dose: 5 mg Documented By: TITI Imaging Data Radiologist's Impression: Abdomen/Pelvis CT 11/18/24 19:33 Exam(s): CT ABDOMEN + PELVIS With Contrast IV Amt: 95ML OPTIRAY 320 EXAM: CT Abdomen and Pelvis With Intravenous Contrast CLINICAL HISTORY: Reason for exam: Diverticulitis, RLQ pain. TECHNIQUE: Axial computed tomography images of the abdomen and pelvis with intravenous contrast. CTDI is 56.55 mGy and DLP is 2288.71 mGy-cm. Automated exposure control was utilized for the study. A dose lowering technique was utilized adhering to the principles of ALARA. CONTRAST: Patient received 95ML OPTIRAY 320 of IV contrast COMPARISON: No relevant prior studies available. FINDINGS: Lung bases: See below. Pleural space: There is a small right basilar pleural effusion and mild dependent subsegmental atelectasis. ABDOMEN: Liver: Unremarkable. No mass. Gallbladder and bile ducts: The gallbladder has been removed. There is pneumobilia. No ductal dilation. Pancreas: Unremarkable. No mass. No ductal dilation. Spleen: Unremarkable. No splenomegaly. Adrenals: Unremarkable. No mass. Kidneys and ureters: Unremarkable. No solid mass. No hydronephrosis. Stomach and bowel: There are scattered sigmoid colon diverticula. No active diverticular inflammatory process is noted. The appendix is not definitively visualized. No pericecal inflammatory changes identified to suggest appendicitis. No free air or abscess. No obstruction. PELVIS: Appendix: See above. Bladder: Unremarkable. No mass. Reproductive: There are several small calcified uterine fibroids. ABDOMEN and PELVIS: Intraperitoneal space: See above. Bones/joints: No acute fracture. No dislocation. There is generalized decreased bony mineralization. Soft tissues: Unremarkable. Vasculature: There are advanced aortoiliac atherosclerotic calcifications. There is a mid aortic ectasia measuring up to 2.5 cm. There is localized distal abdominal aortic ectasia measuring up to 2.6 cm. There are advanced aortic arch calcifications. There are advanced coronary artery calcifications. No abdominal aortic aneurysm. Lymph nodes: Unremarkable. No enlarged lymph nodes. IMPRESSION: 1. There are advanced aortoiliac atherosclerotic calcifications. There is a mid abdominal aortic ectasia measuring up to 2.5 cm. There is localized distal abdominal aortic ectasia measuring up to 2.6 cm. 2. There are scattered sigmoid colon diverticula. No active diverticular inflammatory process is noted. 3. The appendix is not definitively visualized. No pericecal inflammatory changes identified to suggest appendicitis. 4. Small right basilar pleural effusion and right basilar subsegmental atelectasis. 5. Sigmoid colon diverticulosis. No active diverticulitis identified. 6. Multiple small calcified uterine fibroids. Electronically signed by: Albino Castillo MD 11/18/24 23:[address] 11/18/24 19:33 Exam(s): CT T SPINE IV Amt: optiray 320 95ml EXAM: CT Thoracic Spine With Intravenous Contrast CLINICAL HISTORY: Reason for exam: New back pain w/ hx of compression fx. TECHNIQUE: Axial computed tomography images of the thoracic spine with intravenous contrast. CTDI is 56.59 mGy and DLP is 2288.71 mGy-cm. Automated exposure control was utilized for the study. A dose lowering technique was utilized adhering to the principles of ALARA. CONTRAST: Patient received optiray 320 95ml of IV contrast COMPARISON: No relevant prior studies available. FINDINGS: Vertebrae: No osseous destruction identified. There is generalized decreased bony mineralization consistent with osteoporosis. If there is clinical concern for acute or subacute painful compression fracture or MRI follow-up should be considered. There is chronic appearing L1 compression fracture with greater than 50% height loss. There is a T9 chronic appearing compression fracture with greater than 90% height loss. No significant retropulsion identified. There are additional multiple chronic compression fractures involving the T10, T8, T7, T5, T4, T3 and T2 vertebral bodies. Discs/spinal canal/neural foramina: No acute findings. No spinal canal stenosis. Soft tissues: Unremarkable. Vasculature: There are aortic arch and descending thoracic aortic calcifications. There are advanced coronary artery ethacrynic calcifications noted in the right coronary artery, left anterior descending and left circumflex coronary arteries. IMPRESSION: Chronic appearing compression fractures involving the T2-T10 vertebral bodies with greatest height loss at T9. If there is clinical concern for acute or subacute painful compression fracture MRI follow-up should be considered. Electronically signed by: Albino Castillo MD 11/18/24 23:44 PM Chest X-Ray 11/18/24 21:51 Exam(s): XR CXR 1 VIEW EXAM: XR Chest, 1 View CLINICAL HISTORY: Reason for exam: SOB, hypoxia. TECHNIQUE: Frontal view of the chest. COMPARISON: 09/15/2023 FINDINGS: Lungs: There is mild lower lobe interstitial thickening. No lobar consolidation identified. No significant pleural fluid or pneumothorax notified. Pleural space: See above. Heart: There is moderate cardiomegaly. Mediastinum: Unremarkable. Normal mediastinal contour. Bones/joints: Unremarkable. No acute fracture. Vasculature: There are aortic arch calcifications. Other findings: Overall, no significant changes are noted. IMPRESSION: There is mild lower lobe interstitial thickening. No lobar consolidation identified. Electronically signed by: Albino Castillo MD 11/18/24 23:16 PM Discharge Plan Visit Data Chief Complaint: Abdominal Pain Stated Complaint: BACK PAIN, ABD PAIN, ED Provider: Carolyn Browne Discharge Problem: Acute hypoxemic respiratory failure, Back pain Forms Stand Alone Forms: [facility] Prescriptions Prescriptions: No Action cholecalciferol (vitamin D3) 25 mcg (1,000 unit) tablet 50 mcg PO DAILY cyclobenzaprine 10 mg tablet 10 mg PO DAILY PRN (Reason: Muscle Spasm) alprazolam 1 mg tablet 1 mg PO BID PRN (Reason: Anxiety) lisinopril 20 mg tablet 20 mg PO QAM Hold Instructions: Once Blood Pressure more stable. Physician at rehab facility to decide. amlodipine 2.5 mg tablet 2.5 mg PO QAM Hold Instructions: Once Blood Pressure more stable. Physician at rehab facility to decide. aspirin 81 mg Tablet,Delayed Release (Dr/Ec) 81 mg PO DAILY morphine 15 mg tablet extended release 15 mg PO AMPM metoprolol succinate 25 mg tablet extended release 24 hr 12.5 mg PO QAM docusate sodium 100 mg Tablet 100 mg PO BID esomeprazole magnesium 20 mg capsule,delayed release(DR/EC) 20 mg PO DAILYBB meclizine 25 mg tablet 25 mg PO TID PRN (Reason: dizziness) Qty: 90 0RF albuterol sulfate 90 mcg/actuation HFA aerosol inhaler 2 puffs INH Q6H PRN (Reason: shortness of breath or wheezing) Qty: 6.7 0RF warfarin 5 mg tablet 2.5 mg PO 2XWK Rx Instructions: TAKE 1/2 TABLET EVERY TUESDAY AND TUESDAY. warfarin 5 mg tablet 5 mg PO 5XWK Rx Instructions: TAKE 5MG EVERY TUESDAY/TUESDAY/TUESDAY/TUESDAY/TUESDAY. omega-3 fatty acids 1,000 mg Capsule 1,000 mg PO DAILY alendronate 70 mg tablet 70 mg PO WK Rx Instructions: take this med every Tuesday sertraline 25 mg tablet 25 mg PO QAM rosuvastatin 10 mg tablet 10 mg PO QAM furosemide 20 mg tablet 20 mg PO DAILY potassium chloride 10 mEq Tablet,Er Particles/Crystals 10 meq PO DAILY Qty: 30 0RF Rx Instructions: take with your daily lasix dose. ipratropium-albuterol 0.5 mg-3 mg(2.5 mg base)/3 mL solution for nebulization 3 ml INHALATION Q4 PRN (Reason: Wheezing) multivitamin Tablet 1 tab PO DAILY sennosides [senna] 8.6 mg Tablet 8.6 mg PO HS PRN (Reason: Constipation) melatonin 3 mg Tablet 3 mg PO HS polyethylene glycol 3350 [Miralax] 17 gram/dose Powder 17 g PO DAILY PRN (Reason: Constipation) (DME) Oxygen Home Liters Per Minute See Rx Instructions .Route Qty: 1 0RF Rx Instructions: 2LPM with ambulation levothyroxine 137 mcg tablet 137 mcg PO DAILYBB Referrals Referrals: Danelle Pierre MD [Primary Care Provider] -
[2024-11-18] MEDS: HYDROmorphone INJ 0.5 MG/0.5 ML SYR IV STA (21:23)
--- NOTE | 2024-11-18 23:17 | XRay Report ---
Exam(s): XR CXR 1 VIEW EXAM: XR Chest, 1 View CLINICAL HISTORY: Reason for exam: SOB, hypoxia. TECHNIQUE: Frontal view of the chest. COMPARISON: 09/15/2023 FINDINGS: Lungs: There is mild lower lobe interstitial thickening. No lobar consolidation identified. No significant pleural fluid or pneumothorax notified. Pleural space: See above. Heart: There is moderate cardiomegaly. Mediastinum: Unremarkable. Normal mediastinal contour. Bones/joints: Unremarkable. No acute fracture. Vasculature: There are aortic arch calcifications. Other findings: Overall, no significant changes are noted. IMPRESSION: There is mild lower lobe interstitial thickening. No lobar consolidation identified. Electronically signed by: Albino Castillo MD 11/18/24 23:16 PM
--- NOTE | 2024-11-18 23:41 | CT Scan Report ---
Exam(s): CT ABDOMEN + PELVIS With Contrast IV Amt: 95ML OPTIRAY 320 EXAM: CT Abdomen and Pelvis With Intravenous Contrast CLINICAL HISTORY: Reason for exam: Diverticulitis, RLQ pain. TECHNIQUE: Axial computed tomography images of the abdomen and pelvis with intravenous contrast. CTDI is 56.55 mGy and DLP is 2288.71 mGy-cm. Automated exposure control was utilized for the study. A dose lowering technique was utilized adhering to the principles of ALARA. CONTRAST: Patient received 95ML OPTIRAY 320 of IV contrast COMPARISON: No relevant prior studies available. FINDINGS: Lung bases: See below. Pleural space: There is a small right basilar pleural effusion and mild dependent subsegmental atelectasis. ABDOMEN: Liver: Unremarkable. No mass. Gallbladder and bile ducts: The gallbladder has been removed. There is pneumobilia. No ductal dilation. Pancreas: Unremarkable. No mass. No ductal dilation. Spleen: Unremarkable. No splenomegaly. Adrenals: Unremarkable. No mass. Kidneys and ureters: Unremarkable. No solid mass. No hydronephrosis. Stomach and bowel: There are scattered sigmoid colon diverticula. No active diverticular inflammatory process is noted. The appendix is not definitively visualized. No pericecal inflammatory changes identified to suggest appendicitis. No free air or abscess. No obstruction. PELVIS: Appendix: See above. Bladder: Unremarkable. No mass. Reproductive: There are several small calcified uterine fibroids. ABDOMEN and PELVIS: Intraperitoneal space: See above. Bones/joints: No acute fracture. No dislocation. There is generalized decreased bony mineralization. Soft tissues: Unremarkable. Vasculature: There are advanced aortoiliac atherosclerotic calcifications. There is a mid aortic ectasia measuring up to 2.5 cm. There is localized distal abdominal aortic ectasia measuring up to 2.6 cm. There are advanced aortic arch calcifications. There are advanced coronary artery calcifications. No abdominal aortic aneurysm. Lymph nodes: Unremarkable. No enlarged lymph nodes. IMPRESSION: 1. There are advanced aortoiliac atherosclerotic calcifications. There is a mid abdominal aortic ectasia measuring up to 2.5 cm. There is localized distal abdominal aortic ectasia measuring up to 2.6 cm. 2. There are scattered sigmoid colon diverticula. No active diverticular inflammatory process is noted. 3. The appendix is not definitively visualized. No pericecal inflammatory changes identified to suggest appendicitis. 4. Small right basilar pleural effusion and right basilar subsegmental atelectasis. 5. Sigmoid colon diverticulosis. No active diverticulitis identified. 6. Multiple small calcified uterine fibroids. Electronically signed by: Albino Castillo MD 11/18/24 23:40 PM
--- NOTE | 2024-11-18 23:44 | CT Scan Report ---
Exam(s): CT T SPINE IV Amt: optiray 320 95ml EXAM: CT Thoracic Spine With Intravenous Contrast CLINICAL HISTORY: Reason for exam: New back pain w/ hx of compression fx. TECHNIQUE: Axial computed tomography images of the thoracic spine with intravenous contrast. CTDI is 56.59 mGy and DLP is 2288.71 mGy-cm. Automated exposure control was utilized for the study. A dose lowering technique was utilized adhering to the principles of ALARA. CONTRAST: Patient received optiray 320 95ml of IV contrast COMPARISON: No relevant prior studies available. FINDINGS: Vertebrae: No osseous destruction identified. There is generalized decreased bony mineralization consistent with osteoporosis. If there is clinical concern for acute or subacute painful compression fracture or MRI follow-up should be considered. There is chronic appearing L1 compression fracture with greater than 50% height loss. There is a T9 chronic appearing compression fracture with greater than 90% height loss. No significant retropulsion identified. There are additional multiple chronic compression fractures involving the T10, T8, T7, T5, T4, T3 and T2 vertebral bodies. Discs/spinal canal/neural foramina: No acute findings. No spinal canal stenosis. Soft tissues: Unremarkable. Vasculature: There are aortic arch and descending thoracic aortic calcifications. There are advanced coronary artery ethacrynic calcifications noted in the right coronary artery, left anterior descending and left circumflex coronary arteries. IMPRESSION: Chronic appearing compression fractures involving the T2-T10 vertebral bodies with greatest height loss at T9. If there is clinical concern for acute or subacute painful compression fracture MRI follow-up should be considered. Electronically signed by: Albino Castillo MD 11/18/24 23:44 PM
[2024-11-19 01:12] LABS: INR 3.5 (0.9-1.1); Prothrombin Time 33.6 Seconds (9.0-12.0)
[2024-11-19] MEDS: MELATONIN 3 MG TAB PO STA (01:40)
[2024-11-19] MEDS: ALPRAZolam 0.5 MG TABLET PO STA (01:40)
[2024-11-19] MEDS ORDERED: SENNA 8.6 MG TAB PO PRN (02:58)
[2024-11-19] MEDS ORDERED: MAGNESIUM HYDROXIDE SUSP 30 ML UDC PO PRN (02:58)
[2024-11-19] MEDS ORDERED: ALPRAZolam 0.5 MG TABLET PO PRN (02:58)
[2024-11-19] MEDS ORDERED: POLYETHYLENE (MIRALAX) 17 GM PACK PO PRN ×2 (02:58)
[2024-11-19] MEDS ORDERED: ACETAMINOPHEN 325 MG TAB PO PRN (02:58)
[2024-11-19] MEDS ORDERED: ALBUTEROL HFA 8 GM INHALER INH PRN (02:58)
[2024-11-19] MEDS ORDERED: ALBUT/IPRATROP 3MG/0.5MG NEB 3 ML VIAL INH PRN (02:58)
[2024-11-19] MEDS ORDERED: MECLIZINE HCL 25 MG TAB PO PRN (02:58)
[2024-11-19] MEDS ORDERED: DICLOFENAC SOD 1% GEL 100 GM TUBE EXT PRN (02:58)
[2024-11-19] MEDS ORDERED: NITROGLYCERIN SL 0.4 MG/TAB TAB SL PRN (02:58)
--- NOTE | 2024-11-19 03:28 | History & Physical Report ---
Date of Service November 19, 2024 Assessment & Plan (1) Back pain: Plan: 79-year-old female with past medical history significant for chronic respiratory failure with hypoxia on 4 L oxygen /, postsurgical hypothyroidism, hyperlipidemia, allergic rhinitis, arthrosclerotic cardiovascular disease, asymptomatic carotid stenosis, history of carotid endarterectomy, pulmonary hypertension, hypertension, chronic atrial fibrillation, chronic diastolic CHF, slow transit constipation, GERD, osteoporosis, chronic pain of right knee, iron deficiency anemia, anxiety, history of lung cancer, who lives at home alone ambulates with a walker, son and daughter lives close by was brought in because of severe back pain. Patient complaining of back pain for last 3 to 4 days but it became severe today so was brought to the hospital. In the ER when patient was getting CAT scans she became hypoxic and purple. Currently on 6 L saturating okay. And with the pain medication pain is improved. Currently denies any headache. Currently no dizziness. No runny nose or sore throat or cough. No fevers. Appetite is okay.No chest pain or shortness of breath. No nausea , no abdominal pain. As per family she is having constipation. And also is not micturating much. In the past patient was told to restrict fluid intake for chf so she is not drinking much water and and not micturating much as per the family. Hemodynamics are okay. Back pain Thoracic spine CAT scan shows chronic compression fractures involving T2-T10 with greatest height loss at T9 Pain control Continue home pain medications for now IV Tylenol as needed Pain management consult in a.m. PT OT Acute on chronic respiratory failure Moderate pulmonary hypertension History of diastolic CHF and chronic right heart failure On 4 L oxygen at home Currently requiring 6 L Chest x-ray no consolidation seen Will do a dose of Lasix IV 20 mg Continue home Lasix Cautious with pain medications Will monitor Chronic atrial fibrillation On metoprolol succinate and Coumadin INR 3.5 Hypertension On amlodipine, lisinopril, metoprolol succinate We will monitor Carotid disease status post right carotid endarterectomy Moderate left carotid artery disease On aspirin and statin History of lung cancer status post right upper lobe resection in January 2007 DVT prophylaxis On Coumadin INR 3.5 Disposition Telemetry Full code per my discussion with the family and the patient History of Present Illness Chief Complaint: Severe back pain, hypoxia Primary Care Provider: Danelle Pierre MD 79-year-old female with past medical history significant for chronic respiratory failure with hypoxia on 4 L oxygen , postsurgical hypothyroidism, hyperlipidemia, allergic rhinitis, arthrosclerotic cardiovascular disease, asymptomatic carotid stenosis, history of carotid endarterectomy, pulmonary hypertension, hypertension, chronic atrial fibrillation, chronic diastolic CHF, slow transit constipation, GERD, osteoporosis, chronic pain of right knee, iron deficiency anemia, anxiety, history of lung cancer, who lives at home alone ambu lates with a walker, son and daughter lives close by was brought in because of severe back pain. Patient complaining of back pain for last 3 to 4 days but it became severe today so was brought to the hospital. In the ER when patient was getting CAT scans she became hypoxic and purple. Currently on 6 L saturating okay. And with the pain medication pain is improved. Currently denies any headache. Currently no dizziness. No runny nose or sore throat or cough. No fevers. Appetite is okay.No chest pain or shortness of breath. No nausea , no abdominal pain. As per family she is having constipation. And also is not micturating much. In the past patient was told to restrict fluid intake for chf so she is not drinking much water and and not micturating much as per the family. Hemodynamics are okay. Past medical history. As mentioned above. Past surgical history. Colonoscopy. Dental surgery. ERCP. Needle biopsy of liver. Total thoracotomy and total thyroidectomy. Cholecystectomy. Right carotid endarterectomy with bovine patch angioplasty. Social history. . Lives alone. Quit smoking 2006. Smoked 2 packs a day for 30 years. No alcohol use. No drug use. Family history. Paternal grandmother had breast cancer. Mother had uterine cancer. Hypertension. Stroke. Brother has diabetes. Sister has diabetes. Father had OR at age 63. Allergies Allergy/AdvReac Type Severity Reaction Status Date / Time No Known Allergies Allergy Verified 11/19/24 00:31 Home Medications Medication Instructions Recorded Confirmed Type alprazolam 1 mg tablet 1 mg PO BID PRN Anxiety 01/15/20 11/19/24 History amlodipine 2.5 mg tablet 2.5 mg PO QAM 01/15/20 11/19/24 History aspirin 81 mg tablet,delayed 81 mg PO DAILY 01/15/20 11/19/24 History release cyclobenzaprine 10 mg tablet 10 mg PO DAILY PRN Muscle Spasm 01/15/20 11/19/24 History docusate sodium 100 mg tablet 100 mg PO BID 01/15/20 11/19/24 History esomeprazole magnesium 20 mg 20 mg PO DAILYBB 01/15/20 11/19/24 History capsule,delayed release lisinopril 20 mg tablet 10 mg PO QAM 01/15/20 11/19/24 History metoprolol succinate 25 mg 12.5 mg PO QAM 01/15/20 11/19/24 History tablet,extended release 24 hr morphine 15 mg tablet,extended 15 mg PO AMPM 01/15/20 11/19/24 History release albuterol sulfate 90 mcg/actuation 2 puffs inhalation Q6H PRN 01/19/20 11/19/24 Rx aerosol inhaler shortness of breath or wheezing #6.7 grams meclizine 25 mg tablet 25 mg PO TID PRN dizziness #90 tabs 01/19/20 11/19/24 Rx cholecalciferol (vitamin D3) 25 50 mcg PO DAILY 02/13/20 11/19/24 History mcg (1,000 unit) tablet melatonin 3 mg tablet 3 mg PO HS 06/05/21 11/19/24 History multivitamin 1 tab PO DAILY 06/05/21 11/19/24 History polyethylene glycol 3350 17 17 g PO DAILY PRN Constipation 06/05/21 11/19/24 History gram/dose oral powder (Miralax) sennosides 8.6 mg tablet (senna) 8.6 mg PO HS PRN Constipation 06/05/21 11/19/24 History Oxygen Home #1 ea 06/09/21 09/15/23 Rx warfarin 5 mg tablet 2.5 mg PO 3XWK 07/30/22 11/19/24 History warfarin 5 mg tablet 5 mg PO 4XWK 07/30/22 11/19/24 History alendronate 70 mg tablet 70 mg PO WK 08/07/23 11/19/24 History furosemide 20 mg tablet 20 mg PO DAILY 08/07/23 11/19/24 History omega-3 fatty acids 1,000 mg 1,000 mg PO DAILY 08/07/23 11/19/24 History capsule rosuvastatin 10 mg tablet 10 mg PO QAM 08/07/23 11/19/24 History sertraline 25 mg tablet 25 mg PO QAM 08/07/23 11/19/24 History potassium chloride 10 mEq 10 meq PO DAILY #30 tabs 08/09/23 11/19/24 Rx tablet,extended release(part/cryst) ipratropium 0.5 mg-albuterol 3 mg 3 ml inhalation Q4 PRN Wheezing 09/15/23 11/19/24 History (2.5 mg base)/3 mL nebulization soln Lactobacillus comb 1 cap PO TIDM 11/19/24 11/19/24 History no.9-[id number] 300 million cell-250 mg capsule (Probiotic and Acidophilus) diclofenac sodium 1 % topical gel 4 g topical BID PRN Pain 11/19/24 11/19/24 History fluticasone propionate 50 2 spray intranasal DAILY 11/19/24 11/19/24 History mcg/actuation nasal spray,suspension levothyroxine 137 mcg tablet 137 mcg PO DAILYBB 11/19/24 11/19/24 History magnesium hydroxide 400 mg/5 mL 30 - 60 ml PO DAILY PRN Gi Upset 11/19/24 11/19/24 History oral suspension (Milk of Magnesia) Past Med/Surg History Problem List (Updated 11/19/24 @ 00:24 by Carolyn Browne MD) Back pain (Acute) Acute hypoxemic respiratory failure (Acute) Decompensated heart failure Intractable back pain (Acute) Compression of lumbar vertebra (Acute) Acute on chronic right-sided congestive heart failure Morbid obesity Acute on chronic respiratory failure with hypoxia and hypercapnia (Acute) Pneumonia (Acute) Hypervolemia (Acute) Hypomagnesemia (Acute) Acute exacerbation of CHF (congestive heart failure) Acute and chronic respiratory failure with hypoxia Acute kidney injury COPD (chronic obstructive pulmonary disease) Fall (Acute) Non-ST elevation (NSTEMI) myocardial infarction (Acute) Type 2 OR (myocardial infarction) Encounter for pre-operative examination Obesity Hyponatremia Cholangitis Choledocholithiasis SIRS (systemic inflammatory response syndrome) Pulmonary HTN Elevated troponin I level Fx medial malleolus-closed Constipation due to opioid therapy Elevated transaminase measurement Sepsis Post-surgical hypothyroidism Chronic pain (Acute) Urinary retention Supratherapeutic INR DVT prophylaxis Compression fracture Hypertension Chronic atrial fibrillation Hypoxia (Acute) Medical History Obesity Iron deficiency anemia History of lung cancer Chronic anticoagulation Chronic pain GERD (gastroesophageal reflux disease) Chronic atrial fibrillation Hypertension Dyslipidemia Post-surgical hypothyroidism Surgical History History of carotid endarterectomy Right Hx of cholecystectomy H/O thyroidectomy H/O pneumonectomy Right upper lobe secondary to lung cancer Family History Mother Stroke Hypertension Uterine cancer Father Heart disease Cardiac disorder Aunt Cardiac disorder Brother Diabetes Sister Diabetes Grandmother (Paternal) Breast cancer Social History Smoking Status: Former smoker Tobacco Type: Cigarettes Second Hand Exposure: No; Do You Dip or Chew Tobacco: No; Hx Alcohol Use: No Hx Substance Use: No Preferred Language: Croatian 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 Ability: Effective Real Estate Developer Required: No Beliefs That Will Affect Care: None marital status: / Current Living Situation: Alone Current Living Situation Comment: Children live 5 mins away Other Information That Helps Us Care for You: No Feels Safe at Home: Yes Safety Concerns: Feels Safe At This Time Assistive Devices: Denture - Upper, Glasses, Oxygen - Continuous and Walker Review of Systems Review of Systems: All systems reviewed & are unremarkable except as noted in HPI & below Physical Exam Physical Exam: General- Not in acute distress Head- atraumatic Eyes- PERRL. ENT- oropharynx clear Neck- supple, no JVD. Lungs- clear to auscultation no wheezing or crackles Heart- regular rhythm; no murmur, no gallop. Abdomen- normal bowel sounds, soft, mild diffuse discomfort,no distension Extremities- mild pretibial edema, no erythema seen Neuro- alert, oriented PERRL, no facial palsy; no dysarthria; motor 5/5 bilaterally Results & Data Results & Data Vital Signs (Past 12 Hours) Vital Signs Temp Pulse Pulse Resp BP BP Pulse Ox 11/18/24 23:10 90 11/18/24 22:39 88 21 101/69 90 11/18/24 22:12 90 24 128/102 H 91 11/18/24 21:24 88 18 144/88 H 90 11/18/24 21:00 89 24 144/88 H 90 11/18/24 20:06 80 17 127/85 90 11/18/24 19:15 81 11/18/24 18:58 36.9 C 86 20 112/75 90 O2 Del Method O2 Flow Rate 11/18/24 23:10 11/18/24 22:39 11/18/24 22:12 11/18/24 21:24 Oxymask 6 11/18/24 21:00 Nasal Cannula 6 11/18/24 20:06 Nasal Cannula 6 11/18/24 19:15 11/18/24 18:58 Nasal Cannula 4 Diagnostic Findings Laboratory Results WBC 10.98 K/ul (4.8-10.8) H 11/18/24 19:14 RBC 4.42 M/uL (4.20-5.40) 11/18/24 19:14 Hgb 12.1 g/dl (12.0-16.0) 11/18/24 19:14 Hct 39.4 % (37.0-47.0) 11/18/24 19:14 MCV 89.1 fL (80.0-100.0) 11/18/24 19:14 MCH 27.4 pg (25.0-34.0) 11/18/24 19:14 MCHC 30.7 g/dL (32.0-36.0) L 11/18/24 19:14 RDW Std Deviation 53.3 fL (36.4-46.3) H 11/18/24 19:14 RDW Coeff of Richar 16.2 % (11.5-14.5) H 11/18/24 19:14 Plt Count 245 K/uL (130-400) 11/18/24 19:14 MPV 10.3 fL (9.4-12.4) 11/18/24 19:14 Immature Gran % (Auto) 0.3 % 11/18/24 19:14 Neut % (Auto) 82.7 % 11/18/24 19:14 Lymph % (Auto) 8.4 % 11/18/24 19:14 [place] % (Auto) 7.7 % 11/18/24 19:14 Eos % (Auto) 0.4 % 11/18/24 19:14 Baso % (Auto) 0.5 % 11/18/24 19:14 Neut # (Auto) 9.10 K/uL (1.40-6.50) H 11/18/24 19:14 Lymph # (Auto) 0.92 K/uL (1.20-3.40) L 11/18/24 19:14 [place] # (Auto) 0.84 K/uL (0.11-0.59) H 11/18/24 19:14 Eos # (Auto) 0.04 K/uL (0.00-0.50) 11/18/24 19:14 Baso # (Auto) 0.05 K/uL (0.00-0.20) 11/18/24 19:14 Immature Gran # (Auto) 0.03 K/uL (0.01-0.20) 11/18/24 19:14 PT 33.6 Seconds (9.0-12.0) H 11/18/24 19:14 INR 3.5 (0.9-1.1) H 11/18/24 19:14 Sodium 133 mmol/L (136-145) L 11/18/24 19:14 Potassium 4.4 mmol/L (3.5-5.1) 11/18/24 19:14 Chloride 94 mmol/L (98-107) L 11/18/24 19:14 Carbon Dioxide 32 mmol/L (21-32) 11/18/24 19:14 Anion Gap 7 (3-11) 11/18/24 19:14 BUN 23 mg/dl (6-23) 11/18/24 19:14 Creatinine 0.91 mg/dl (0.6-1.2) 11/18/24 19:14 Est Cr Clr Drug Dosing Not Reportable 11/18/24 19:14 eGFR 63.38 11/18/24 19:14 BUN/Creatinine Ratio 25.3 (10-20) H 11/18/24 19:14 Glucose 145 mg/dl (70-99(Fasting)) H 11/18/24 19:14 Calcium 9.2 mg/dl (8.6-10.3) 11/18/24 19:14 Total Bilirubin 0.5 mg/dl (0.2-1.0) 11/18/24 19:14 Direct Bilirubin 0.1 mg/dl (0-0.2) 11/18/24 19:14 AST 40 U/L (13-39) H 11/18/24 19:14 ALT 18 U/L (7-52) 11/18/24 19:14 Alkaline Phosphatase 94 U/L (34-104) 11/18/24 19:14 Total Protein 7.9 gm/dl (6.0-8.3) 11/18/24 19:14 Albumin 4.0 gm/dl (3.4-5.0) 11/18/24 19:14 Lipase 22 U/L (11-82) 11/18/24 19:14 Impressions Abdomen/Pelvis CT 11/18/24 19:33 Exam(s): CT ABDOMEN + PELVIS With Contrast IV Amt: 95ML OPTIRAY 320 EXAM: CT Abdomen and Pelvis With Intravenous Contrast CLINICAL HISTORY: Reason for exam: Diverticulitis, RLQ pain. TECHNIQUE: Axial computed tomography images of the abdomen and pelvis with intravenous contrast. CTDI is 56.55 mGy and DLP is 2288.71 mGy-cm. Automated exposure control was utilized for the study. A dose lowering technique was utilized adhering to the principles of ALARA. CONTRAST: Patient received 95ML OPTIRAY 320 of IV contrast COMPARISON: No relevant prior studies available. FINDINGS: Lung bases: See below. Pleural space: There is a small right basilar pleural effusion and mild dependent subsegmental atelectasis. ABDOMEN: Liver: Unremarkable. No mass. Gallbladder and bile ducts: The gallbladder has been removed. There is pneumobilia. No ductal dilation. Pancreas: Unremarkable. No mass. No ductal dilation. Spleen: Unremarkable. No splenomegaly. Adrenals: Unremarkable. No mass. Kidneys and ureters: Unremarkable. No solid mass. No hydronephrosis. Stomach and bowel: There are scattered sigmoid colon diverticula. No active diverticular inflammatory process is noted. The appendix is not definitively visualized. No pericecal inflammatory changes identified to suggest appendicitis. No free air or abscess. No obstruction. PELVIS: Appendix: See above. Bladder: Unremarkable. No mass. Reproductive: There are several small calcified uterine fibroids. ABDOMEN and PELVIS: Intraperitoneal space: See above. Bones/joints: No acute fracture. No dislocation. There is generalized decreased bony mineralization. Soft tissues: Unremarkable. Vasculature: There are advanced aortoiliac atherosclerotic calcifications. There is a mid aortic ectasia measuring up to 2.5 cm. There is localized distal abdominal aortic ectasia measuring up to 2.6 cm. There are advanced aortic arch calcifications. There are advanced coronary artery calcifications. No abdominal aortic aneurysm. Lymph nodes: Unremarkable. No enlarged lymph nodes. IMPRESSION: 1. There are advanced aortoiliac atherosclerotic calcifications. There is a mid abdominal aortic ectasia measuring up to 2.5 cm. There is localized distal abdominal aortic ectasia measuring up to 2.6 cm. 2. There are scattered sigmoid colon diverticula. No active diverticular inflammatory process is noted. 3. The appendix is not definitively visualized. No pericecal inflammatory changes identified to suggest appendicitis. 4. Small right basilar pleural effusion and right basilar subsegmental atelectasis. 5. Sigmoid colon diverticulosis. No active diverticulitis identified. 6. Multiple small calcified uterine fibroids. Electronically signed by: Albino Castillo MD 11/18/24 23:[address] 11/18/24 19:33 Exam(s): CT T SPINE IV Amt: optiray 320 95ml EXAM: CT Thoracic Spine With Intravenous Contrast CLINICAL HISTORY: Reason for exam: New back pain w/ hx of compression fx. TECHNIQUE: Axial computed tomography images of the thoracic spine with intravenous contrast. CTDI is 56.59 mGy and DLP is 2288.71 mGy-cm. Automated exposure control was utilized for the study. A dose lowering technique was utilized adhering to the principles of ALARA. CONTRAST: Patient received optiray 320 95ml of IV contrast COMPARISON: No relevant prior studies available. FINDINGS: Vertebrae: No osseous destruction identified. There is generalized decreased bony mineralization consistent with osteoporosis. If there is clinical concern for acute or subacute painful compression fracture or MRI follow-up should be considered. There is chronic appearing L1 compression fracture with greater than 50% height loss. There is a T9 chronic appearing compression fracture with greater than 90% height loss. No significant retropulsion identified. There are additional multiple chronic compression fractures involving the T10, T8, T7, T5, T4, T3 and T2 vertebral bodies. Discs/spinal canal/neural foramina: No acute findings. No spinal canal stenosis. Soft tissues: Unremarkable. Vasculature: There are aortic arch and descending thoracic aortic calcifications. There are advanced coronary artery ethacrynic calcifications noted in the right coronary artery, left anterior descending and left circumflex coronary arteries. IMPRESSION: Chronic appearing compression fractures involving the T2-T10 vertebral bodies with greatest height loss at T9. If there is clinical concern for acute or subacute painful compression fracture MRI follow-up should be considered. Electronically signed by: Albino Castillo MD 11/18/24 23:44 PM Chest X-Ray 11/18/24 21:51 Exam(s): XR CXR 1 VIEW EXAM: XR Chest, 1 View CLINICAL HISTORY: Reason for exam: SOB, hypoxia. TECHNIQUE: Frontal view of the chest. COMPARISON: 09/15/2023 FINDINGS: Lungs: There is mild lower lobe interstitial thickening. No lobar consolidation identified. No significant pleural fluid or pneumothorax notified. Pleural space: See above. Heart: There is moderate cardiomegaly. Mediastinum: Unremarkable. Normal mediastinal contour. Bones/joints: Unremarkable. No acute fracture. Vasculature: There are aortic arch calcifications. Other findings: Overall, no significant changes are noted. IMPRESSION: There is mild lower lobe interstitial thickening. No lobar consolidation identified. Electronically signed by: Albino Castillo MD 11/18/24 23:16 PM Code Status & VTE Plan VTE Prophylaxis Plan VTE Prophylaxis will be ordered: Yes
[2024-11-19] MEDS: CYCLOBENZAPRINE HCL 10 MG TAB PO PRN (03:32)
[2024-11-19] MEDS: ACETAMINOPHEN 1,000 MG/100 ML VIAL IV PRN (03:33)
[2024-11-19] MEDS: FUROSEMIDE INJ 20 MG/2 ML VIAL IV ONE (03:58)
[2024-11-19] MEDS: PANTOprazole 40 MG TAB PO SCH (06:17)
[2024-11-19] MEDS: LEVOTHYROXINE SODIUM 137 MCG TABLET PO SCH (06:17)
[2024-11-19 06:49] LABS: Appearance Urine Slightly Cloudy (Clear); Bilirubin Urine Negative (Negative); Blood Urine 1+ (Negative); Color Urine Yellow; Glucose Urine UA Negative (Negative); Ketones Urine Negative (Negative); Leukocyte Esterase Urine 1+ (Negative); Nitrite Urine Negative (Negative); Protein Urine Negative (Negative); Specific Gravity Urine 1.025 (1.000-1.030); Urobilinogen Urine Negative (Negative)
[2024-11-19 07:03] LABS: Bacteria Urine 4+ (None Seen)
[2024-11-19 07:16] VITALS: BP 148/72; RESP 19; TEMP 98.1; O2SAT 95
[2024-11-19 08:03] LABS: Basophils # (auto) 0.03 K/uL (0.00-0.20); Basophils % (auto) 0.4 %; Eosinophils # (auto) 0.07 K/uL (0.00-0.50); Eosinophils % (auto) 0.9 %; Hemoglobin 11.3 g/dl (12.0-16.0); Immature Granulocytes # (auto) 0.02 K/uL (0.01-0.20); Immature Granulocytes % (auto) 0.2 %; Lymphocytes # (auto) 1.44 K/uL (1.20-3.40); Lymphocytes % (auto) 17.6 %; Mean Corpuscular Hemoglobin 27.2 pg (25.0-34.0); Mean Corpuscular Hgb Conc 30.5 g/dL (32.0-36.0); Mean Corpuscular Volume 89.2 fL (80.0-100.0); Mean Platelet Volume 10.5 fL (9.4-12.4); Monocytes # (auto) 0.98 K/uL (0.11-0.59); Neutrophils # (auto) 5.65 K/uL (1.40-6.50); Neutrophils % (auto) 68.9 %; Platelet Count 196 K/uL (130-400); RDW Coefficient of Variation 16.2 % (11.5-14.5); RDW Standard Deviation 52.2 fL (36.4-46.3); Red Blood Count 4.15 M/uL (4.20-5.40); White Blood Count 8.19 K/ul (4.8-10.8)
[2024-11-19 08:18] LABS: BUN Creatinine Ratio 28.6 (10-20); Calcium 8.6 mg/dl (8.6-10.3); Creatinine Clr Calc Pharmacy 58.2 ml/min; Potassium 4.4 mmol/L (3.5-5.1)
[2024-11-19] MEDS ORDERED: traMADol HCL 50 MG TABLET PO PRN (08:22)
--- NOTE | 2024-11-19 08:40 | Pain Management Consultation ---
Date of Consultation November 19, 2024 Assessment & Plan (1) Fracture of thoracic vertebra, compression: (2) Intractable back pain: (3) Compression of lumbar vertebra: Encounter type: initial encounter Lumbar vertebra fracture level: L2 Qualified Code(s): S32.020A - Wedge compression fracture of second lumbar vertebra, initial encounter for closed fracture (4) Acute and chronic respiratory failure with hypoxia: (5) Constipation due to opioid therapy: (6) Chronic anticoagulation: Plan 1. Patient with acute on chronic back pain-mid thoracic location with evidence of multiple thoracic compression fractures subacute versus chronic involving T2, T3, T4, T5, T7, T8, T10 and chronic at T9 and L1 comparable to prior imaging studies. There appears to be no obvious acute status to the compression fractures although there have been no recent imaging studies for comparison purposes. There is no role for interventional treatment. She indicates adequate pain control throughout most of her day with chronic use of MS Contin at 15 mg every 12 hours. Would recommend maintaining this medication without change. Due to her complaints of breakthrough pain in the mid afternoon will trial tramadol 50 mg every 6 hours for breakthrough pain. We discussed potential side effects versus benefits of this medication with regards to her chronic hypoxia and she verbalized understanding. Monitor response and adjust accordingly. 2. Recommend application of Lidoderm patch to the mid thoracic location at site of maximal pain-orders written 3. Will recommend initiating MiraLAX on a daily basis and attempt to combat her chronic constipation which is potentially opioid-induced but also multifactorial given her limited fluid intake "purposeful to manage CHF" and limited activity level. Continue Colace 100 mg twice daily. Potentially consider Movantik with any persisting difficulties with constipation. 4. Patient had previously trialed bracing with minimal benefit and difficulty using the brace-would defer further use at this time 5. Patient indicates she is eager to return to home-would recommend trialing tramadol while inpatient prior to discharge. Pain service will sign off on patient at this time. Thank you for allowing us to participate in the care of Mrs. Ayers. History of Present Illness Reason for Consultation: Intractable mid-thoracic back pain Requesting Physician: Marciano Elliott MD Attending Physician: Timbo Arambula MD History of Present Illness Mrs. Ayers is an 79-year-old white female who was admitted with complaints of acute on chronic thoracic back pain. The patient has past medical history significant for chronic respiratory failure with hypoxia on chronic 4 L 24 hours/day, postsurgical hypothyroidism, hyperlipidemia, allergic rhinitis, chronic constipation, atherosclerotic cardiovascular disease, asymptomatic carotid stenosis, history of carotid endarterectomy, pulmonary hypertension, hypertension, atrial fibrillation, chronic diastolic CHF, GERD, osteoporosis, chronic right knee pain, anxiety and history of lung cancer who lives alone in her own home and ambulates with a walker. Patient reports history of thoracic and lumbar compression fractures in her past history and denies any recent falls or injuries. She has been utilizing MS Contin 15 mg every 12 hours chronically for treatment of her back pain. She reports this medication typically treats her pain well although she has been experiencing some increased difficulties with pain in the afternoon timeframe. Patient indicates that she tolerates MS Contin without notable side effects. There is no interference of sleep quality or quantity per her report. Patient reports that Tylenol has been ineffective at treating her breakthrough pain. She does not have any other medications utilized for breakthrough pain patient does take chronic Coumadin and is unable to utilize NSAIDs. Patient denies any radicular pattern to her pain in the abdominal or chest wall location. She denies increased pain with deep breathing, coughing or sneezing. Her pain is typically exacerbated with movement. Her pain is minimal in the sitting or supine position rating her pain a 2/10 at its best and 8/10 at its worst. Patient reports most recent bowel movement was 3-4 days ago. She denies abdominal pain or fullness. She does have chronic constipation and does not take anything regularly at home. The patient denies any low back pain or lumbar radicular pattern to her pain. She denies bowel/bladder incontinence or saddle anesthesia. Patient has no further constitutional complaints. Plan of care discussed with Dr. Sage. Pain Assessment Full Body Front + Back: 2 1. Axial mid thoracic location Pain scale - at its best (0-10): 2 Pain scale - at its worst (0-10): 8 Allergies Allergy/AdvReac Type Severity Reaction Status Date / Time No Known Allergies Allergy Verified 11/19/24 00:31 Home Medications Medication Instructions Recorded Confirmed Type alprazolam 1 mg tablet 1 mg PO BID PRN Anxiety 01/15/20 11/19/24 History amlodipine 2.5 mg tablet 2.5 mg PO QAM 01/15/20 11/19/24 History aspirin 81 mg tablet,delayed 81 mg PO DAILY 01/15/20 11/19/24 History release cyclobenzaprine 10 mg tablet 10 mg PO DAILY PRN Muscle Spasm 01/15/20 11/19/24 History docusate sodium 100 mg tablet 100 mg PO BID 01/15/20 11/19/24 History esomeprazole magnesium 20 mg 20 mg PO DAILYBB 01/15/20 11/19/24 History capsule,delayed release lisinopril 20 mg tablet 10 mg PO QAM 01/15/20 11/19/24 History metoprolol succinate 25 mg 12.5 mg PO QAM 01/15/20 11/19/24 History tablet,extended release 24 hr morphine 15 mg tablet,extended 15 mg PO AMPM 01/15/20 11/19/24 History release albuterol sulfate 90 mcg/actuation 2 puffs inhalation Q6H PRN 01/19/20 11/19/24 Rx aerosol inhaler shortness of breath or wheezing #6.7 grams meclizine 25 mg tablet 25 mg PO TID PRN dizziness #90 tabs 01/19/20 11/19/24 Rx cholecalciferol (vitamin D3) 25 50 mcg PO DAILY 02/13/20 11/19/24 History mcg (1,000 unit) tablet melatonin 3 mg tablet 3 mg PO HS 06/05/21 11/19/24 History multivitamin 1 tab PO DAILY 06/05/21 11/19/24 History polyethylene glycol 3350 17 17 g PO DAILY PRN Constipation 06/05/21 11/19/24 History gram/dose oral powder (Miralax) sennosides 8.6 mg tablet (senna) 8.6 mg PO HS PRN Constipation 06/05/21 11/19/24 History Oxygen Home #1 ea 06/09/21 09/15/23 Rx warfarin 5 mg tablet 2.5 mg PO 3XWK 07/30/22 11/19/24 History warfarin 5 mg tablet 5 mg PO 4XWK 07/30/22 11/19/24 History alendronate 70 mg tablet 70 mg PO WK 08/07/23 11/19/24 History furosemide 20 mg tablet 20 mg PO DAILY 08/07/23 11/19/24 History omega-3 fatty acids 1,000 mg 1,000 mg PO DAILY 08/07/23 11/19/24 History capsule rosuvastatin 10 mg tablet 10 mg PO QAM 08/07/23 11/19/24 History sertraline 25 mg tablet 25 mg PO QAM 08/07/23 11/19/24 History potassium chloride 10 mEq 10 meq PO DAILY #30 tabs 08/09/23 11/19/24 Rx tablet,extended release(part/cryst) ipratropium 0.5 mg-albuterol 3 mg 3 ml inhalation Q4 PRN Wheezing 09/15/23 11/19/24 History (2.5 mg base)/3 mL nebulization soln Lactobacillus comb 1 cap PO TIDM 11/19/24 11/19/24 History no.7-[id number] 300 million cell-250 mg capsule (Probiotic and Acidophilus) diclofenac sodium 1 % topical gel 4 g topical BID PRN Pain 11/19/24 11/19/24 History fluticasone propionate 50 2 spray intranasal DAILY 11/19/24 11/19/24 History mcg/actuation nasal spray,suspension levothyroxine 137 mcg tablet 137 mcg PO DAILYBB 11/19/24 11/19/24 History magnesium hydroxide 400 mg/5 mL 30 - 60 ml PO DAILY PRN Gi Upset 11/19/24 11/19/24 History oral suspension (Milk of Magnesia) Pain History Pain Intensity Pain scale - at its best (0-10): 2 Pain scale - at its worst (0-10): 8 Patient History Medical History Obesity Iron deficiency anemia History of lung cancer Chronic anticoagulation Chronic pain GERD (gastroesophageal reflux disease) Chronic atrial fibrillation Hypertension Dyslipidemia Post-surgical hypothyroidism Surgical History History of carotid endarterectomy Right Hx of cholecystectomy H/O thyroidectomy H/O pneumonectomy Right upper lobe secondary to lung cancer Family History Mother Stroke Hypertension Uterine cancer Father Heart disease Cardiac disorder Aunt Cardiac disorder Brother Diabetes Sister Diabetes Grandmother (Paternal) Breast cancer Social History Smoking Status: Former smoker Tobacco Type: Cigarettes Second Hand Exposure: No; Do You Dip or Chew Tobacco: No; Hx Alcohol Use: No Hx Substance Use: No Preferred Language: Telugu 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 Ability: Effective 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 Speech and thought process appropriate. Mood and affect appropriate. Cognition intact. Patient is somewhat hard of hearing but communication was effective. Head: Normocephalic and atraumatic. ENT: No evidence of nasal or oral mucosal lesions. Mucous membranes are moist. Eyes: Pupils equal round reactive to light. Neck: Supple without adenopathy and full range of motion. Chest: Nontender to palpation of the costosternal junction. Abdomen: Soft and nondistended. No organomegaly. Bowel sounds active. No abdominal fullness appreciated. Nontender to palpation. Back/spine: Patient was able to sit up for physical exam without obvious discomfort. She is nontender over the midline of the thoracic spine to palpation. There is no thoracic facet joint tenderness. She is nontender along the posterior or lateral chest wall palpation. She is nontender with AP and lateral compression. She is minimally tender to percussion over the mid thoracic spine. There is no appreciable myofascial spasm or myoneural trigger points. Lower extremities: Strength was 5/5 with dorsi and plantarflexion. Sensation intact. Trace edema at the ankle and pretibial region. Neurologic: Cranial nerves grossly intact. Ambulatory function not witnessed. Results (Pain Clinic) Diagnostic Review CT Findings: [place], [place] [phone] CT Scan Report Patient: NIKKIE AYERS Admit Date: 11/18/24 MR#: [id number] Address1: [address] [place] [address] Acct ID:[id number] Address2: Date: 1945 [facility] Zip: [place] [address] Age: 79 Location: ED Sex: F Room/Bed: Att Phy: Diagnosis: BACK PAIN, ABD PAIN, Nadira Phy: Danelle Pierre MD Service Date: 11/18/24 [facility] Phy: Interpreting Phy: Albino Castillo MDAdmit Phy: Ordering Phy: Carolyn Browne MD cc: ~ Exam(s): CT T SPINE IV Amt: optiray 320 95ml EXAM: CT Thoracic Spine With Intravenous Contrast CLINICAL HISTORY: Reason for exam: New back pain w/ hx of compression fx. TECHNIQUE: Axial computed tomography images of the thoracic spine with intravenous contrast. CTDI is 56.59 mGy and DLP is 2288.71 mGy-cm. Automated exposure control was utilized for the study. A dose lowering technique was utilized adhering to the principles of ALARA. CONTRAST: Patient received optiray 320 95ml of IV contrast COMPARISON: No relevant prior studies available. FINDINGS: Vertebrae: No osseous destruction identified. There is generalized decreased bony mineralization consistent with osteoporosis. If there is clinical concern for acute or subacute painful compression fracture or MRI follow-up should be considered. There is chronic appearing L1 compression fracture with greater than 50% height loss. There is a T9 chronic appearing compression fracture with greater than 90% height loss. No significant retropulsion identified. There are additional multiple chronic compression fractures involving the T10, T8, T7, T5, T4, T3 and T2 vertebral bodies. Discs/spinal canal/neural foramina: No acute findings. No spinal canal stenosis. Soft tissues: Unremarkable. Vasculature: There are aortic arch and descending thoracic aortic calcifications. There are advanced coronary artery ethacrynic calcifications noted in the right coronary artery, left anterior descending and left circumflex coronary arteries. IMPRESSION: Chronic appearing compression fractures involving the T2-T10 vertebral bodies with greatest height loss at T9. If there is clinical concern for acute or subacute painful compression fracture MRI follow-up should be considered. Electronically signed by: Albino Castillo MD 11/18/24 23:44 PM Dictated: 11/18/242343 Transcribed: 11/18/242343 [phone] X[facility] Report Patient: NIKKIE AYERS Admit Date: 11/18/24 MR#: [id number] Address1: [address] [place] [address] Acct ID:[id number] Address2: Date: 1945 [facility] Zip: [place] [address] Age: 79 Location: ED Sex: F Room/Bed: Att Phy: Diagnosis: BACK PAIN, ABD PAIN, Nadira Phy: Danelle Pierre MD Service Date: 11/18/24 [facility] Phy: Interpreting Phy: Albino Castillo MDAdmit Phy: Ordering Phy: Carolyn Browne MD cc: ~ Exam(s): XR CXR 1 VIEW EXAM: XR Chest, 1 View CLINICAL HISTORY: Reason for exam: SOB, hypoxia. TECHNIQUE: Frontal view of the chest. COMPARISON: 09/15/2023 FINDINGS: Lungs: There is mild lower lobe interstitial thickening. No lobar consolidation identified. No significant pleural fluid or pneumothorax notified. Pleural space: See above. Heart: There is moderate cardiomegaly. Mediastinum: Unremarkable. Normal mediastinal contour. Bones/joints: Unremarkable. No acute fracture. Vasculature: There are aortic arch calcifications. Other findings: Overall, no significant changes are noted. IMPRESSION: There is mild lower lobe interstitial thickening. No lobar consolidation identified. Electronically signed by: Albino Castillo MD 11/18/24 23:16 PM Dictated: 11/18/24 2316 Transcribed: 11/18/24 2316 Previous Records Review Previous Records: personally reviewed by me
--- NOTE | 2024-11-19 09:02 | Discharge Summary ---
Discharge Summary Date of Service November 19, 2024 Principal Dx & Hospital Course #1 = Principal Diagnosis (1) Chronic anticoagulation: (2) Acute hypoxemic respiratory failure: (3) Intractable back pain: (4) COPD (chronic obstructive pulmonary disease): (5) Compression of lumbar vertebra: Notes For Next Care Provider Medication Changes From Visit Lidoderm 5% patch to be used for 12 hours, to be applied on the mid back Admission HPI Per Admitting Provider 79-year-old female with past medical history significant for chronic respiratory failure with hypoxia on 4 L oxygen , postsurgical hypothyroidism, hyperlipidemia, allergic rhinitis, arthrosclerotic cardiovascular disease, asymptomatic carotid stenosis, history of carotid endarterectomy, pulmonary hypertension, hypertension, chronic atrial fibrillation, chronic diastolic CHF, slow transit constipation, GERD, osteoporosis, chronic pain of right knee, iron deficiency anemia, anxiety, history of lung cancer, who lives at home alone ambulates with a walker, son and daughter lives close by was brought in because of severe back pain. Patient complaining of back pain for last 3 to 4 days but it became severe today so was brought to the hospital. In the ER when patient was getting CAT scans she became hypoxic and purple. There has been a report that patient may have been on additional oxygen of 6 L instead of 4 during this visit but for this patient was given a dose of Lasix, I reviewed the chest x-ray myself I am not impressed with the x-ray showing any evidence of volume overload, anyway this morning her oxygen requirement seems to have been back on 4 L. Patient was seen by pain management, she does have extensive compression fractures from T2-T10-and apparently based on their conversation, up she was also recommended to go on additional Lidoderm patch to be applied in the mid back on top of her MS Contin which she takes usually. She has not done well with bracing in the past and so that is not an option. Patient will be discharged with addition of laxative. Updated Medication List Medication Instructions Recorded Confirmed Type alprazolam 1 mg tablet 1 mg PO BID PRN Anxiety 01/15/20 11/19/24 History amlodipine 2.5 mg tablet 2.5 mg PO QAM 01/15/20 11/19/24 History aspirin 81 mg tablet,delayed 81 mg PO DAILY 01/15/20 11/19/24 History release cyclobenzaprine 10 mg tablet 10 mg PO DAILY PRN Muscle Spasm 01/15/20 11/19/24 History docusate sodium 100 mg tablet 100 mg PO BID 01/15/20 11/19/24 History esomeprazole magnesium 20 mg 20 mg PO DAILYBB 01/15/20 11/19/24 History capsule,delayed release lisinopril 20 mg tablet 10 mg PO QAM 01/15/20 11/19/24 History metoprolol succinate 25 mg 12.5 mg PO QAM 01/15/20 11/19/24 History tablet,extended release 24 hr morphine 15 mg tablet,extended 15 mg PO AMPM 01/15/20 11/19/24 History release albuterol sulfate 90 mcg/actuation 2 puffs inhalation Q6H PRN 01/19/20 11/19/24 Rx aerosol inhaler shortness of breath or wheezing #6.7 grams meclizine 25 mg tablet 25 mg PO TID PRN dizziness #90 tabs 01/19/20 11/19/24 Rx cholecalciferol (vitamin D3) 25 50 mcg PO DAILY 02/13/20 11/19/24 History mcg (1,000 unit) tablet melatonin 3 mg tablet 3 mg PO HS 06/05/21 11/19/24 History multivitamin 1 tab PO DAILY 06/05/21 11/19/24 History polyethylene glycol 3350 17 17 g PO DAILY PRN Constipation 06/05/21 11/19/24 History gram/dose oral powder (Miralax) sennosides 8.6 mg tablet (senna) 8.6 mg PO HS PRN Constipation 06/05/21 11/19/24 History Oxygen Home #1 ea 06/09/21 09/15/23 Rx warfarin 5 mg tablet 2.5 mg PO 3XWK 07/30/22 11/19/24 History warfarin 5 mg tablet 5 mg PO 4XWK 07/30/22 11/19/24 History alendronate 70 mg tablet 70 mg PO WK 08/07/23 11/19/24 History furosemide 20 mg tablet 20 mg PO DAILY 08/07/23 11/19/24 History omega-3 fatty acids 1,000 mg 1,000 mg PO DAILY 08/07/23 11/19/24 History capsule rosuvastatin 10 mg tablet 10 mg PO QAM 08/07/23 11/19/24 History sertraline 25 mg tablet 25 mg PO QAM 08/07/23 11/19/24 History potassium chloride 10 mEq 10 meq PO DAILY #30 tabs 08/09/23 11/19/24 Rx tablet,extended release(part/cryst) ipratropium 0.5 mg-albuterol 3 mg 3 ml inhalation Q4 PRN Wheezing 09/15/23 11/19/24 History (2.5 mg base)/3 mL nebulization soln Lactobacillus comb 1 cap PO TIDM 11/19/24 11/19/24 History no.8-[id number] 300 million cell-250 mg capsule (Probiotic and Acidophilus) diclofenac sodium 1 % topical gel 4 g topical BID PRN Pain 11/19/24 11/19/24 History fluticasone propionate 50 2 spray intranasal DAILY 11/19/24 11/19/24 History mcg/actuation nasal spray,suspension levothyroxine 137 mcg tablet 137 mcg PO DAILYBB 11/19/24 11/19/24 History lidocaine 5 % topical patch See Rx Instructions topical 11/19/24 Rx (Lidocan IV) .COMPLEX #15 ea magnesium hydroxide 400 mg/5 mL 30 - 60 ml PO DAILY PRN Gi Upset 11/19/24 11/19/24 History oral suspension (Milk of Magnesia) Hospital Stay Data Consultations 11/18/24 22:49 ED Decision to Admit Stat 11/19/24 08:00 Consult Pain Management Routine Diagnostic Imagining Performed 11/18/24 19:33 CT abd pelvis IV con only Stat CT thoracic spine w con Stat Pending Results Patient Have Any Pending Studies at Discharge: No Discharge Instructions Given to Patient (Per Discharging Provider) Patient to resume previous home pain regimen along with Lidoderm patch Total Time Total Time Spent Total Time Spent (In Minutes): More than 30 minutes
[2024-11-19] MEDS: LIDOCAINE 5% 1 PATCH TD SCH (09:19)
[2024-11-19] MEDS: POLYETHYLENE (MIRALAX) 17 GM PACK PO SCH (09:20)
[2024-11-19] MEDS: ADVANCED PROBIOTIC 625 MG CAPSULE PO SCH (09:21)
[2024-11-19] MEDS: ROSUVASTATIN CALCIUM 10 MG TAB PO SCH (09:21)
[2024-11-19] MEDS: METOPROLOL SUCC 25MG EXT REL TAB PO SCH (09:21)
[2024-11-19] MEDS: CHOLECALCIFEROL 25 MCG (1000 UNITS) TAB PO SCH (09:21)
[2024-11-19] MEDS: ASPIRIN 81 MG ECTAB PO SCH (09:22)
[2024-11-19] MEDS: amLODIPine BESYLATE 5 MG TAB PO SCH (09:22)
[2024-11-19] MEDS: SERTRALINE HCL 50 MG TABLET PO SCH (09:22)
[2024-11-19] MEDS: FUROSEMIDE 20 MG TAB PO SCH (09:22)
[2024-11-19] MEDS: lisinopril 10 MG TAB PO SCH (09:22)
[2024-11-19] MEDS: MULTIVITAMIN TAB PO SCH (09:22)
[2024-11-19] MEDS: INFLUENZA VACC TS2024-25(65y+)/PF (IIV3) 0.5mL Syr IM ONE (09:23)
[2024-11-19] MEDS: MoRPHine SULFATE CR 15 MG TABCR PO SCH (09:23)
[2024-11-19] MEDS: POTASSIUM CHLORIDE 10 MEQ TABCR PO SCH (09:23)
[2024-11-19] MEDS: FLUTICASONE PROPIONATE NA SPR 16 GM BTL SCH (09:23)
[2024-11-19] MEDS: DOCUSATE SODIUM 100 MG CAP PO SCH (09:26)
[2024-11-19 11:01] VITALS: PULSE 75
[2024-11-19] MEDS ORDERED: WARFARIN SOD 5 MG TAB PO SCH (16:00)
[2024-11-19] MEDS ORDERED: MELATONIN 3 MG TAB PO SCH (21:00)
--- NOTE | 2024-11-20 11:23 | Coding Query ---
CODING QUERY To promote full compliance with coding requirements relating to patient care, provider participation is requested in all cases of death surveys coder uncertainty. Please assist us with the question(s) below: Clinical Indicators: History and Physical: * Thoracic spine CAT scan shows chronic compression fractures involving T2-T10 with greatest height loss at T9 * 79-year-old female with past medical history significant for...osteoporosis Pain Management Consult 11/19/2024: * (1) Fracture of thoracic vertebra, compression: * (3) Compression of lumbar vertebra: * Patient with acute on chronic back pain-mid thoracic location with evidence of multiple thoracic compression fractures subacute versus chronic involving T2, T3, T4, T5, T7, T8, T10 and chronic at T9 and L1 comparable to prior imaging studies. * ...chronic use of MS Contin at 15 mg every 12 hours. * ...will trial tramadol 50 mg every 6 hours for breakthrough pain. Coding Question(s): Are you able to further specify the thoracic and lumbar compression fractures as: ( ) Collapsed vertebrae, not elsewhere classified (non-traumatic) ( ) Age-related osteoporosis with current pathological fracture, vertebra(e ( ) Traumatic fracture of vertebrae ( ) Other (please specify) (X ) Unable to determine. Thank you Lea Klein Principal Diagnosis: "that condition established after study, to be chiefly responsible for occasioning the admission of the patient to the hospital for care." Co-Existing Principal Diagnosis: "when two or more diagnoses equally meet the criteria for principal diagnosis as determined by the circumstances of admission, diagnostic work up, and/or therapy provided, and the Alphabetic Index, Tabular List, or another coding guideline does not provide sequencing direction, any one of the diagnoses may be sequenced first." "When the physician has documented what appears to be a current diagnosis in the body of the record, but has not included the diagnosis in the final diagnostic statement, the physician should be asked whether the diagnosis should be added." (Source Coding Clinic 2 QTR90. p3-4) [facility]
[2024-11-20] MEDS ORDERED: WARFARIN SOD 2.5 MG TAB PO SCH (16:00)
== END 2024-11-19 11:24 | disposition home or self-care (01) | DRG 551 ==
LOC: ED 18:51 → 2S 11-19 01:03